=== PATIENT | male | born 1955 | race Caucasian/White ===

== ENCOUNTER 2019-09-05 06:40 | Day surgery (SDC) | payer MEDICARE, MEDICAID ==
[2019-09-05] MEDS ORDERED: Lactated Ringers 1,000 ML IV SCH (07:00)
[2019-09-05] MEDS ORDERED: Propofol 200 MG/20 ML SDV ONE (07:21)
[2019-09-05] MEDS ORDERED: fentaNYL 100 MCG/2 ML SDV ONE (07:21)
[2019-09-05] MEDS ORDERED: Midazolam 1 MG/ML 2 ML SDV ONE (07:21)
[2019-09-05 09:04] VITALS: BP 116/84; PULSE 52
--- NOTE | 2019-09-05 15:05 | OR ---
DATE OF PROCEDURE: 09/05/2019 SURGEON: Gaurav Hicks MD PREOPERATIVE DIAGNOSIS: History of colon polyps. POSTOPERATIVE DIAGNOSES: Small hepatic flexure and transverse colon polyps, history of colon polyps. PROCEDURE: Colonoscopy to the cecum with biopsy resection of 2 small colon polyps. ANESTHESIA: IV anesthesia with monitored anesthesia care. INDICATION: This is a 64-year-old white male who is referred for a colonoscopy because of a history of colon polyps. His last colonoscopic exam done 3 years ago was clear. I counseled him for the procedure including risks and alternatives and he gave his informed consent to proceed. DESCRIPTION OF PROCEDURE: The patient was placed in the left lateral decubitus position. IV anesthesia was administered by the Anesthesia Service. Time-out was held. A rectal exam was performed, which was unremarkable. The flexible video Olympus colonoscope was introduced through his anus, up his rectum, out his colon all way to the cecum. En route, at the hepatic flexure, we saw a small polyp which was removed with a couple bites of biopsy forceps. Once the cecum was reached, the scope was slowly withdrawn examining the mucosa throughout. One additional small polyp was seen in the transverse colon which was removed with the biopsy forceps. The scope was withdrawn further with no other lesions noted. The scope was retroflexed in the rectum with the distal rectum appearing unremarkable. The scope was straightened and removed. He tolerated the procedure well. Gaurav Hicks MD /[id number]
== END 2019-09-05 09:12 | disposition home or self-care (01) ==
LOC: JP.SDS 06:40
PROVIDERS: ATTEND Surgery
DX: Z12.11 Encounter for screening for malignant neoplasm of colon (principal); D12.3 Benign neoplasm of transverse colon; I10 Essential (primary) hypertension; E78.00 Pure hypercholesterolemia, unspecified; K21.9 Gastro-esophageal reflux disease without esophagitis; Z86.010 Personal history of colon polyps
CPT/HCPCS: 45380; J2250; J2704; J3010; J7120; 88305

== ENCOUNTER 2021-09-18 21:12 | Inpatient (IN) | payer MEDICARE, MEDICAID ==
--- NOTE | 2021-09-19 00:30 | EDM.PDOC ---
ED HPI GENERAL MEDICAL PROBLEM - General Chief Complaint: Respiratory Problem Stated Complaint: COVID POSITIVE, EXHAUSTION Time Seen by Provider: 09/18/21 21:19 Source of Information: Reports: Patient History Limitations: Reports: No Limitations - History of Present Illness INITIAL COMMENTS - FREE TEXT/NARRATIVE: Jameson is a 66-year-old male presenting to the ED for increasing shortness of breath, hypoxia and cough. The patient tested positive for COVID-19 7 days ago. He initially had onset of symptoms after visiting his mother in [place] a week before that. Apparently she had similar symptoms during their visit. The patient has not undergone vaccination but has no significant underlying medical conditions except for hypertension. The patient does not smoke. He has had a low-grade fever at home. This week he bought a home oximetry unit and was noting that his oximetry was below 80% at times. The patient does not normally use oxygen at home. - Related Data Allergies Allergy/AdvReac Type Severity Reaction Status Date / Time No Known Allergies Allergy Verified 09/18/21 21:39 Home Meds: Home Meds Albuterol Sulfate [Proair Hfa] 2 puff INH QID PRN 10/07/14 [History] Omeprazole Magnesium [Prilosec Otc] 20 mg PO DAILY 01/02/15 [History] Doxazosin Mesylate [Cardura] 4 mg PO BEDTIME 09/04/19 [History] Metoprolol Succinate [Toprol XL] 25 mg PO DAILY 09/04/19 [History] Past Medical History HEENT History: Reports: Impaired Vision Cardiovascular History: Reports: High Cholesterol, Hypertension Respiratory History: Reports: Asthma Gastrointestinal History: Reports: Colon Polyp, GERD, Hiatal Hernia Genitourinary History: Reports: BPH Musculoskeletal History: Reports: Back Pain, Chronic, Fracture, Osteoarthritis Neurological History: Reports: Vertigo - Infectious Disease History Infectious Disease History: Reports: Chicken Pox, Measles, Mumps, Novel Coronavirus - Past Surgical History HEENT Surgical History: Reports: None Cardiovascular Surgical History: Reports: None Respiratory Surgical History: Reports: None GI Surgical History: Reports: Colonoscopy Male Surgical History: Reports: None Neurological Surgical History: Reports: None Musculoskeletal Surgical History: Reports: None Social & Family History - Family History Family Medical History: No Pertinent Family History - Tobacco Use Tobacco Use Status *Q: Never Tobacco User - Caffeine Use Caffeine Use: Reports: Coffee - Recreational Drug Use Recreational Drug Use: No ED ROS GENERAL - Review of Systems Review Of Systems: See Below Constitutional: Reports: Malaise, Weakness, Decreased Appetite HEENT: Reports: Rhinitis Respiratory: Reports: Shortness of Breath, Cough. Denies: Sputum Cardiovascular: Reports: Chest Pain (Chest heaviness), Blood Pressure Problem (History of hypertension) Endocrine: Reports: Fatigue GI/Abdominal: Reports: Decreased Appetite, Nausea. Denies: Vomiting : Reports: No Symptoms Musculoskeletal: Reports: Back Pain (Chronic low back pain), Joint Pain, Muscle Pain (Muscle aches) Skin: Reports: No Symptoms Neurological: Reports: No Symptoms Psychiatric: Reports: Anxiety Hematologic/Lymphatic: Reports: No Symptoms Immunologic: Reports: No Symptoms ED EXAM, GENERAL - Physical Exam Exam: See Below Exam Limited By: No Limitations General Appearance: Alert, No Apparent Distress, Anxious Eye Exam: Bilateral Eye: EOMI, PERRL Nose: Nasal Swelling, Clear Rhinorrhea Throat/Mouth: Normal Inspection, Normal Oropharynx, Normal Voice, No Airway Compromise Head: Atraumatic, Normocephalic Neck: Normal Inspection, Supple, Non-Tender. No: Lymphadenopathy (R), Lymphadenopathy (L) Respiratory/Chest: No Respiratory Distress, No Accessory Muscle Use, Rhonchi (Scattered rhonchi in the bases bilaterally) Cardiovascular: Normal Peripheral Pulses, Regular Rate, Rhythm, No Murmur Peripheral Pulses: 2+: Radial (L), Radial (R) GI/Abdominal: Normal Bowel Sounds, Soft, Non-Tender Back Exam: Muscle Spasm (Low back paraspinal muscle spasm), Paraspinal Tenderness Extremities: Normal Inspection, Normal Range of Motion Neurological: Alert, Oriented, Normal Cognition, No Motor/Sensory Deficits Psychiatric: Anxious Skin Exam: Warm, Dry Course - Vital Signs Last Recorded V/S: Last Vital Signs Temp 36.6 C 09/21/21 16:00 Pulse 76 09/21/21 16:00 Resp 26 H 09/21/21 16:00 BP 137/71 09/21/21 16:00 Pulse Ox 96 09/21/21 16:00 - Orders/Labs/Meds Orders: Medication Orders Acetaminophen (Acetaminophen 325 Mg Tab) 650 mg PO Q4H PRN PRN Reason: Pain (Mild 1-3)/fever Last Admin: 09/21/21 16:00 Dose: 650 mg Documented by: MATILDE Albuterol (Albuterol 8 Gm Inhaler) 0 gm INH QID PRN PRN Reason: Shortness of Breath Ascorbic Acid (Ascorbic Acid 500 Mg Tab) 500 mg PO DAILY [facility] Last Admin: 09/21/21 12:41 Dose: 500 mg Documented by: MATILDE Baricitinib (Baricitinib 2 Mg Tab) 4 mg PO Q24H [facility] Stop: 10/02/21 16:01 Last Admin: 09/21/21 15:49 Dose: 4 mg Documented by: Admin: 09/20/21 15:38 Dose: 4 mg Documented by: Admin: 09/19/21 17:22 Dose: 4 mg Documented by: REINIER Cholecalciferol (Cholecalciferol (Vitamin D3) 25 Mcg Tab) 25 mcg PO DAILY [facility] Last Admin: 09/21/21 12:41 Dose: 25 mcg Documented by: MATILDE Dexamethasone (Dexamethasone 4 Mg/Ml Sdv) 6 mg IVPUSH Q24H [facility] Stop: 09/27/21 18:01 Last Admin: 09/21/21 17:09 Dose: 6 mg Documented by: Admin: 09/20/21 17:16 Dose: 6 mg Documented by: Admin: 09/19/21 17:23 Dose: 6 mg Documented by: REINIER Doxazosin Mesylate (Doxazosin 4 Mg Tab) 4 mg PO BEDTIME [facility] Last Admin: 09/20/21 21:00 Dose: 4 mg Documented by: Admin: 09/19/21 21:27 Dose: 4 mg Documented by: MARILYN Enoxaparin Sodium (Enoxaparin 40 Mg/0.4 Ml Syringe) 40 mg SUBCUT Q24H [facility] Last Admin: 09/21/21 15:49 Dose: 40 mg Documented by: Admin: 09/20/21 15:37 Dose: 40 mg Documented by: JESSICA Ceftriaxone Sodium 1 gm/ (Sodium Chloride) 50 mls @ 100 mls/hr IV Q24H [facility] Last Admin: 09/21/21 14:24 Dose: 100 mls/hr Documented by: Admin: 09/20/21 15:28 Dose: 100 mls/hr Documented by: Admin: 09/19/21 16:27 Dose: 100 mls/hr Documented by: REINIER Doxycycline Hyclate 100 mg/ (Sodium Chloride) 100 mls @ 100 mls/hr IV Q12H [facility] Last Admin: 09/21/21 15:48 Dose: 100 mls/hr Documented by: Admin: 09/21/21 04:26 Dose: 100 mls/hr Documented by: Admin: 09/20/21 16:36 Dose: 100 mls/hr Documented by: Admin: 09/20/21 04:11 Dose: 100 mls/hr Documented by: Admin: 09/19/21 17:25 Dose: 100 mls/hr Documented by: REINIER Remdesivir 100 mg/ Sodium (Chloride) 100 mls @ 100 mls/hr IV Q24H [facility] Stop: 09/22/21 20:59 Last Admin: 09/20/21 19:47 Dose: 100 mls/hr Documented by: Admin: 09/19/21 20:06 Dose: 100 mls/hr Documented by: JARON Metoprolol Succinate (Metoprolol Succinate 25 Mg Tab.Er) 25 mg PO DAILY [facility] Last Admin: 09/21/21 08:13 Dose: 25 mg Documented by: Admin: 09/20/21 08:50 Dose: 25 mg Documented by: JESSICA Multivitamins/Minerals (Multivitamins With Iron/Calcium/Folic Acid/Minerals Tab) 1 tab PO DAILY [facility] Last Admin: 09/21/21 12:41 Dose: 1 tab Documented by: MATILDE Ondansetron HCl (Ondansetron 4 Mg/2 Ml Sdv) 4 mg IV Q4H PRN PRN Reason: Nausea/Vomiting Pantoprazole Sodium (Pantoprazole 40 Mg Tab.Cr) 40 mg PO ACBREAKFAST [facility] Last Admin: 09/21/21 08:13 Dose: 40 mg Documented by: Admin: 09/20/21 08:55 Dose: 40 mg Documented by: JESSICA Polyethylene Glycol (Polyethylene Glycol 3350 Powder 17 Gm Packet) 17 gm PO DAILY PRN PRN Reason: Constipation Sodium Chloride (Sodium Chloride 0.9% 10 Ml Syringe) 10 ml FLUSH ASDIRECTED PRN PRN Reason: Keep Vein Open Zinc Gluconate (Zinc (Zinc Gluconate) 50 Mg Tab) 50 mg PO DAILY [facility] Last Admin: 09/21/21 12:41 Dose: 50 mg Documented by: MATILDE Labs: Laboratory Tests 09/18/21 09/18/21 09/18/21 Range/Units 21:43 21:43 21:43 WBC 5.8 (4.5-11.0) K/uL RBC 4.74 (4.30-5.90) M/uL Hgb 13.9 (12.0-15.0) g/dL Hct 39.3 L (40.0-54.0) % MCV 83 (80-98) fL MCH 29 (27-31) pg MCHC 35 (32-36) % Plt Count 193 (150-400) K/uL Neut % (Auto) 82.5 H (36-66) % Lymph % (Auto) 11.9 L (24-44) % [place] % (Auto) 5.3 (2-6) % Eos % (Auto) 0.0 L (2-4) % Baso % (Auto) 0.3 (0-1) % Add Manual Diff Neutrophils % (Manual) (36-66) % Lymphocytes % (Manual) (24-44) % Monocytes % (Manual) (2-6) % D-Dimer, Quantitative (0.0-500.0) ng/mL Puncture Site ABG pH (7.350-7.450) ABG pCO2 (35.0-42.0) mmHg ABG pO2 (75.0-100.0) mmHg ABG HCO3 (22.0-26.0) mmol/L ABG Total CO2 (23.0-27.0) mmol/L ABG O2 Saturation (95.0-98.0) % ABG O2 Content (15.0-23.0) %vol ABG Base Excess mm/L ABG Hemoglobin (13.5-18.0) g/dL ABG Oxyhemoglobin % ABG Carboxyhemoglobin (0.0-1.6) % ABG Methemoglobin % O2 Delivery Device Sodium 126 L (140-148) mmol/L Potassium 3.8 (3.6-5.2) mmol/L Chloride 91 L (100-108) mmol/L Carbon Dioxide 24 (21-32) mmol/L Anion Gap 14.8 H (5.0-14.0) mmol/L BUN 15 (7-18) mg/dL Creatinine 1.0 (0.8-1.3) mg/dL Est Cr Clr Drug Dosing 68.40 mL/min Estimated GFR (MDRD) > 60 (>60) Glucose 124 H (74-106) mg/dL Lactic Acid 1.0 (0.4-2.0) mmol/L Calcium 8.3 L (8.5-10.1) mg/dL Ferritin 2323 H (8-388) ng/ml Total Bilirubin 0.5 (0.2-1.0) mg/dL AST 57 H (15-37) U/L ALT 35 (12-78) U/L Alkaline Phosphatase 39 L (46-116) U/L Lactate Dehydrogenase 504 H (85-227) U/L C-Reactive Protein 10.94 H (0.0-0.3) mg/dL Total Protein 6.6 (6.4-8.2) g/dL Albumin 2.9 L (3.4-5.0) g/dL Globulin 3.7 H (2.3-3.5) g/dL Albumin/Globulin Ratio 0.8 L (1.2-2.2) Procalcitonin ng/mL 09/18/21 09/19/21 09/19/21 Range/Units 21:43 02:05 11:56 WBC (4.5-11.0) K/uL RBC (4.30-5.90) M/uL Hgb (12.0-15.0) g/dL Hct (40.0-54.0) % MCV (80-98) fL MCH (27-31) pg MCHC (32-36) % Plt Count (150-400) K/uL Neut % (Auto) (36-66) % Lymph % (Auto) (24-44) % [place] % (Auto) (2-6) % Eos % (Auto) (2-4) % Baso % (Auto) (0-1) % Add Manual Diff Neutrophils % (Manual) (36-66) % Lymphocytes % (Manual) (24-44) % Monocytes % (Manual) (2-6) % D-Dimer, Quantitative 1328.62 H (0.0-500.0) ng/mL Puncture Site L brachial ABG pH 7.475 H (7.350-7.450) ABG pCO2 34.5 L (35.0-42.0) mmHg ABG pO2 61.4 L (75.0-100.0) mmHg ABG HCO3 25.1 (22.0-26.0) mmol/L ABG Total CO2 21.8 L (23.0-27.0) mmol/L ABG O2 Saturation 92.1 L (95.0-98.0) % ABG O2 Content 17.7 (15.0-23.0) %vol ABG Base Excess 2.3 mm/L ABG Hemoglobin 13.9 (13.5-18.0) g/dL ABG Oxyhemoglobin 90.4 % ABG Carboxyhemoglobin 0.8 (0.0-1.6) % ABG Methemoglobin 1.0 % O2 Delivery Device Hi flow nasal cannu Sodium (140-148) mmol/L Potassium (3.6-5.2) mmol/L Chloride (100-108) mmol/L Carbon Dioxide (21-32) mmol/L Anion Gap (5.0-14.0) mmol/L BUN (7-18) mg/dL Creatinine (0.8-1.3) mg/dL Est Cr Clr Drug Dosing mL/min Estimated GFR (MDRD) (>60) Glucose (74-106) mg/dL Lactic Acid (0.4-2.0) mmol/L Calcium (8.5-10.1) mg/dL Ferritin (8-388) ng/ml Total Bilirubin (0.2-1.0) mg/dL AST (15-37) U/L ALT (12-78) U/L Alkaline Phosphatase (46-116) U/L Lactate Dehydrogenase (85-227) U/L C-Reactive Protein (0.0-0.3) mg/dL Total Protein (6.4-8.2) g/dL Albumin (3.4-5.0) g/dL Globulin (2.3-3.5) g/dL Albumin/Globulin Ratio (1.2-2.2) Procalcitonin 0.05 ng/mL 09/19/21 09/19/21 Range/Units 13:07 13:07 WBC 6.0 (4.5-11.0) K/uL RBC 4.84 (4.30-5.90) M/uL Hgb 14.2 (12.0-15.0) g/dL Hct 41.3 (40.0-54.0) % MCV 85 (80-98) fL MCH 29 (27-31) pg MCHC 34 (32-36) % Plt Count 239 (150-400) K/uL Neut % (Auto) (36-66) % Lymph % (Auto) (24-44) % [place] % (Auto) (2-6) % Eos % (Auto) (2-4) % Baso % (Auto) (0-1) % Add Manual Diff Yes Neutrophils % (Manual) 82 H (36-66) % Lymphocytes % (Manual) 11 L (24-44) % Monocytes % (Manual) 7 H (2-6) % D-Dimer, Quantitative (0.0-500.0) ng/mL Puncture Site ABG pH (7.350-7.450) ABG pCO2 (35.0-42.0) mmHg ABG pO2 (75.0-100.0) mmHg ABG HCO3 (22.0-26.0) mmol/L ABG Total CO2 (23.0-27.0) mmol/L ABG O2 Saturation (95.0-98.0) % ABG O2 Content (15.0-23.0) %vol ABG Base Excess mm/L ABG Hemoglobin (13.5-18.0) g/dL ABG Oxyhemoglobin % ABG Carboxyhemoglobin (0.0-1.6) % ABG Methemoglobin % O2 Delivery Device Sodium 134 L (140-148) mmol/L Potassium 4.2 (3.6-5.2) mmol/L Chloride 96 L (100-108) mmol/L Carbon Dioxide 28 (21-32) mmol/L Anion Gap 14.2 H (5.0-14.0) mmol/L BUN 16 (7-18) mg/dL Creatinine 1.0 (0.8-1.3) mg/dL Est Cr Clr Drug Dosing 68.40 mL/min Estimated GFR (MDRD) > 60 (>60) Glucose 167 H (74-106) mg/dL Lactic Acid (0.4-2.0) mmol/L Calcium 8.6 (8.5-10.1) mg/dL Ferritin (8-388) ng/ml Total Bilirubin 0.4 (0.2-1.0) mg/dL AST 61 H (15-37) U/L ALT 43 (12-78) U/L Alkaline Phosphatase 42 L (46-116) U/L Lactate Dehydrogenase (85-227) U/L C-Reactive Protein (0.0-0.3) mg/dL Total Protein 6.7 (6.4-8.2) g/dL Albumin 2.7 L (3.4-5.0) g/dL Globulin 4.0 H (2.3-3.5) g/dL Albumin/Globulin Ratio 0.7 L (1.2-2.2) Procalcitonin ng/mL Meds: Medications Generic Name Dose Route Start Last Admin Trade Name Freq PRN Reason Stop Dose Admin Acetaminophen 650 mg 09/19/21 14:51 09/21/21 16:00 Acetaminophen 325 Mg Tab PO 650 mg Q4H PRN Administration Pain (Mild 1-3)/fever Albuterol 0 gm 09/19/21 14:51 Albuterol 8 Gm Inhaler INH QID PRN Shortness of Breath Ascorbic Acid 500 mg 09/21/21 10:30 09/21/21 12:41 Ascorbic Acid 500 Mg Tab PO 500 mg DAILY [facility] Administration Baricitinib 4 mg 09/19/21 16:00 09/21/21 15:49 Baricitinib 2 Mg Tab PO 10/02/21 16:01 4 mg Q24H [facility] Administration Cholecalciferol 25 mcg 09/21/21 10:30 09/21/21 12:41 Cholecalciferol (Vitamin D3) 25 Mcg Tab PO 25 mcg DAILY [facility] Administration Dexamethasone 6 mg 09/19/21 18:00 09/21/21 17:09 Dexamethasone 4 Mg/Ml Sdv IVPUSH 09/27/21 18:01 6 mg Q24H [facility] Administration Doxazosin Mesylate 4 mg 09/19/21 21:00 09/20/21 21:00 Doxazosin 4 Mg Tab PO 4 mg BEDTIME [facility] Administration Enoxaparin Sodium 40 mg 09/20/21 16:00 09/21/21 15:49 Enoxaparin 40 Mg/0.4 Ml Syringe SUBCUT 40 mg Q24H [facility] Administration Ceftriaxone Sodium 1 gm/ 50 mls @ 100 mls/hr 09/19/21 15:00 09/21/21 14:24 Sodium Chloride IV 100 mls/hr Q24H [facility] Administration Doxycycline Hyclate 100 mg/ 100 mls @ 100 mls/hr 09/19/21 16:00 09/21/21 15:48 Sodium Chloride IV 100 mls/hr Q12H [facility] Administration Remdesivir 100 mg/ Sodium 100 mls @ 100 mls/hr 09/19/21 20:00 09/20/21 19:47 Chloride IV 09/22/21 20:59 100 mls/hr Q24H [facility] Administration Metoprolol Succinate 25 mg 09/20/21 09:00 09/21/21 08:13 Metoprolol Succinate 25 Mg Tab.Er PO 25 mg DAILY [facility] Administration Multivitamins/Minerals 1 tab 09/21/21 10:30 09/21/21 12:41 Multivitamins With Iron/Calcium/Folic Acid/Minerals Tab PO 1 tab DAILY [facility] Administration Ondansetron HCl 4 mg 09/19/21 14:51 Ondansetron 4 Mg/2 Ml Sdv IV Q4H PRN Nausea/Vomiting Pantoprazole Sodium 40 mg 09/20/21 08:30 09/21/21 08:13 Pantoprazole 40 Mg Tab.Cr PO 40 mg ACBREAKFAST [facility] Administration Polyethylene Glycol 17 gm 09/19/21 14:51 Polyethylene Glycol 3350 Powder 17 Gm Packet PO DAILY PRN Constipation Sodium Chloride 10 ml 09/19/21 14:51 Sodium Chloride 0.9% 10 Ml Syringe FLUSH ASDIRECTED PRN Keep Vein Open Zinc Gluconate 50 mg 09/21/21 10:30 09/21/21 12:41 Zinc (Zinc Gluconate) 50 Mg Tab PO 50 mg DAILY [facility] Administration Discontinued Medications Generic Name Dose Route Start Last Admin Trade Name Freq PRN Reason Stop Dose Admin Acetaminophen 650 mg 09/19/21 01:26 Acetaminophen 325 Mg Tab PO Q4H PRN Fever Greater Than 101 Dexamethasone 6 mg 09/19/21 01:30 09/19/21 02:25 Dexamethasone 4 Mg/Ml Sdv IVPUSH 09/27/21 09:01 6 mg DAILY [facility] Administration Dexamethasone Confirm 09/19/21 02:16 09/19/21 04:22 Dexamethasone 4 Mg/Ml Sdv Administered 09/19/21 02:17 Not Given Dose 8 mg .ROUTE .STK-MED ONE Enoxaparin Sodium 40 mg 09/19/21 15:00 09/19/21 17:22 Enoxaparin 40 Mg/0.4 Ml Syringe SUBCUT 40 mg DAILY [facility] Administration Remdesivir 200 mg/ Sodium 250 mls @ 250 mls/hr 09/19/21 01:26 09/19/21 02:24 Chloride IV 09/19/21 01:27 250 mls/hr ONETIME ONE Administration Remdesivir Confirm 09/19/21 01:46 09/19/21 04:22 Remdesivir Administered 09/19/21 01:47 Not Given Dose 200 mls @ as directed .ROUTE .STK-MED ONE Non-Formulary Medication 20 mg 09/20/21 09:00 Omeprazole Magnesium [Prilosec Otc] PO DAILY [facility] - Radiology Interpretation Free Text/Narrative:: I reviewed the patient's one-view portable chest x-ray demonstrating scattered bilateral groundglass infiltrates consistent with Covid pneumonia. There were no pleural effusions. - Re-Assessments/Exams Free Text/Narrative Re-Assessment/Exam: 09/19/21 00:27 I reviewed the patient's labs showing a CBC with a leukocyte count of 5.8, hemoglobin of 13.9, hematocrit of 39.3, and platelet count of 193,000. The patient's comprehensive metabolic panel shows a sodium of 126, the potassium of 3.8, chloride of 91, bicarbonate of 24, BUN of 15 with a creatinine 1.0 and a glucose of 124. Calcium is 8.3. AST is 57 with an ALT of 35 and alkaline phosphatase of 31. Of the Covid labs the LDH is elevated at 504, CRP is 10.94, ferritin is 2323 and lactate is 1.0. The chest x-ray showed scattered bilateral groundglass infiltrates in the lower lungs consistent with Covid pneumonia. The patient is requiring oxygen 5 L by nasal cannula to maintain oxygen saturations above 90%. 09/19/21 03:13 Jameson is started on dexamethasone 6 mg IV and remdesivir 200 mg IV to treat his symptomatic COVID-19 pneumonia with hypoxia. The patient has had symptoms for 2 weeks but despite this is continued to significantly worsen. At this point he will need hospitalization, however, there have been no beds available anywhere to accept the patient so he will board in the ED. Is currently on 10 L by high flow nasal cannula to keep his SPO2 above 90%. 09/19/21 05:22 I attempted placement of the patient at several hospitals including [facility], [facility], [facility], [facility] in [place], [facility] in [place], [facility] in [place], and [facility] in [place]. There were no beds available at either of the [place] or [place] facilities. [place] did not have an ICU bed available but may urges later today. [facility] in [place] did not have any beds available currently but recommended calling back after 10 AM as they may have discharges today. [facility] in [place] does not take admissions during the night and [facility] and per them did not even answer their phone. 09/19/21 07:00 Care of the patient is transferred from Dr. Samuels to Dr. Scott while awaiting placement for further care of his pneumonia due to C OVID-19 with hypoxia. Currently the patient is on oxygen at 10 L/min via high flow nasal cannula and receiving remdesivir and dexamethasone IV. Departure - Departure Time of Disposition: 15:26 Disposition: Admitted As Inpatient 64 Clinical Impression: Hypoxia, Pneumonia due to COVID-19 virus - Discharge Information Sepsis Event Note (ED) - Evaluation Sepsis Screening Result: No Definite Risk - Problem List & Annotations (1) HTN, Benign essential hypertension SNOMED Code(s): 1213519 Code(s): I10 - ESSENTIAL (PRIMARY) HYPERTENSION Status: Chronic Priority: Medium Current Visit: No (2) Hypoxia SNOMED Code(s): 823090542 Code(s): R09.02 - HYPOXEMIA Status: Acute Priority: High Current Visit: Yes (3) Pneumonia due to COVID-19 virus SNOMED Code(s): 342856272100524734 Code(s): U07.1 - COVID-19; J12.82 - PNEUMONIA DUE TO CORONAVIRUS DISEASE 2019 Status: Acute Priority: High Current Visit: Yes - Problem List Review Problem List Initiated/Reviewed/Updated: Yes
[2021-09-19] MEDS ORDERED: REMDESIVIR 200 MG in Sodium Chloride 0.9% 250 ML IV ONE (01:26)
[2021-09-19] MEDS ORDERED: Acetaminophen 325 MG Tab PO PRN (01:26)
[2021-09-19] MEDS ORDERED: Dexamethasone 4 MG/ML SDV IVPUSH SCH (01:30)
[2021-09-19] MEDS ORDERED: REMDESIVIR 200 MG ONE (01:46)
[2021-09-19] MEDS ORDERED: Dexamethasone 4 MG/ML SDV ONE (02:16)
[2021-09-19] MEDS ORDERED: Sodium Chloride 0.9% 10 ML Syringe FLUSH PRN (14:51)
[2021-09-19] MEDS ORDERED: Polyethylene Glycol 3350 Powder 17 GM Packet PO PRN (14:51)
[2021-09-19] MEDS ORDERED: Ondansetron 4 MG/2 ML SDV IV PRN (14:51)
[2021-09-19] MEDS ORDERED: Albuterol 8 GM Inhaler INH PRN (14:51)
--- NOTE | 2021-09-19 14:51 | PCM.HP.2 ---
H&P History of Present Illness - General Date of Service: 09/19/21 Admit Problem/Dx: Admission Diagnosis/Problem Admission Diagnosis/Problem Hypoxia Source of Information: Patient, Family, Provider, RN Notes Reviewed History Limitations: Reports: No Limitations - History of Present Illness Initial Comments - Free Text/Narative: is a 66-year-old gentleman who was admitted through the emergency department with weakness, shortness of breath, and hypoxia, secondary to COVID- 19 infection with bilateral pneumonia and developing ARDS. The patient tested positive for COVID-19 7 days ago. He initially had onset of symptoms after visiting his mother in [place] a week before that. Apparently she had similar symptoms during their visit. The patient has not undergone vaccination but has no significant underlying medical conditions except for hypertension. The patient does not smoke. He has had a low-grade fever at home. This week he bought a home oximetry unit and was noting that his oximetry was below 80% at times. The patient does not normally use oxygen at home. He was started on IV Decadron and remdesivir while in the emergency department. He was kept in the emergency department overnight as there were no beds available in this facility and no beds available for transfer. While in the emergency department he did experience progressive respiratory decline requiring higher levels of supplemental oxygen. - Related Data Allergies/Adverse Reactions: Allergies Allergy/AdvReac Type Severity Reaction Status Date / Time No Known Allergies Allergy Verified 09/18/21 21:39 Home Medications: Home Meds Albuterol Sulfate [Proair Hfa] 2 puff INH QID PRN 10/07/14 [History] Omeprazole Magnesium [Prilosec Otc] 20 mg PO DAILY 01/02/15 [History] Doxazosin Mesylate [Cardura] 4 mg PO BEDTIME 09/04/19 [History] Metoprolol Succinate [Toprol XL] 25 mg PO DAILY 09/04/19 [History] Past Medical History HEENT History: Reports: Impaired Vision Cardiovascular History: Reports: High Cholesterol, Hypertension Respiratory History: Reports: Asthma Gastrointestinal History: Reports: Colon Polyp, GERD, Hiatal Hernia Genitourinary History: Reports: BPH Musculoskeletal History: Reports: Back Pain, Chronic, Fracture, Osteoarthritis Neurological History: Reports: Vertigo - Infectious Disease History Infectious Disease History: Reports: Chicken Pox, Measles, Mumps, Novel Coronavirus - Past Surgical History HEENT Surgical History: Reports: None Cardiovascular Surgical History: Reports: None Respiratory Surgical History: Reports: None GI Surgical History: Reports: Colonoscopy Male Surgical History: Reports: None Neurological Surgical History: Reports: None Musculoskeletal Surgical History: Reports: None Social & Family History - Family History Family Medical History: No Pertinent Family History - Tobacco Use Tobacco Use Status *Q: Never Tobacco User - Caffeine Use Caffeine Use: Reports: Coffee - Recreational Drug Use Recreational Drug Use: No H&P Review of Systems - Review of Systems: Review Of Systems: See Below General: Reports: Fever, Chills, Malaise, Weakness, Fatigue, Decreased Appetite HEENT: Reports: No Symptoms Pulmonary: Reports: Shortness of Breath, Cough. Denies: Wheezing, Pleuritic Chest Pain, Sputum, Hemoptysis Cardiovascular: Reports: Dyspnea on Exertion. Denies: Chest Pain, Palpitations, Orthopnea, PND, Edema, Lightheadedness Gastrointestinal: Reports: No Symptoms Genitourinary: Reports: No Symptoms Musculoskeletal: Reports: No Symptoms Skin: Reports: No Symptoms Psychiatric: Reports: No Symptoms Neurological: Reports: No Symptoms Hematologic/Lymphatic: Reports: No Symptoms Immunologic: Reports: No Symptoms Exam - Exam Exam: See Below - Vital Signs Vital Signs: Last Vital Signs Temp 98 F 09/19/21 08:57 Pulse 66 09/19/21 14:05 Resp 17 09/19/21 08:57 BP 115/58 L 09/19/21 14:05 Pulse Ox 91 L 09/19/21 14:05 Weight: 175 lb - Exam Quality Assessment: Supplemental Oxygen, DVT Prophylaxis General: Alert, Oriented, Cooperative, Moderate Distress HEENT: Conjunctiva Clear, Hearing Intact, Mucosa Moist & Bertram, Normal Nasal Se ptum, Posterior Pharynx Clear, Pupils Equal Neck: Supple, Trachea Midline, +2 Carotid Pulse wo Bruit Lungs: Rales. No: Crackles, Rhonchi, Wheezing Cardiovascular: Regular Rate, Regular Rhythm, Normal S1, Normal S2. No: Syst olic Murmur, Diastolic Murmur GI/Abdominal Exam: Soft, Non-Tender, No Organomegaly, No Distention Back Exam: Normal Inspection, Full Range of Motion Extremities: Non-Tender, No Pedal Edema Skin: Warm, Dry, Intact Neurological: Cranial Nerves Intact, Strength Equal Bilateral, Normal Speech, Normal Tone, Sensation Intact. No: Focal Deficit Neuro Extensive - Mental Status: Alert, Oriented x3, Normal Mood/Affect, Normal Cognition, Memory Intact - Patient Data Lab Results Last 24 hrs: Laboratory Results - last 24 hr 09/18/21 09/18/21 09/18/21 Range/Units 21:43 21:43 21:43 WBC 5.8 (4.5-11.0) K/uL RBC 4.74 (4.30-5.90) M/uL Hgb 13.9 (12.0-15.0) g/dL Hct 39.3 L (40.0-54.0) % MCV 83 (80-98) fL MCH 29 (27-31) pg MCHC 35 (32-36) % Plt Count 193 (150-400) K/uL Neut % (Auto) 82.5 H (36-66) % Lymph % (Auto) 11.9 L (24-44) % [place] % (Auto) 5.3 (2-6) % Eos % (Auto) 0.0 L (2-4) % Baso % (Auto) 0.3 (0-1) % Add Manual Diff D-Dimer, Quantitative (0.0-500.0) ng/mL Puncture Site ABG pH (7.350-7.450) ABG pCO2 (35.0-42.0) mmHg ABG pO2 (75.0-100.0) mmHg ABG HCO3 (22.0-26.0) mmol/L ABG Total CO2 (23.0-27.0) mmol/L ABG O2 Saturation (95.0-98.0) % ABG O2 Content (15.0-23.0) %vol ABG Base Excess mm/L ABG Hemoglobin (13.5-18.0) g/dL ABG Oxyhemoglobin % ABG Carboxyhemoglobin (0.0-1.6) % ABG Methemoglobin % O2 Delivery Device Sodium 126 L (140-148) mmol/L Potassium 3.8 (3.6-5.2) mmol/L Chloride 91 L (100-108) mmol/L Carbon Dioxide 24 (21-32) mmol/L Anion Gap 14.8 H (5.0-14.0) mmol/L BUN 15 (7-18) mg/dL Creatinine 1.0 (0.8-1.3) mg/dL Est Cr Clr Drug Dosing 68.40 mL/min Estimated GFR (MDRD) > 60 (>60) Glucose 124 H (74-106) mg/dL Lactic Acid 1.0 (0.4-2.0) mmol/L Calcium 8.3 L (8.5-10.1) mg/dL Ferritin 2323 H (8-388) ng/ml Total Bilirubin 0.5 (0.2-1.0) mg/dL AST 57 H (15-37) U/L ALT 35 (12-78) U/L Alkaline Phosphatase 39 L (46-116) U/L Lactate Dehydrogenase 504 H (85-227) U/L C-Reactive Protein 10.94 H (0.0-0.3) mg/dL Total Protein 6.6 (6.4-8.2) g/dL Albumin 2.9 L (3.4-5.0) g/dL Globulin 3.7 H (2.3-3.5) g/dL Albumin/Globulin Ratio 0.8 L (1.2-2.2) Procalcitonin ng/mL 09/18/21 09/19/21 09/19/21 Range/Units 21:43 02:05 11:56 WBC (4.5-11.0) K/uL RBC (4.30-5.90) M/uL Hgb (12.0-15.0) g/dL Hct (40.0-54.0) % MCV (80-98) fL MCH (27-31) pg MCHC (32-36) % Plt Count (150-400) K/uL Neut % (Auto) (36-66) % Lymph % (Auto) (24-44) % [place] % (Auto) (2-6) % Eos % (Auto) (2-4) % Baso % (Auto) (0-1) % Add Manual Diff D-Dimer, Quantitative 1328.62 H (0.0-500.0) ng/mL Puncture Site L brachial ABG pH 7.475 H (7.350-7.450) ABG pCO2 34.5 L (35.0-42.0) mmHg ABG pO2 61.4 L (75.0-100.0) mmHg ABG HCO3 25.1 (22.0-26.0) mmol/L ABG Total CO2 21.8 L (23.0-27.0) mmol/L ABG O2 Saturation 92.1 L (95.0-98.0) % ABG O2 Content 17.7 (15.0-23.0) %vol ABG Base Excess 2.3 mm/L ABG Hemoglobin 13.9 (13.5-18.0) g/dL ABG Oxyhemoglobin 90.4 % ABG Carboxyhemoglobin 0.8 (0.0-1.6) % ABG Methemoglobin 1.0 % O2 Delivery Device Hi flow nasal cannu Sodium (140-148) mmol/L Potassium (3.6-5.2) mmol/L Chloride (100-108) mmol/L Carbon Dioxide (21-32) mmol/L Anion Gap (5.0-14.0) mmol/L BUN (7-18) mg/dL Creatinine (0.8-1.3) mg/dL Est Cr Clr Drug Dosing mL/min Estimated GFR (MDRD) (>60) Glucose (74-106) mg/dL Lactic Acid (0.4-2.0) mmol/L Calcium (8.5-10.1) mg/dL Ferritin (8-388) ng/ml Total Bilirubin (0.2-1.0) mg/dL AST (15-37) U/L ALT (12-78) U/L Alkaline Phosphatase (46-116) U/L Lactate Dehydrogenase (85-227) U/L C-Reactive Protein (0.0-0.3) mg/dL Total Protein (6.4-8.2) g/dL Albumin (3.4-5.0) g/dL Globulin (2.3-3.5) g/dL Albumin/Globulin Ratio (1.2-2.2) Procalcitonin 0.05 ng/mL 09/19/21 09/19/21 Range/Units 13:07 13:07 WBC 6.0 (4.5-11.0) K/uL RBC 4.84 (4.30-5.90) M/uL Hgb 14.2 (12.0-15.0) g/dL Hct 41.3 (40.0-54.0) % MCV 85 (80-98) fL MCH 29 (27-31) pg MCHC 34 (32-36) % Plt Count 239 (150-400) K/uL Neut % (Auto) (36-66) % Lymph % (Auto) (24-44) % [place] % (Auto) (2-6) % Eos % (Auto) (2-4) % Baso % (Auto) (0-1) % Add Manual Diff Yes D-Dimer, Quantitative (0.0-500.0) ng/mL Puncture Site ABG pH (7.350-7.450) ABG pCO2 (35.0-42.0) mmHg ABG pO2 (75.0-100.0) mmHg ABG HCO3 (22.0-26.0) mmol/L ABG Total CO2 (23.0-27.0) mmol/L ABG O2 Saturation (95.0-98.0) % ABG O2 Content (15.0-23.0) %vol ABG Base Excess mm/L ABG Hemoglobin (13.5-18.0) g/dL ABG Oxyhemoglobin % ABG Carboxyhemoglobin (0.0-1.6) % ABG Methemoglobin % O2 Delivery Device Sodium 134 L (140-148) mmol/L Potassium 4.2 (3.6-5.2) mmol/L Chloride 96 L (100-108) mmol/L Carbon Dioxide 28 (21-32) mmol/L Anion Gap 14.2 H (5.0-14.0) mmol/L BUN 16 (7-18) mg/dL Creatinine 1.0 (0.8-1.3) mg/dL Est Cr Clr Drug Dosing 68.40 mL/min Estimated GFR (MDRD) > 60 (>60) Glucose 167 H (74-106) mg/dL Lactic Acid (0.4-2.0) mmol/L Calcium 8.6 (8.5-10.1) mg/dL Ferritin (8-388) ng/ml Total Bilirubin 0.4 (0.2-1.0) mg/dL AST 61 H (15-37) U/L ALT 43 (12-78) U/L Alkaline Phosphatase 42 L (46-116) U/L Lactate Dehydrogenase (85-227) U/L C-Reactive Protein (0.0-0.3) mg/dL Total Protein 6.7 (6.4-8.2) g/dL Albumin 2.7 L (3.4-5.0) g/dL Globulin 4.0 H (2.3-3.5) g/dL Albumin/Globulin Ratio 0.7 L (1.2-2.2) Procalcitonin ng/mL Result Diagrams: 09/19/21 13:07 09/19/21 13:07 Sepsis Event Note - Evaluation Sepsis Screening Result: No Definite Risk - Focused Exam Vital Signs: Vital Signs Temp Pulse Resp BP Pulse Ox 09/19/21 14:05 66 115/58 L 91 L 09/19/21 11:23 60 118/72 96 09/19/21 08:57 98 F 66 17 135/91 H 94 L 09/19/21 06:18 61 18 123/71 94 L 09/19/21 05:48 74 18 129/82 91 L 09/19/21 05:18 65 18 125/72 89 L 09/19/21 04:48 64 18 126/81 90 L 09/19/21 03:48 64 18 122/71 90 L 09/19/21 03:18 69 18 121/65 89 L *Q Meaningful Use (ADM) - VTE Risk Assess *Q Each Risk Factor Represents 1 Point: Obesity ( BMI > 25 kg/m2), Serious lung disease including pneumonia Total Score 1 Point Risk Factors: 2 Each Risk Factor Represents 2 Points: Age 60 - 74 Years Total Score 2 Point Risk Factors: 2 Each Risk Factor Represents 3 Points: None Total Score 3 Point Risk Factors: 0 Each Risk Factor Represents 5 Points: None Total Score 5 Point Risk Factors: 0 Venous Thromboembolism Risk Factor Score *Q: 4 Problem List Initiated/Reviewed/Updated: Yes Orders Last 24hrs: Active Orders 24 hr Category Date Time Status Patient Status Manage Transfer [TRANSFER] Routine ADT 09/19/21 14:44 Ordered Oxygen Therapy Adult [Oxygen Therapy, ED] [RC] Care 09/19/21 09:16 Active ASDIRECTED Chest 1V Frontal [CR] Stat Exams 09/18/21 21:20 Taken CBC WITH AUTO DIFF [HEME] Stat Lab 09/19/21 13:07 Results CRP [C-REACTIVE PROTEIN] [CHEM] AM Lab 09/20/21 05:11 Ordered CULTURE BLOOD [BC] Stat Lab 09/19/21 14:29 Ordered CULTURE BLOOD [BC] Stat Lab 09/19/21 14:29 Ordered Acetaminophen [TylenoL] Med 09/19/21 01:26 Active 650 mg PO Q4H PRN Baricitinib [Olumiant] Med 09/19/21 14:30 Ordered 4 mg PO DAILY Doxycycline [Vibramycin] 100 mg Med 09/19/21 14:30 Ordered Sodium Chloride 0.9% [Normal Saline] 100 ml IV Q12HR Remdesivir 100 mg Med 09/19/21 15:00 Ordered Sodium Chloride 0.9% [Normal Saline] 100 ml IV Q24H cefTRIAXone [Rocephin] 1 gm Med 09/19/21 14:30 Ordered Sodium Chloride 0.9% [Normal Saline] 50 ml IV Q24H dexAMETHasone [Decadron] Med 09/19/21 18:00 Active 6 mg IVPUSH Q24H Blood Culture x2 Reflex Set [OM.PC] Urgent Oth 09/19/21 14:29 Ordered Isolation [COMM] Stat Oth 09/19/21 01:26 Ordered Resuscitation Status Routine Resus Stat 09/19/21 14:47 Ordered Medication Orders Acetaminophen (Acetaminophen 325 Mg Tab) 650 mg PO Q4H PRN PRN Reason: Fever Greater Than 101 Baricitinib (Baricitinib 2 Mg Tab) 4 mg PO DAILY [facility] Stop: 10/02/21 09:01 Dexamethasone (Dexamethasone 4 Mg/Ml Sdv) 6 mg IVPUSH Q24H [facility] Stop: 09/27/21 18:01 Ceftriaxone Sodium 1 gm/ (Sodium Chloride) 50 mls @ 100 mls/hr IV Q24H [facility] Doxycycline Hyclate 100 mg/ (Sodium Chloride) 100 mls @ 100 mls/hr IV Q12HR [facility] Remdesivir 100 mg/ Sodium (Chloride) 100 mls @ 100 mls/hr IV Q24H [facility] Stop: 09/22/21 15:59 Assessment/Plan Comment:: ASSESSMENT AND PLAN COVID-19 INFECTION WITH BILATERAL PNEUMONIA-symptoms started about 8 days ago and he has tested positive for Covid. Chest x-ray consistent with bilateral Covid pneumonia. Unfortunately during his time in the emergency department has developed progressive respiratory compromise, likely secondary to developing ARDS. -High flow humidified oxygen -Follow-up labs in a.m. -Limit IV fluids -Remdesivir 200 mg IV dose given last night in the emergency department, now 100 mg daily for 4 days, today is day 1 of 4 -Decadron 6 mg IV daily, today is day 2 -Baricitinib 4 mg p.o. daily, today is day 1 of 14 -Prone ventilation ACUTE HYPOXIC RESPIRATORY FAILURE-secondary to COVID-19 infection with bilateral pneumonia and probable developing ARDS -Management as above ARDS-likely complicating COVID-19 infection -Management as above MAINTENANCE ISSUES -DVT prophylaxis; Lovenox 40 mg subcu daily -GI prophylaxis; not indicated -Holt catheter; not indicated -Nutrition; regular diet -Nicotine dependence; not required CODE STATUS-FULL CODE ADMISSION STATUS-patient will be admitted to inpatient status, expect at least a 2 night hospital stay for evaluation and management of problems as outlined wes alba. At the time of this admission I do not reasonably expected evaluation and management of this problem will require more than a 96 hour hospital stay. DISPOSITION-anticipate discharge to home after the hospital stay. PRIMARY CARE PROVIDER-Dr. Holland - Mortality Measure Prognosis:: Poor (COVID-19 infection with bilateral pneumonia, developing ARDS and progressive hypoxia)
[2021-09-19] MEDS ORDERED: Enoxaparin 40 MG/0.4 ML Syringe SUBCUT SCH (15:00)
[2021-09-19] MEDS: cefTRIAXone 1 GM in Sodium Chloride 0.9% 50 ML IV SCH (16:27)
[2021-09-19] MEDS: Dexamethasone 4 MG/ML SDV IVPUSH SCH (17:23)
[2021-09-19] MEDS: Doxycycline 100 MG in Sodium Chloride 0.9% 100 ML IV SCH (17:25)
[2021-09-19] MEDS: REMDESIVIR 100 MG in Sodium Chloride 0.9% 100 ML IV SCH (20:06)
[2021-09-19] MEDS: Doxazosin 4 MG Tab PO SCH (21:27)
[2021-09-20] MEDS: Doxycycline 100 MG in Sodium Chloride 0.9% 100 ML IV SCH ×2 (04:11→16:36)
[2021-09-20] MEDS: Metoprolol Succinate 25 MG Tab.ER PO SCH (08:50)
[2021-09-20] MEDS: Pantoprazole 40 MG Tab.CR PO SCH (08:55)
[2021-09-20] MEDS ORDERED: Non-Formulary Medication 1 Each (Omeprazole Magnesium [Prilosec Otc] 20 MG Tablet.Dr) PO SCH (09:00)
--- NOTE | 2021-09-20 14:52 | PCM.PN ---
- General Info Date of Service: 09/20/21 Subjective Update: Mr. Chan has continued to require high level of supplemental oxygen to maintain borderline saturations. He is currently on high flow humidified oxygen 50 L, 95 %. He does desaturate with minimal activity and requires some time to recover. Other than marked fatigue and shortness of breath with activity he is relatively comfortable. Continues to have episodes of coughing which does result in desaturation. Functional Status: Reports: Urinating. Denies: Tolerating Diet - Review of Systems General: Reports: Weakness, Fatigue, Malaise. Denies: Fever, Chills Pulmonary: Reports: Shortness of Breath, Cough. Denies: Pleuritic Chest Pain, Sputum, Hemoptysis, Wheezing Cardiovascular: Reports: Dyspnea on Exertion. Denies: Chest Pain, Palpitations, Orthopnea, PND, Edema, Lightheadedness Gastrointestinal: Reports: No Symptoms Genitourinary: Reports: No Symptoms - Patient Data Vitals - Most Recent: Last Vital Signs Temp 97.1 F 09/20/21 12:00 Pulse 72 09/20/21 12:00 Resp 20 09/20/21 12:00 BP 127/82 09/20/21 12:00 Pulse Ox 87 L 09/20/21 12:00 Weight - Most Recent: 174 lb 9.6 oz I&O - Last 24 Hours: Intake & Output 09/19/21 09/20/21 09/20/21 22:59 06:59 14:59 Intake Total 100 160 660 Output Total 300 525 300 Balance -200 -365 360 Lab Results Last 24 Hours: Laboratory Results - last 24 hr 09/19/21 09/20/21 09/20/21 Range/Units 13:07 04:30 04:30 WBC 4.8 (4.5-11.0) K/uL RBC 4.84 (4.30-5.90) M/uL Hgb 13.8 (12.0-15.0) g/dL Hct 40.9 (40.0-54.0) % MCV 85 (80-98) fL MCH 29 (27-31) pg MCHC 34 (32-36) % Plt Count 271 (150-400) K/uL Neut % (Auto) 69.0 H (36-66) % Lymph % (Auto) 17.0 L (24-44) % [place] % (Auto) 10.0 H (2-6) % Eos % (Auto) 0.0 L (2-4) % Baso % (Auto) 0.0 (0-1) % Neutrophils % (Manual) 82 H (36-66) % Lymphocytes % (Manual) 11 L (24-44) % Monocytes % (Manual) 7 H (2-6) % D-Dimer, Quantitative (0.0-500.0) ng/mL Sodium 138 L (140-148) mmol/L Potassium 4.5 (3.6-5.2) mmol/L Chloride 100 (100-108) mmol/L Carbon Dioxide 27 (21-32) mmol/L Anion Gap 15.5 H (5.0-14.0) mmol/L BUN 19 H (7-18) mg/dL Creatinine 0.9 (0.8-1.3) mg/dL Est Cr Clr Drug Dosing 76.00 mL/min Estimated GFR (MDRD) > 60 (>60) Glucose 137 H (74-106) mg/dL Calcium 8.7 (8.5-10.1) mg/dL Total Bilirubin 0.4 (0.2-1.0) mg/dL AST 69 H (15-37) U/L ALT 60 (12-78) U/L Alkaline Phosphatase 43 L (46-116) U/L C-Reactive Protein 9.94 H (0.0-0.3) mg/dL Total Protein 6.0 L (6.4-8.2) g/dL Albumin 2.7 L (3.4-5.0) g/dL Globulin 3.3 (2.3-3.5) g/dL Albumin/Globulin Ratio 0.8 L (1.2-2.2) 09/20/21 Range/Units 04:30 WBC (4.5-11.0) K/uL RBC (4.30-5.90) M/uL Hgb (12.0-15.0) g/dL Hct (40.0-54.0) % MCV (80-98) fL MCH (27-31) pg MCHC (32-36) % Plt Count (150-400) K/uL Neut % (Auto) (36-66) % Lymph % (Auto) (24-44) % [place] % (Auto) (2-6) % Eos % (Auto) (2-4) % Baso % (Auto) (0-1) % Neutrophils % (Manual) (36-66) % Lymphocytes % (Manual) (24-44) % Monocytes % (Manual) (2-6) % D-Dimer, Quantitative 1271.70 H (0.0-500.0) ng/mL Sodium (140-148) mmol/L Potassium (3.6-5.2) mmol/L Chloride (100-108) mmol/L Carbon Dioxide (21-32) mmol/L Anion Gap (5.0-14.0) mmol/L BUN (7-18) mg/dL Creatinine (0.8-1.3) mg/dL Est Cr Clr Drug Dosing mL/min Estimated GFR (MDRD) (>60) Glucose (74-106) mg/dL Calcium (8.5-10.1) mg/dL Total Bilirubin (0.2-1.0) mg/dL AST (15-37) U/L ALT (12-78) U/L Alkaline Phosphatase (46-116) U/L C-Reactive Protein (0.0-0.3) mg/dL Total Protein (6.4-8.2) g/dL Albumin (3.4-5.0) g/dL Globulin (2.3-3.5) g/dL Albumin/Globulin Ratio (1.2-2.2) Med Orders - Current: Current Medications Acetaminophen (Acetaminophen 325 Mg Tab) 650 mg PO Q4H PRN PRN Reason: Pain (Mild 1-3)/fever Albuterol (Albuterol 8 Gm Inhaler) 0 gm INH QID PRN PRN Reason: Shortness of Breath Baricitinib (Baricitinib 2 Mg Tab) 4 mg PO Q24H [facility] Stop: 10/02/21 16:01 Last Admin: 09/19/21 17:22 Dose: 4 mg Documented by: Dexamethasone (Dexamethasone 4 Mg/Ml Sdv) 6 mg IVPUSH Q24H [facility] Stop: 09/27/21 18:01 Last Admin: 09/19/21 17:23 Dose: 6 mg Documented by: Doxazosin Mesylate (Doxazosin 4 Mg Tab) 4 mg PO BEDTIME [facility] Last Admin: 09/19/21 21:27 Dose: 4 mg Documented by: Enoxaparin Sodium (Enoxaparin 40 Mg/0.4 Ml Syringe) 40 mg SUBCUT Q24H [facility] Ceftriaxone Sodium 1 gm/ (Sodium Chloride) 50 mls @ 100 mls/hr IV Q24H [facility] Last Admin: 09/19/21 16:27 Dose: 100 mls/hr Documented by: Doxycycline Hyclate 100 mg/ (Sodium Chloride) 100 mls @ 100 mls/hr IV Q12H [facility] Last Admin: 09/20/21 04:11 Dose: 100 mls/hr Documented by: Remdesivir 100 mg/ Sodium (Chloride) 100 mls @ 100 mls/hr IV Q24H [facility] Stop: 09/22/21 20:59 Last Admin: 09/19/21 20:06 Dose: 100 mls/hr Documented by: Metoprolol Succinate (Metoprolol Succinate 25 Mg Tab.Er) 25 mg PO DAILY [facility] Last Admin: 09/20/21 08:50 Dose: 25 mg Documented by: Ondansetron HCl (Ondansetron 4 Mg/2 Ml Sdv) 4 mg IV Q4H PRN PRN Reason: Nausea/Vomiting Pantoprazole Sodium (Pantoprazole 40 Mg Tab.Cr) 40 mg PO ACBREAKFAST [facility] Last Admin: 09/20/21 08:55 Dose: 40 mg Documented by: Polyethylene Glycol (Polyethylene Glycol 3350 Powder 17 Gm Packet) 17 gm PO DAILY PRN PRN Reason: Constipation Sodium Chloride (Sodium Chloride 0.9% 10 Ml Syringe) 10 ml FLUSH ASDIRECTED PRN PRN Reason: Keep Vein Open Discontinued Medications Acetaminophen (Acetaminophen 325 Mg Tab) 650 mg PO Q4H PRN PRN Reason: Fever Greater Than 101 Dexamethasone (Dexamethasone 4 Mg/Ml Sdv) 6 mg IVPUSH DAILY [facility] Stop: 09/27/21 09:01 Last Admin: 09/19/21 02:25 Dose: 6 mg Documented by: Dexamethasone (Dexamethasone 4 Mg/Ml Sdv) Confirm Administered Dose 8 mg .ROUTE .STK-MED ONE Stop: 09/19/21 02:17 Last Admin: 09/19/21 04:22 Dose: Not Given Documented by: Enoxaparin Sodium (Enoxaparin 40 Mg/0.4 Ml Syringe) 40 mg SUBCUT DAILY [facility] Last Admin: 09/19/21 17:22 Dose: 40 mg Documented by: Remdesivir 200 mg/ Sodium (Chloride) 250 mls @ 250 mls/hr IV ONETIME ONE Stop: 09/19/21 01:27 Last Admin: 09/19/21 02:24 Dose: 250 mls/hr Documented by: Remdesivir (Remdesivir) Confirm Administered Dose 200 mls @ as directed .ROUTE .STK-MED ONE Stop: 09/19/21 01:47 Last Admin: 09/19/21 04:22 Dose: Not Given Documented by: Non-Formulary Medication (Omeprazole Magnesium [Prilosec Otc]) 20 mg PO DAILY [facility] - Exam Quality Assessment: Supplemental Oxygen, DVT Prophylaxis General: Alert, Oriented, Cooperative, Moderate Distress Lungs: Rales. No: Crackles, Rhonchi, Wheezing Cardiovascular: Regular Rate, Regular Rhythm, No Murmurs GI/Abdominal Exam: Soft, Non-Tender, No Organomegaly, No Distention Extremities: Non-Tender, No Pedal Edema - Patient Data Lab Results Last 24 hrs: Laboratory Results - last 24 hr 09/19/21 09/20/21 09/20/21 Range/Units 13:07 04:30 04:30 WBC 4.8 (4.5-11.0) K/uL RBC 4.84 (4.30-5.90) M/uL Hgb 13.8 (12.0-15.0) g/dL Hct 40.9 (40.0-54.0) % MCV 85 (80-98) fL MCH 29 (27-31) pg MCHC 34 (32-36) % Plt Count 271 (150-400) K/uL Neut % (Auto) 69.0 H (36-66) % Lymph % (Auto) 17.0 L (24-44) % [place] % (Auto) 10.0 H (2-6) % Eos % (Auto) 0.0 L (2-4) % Baso % (Auto) 0.0 (0-1) % Neutrophils % (Manual) 82 H (36-66) % Lymphocytes % (Manual) 11 L (24-44) % Monocytes % (Manual) 7 H (2-6) % D-Dimer, Quantitative (0.0-500.0) ng/mL Sodium 138 L (140-148) mmol/L Potassium 4.5 (3.6-5.2) mmol/L Chloride 100 (100-108) mmol/L Carbon Dioxide 27 (21-32) mmol/L Anion Gap 15.5 H (5.0-14.0) mmol/L BUN 19 H (7-18) mg/dL Creatinine 0.9 (0.8-1.3) mg/dL Est Cr Clr Drug Dosing 76.00 mL/min Estimated GFR (MDRD) > 60 (>60) Glucose 137 H (74-106) mg/dL Calcium 8.7 (8.5-10.1) mg/dL Total Bilirubin 0.4 (0.2-1.0) mg/dL AST 69 H (15-37) U/L ALT 60 (12-78) U/L Alkaline Phosphatase 43 L (46-116) U/L C-Reactive Protein 9.94 H (0.0-0.3) mg/dL Total Protein 6.0 L (6.4-8.2) g/dL Albumin 2.7 L (3.4-5.0) g/dL Globulin 3.3 (2.3-3.5) g/dL Albumin/Globulin Ratio 0.8 L (1.2-2.2) 09/20/21 Range/Units 04:30 WBC (4.5-11.0) K/uL RBC (4.30-5.90) M/uL Hgb (12.0-15.0) g/dL Hct (40.0-54.0) % MCV (80-98) fL MCH (27-31) pg MCHC (32-36) % Plt Count (150-400) K/uL Neut % (Auto) (36-66) % Lymph % (Auto) (24-44) % [place] % (Auto) (2-6) % Eos % (Auto) (2-4) % Baso % (Auto) (0-1) % Neutrophils % (Manual) (36-66) % Lymphocytes % (Manual) (24-44) % Monocytes % (Manual) (2-6) % D-Dimer, Quantitative 1271.70 H (0.0-500.0) ng/mL Sodium (140-148) mmol/L Potassium (3.6-5.2) mmol/L Chloride (100-108) mmol/L Carbon Dioxide (21-32) mmol/L Anion Gap (5.0-14.0) mmol/L BUN (7-18) mg/dL Creatinine (0.8-1.3) mg/dL Est Cr Clr Drug Dosing mL/min Estimated GFR (MDRD) (>60) Glucose (74-106) mg/dL Calcium (8.5-10.1) mg/dL Total Bilirubin (0.2-1.0) mg/dL AST (15-37) U/L ALT (12-78) U/L Alkaline Phosphatase (46-116) U/L C-Reactive Protein (0.0-0.3) mg/dL Total Protein (6.4-8.2) g/dL Albumin (3.4-5.0) g/dL Globulin (2.3-3.5) g/dL Albumin/Globulin Ratio (1.2-2.2) Result Diagrams: 09/20/21 04:30 09/20/21 04:30 Sepsis Event Note - Evaluation Sepsis Screening Result: Possible Sepsis Risk - Focused Exam Vital Signs: Vital Signs Temp Pulse Pulse Resp BP BP Pulse Ox 09/20/21 12:00 97.1 F 72 20 127/82 87 L 09/20/21 10:00 70 16 115/75 94 L 09/20/21 08:50 65 116/62 09/20/21 08:00 97.2 F 65 26 H 116/62 72 L 09/20/21 06:00 53 L 21 H 109/69 90 L 09/20/21 04:00 98.1 F 61 19 113/71 95 - Problem List Review Problem List Initiated/Reviewed/Updated: Yes - My Orders Last 24 Hours: My Active Orders 09/19/21 14:29 CULTURE BLOOD [BC] Stat CULTURE BLOOD [BC] Stat Blood Culture x2 Reflex Set [OM.PC] Urgent 09/19/21 14:47 Resuscitation Status Routine 09/19/21 14:51 Acetaminophen [TylenoL] 650 mg PO Q4H PRN Albuterol [Ventolin HFA] 0 gm INH QID PRN Ondansetron [Zofran] 4 mg IV Q4H PRN Sodium Chloride 0.9% [Saline Flush] 10 ml FLUSH ASDIRECTED PRN polyethylene glycoL 3350 [MiraLAX] 17 gm PO DAILY PRN 09/19/21 14:51 Height and Weight [RC] DAILY Intake and Output [RC] QSHIFT Notify Provider Vital Signs [RC] ASDIRECTED Oxygen Therapy [RC] PRN Pulse Oximetry [RC] CONTINUOUS RT Post Treatment Assessment [RC] Click to Edit Up to Chair [RC] QID VTE/DVT Education [RC] Per Unit Routine Vital Signs [RC] Q2H Saline Lock Insert [OM.PC] Routine 09/19/21 15:00 cefTRIAXone [Rocephin] 1 gm Sodium Chloride 0.9% [Normal Saline] 50 ml IV Q24H 09/19/21 16:00 Baricitinib [Olumiant] 4 mg PO Q24H Doxycycline [Vibramycin] 100 mg Sodium Chloride 0.9% [Normal Saline] 100 ml IV Q12H 09/19/21 19:34 Patient Status [ADT] Routine 09/19/21 20:00 Remdesivir 100 mg Sodium Chloride 0.9% [Normal Saline] 100 ml IV Q24H 09/19/21 21:00 Doxazosin [Cardura] 4 mg PO BEDTIME 09/20/21 08:30 Pantoprazole [ProTONIX] 40 mg PO ACBREAKFAST 09/20/21 09:00 Metoprolol Succinate [Toprol XL] 25 mg PO DAILY 09/20/21 16:00 Enoxaparin [Lovenox] 40 mg SUBCUT Q24H 09/21/21 05:00 COMPREHENSIVE METABOLIC PN,CMP [CHEM] Timed - Plan Plan:: ASSESSMENT AND PLAN COVID-19 INFECTION WITH BILATERAL PNEUMONIA-he is continued to require high flow oxygen through the night to maintain somewhat borderline saturations. He desaturates with fairly minimal activity and does take some time to recover. -High flow humidified oxygen -Limit IV fluids -Remdesivir 200 mg IV dose given last night in the emergency department, now 100 mg daily for 4 days, today is day 2 of 4 -Decadron 6 mg IV daily, today is day 3 -Baricitinib 4 mg p.o. daily, today is day 2 of 14 -IV antibiotics; ceftriaxone and doxycycline for 7 days, today is day 2 of 7 -Prone ventilation ACUTE HYPOXIC RESPIRATORY FAILURE-secondary to COVID-19 infection with bilateral pneumonia and probable developing ARDS -Management as above ARDS-likely complicating COVID-19 infection -Management as above MAINTENANCE ISSUES -DVT prophylaxis; Lovenox 40 mg subcu daily -GI prophylaxis; not indicated -Holt catheter; not indicated -Nutrition; regular diet -Nicotine dependence; not required CODE STATUS-FULL CODE ADMISSION STATUS-patient will be admitted to inpatient status, expect at least a 2 night hospital stay for evaluation and management of problems as outlined above. At the time of this admission I do not reasonably expected evaluation and management of this problem will require more than a 96 hour hospital stay. DISPOSITION-anticipate discharge to home after the hospital stay. PRIMARY CARE PROVIDER-Dr. Holland
[2021-09-20] MEDS: cefTRIAXone 1 GM in Sodium Chloride 0.9% 50 ML IV SCH (15:28)
[2021-09-20] MEDS: Enoxaparin 40 MG/0.4 ML Syringe SUBCUT SCH (15:37)
[2021-09-20] MEDS: Dexamethasone 4 MG/ML SDV IVPUSH SCH (17:16)
[2021-09-20] MEDS: REMDESIVIR 100 MG in Sodium Chloride 0.9% 100 ML IV SCH (19:47)
[2021-09-20] MEDS: Doxazosin 4 MG Tab PO SCH (21:00)
[2021-09-21] MEDS: Doxycycline 100 MG in Sodium Chloride 0.9% 100 ML IV SCH ×2 (04:26→15:48)
[2021-09-21] MEDS: Pantoprazole 40 MG Tab.CR PO SCH (08:13)
[2021-09-21] MEDS: Metoprolol Succinate 25 MG Tab.ER PO SCH (08:13)
--- NOTE | 2021-09-21 09:18 | CR ---
CHEST: Portable 09/18/2021 at 9:41 PM CLINICAL HISTORY:Dyspnea, hypoxia COMPARISON:None FINDINGS: Heart size and pulmonary vascular normal. There are atherosclerotic changes in the aorta. There is patchy infiltrate through both mid and lower lung [place]. Impression: Bilateral infiltrates suggest pneumonitis
--- NOTE | 2021-09-21 10:09 | PCM.PN ---
- General Info Date of Service: 09/21/21 Subjective Update: High flow via the heated high flow nasal cannula. He does not feel short of breath at rest but does get dyspnea with any activity. Oxygen saturations dropped into the mid 80s while he is talking. He did not have any fevers overnight. Minimal cough but he does have occasional coughing spells. He reports that he is feeling better today than yesterday. Family was updated. Functional Status: Reports: Pain Controlled - Review of Systems Pulmonary: Reports: Shortness of Breath - Patient Data Vitals - Most Recent: Last Vital Signs Temp 36.6 C 09/21/21 07:44 Pulse 75 09/21/21 10:00 Resp 15 09/21/21 10:00 BP 142/86 H 09/21/21 10:00 Pulse Ox 86 L 09/21/21 10:00 Weight - Most Recent: 79.197 kg I&O - Last 24 Hours: Intake & Output 09/20/21 09/21/21 09/21/21 22:59 06:59 14:59 Intake Total 100 900 Output Total 800 675 Balance -700 225 Lab Results Last 24 Hours: Laboratory Results - last 24 hr 09/21/21 Range/Units 05:49 Sodium 136 L (140-148) mmol/L Potassium 4.2 (3.6-5.2) mmol/L Chloride 100 (100-108) mmol/L Carbon Dioxide 25 (21-32) mmol/L Anion Gap 15.2 H (5.0-14.0) mmol/L BUN (7-18) mg/dL Creatinine 0.9 (0.8-1.3) mg/dL Est Cr Clr Drug Dosing TNP Estimated GFR (MDRD) > 60 (>60) BUN/Creatinine Ratio Not Reportable Glucose 123 H (74-106) mg/dL Calcium 8.7 (8.5-10.1) mg/dL Total Bilirubin 0.5 (0.2-1.0) mg/dL AST 52 H (15-37) U/L ALT 66 (12-78) U/L Alkaline Phosphatase 45 L (46-116) U/L Total Protein 6.0 L (6.4-8.2) g/dL Albumin 2.9 L (3.4-5.0) g/dL Globulin 3.1 (2.3-3.5) g/dL Albumin/Globulin Ratio 0.9 L (1.2-2.2) Med Orders - Current: Current Medications Acetaminophen (Acetaminophen 325 Mg Tab) 650 mg PO Q4H PRN PRN Reason: Pain (Mild 1-3)/fever Albuterol (Albuterol 8 Gm Inhaler) 0 gm INH QID PRN PRN Reason: Shortness of Breath Baricitinib (Baricitinib 2 Mg Tab) 4 mg PO Q24H [facility] Stop: 10/02/21 16:01 Last Admin: 09/20/21 15:38 Dose: 4 mg Documented by: Dexamethasone (Dexamethasone 4 Mg/Ml Sdv) 6 mg IVPUSH Q24H [facility] Stop: 09/27/21 18:01 Last Admin: 09/20/21 17:16 Dose: 6 mg Documented by: Doxazosin Mesylate (Doxazosin 4 Mg Tab) 4 mg PO BEDTIME [facility] Last Admin: 09/20/21 21:00 Dose: 4 mg Documented by: Enoxaparin Sodium (Enoxaparin 40 Mg/0.4 Ml Syringe) 40 mg SUBCUT Q24H [facility] Last Admin: 09/20/21 15:37 Dose: 40 mg Documented by: Ceftriaxone Sodium 1 gm/ (Sodium Chloride) 50 mls @ 100 mls/hr IV Q24H [facility] Last Admin: 09/20/21 15:28 Dose: 100 mls/hr Documented by: Doxycycline Hyclate 100 mg/ (Sodium Chloride) 100 mls @ 100 mls/hr IV Q12H [facility] Last Admin: 09/21/21 04:26 Dose: 100 mls/hr Documented by: Remdesivir 100 mg/ Sodium (Chloride) 100 mls @ 100 mls/hr IV Q24H [facility] Stop: 09/22/21 20:59 Last Admin: 09/20/21 19:47 Dose: 100 mls/hr Documented by: Metoprolol Succinate (Metoprolol Succinate 25 Mg Tab.Er) 25 mg PO DAILY [facility] Last Admin: 09/21/21 08:13 Dose: 25 mg Documented by: Ondansetron HCl (Ondansetron 4 Mg/2 Ml Sdv) 4 mg IV Q4H PRN PRN Reason: Nausea/Vomiting Pantoprazole Sodium (Pantoprazole 40 Mg Tab.Cr) 40 mg PO ACBREAKFAST [facility] Last Admin: 09/21/21 08:13 Dose: 40 mg Documented by: Polyethylene Glycol (Polyethylene Glycol 3350 Powder 17 Gm Packet) 17 gm PO DAILY PRN PRN Reason: Constipation Sodium Chloride (Sodium Chloride 0.9% 10 Ml Syringe) 10 ml FLUSH ASDIRECTED PRN PRN Reason: Keep Vein Open Discontinued Medications Acetaminophen (Acetaminophen 325 Mg Tab) 650 mg PO Q4H PRN PRN Reason: Fever Greater Than 101 Dexamethasone (Dexamethasone 4 Mg/Ml Sdv) 6 mg IVPUSH DAILY [facility] Stop: 09/27/21 09:01 Last Admin: 09/19/21 02:25 Dose: 6 mg Documented by: Dexamethasone (Dexamethasone 4 Mg/Ml Sdv) Confirm Administered Dose 8 mg .ROUTE .STK-MED ONE Stop: 09/19/21 02:17 Last Admin: 09/19/21 04:22 Dose: Not Given Documented by: Enoxaparin Sodium (Enoxaparin 40 Mg/0.4 Ml Syringe) 40 mg SUBCUT DAILY [facility] Last Admin: 09/19/21 17:22 Dose: 40 mg Documented by: Remdesivir 200 mg/ Sodium (Chloride) 250 mls @ 250 mls/hr IV ONETIME ONE Stop: 09/19/21 01:27 Last Admin: 09/19/21 02:24 Dose: 250 mls/hr Documented by: Remdesivir (Remdesivir) Confirm Administered Dose 200 mls @ as directed .ROUTE .STK-MED ONE Stop: 09/19/21 01:47 Last Admin: 09/19/21 04:22 Dose: Not Given Documented by: Non-Formulary Medication (Omeprazole Magnesium [Prilosec Otc]) 20 mg PO DAILY [facility] - Exam Quality Assessment: Supplemental Oxygen General: Alert, Oriented, Cooperative, No Acute Distress Lungs: Normal Respiratory Effort, Crackles (mild dry diffuse) Cardiovascular: Regular Rate, Regular Rhythm GI/Abdominal Exam: Soft, No Distention Extremities: No Pedal Edema. No: Increased Warmth Skin: Warm, Dry Psy/Mental Status: Alert, Normal Affect - Patient Data Lab Results Last 24 hrs: Laboratory Results - last 24 hr 09/21/21 Range/Units 05:49 Sodium 136 L (140-148) mmol/L Potassium 4.2 (3.6-5.2) mmol/L Chloride 100 (100-108) mmol/L Carbon Dioxide 25 (21-32) mmol/L Anion Gap 15.2 H (5.0-14.0) mmol/L BUN (7-18) mg/dL Creatinine 0.9 (0.8-1.3) mg/dL Est Cr Clr Drug Dosing TNP Estimated GFR (MDRD) > 60 (>60) BUN/Creatinine Ratio Not Reportable Glucose 123 H (74-106) mg/dL Calcium 8.7 (8.5-10.1) mg/dL Total Bilirubin 0.5 (0.2-1.0) mg/dL AST 52 H (15-37) U/L ALT 66 (12-78) U/L Alkaline Phosphatase 45 L (46-116) U/L Total Protein 6.0 L (6.4-8.2) g/dL Albumin 2.9 L (3.4-5.0) g/dL Globulin 3.1 (2.3-3.5) g/dL Albumin/Globulin Ratio 0.9 L (1.2-2.2) Result Diagrams: 09/20/21 04:30 09/21/21 05:49 Sepsis Event Note - Evaluation Sepsis Screening Result: No Definite Risk - Focused Exam Vital Signs: Vital Signs Temp Pulse Pulse Resp BP BP Pulse Ox 09/21/21 10:00 75 15 142/86 H 86 L 09/21/21 08:13 60 135/78 09/21/21 07:44 36.6 C 62 26 H 133/75 95 09/21/21 06:00 69 22 H 135/72 89 L 09/21/21 04:00 36.7 C 54 L 22 H 132/76 92 L 09/21/21 02:00 63 18 127/72 96 09/21/21 00:00 36.3 C 66 12 122/74 92 L - Problem List Review Problem List Initiated/Reviewed/Updated: Yes - My Orders Last 24 Hours: My Active Orders 09/21/21 10:05 COVID-19/FLU A+B/RSV [MOLEC] Stat 09/22/21 05:00 C-REACTIVE PROTEIN [CHEM] Timed COMPREHENSIVE METABOLIC PN,CMP [CHEM] Timed D-DIMER QUANTITATIVE [COAG] Timed - Plan Plan:: ASSESSMENT AND PLAN - COVID-19 INFECTION WITH BILATERAL PNEUMONIA-complicated by acute respiratory failure with hypoxia. Currently requiring large quantity of oxygen support via the heated/high flow nasal cannula. Symptomatically feeling better. D-dimer only mildly elevated and CRP is moderately elevated. Seems to have stabilized but is still somewhat tenuous. -High flow humidified oxygen -Remdesivir x5 days (day 4 of 5) -Decadron 6 mg IV daily (day 4) -Baricitinib 4 mg p.o. daily, today is day 3 of 14 -Continue ceftriaxone and doxycycline for 7 days, (day 3 of 7) -Prone ventilation as able -Patient and family interested in vitamin supplementation ARDS-likely complicating COVID-19 infection -Management as above MAINTENANCE ISSUES -DVT prophylaxis; Lovenox 40 mg subcu daily -GI prophylaxis; not indicated -Holt catheter; not indicated -Nutrition; regular diet DISPOSITION-anticipate discharge to home after the hospital stay. Demetris Canseco MD
[2021-09-21] MEDS: Multivitamins with Iron/Calcium/Folic Acid/Minerals Tab PO SCH (12:41)
[2021-09-21] MEDS: Zinc (Zinc Gluconate) 50 MG Tab PO SCH (12:41)
[2021-09-21] MEDS: Cholecalciferol (Vitamin D3) 25 MCG Tab PO SCH (12:41)
[2021-09-21] MEDS: Ascorbic Acid 500 MG Tab PO SCH (12:41)
[2021-09-21] MEDS: cefTRIAXone 1 GM in Sodium Chloride 0.9% 50 ML IV SCH (14:24)
[2021-09-21] MEDS: Enoxaparin 40 MG/0.4 ML Syringe SUBCUT SCH (15:49)
[2021-09-21] MEDS: Acetaminophen 325 MG Tab PO PRN (16:00)
[2021-09-21] MEDS: Dexamethasone 4 MG/ML SDV IVPUSH SCH (17:09)
[2021-09-21] MEDS: REMDESIVIR 100 MG in Sodium Chloride 0.9% 100 ML IV SCH (20:20)
[2021-09-21] MEDS: Doxazosin 4 MG Tab PO SCH (20:20)
[2021-09-22] MEDS: Doxycycline 100 MG in Sodium Chloride 0.9% 100 ML IV SCH ×2 (04:01→16:30)
[2021-09-22] MEDS: Pantoprazole 40 MG Tab.CR PO SCH (08:25)
[2021-09-22] MEDS: Cholecalciferol (Vitamin D3) 25 MCG Tab PO SCH (08:34)
[2021-09-22] MEDS: Multivitamins with Iron/Calcium/Folic Acid/Minerals Tab PO SCH (08:35)
[2021-09-22] MEDS: Zinc (Zinc Gluconate) 50 MG Tab PO SCH (08:35)
[2021-09-22] MEDS: Ascorbic Acid 500 MG Tab PO SCH (08:35)
[2021-09-22] MEDS: Metoprolol Succinate 25 MG Tab.ER PO SCH (08:36)
--- NOTE | 2021-09-22 10:03 | PCM.PN ---
- General Info Date of Service: 09/22/21 Subjective Update: No acute events overnight. Patient feels a little better today than yesterday. Still short of breath with any activity. Still not much of an appetite. Oxygenation is stable and he has not required any additional supplemental oxygen. No fevers. Functional Status: Reports: Pain Controlled, Tolerating Diet - Patient Data Vitals - Most Recent: Last Vital Signs Temp 36.8 C 09/22/21 08:00 Pulse 92 09/22/21 08:36 Resp 28 H 09/22/21 08:00 BP 134/65 09/22/21 08:36 Pulse Ox 86 L 09/22/21 08:00 Weight - Most Recent: 78.925 kg I&O - Last 24 Hours: Intake & Output 09/21/21 09/22/21 09/22/21 22:59 06:59 14:59 Intake Total 412 851 Output Total 850 750 Balance -438 101 Lab Results Last 24 Hours: Laboratory Results - last 24 hr 09/21/21 09/22/21 09/22/21 Range/Units 05:49 05:45 05:45 D-Dimer, Quantitative 1003.49 H (0.0-500.0) ng/mL Sodium 136 L (140-148) mmol/L Potassium 4.3 (3.6-5.2) mmol/L Chloride 99 L (100-108) mmol/L Carbon Dioxide 27 (21-32) mmol/L Anion Gap 14.3 H (5.0-14.0) mmol/L BUN 23 H 21 H (7-18) mg/dL Creatinine 0.9 (0.8-1.3) mg/dL Est Cr Clr Drug Dosing 76.00 mL/min Estimated GFR (MDRD) > 60 (>60) Glucose 110 H (74-106) mg/dL Calcium 8.5 (8.5-10.1) mg/dL Total Bilirubin 0.6 (0.2-1.0) mg/dL AST 55 H (15-37) U/L ALT 81 H (12-78) U/L Alkaline Phosphatase 49 (46-116) U/L C-Reactive Protein 7.70 H (0.0-0.3) mg/dL Total Protein 5.7 L (6.4-8.2) g/dL Albumin 2.7 L (3.4-5.0) g/dL Globulin 3.0 (2.3-3.5) g/dL Albumin/Globulin Ratio 0.9 L (1.2-2.2) Med Orders - Current: Current Medications Acetaminophen (Acetaminophen 325 Mg Tab) 650 mg PO Q4H PRN PRN Reason: Pain (Mild 1-3)/fever Last Admin: 09/21/21 16:00 Dose: 650 mg Documented by: Albuterol (Albuterol 8 Gm Inhaler) 0 gm INH QID PRN PRN Reason: Shortness of Breath Ascorbic Acid (Ascorbic Acid 500 Mg Tab) 500 mg PO DAILY [facility] Last Admin: 09/22/21 08:35 Dose: 500 mg Documented by: Baricitinib (Baricitinib 2 Mg Tab) 4 mg PO Q24H [facility] Stop: 10/02/21 16:01 Last Admin: 09/21/21 15:49 Dose: 4 mg Documented by: Cholecalciferol (Cholecalciferol (Vitamin D3) 25 Mcg Tab) 25 mcg PO DAILY [facility] Last Admin: 09/22/21 08:34 Dose: 25 mcg Documented by: Dexamethasone (Dexamethasone 4 Mg/Ml Sdv) 6 mg IVPUSH Q24H [facility] Stop: 09/27/21 18:01 Last Admin: 09/21/21 17:09 Dose: 6 mg Documented by: Doxazosin Mesylate (Doxazosin 4 Mg Tab) 4 mg PO BEDTIME [facility] Last Admin: 09/21/21 20:20 Dose: 4 mg Documented by: Enoxaparin Sodium (Enoxaparin 40 Mg/0.4 Ml Syringe) 40 mg SUBCUT Q24H [facility] Last Admin: 09/21/21 15:49 Dose: 40 mg Documented by: Ceftriaxone Sodium 1 gm/ (Sodium Chloride) 50 mls @ 100 mls/hr IV Q24H [facility] Last Admin: 09/21/21 14:24 Dose: 100 mls/hr Documented by: Doxycycline Hyclate 100 mg/ (Sodium Chloride) 100 mls @ 100 mls/hr IV Q12H [facility] Last Admin: 09/22/21 04:01 Dose: 100 mls/hr Documented by: Remdesivir 100 mg/ Sodium (Chloride) 100 mls @ 100 mls/hr IV Q24H [facility] Stop: 09/22/21 20:59 Last Admin: 09/21/21 20:20 Dose: 100 mls/hr Documented by: Metoprolol Succinate (Metoprolol Succinate 25 Mg Tab.Er) 25 mg PO DAILY [facility] Last Admin: 09/22/21 08:36 Dose: 25 mg Documented by: Multivitamins/Minerals (Multivitamins With Iron/Calcium/Folic Acid/Minerals Tab) 1 tab PO DAILY [facility] Last Admin: 09/22/21 08:35 Dose: 1 tab Documented by: Ondansetron HCl (Ondansetron 4 Mg/2 Ml Sdv) 4 mg IV Q4H PRN PRN Reason: Nausea/Vomiting Pantoprazole Sodium (Pantoprazole 40 Mg Tab.Cr) 40 mg PO ACBREAKFAST [facility] Last Admin: 09/22/21 08:25 Dose: 40 mg Documented by: Polyethylene Glycol (Polyethylene Glycol 3350 Powder 17 Gm Packet) 17 gm PO DAILY PRN PRN Reason: Constipation Sodium Chloride (Sodium Chloride 0.9% 10 Ml Syringe) 10 ml FLUSH ASDIRECTED PRN PRN Reason: Keep Vein Open Zinc Gluconate (Zinc (Zinc Gluconate) 50 Mg Tab) 50 mg PO DAILY [facility] Last Admin: 09/22/21 08:35 Dose: 50 mg Documented by: Discontinued Medications Acetaminophen (Acetaminophen 325 Mg Tab) 650 mg PO Q4H PRN PRN Reason: Fever Greater Than 101 Dexamethasone (Dexamethasone 4 Mg/Ml Sdv) 6 mg IVPUSH DAILY [facility] Stop: 09/27/21 09:01 Last Admin: 09/19/21 02:25 Dose: 6 mg Documented by: Dexamethasone (Dexamethasone 4 Mg/Ml Sdv) Confirm Administered Dose 8 mg .ROUTE .STK-MED ONE Stop: 09/19/21 02:17 Last Admin: 09/19/21 04:22 Dose: Not Given Documented by: Enoxaparin Sodium (Enoxaparin 40 Mg/0.4 Ml Syringe) 40 mg SUBCUT DAILY [facility] Last Admin: 09/19/21 17:22 Dose: 40 mg Documented by: Remdesivir 200 mg/ Sodium (Chloride) 250 mls @ 250 mls/hr IV ONETIME ONE Stop: 09/19/21 01:27 Last Admin: 09/19/21 02:24 Dose: 250 mls/hr Documented by: Remdesivir (Remdesivir) Confirm Administered Dose 200 mls @ as directed .ROUTE .STK-MED ONE Stop: 09/19/21 01:47 Last Admin: 09/19/21 04:22 Dose: Not Given Documented by: Non-Formulary Medication (Omeprazole Magnesium [Prilosec Otc]) 20 mg PO DAILY [facility] - Exam Quality Assessment: Supplemental Oxygen General: Alert, Oriented, Cooperative, No Acute Distress Lungs: Normal Respiratory Effort. No: Wheezing Cardiovascular: Regular Rate, Regular Rhythm GI/Abdominal Exam: Soft, No Distention Extremities: No Pedal Edema. No: Increased Warmth Skin: Warm, Dry Psy/Mental Status: Alert, Normal Affect - Patient Data Lab Results Last 24 hrs: Laboratory Results - last 24 hr 09/21/21 09/22/21 09/22/21 Range/Units 05:49 05:45 05:45 D-Dimer, Quantitative 1003.49 H (0.0-500.0) ng/mL Sodium 136 L (140-148) mmol/L Potassium 4.3 (3.6-5.2) mmol/L Chloride 99 L (100-108) mmol/L Carbon Dioxide 27 (21-32) mmol/L Anion Gap 14.3 H (5.0-14.0) mmol/L BUN 23 H 21 H (7-18) mg/dL Creatinine 0.9 (0.8-1.3) mg/dL Est Cr Clr Drug Dosing 76.00 mL/min Estimated GFR (MDRD) > 60 (>60) Glucose 110 H (74-106) mg/dL Calcium 8.5 (8.5-10.1) mg/dL Total Bilirubin 0.6 (0.2-1.0) mg/dL AST 55 H (15-37) U/L ALT 81 H (12-78) U/L Alkaline Phosphatase 49 (46-116) U/L C-Reactive Protein 7.70 H (0.0-0.3) mg/dL Total Protein 5.7 L (6.4-8.2) g/dL Albumin 2.7 L (3.4-5.0) g/dL Globulin 3.0 (2.3-3.5) g/dL Albumin/Globulin Ratio 0.9 L (1.2-2.2) Result Diagrams: 09/20/21 04:30 09/22/21 05:45 Sepsis Event Note - Evaluation Sepsis Screening Result: No Definite Risk - Focused Exam Vital Signs: Vital Signs Temp Pulse Pulse Resp BP BP Pulse Ox 09/22/21 08:36 92 134/65 09/22/21 08:00 36.8 C 82 28 H 134/65 86 L 09/22/21 06:00 65 18 125/65 97 09/22/21 04:00 36.4 C 69 19 121/62 92 L 09/22/21 02:00 61 19 116/58 L 93 L 09/22/21 00:00 65 29 H 112/57 L 91 L - Problem List Review Problem List Initiated/Reviewed/Updated: Yes - My Orders Last 24 Hours: My Active Orders 09/21/21 10:30 Ascorbic Acid [Vitamin C] 500 mg PO DAILY Cholecalciferol (Vitamin D3) [Vitamin D3] 25 mcg PO DAILY Multivitamins w-Iron/Ca/FA/Min [Thera M Plus] 1 tab PO DAILY Zinc Gluconate [Zinc] 50 mg PO DAILY - Plan Plan:: ASSESSMENT AND PLAN - COVID-19 INFECTION WITH BILATERAL PNEUMONIA-complicated by acute respiratory failure with hypoxia. Currently requiring large quantity of oxygen support via the heated/high flow nasal cannula. Symptomatically feeling better and clinically looks well. -Continue high flow humidified oxygen -Remdesivir x5 days (day 5 of 5) -Decadron 6 mg IV daily (day 5) -Baricitinib 4 mg p.o. daily, today is day 4 of 14 -Continue ceftriaxone and doxycycline for 7 days, (day 4 of 7) -Prone ventilation as able -Patient and family interested in vitamin supplementation ARDS-likely complicating COVID-19 infection -Management as above MAINTENANCE ISSUES -DVT prophylaxis; Lovenox 40 mg subcu daily -GI prophylaxis; not indicated -Holt catheter; not indicated -Nutrition; regular diet DISPOSITION-anticipate discharge to home after the hospital stay. Demetris Canseco MD
[2021-09-22] MEDS: cefTRIAXone 1 GM in Sodium Chloride 0.9% 50 ML IV SCH (15:46)
[2021-09-22] MEDS: Enoxaparin 40 MG/0.4 ML Syringe SUBCUT SCH (16:02)
[2021-09-22] MEDS: Dexamethasone 4 MG/ML SDV IVPUSH SCH (18:28)
[2021-09-22] MEDS: REMDESIVIR 100 MG in Sodium Chloride 0.9% 100 ML IV SCH (20:15)
[2021-09-22] MEDS: Doxazosin 4 MG Tab PO SCH (20:15)
[2021-09-22] MEDS: Calcium Carbonate 500 MG Tab.Chew PO PRN (21:15)
[2021-09-23] MEDS: Doxycycline 100 MG in Sodium Chloride 0.9% 100 ML IV SCH ×2 (03:17→16:52)
[2021-09-23] MEDS: Pantoprazole 40 MG Tab.CR PO SCH (07:52)
[2021-09-23] MEDS: Metoprolol Succinate 25 MG Tab.ER PO SCH (08:05)
[2021-09-23] MEDS: Multivitamins with Iron/Calcium/Folic Acid/Minerals Tab PO SCH (08:06)
[2021-09-23] MEDS: Ascorbic Acid 500 MG Tab PO SCH (08:06)
[2021-09-23] MEDS: Cholecalciferol (Vitamin D3) 25 MCG Tab PO SCH (08:06)
[2021-09-23] MEDS: Zinc (Zinc Gluconate) 50 MG Tab PO SCH (08:06)
--- NOTE | 2021-09-23 10:12 | PCM.PN ---
- General Info Date of Service: 09/23/21 Subjective Update: No acute events overnight. Respiratory status and oxygenation have been stable. Dyspnea with exertion but otherwise stable. No fevers. Tolerating medications . Appetite slowly improving but not great. Functional Status: Reports: Pain Controlled, Tolerating Diet - Review of Systems General: Reports: Weakness Pulmonary: Reports: Shortness of Breath - Patient Data Vitals - Most Recent: Last Vital Signs Temp 36.8 C 09/23/21 08:00 Pulse 79 09/23/21 08:05 Resp 16 09/23/21 08:00 BP 137/95 H 09/23/21 08:05 Pulse Ox 92 L 09/23/21 08:00 Weight - Most Recent: 78.925 kg I&O - Last 24 Hours: Intake & Output 09/22/21 09/23/21 09/23/21 22:59 06:59 14:59 Intake Total 760 975 Output Total 1350 1100 200 Balance -590 -125 -200 Med Orders - Current: Current Medications Acetaminophen (Acetaminophen 325 Mg Tab) 650 mg PO Q4H PRN PRN Reason: Pain (Mild 1-3)/fever Last Admin: 09/21/21 16:00 Dose: 650 mg Documented by: Albuterol (Albuterol 8 Gm Inhaler) 0 gm INH QID PRN PRN Reason: Shortness of Breath Ascorbic Acid (Ascorbic Acid 500 Mg Tab) 500 mg PO DAILY [facility] Last Admin: 09/23/21 08:06 Dose: 500 mg Documented by: Baricitinib (Baricitinib 2 Mg Tab) 4 mg PO Q24H [facility] Stop: 10/02/21 16:01 Last Admin: 09/22/21 16:01 Dose: 4 mg Documented by: Calcium Carbonate/Glycine (Calcium Carbonate 500 Mg Tab.Chew) 500 mg PO Q2H PRN PRN Reason: Indigestion Last Admin: 09/22/21 21:15 Dose: 500 mg Documented by: Cholecalciferol (Cholecalciferol (Vitamin D3) 25 Mcg Tab) 25 mcg PO DAILY [facility] Last Admin: 09/23/21 08:06 Dose: 25 mcg Documented by: Dexamethasone (Dexamethasone 4 Mg/Ml Sdv) 6 mg IVPUSH Q24H [facility] Stop: 09/27/21 18:01 Last Admin: 09/22/21 18:28 Dose: 6 mg Documented by: Doxazosin Mesylate (Doxazosin 4 Mg Tab) 4 mg PO BEDTIME [facility] Last Admin: 09/22/21 20:15 Dose: 4 mg Documented by: Enoxaparin Sodium (Enoxaparin 40 Mg/0.4 Ml Syringe) 40 mg SUBCUT Q24H [facility] Last Admin: 09/22/21 16:02 Dose: 40 mg Documented by: Ceftriaxone Sodium 1 gm/ (Sodium Chloride) 50 mls @ 100 mls/hr IV Q24H [facility] Last Admin: 09/22/21 15:46 Dose: 100 mls/hr Documented by: Doxycycline Hyclate 100 mg/ (Sodium Chloride) 100 mls @ 100 mls/hr IV Q12H [facility] Last Admin: 09/23/21 03:17 Dose: 100 mls/hr Documented by: Metoprolol Succinate (Metoprolol Succinate 25 Mg Tab.Er) 25 mg PO DAILY [facility] Last Admin: 09/23/21 08:05 Dose: 25 mg Documented by: Multivitamins/Minerals (Multivitamins With Iron/Calcium/Folic Acid/Minerals Tab) 1 tab PO DAILY [facility] Last Admin: 09/23/21 08:06 Dose: 1 tab Documented by: Ondansetron HCl (Ondansetron 4 Mg/2 Ml Sdv) 4 mg IV Q4H PRN PRN Reason: Nausea/Vomiting Pantoprazole Sodium (Pantoprazole 40 Mg Tab.Cr) 40 mg PO ACBREAKFAST [facility] Last Admin: 09/23/21 07:52 Dose: 40 mg Documented by: Polyethylene Glycol (Polyethylene Glycol 3350 Powder 17 Gm Packet) 17 gm PO DAILY PRN PRN Reason: Constipation Senna/Docusate Sodium (Docusate Sodium/Sennosides 50-8.6 Mg Tab) 1 tab PO Q12H PRN PRN Reason: Constipation Last Admin: 09/22/21 10:44 Dose: 1 tab Documented by: Sodium Chloride (Sodium Chloride 0.9% 10 Ml Syringe) 10 ml FLUSH ASDIRECTED PRN PRN Reason: Keep Vein Open Zinc Gluconate (Zinc (Zinc Gluconate) 50 Mg Tab) 50 mg PO DAILY [facility] Last Admin: 09/23/21 08:06 Dose: 50 mg Documented by: Discontinued Medications Acetaminophen (Acetaminophen 325 Mg Tab) 650 mg PO Q4H PRN PRN Reason: Fever Greater Than 101 Dexamethasone (Dexamethasone 4 Mg/Ml Sdv) 6 mg IVPUSH DAILY [facility] Stop: 09/27/21 09:01 Last Admin: 09/19/21 02:25 Dose: 6 mg Documented by: Dexamethasone (Dexamethasone 4 Mg/Ml Sdv) Confirm Administered Dose 8 mg .ROUTE .STK-MED ONE Stop: 09/19/21 02:17 Last Admin: 09/19/21 04:22 Dose: Not Given Documented by: Enoxaparin Sodium (Enoxaparin 40 Mg/0.4 Ml Syringe) 40 mg SUBCUT DAILY [facility] Last Admin: 09/19/21 17:22 Dose: 40 mg Documented by: Remdesivir 200 mg/ Sodium (Chloride) 250 mls @ 250 mls/hr IV ONETIME ONE Stop: 09/19/21 01:27 Last Admin: 09/19/21 02:24 Dose: 250 mls/hr Documented by: Remdesivir (Remdesivir) Confirm Administered Dose 200 mls @ as directed .ROUTE .STK-MED ONE Stop: 09/19/21 01:47 Last Admin: 09/19/21 04:22 Dose: Not Given Documented by: Remdesivir 100 mg/ Sodium (Chloride) 100 mls @ 100 mls/hr IV Q24H [facility] Stop: 09/22/21 20:59 Last Admin: 09/22/21 20:15 Dose: 100 mls/hr Documented by: Non-Formulary Medication (Omeprazole Magnesium [Prilosec Otc]) 20 mg PO DAILY [facility] - Exam Quality Assessment: Supplemental Oxygen General: Alert, Oriented, Cooperative, No Acute Distress Lungs: Normal Respiratory Effort GI/Abdominal Exam: Soft, No Distention Extremities: No Pedal Edema Psy/Mental Status: Alert, Normal Affect - Patient Data Result Diagrams: 09/20/21 04:30 09/22/21 05:45 Sepsis Event Note - Evaluation Sepsis Screening Result: No Definite Risk - Focused Exam Vital Signs: Vital Signs Temp Pulse Pulse Resp BP BP Pulse Ox 09/23/21 08:05 79 137/95 H 09/23/21 08:00 36.8 C 79 16 137/95 H 92 L 09/23/21 06:00 59 L 30 H 136/69 98 09/23/21 04:00 62 28 H 136/69 90 L 09/23/21 02:00 65 14 131/68 91 L 09/23/21 00:00 36.6 C 100 31 H 124/76 91 L - Problem List Review Problem List Initiated/Reviewed/Updated: Yes - My Orders Last 24 Hours: My Active Orders 09/22/21 10:33 Docusate Sodium/Sennosides [Senna Plus] 1 tab PO Q12H PRN 09/22/21 15:11 Pressure Reduction Mattress [OM.PC] Routine 09/22/21 21:04 Calcium Carbonate [Tums] 500 mg PO Q2H PRN 09/24/21 05:00 BASIC METABOLIC PANEL,BMP [CHEM] Timed CBC W/O DIFF,HEMOGRAM [HEME] Timed (1) CRP [C-REACTIVE PROTEIN] [CHEM] Timed D-DIMER QUANTITATIVE [COAG] Timed - Plan Plan:: ASSESSMENT AND PLAN - COVID-19 INFECTION WITH BILATERAL PNEUMONIA-complicated by acute respiratory failure with hypoxia. Currently requiring large quantity of oxygen support via the heated/high flow nasal cannula. Symptomatically feeling better and clinically looks well. -Continue high flow humidified oxygen -Remdesivir x5 days complete -Decadron 6 mg IV daily (day 6) -Baricitinib 4 mg p.o. daily (day 5 of 14) -Continue ceftriaxone and doxycycline for 7 days, (day 5 of 7) -Prone ventilation as able -Continue vitamin supplementation ARDS-likely complicating COVID-19 infection -Management as above MAINTENANCE ISSUES -DVT prophylaxis; Lovenox 40 mg subcu daily -GI prophylaxis; not indicated -Holt catheter; not indicated -Nutrition; regular diet DISPOSITION-anticipate discharge to home after the hospital stay. If he has a good night he should be safe for transfer out of the intensive care unit tomorrow. Demetris Canseco MD
[2021-09-23] MEDS ORDERED: Benzonatate 100 MG Cap PO PRN (12:49)
[2021-09-23] MEDS: cefTRIAXone 1 GM in Sodium Chloride 0.9% 50 ML IV SCH (15:24)
[2021-09-23] MEDS: Enoxaparin 40 MG/0.4 ML Syringe SUBCUT SCH (15:24)
[2021-09-23] MEDS: OMEPRAZOLE 20MG PO SCH (17:24)
[2021-09-23] MEDS: Dexamethasone 4 MG/ML SDV IVPUSH SCH (18:37)
[2021-09-23] MEDS: Calcium Carbonate 500 MG Tab.Chew PO PRN (20:01)
[2021-09-23] MEDS: Aluminum Hydroxide/Magnesium Hydroxide/Simethicone Susp 30 ML Cup PO PRN (21:23)
[2021-09-23] MEDS: Doxazosin 4 MG Tab PO SCH (21:26)
[2021-09-24] MEDS: Doxycycline 100 MG in Sodium Chloride 0.9% 100 ML IV SCH ×2 (04:27→16:46)
[2021-09-24] MEDS: OMEPRAZOLE 20MG PO SCH (06:45)
[2021-09-24] MEDS ORDERED: OMEPRAZOLE 20MG PO SCH (07:30)
[2021-09-24] MEDS: Multivitamins with Iron/Calcium/Folic Acid/Minerals Tab PO SCH (10:14)
[2021-09-24] MEDS: Metoprolol Succinate 25 MG Tab.ER PO SCH (10:14)
[2021-09-24] MEDS: Cholecalciferol (Vitamin D3) 25 MCG Tab PO SCH (10:14)
[2021-09-24] MEDS: Pantoprazole 40 MG Tab.CR PO SCH (10:15)
[2021-09-24] MEDS: Zinc (Zinc Gluconate) 50 MG Tab PO SCH (10:15)
[2021-09-24] MEDS: Ascorbic Acid 500 MG Tab PO SCH (10:15)
--- NOTE | 2021-09-24 10:27 | PCM.PN ---
- General Info Date of Service: 09/24/21 Subjective Update: No acute events overnight. No significant change in his respiratory status. Still requiring large quantities of supplemental oxygen via heated high flow nasal cannula. Patient did have some heartburn yesterday but this seems to have resolved. Comfortable at rest but does have dyspnea with exertion. Still becomes hypoxic with any activity even minimal activity in bed. No fevers. Appetite not great but stable. D-dimer and CRP have increased compared to 2 days ago. Functional Status: Reports: Pain Controlled, Tolerating Diet - Review of Systems General: Reports: Weakness Pulmonary: Reports: Shortness of Breath, Cough - Patient Data Vitals - Most Recent: Last Vital Signs Temp 36.7 C 09/24/21 04:00 Pulse 82 09/24/21 10:14 Resp 26 H 09/24/21 08:00 BP 141/80 H 09/24/21 10:14 Pulse Ox 96 09/24/21 08:00 Weight - Most Recent: 78.925 kg I&O - Last 24 Hours: Intake & Output 09/23/21 09/24/21 09/24/21 22:59 06:59 14:59 Intake Total 795 220 Output Total 425 600 Balance 370 -380 Lab Results Last 24 Hours: Laboratory Results - last 24 hr 09/24/21 09/24/21 09/24/21 Range/Units 05:35 05:35 05:35 WBC 14.6 H (4.5-11.0) K/uL RBC 4.65 (4.30-5.90) M/uL Hgb 13.3 (12.0-15.0) g/dL Hct 39.5 L (40.0-54.0) % MCV 85 (80-98) fL MCH 29 (27-31) pg MCHC 34 (32-36) % Plt Count 428 H (150-400) K/uL D-Dimer, Quantitative 3005.16 H (0.0-500.0) ng/mL Sodium 135 L (140-148) mmol/L Potassium 4.9 (3.6-5.2) mmol/L Chloride 98 L (100-108) mmol/L Carbon Dioxide 28 (21-32) mmol/L Anion Gap 13.9 (5.0-14.0) mmol/L BUN 20 H (7-18) mg/dL Creatinine 0.9 (0.8-1.3) mg/dL Est Cr Clr Drug Dosing 76.00 mL/min Estimated GFR (MDRD) > 60 (>60) Glucose 138 H (74-106) mg/dL Calcium 9.0 (8.5-10.1) mg/dL C-Reactive Protein 19.99 H (0.0-0.3) mg/dL Med Orders - Current: Current Medications Acetaminophen (Acetaminophen 325 Mg Tab) 650 mg PO Q4H PRN PRN Reason: Pain (Mild 1-3)/fever Last Admin: 09/21/21 16:00 Dose: 650 mg Documented by: Al Hydroxide/Mg Hydroxide (Aluminum Hydroxide/Magnesium Hydroxide/Simethicone Susp 30 Ml Cup) 30 ml PO Q4H PRN PRN Reason: Dyspepsia Last Admin: 09/23/21 21:23 Dose: 30 ml Documented by: Albuterol (Albuterol 8 Gm Inhaler) 0 gm INH QID PRN PRN Reason: Shortness of Breath Ascorbic Acid (Ascorbic Acid 500 Mg Tab) 500 mg PO DAILY [facility] Last Admin: 09/24/21 10:15 Dose: 500 mg Documented by: Baricitinib (Baricitinib 2 Mg Tab) 4 mg PO Q24H [facility] Stop: 10/02/21 16:01 Last Admin: 09/23/21 15:25 Dose: 4 mg Documented by: Benzonatate (Benzonatate 100 Mg Cap) 100 mg PO Q8H PRN PRN Reason: Cough Calcium Carbonate/Glycine (Calcium Carbonate 500 Mg Tab.Chew) 500 mg PO Q2H PRN PRN Reason: Indigestion Last Admin: 09/23/21 20:01 Dose: 500 mg Documented by: Cholecalciferol (Cholecalciferol (Vitamin D3) 25 Mcg Tab) 25 mcg PO DAILY [facility] Last Admin: 09/24/21 10:14 Dose: 25 mcg Documented by: Dexamethasone (Dexamethasone 4 Mg/Ml Sdv) 6 mg IVPUSH Q24H [facility] Stop: 09/27/21 18:01 Last Admin: 09/23/21 18:37 Dose: 6 mg Documented by: Doxazosin Mesylate (Doxazosin 4 Mg Tab) 4 mg PO BEDTIME [facility] Last Admin: 09/23/21 21:26 Dose: 4 mg Documented by: Enoxaparin Sodium (Enoxaparin 40 Mg/0.4 Ml Syringe) 40 mg SUBCUT Q24H [facility] Last Admin: 09/23/21 15:24 Dose: 40 mg Documented by: Guaifenesin/Dextromethorphan (Guaifenesin/Dextromethorphan 100-10 Mg/5 Ml Soln 10 Ml Cup) 10 ml PO Q4H PRN PRN Reason: Cough Ceftriaxone Sodium 1 gm/ (Sodium Chloride) 50 mls @ 100 mls/hr IV Q24H [facility] Last Admin: 09/23/21 15:24 Dose: 100 mls/hr Documented by: Doxycycline Hyclate 100 mg/ (Sodium Chloride) 100 mls @ 100 mls/hr IV Q12H [facility] Last Admin: 09/24/21 04:27 Dose: 100 mls/hr Documented by: Metoprolol Succinate (Metoprolol Succinate 25 Mg Tab.Er) 25 mg PO DAILY [facility] Last Admin: 09/24/21 10:14 Dose: 25 mg Documented by: Multivitamins/Minerals (Multivitamins With Iron/Calcium/Folic Acid/Minerals Tab) 1 tab PO DAILY [facility] Last Admin: 09/24/21 10:14 Dose: 1 tab Documented by: Ondansetron HCl (Ondansetron 4 Mg/2 Ml Sdv) 4 mg IV Q4H PRN PRN Reason: Nausea/Vomiting Omeprazole 20mg 0 each PO ACBREAKFAST [facility] Last Admin: 09/24/21 06:45 Dose: 1 each Documented by: Polyethylene Glycol (Polyethylene Glycol 3350 Powder 17 Gm Packet) 17 gm PO DAILY PRN PRN Reason: Constipation Senna/Docusate Sodium (Docusate Sodium/Sennosides 50-8.6 Mg Tab) 1 tab PO Q12H PRN PRN Reason: Constipation Last Admin: 09/22/21 10:44 Dose: 1 tab Documented by: Sodium Chloride (Sodium Chloride 0.9% 10 Ml Syringe) 10 ml FLUSH ASDIRECTED PRN PRN Reason: Keep Vein Open Zinc Gluconate (Zinc (Zinc Gluconate) 50 Mg Tab) 50 mg PO DAILY [facility] Last Admin: 09/24/21 10:15 Dose: 50 mg Documented by: Discontinued Medications Acetaminophen (Acetaminophen 325 Mg Tab) 650 mg PO Q4H PRN PRN Reason: Fever Greater Than 101 Dexamethasone (Dexamethasone 4 Mg/Ml Sdv) 6 mg IVPUSH DAILY [facility] Stop: 09/27/21 09:01 Last Admin: 09/19/21 02:25 Dose: 6 mg Documented by: Dexamethasone (Dexamethasone 4 Mg/Ml Sdv) Confirm Administered Dose 8 mg .ROUTE .STK-MED ONE Stop: 09/19/21 02:17 Last Admin: 09/19/21 04:22 Dose: Not Given Documented by: Enoxaparin Sodium (Enoxaparin 40 Mg/0.4 Ml Syringe) 40 mg SUBCUT DAILY [facility] Last Admin: 09/19/21 17:22 Dose: 40 mg Documented by: Remdesivir 200 mg/ Sodium (Chloride) 250 mls @ 250 mls/hr IV ONETIME [facility] Stop: 09/19/21 01:27 Last Admin: 09/19/21 02:24 Dose: 250 mls/hr Documented by: Remdesivir (Remdesivir) Confirm Administered Dose 200 mls @ as directed .ROUTE .STK-MED ONE Stop: 09/19/21 01:47 Last Admin: 09/19/21 04:22 Dose: Not Given Documented by: Remdesivir 100 mg/ Sodium (Chloride) 100 mls @ 100 mls/hr IV Q24H [facility] Stop: 09/22/21 20:59 Last Admin: 09/22/21 20:15 Dose: 100 mls/hr Documented by: Non-Formulary Medication (Omeprazole Magnesium [Prilosec Otc]) 20 mg PO DAILY [facility] Pantoprazole Sodium (Pantoprazole 40 Mg Tab.Cr) 40 mg PO ACBREAKFAST [facility] Last Admin: 09/23/21 07:52 Dose: 40 mg Documented by: Omeprazole 20mg 0 each PO ACBREAKFAST [facility] - Exam Quality Assessment: Supplemental Oxygen General: Alert, Oriented, Cooperative, No Acute Distress Lungs: Normal Respiratory Effort, Crackles (moderate left lower lung, mild right lower and mid and left mid and upper ) Cardiovascular: Regular Rate, Regular Rhythm GI/Abdominal Exam: Soft, No Distention Extremities: No Pedal Edema. No: Increased Warmth Skin: Warm, Dry Psy/Mental Status: Alert, Normal Affect - Patient Data Lab Results Last 24 hrs: Laboratory Results - last 24 hr 09/24/21 09/24/21 09/24/21 Range/Units 05:35 05:35 05:35 WBC 14.6 H (4.5-11.0) K/uL RBC 4.65 (4.30-5.90) M/uL Hgb 13.3 (12.0-15.0) g/dL Hct 39.5 L (40.0-54.0) % MCV 85 (80-98) fL MCH 29 (27-31) pg MCHC 34 (32-36) % Plt Count 428 H (150-400) K/uL D-Dimer, Quantitative 3005.16 H (0.0-500.0) ng/mL Sodium 135 L (140-148) mmol/L Potassium 4.9 (3.6-5.2) mmol/L Chloride 98 L (100-108) mmol/L Carbon Dioxide 28 (21-32) mmol/L Anion Gap 13.9 (5.0-14.0) mmol/L BUN 20 H (7-18) mg/dL Creatinine 0.9 (0.8-1.3) mg/dL Est Cr Clr Drug Dosing 76.00 mL/min Estimated GFR (MDRD) > 60 (>60) Glucose 138 H (74-106) mg/dL Calcium 9.0 (8.5-10.1) mg/dL C-Reactive Protein 19.99 H (0.0-0.3) mg/dL Result Diagrams: 09/24/21 05:35 09/24/21 05:35 Sepsis Event Note - Evaluation Sepsis Screening Result: No Definite Risk - Focused Exam Vital Signs: Vital Signs Temp Pulse Pulse Resp BP BP Pulse Ox 09/24/21 10:14 82 141/80 H 09/24/21 08:00 60 26 H 124/72 96 09/24/21 06:00 72 14 113/65 92 L 09/24/21 04:00 36.7 C 66 15 148/83 H 89 L 09/24/21 02:00 57 L 25 H 121/62 92 L 09/24/21 00:00 81 21 H 121/91 H 89 L - Problem List Review Problem List Initiated/Reviewed/Updated: Yes - My Orders Last 24 Hours: My Active Orders 09/23/21 12:49 Benzonatate [Tessalon Perles] 100 mg PO Q8H PRN Dextromethorphan/guaiFENesin [Robitussin DM] 10 ml PO Q4H PRN 09/23/21 17:00 Patient's Own Medication [Ptom] 0 each PO ACBREAKFAST 09/23/21 21:09 Alum Hydrox/Mag Hydrox/Simeth [Mag-Al Plus] 30 ml PO Q4H PRN 09/24/21 10:25 PROCALCITONIN [CHEM] Routine 09/25/21 05:00 BASIC METABOLIC PANEL,BMP [CHEM] Timed CBC W/O DIFF,HEMOGRAM [HEME] Timed (1) - Plan Plan:: ASSESSMENT AND PLAN - COVID-19 INFECTION WITH BILATERAL PNEUMONIA-complicated by acute respiratory failure with hypoxia. Currently requiring large quantity of oxygen support via the heated/high flow nasal cannula. Clinically stable but CRP and D-dimer have increased compared to 2 days ago. -Continue high flow humidified oxygen -Remdesivir x5 days complete -Decadron 6 mg IV daily (day 7) -Baricitinib 4 mg p.o. daily (day 6 of 14) -Continue ceftriaxone and doxycycline for 7 days, (day 6 of 7) -Repeat labs every 2 days -Prone ventilation as able -Continue vitamin supplementation ARDS-likely complicating COVID-19 infection -Management as above MAINTENANCE ISSUES -DVT prophylaxis; Lovenox 40 mg subcu daily -GI prophylaxis; not indicated -Holt catheter; not indicated -Nutrition; regular diet DISPOSITION-anticipate discharge to home after the hospital stay. Demetris Canseco MD
[2021-09-24] MEDS: Aluminum Hydroxide/Magnesium Hydroxide/Simethicone Susp 30 ML Cup PO PRN ×2 (14:10→18:40)
[2021-09-24] MEDS: cefTRIAXone 1 GM in Sodium Chloride 0.9% 50 ML IV SCH (16:04)
[2021-09-24] MEDS: Enoxaparin 40 MG/0.4 ML Syringe SUBCUT SCH (16:05)
[2021-09-24] MEDS: Calcium Carbonate 500 MG Tab.Chew PO PRN (17:38)
[2021-09-24] MEDS: Dexamethasone 4 MG/ML SDV IVPUSH SCH (17:42)
[2021-09-24] MEDS ORDERED: Melatonin 3 MG Tab PO PRN (18:46)
[2021-09-24] MEDS: Doxazosin 4 MG Tab PO SCH (21:20)
[2021-09-25] MEDS: Doxycycline 100 MG in Sodium Chloride 0.9% 100 ML IV SCH ×2 (04:15→15:54)
[2021-09-25] MEDS: OMEPRAZOLE 20MG **PTOM PO SCH ×2 (08:23→15:59)
[2021-09-25] MEDS ORDERED: Furosemide 20 MG/2 ML VIAL IVPUSH ONE (09:00)
[2021-09-25] MEDS: Metoprolol Succinate 25 MG Tab.ER PO SCH (09:03)
[2021-09-25] MEDS: Cholecalciferol (Vitamin D3) 25 MCG Tab PO SCH (09:03)
[2021-09-25] MEDS: Multivitamins with Iron/Calcium/Folic Acid/Minerals Tab PO SCH (09:03)
[2021-09-25] MEDS: Zinc (Zinc Gluconate) 50 MG Tab PO SCH (09:03)
[2021-09-25] MEDS: Ascorbic Acid 500 MG Tab PO SCH (09:04)
--- NOTE | 2021-09-25 10:03 | PCM.PN ---
- General Info Date of Service: 09/25/21 Subjective Update: No acute events overnight. Oxygenation is stable but he continues to require high level support with his heated/high flow nasal cannula. No fevers. Heartburn has resolved. Appetite is a little better today. Patient reports that he feels well and is interested in trying to increase his activity. He did have an episode this morning where his oxygen dropped down into the low 80s and took a long time to get back close to 90. Cough seems better today. Functional Status: Reports: Pain Controlled, Tolerating Diet - Review of Systems Pulmonary: Reports: Shortness of Breath - Patient Data Vitals - Most Recent: Last Vital Signs Temp 36.2 C 09/25/21 08:00 Pulse 74 09/25/21 09:03 Resp 19 09/25/21 08:00 BP 109/56 L 09/25/21 09:03 Pulse Ox 87 L 09/25/21 08:00 Weight - Most Recent: 78.925 kg I&O - Last 24 Hours: Intake & Output 09/24/21 09/25/21 09/25/21 22:59 06:59 14:59 Intake Total 150 Balance 150 Lab Results Last 24 Hours: Laboratory Results - last 24 hr 09/24/21 09/25/21 09/25/21 Range/Units 05:30 05:00 05:25 WBC 13.7 H (4.5-11.0) K/uL RBC 4.59 (4.30-5.90) M/uL Hgb 12.9 (12.0-15.0) g/dL Hct 39.0 L (40.0-54.0) % MCV 85 (80-98) fL MCH 28 (27-31) pg MCHC 33 (32-36) % Plt Count 435 H (150-400) K/uL Sodium (140-148) mmol/L Potassium (3.6-5.2) mmol/L Chloride (100-108) mmol/L Carbon Dioxide (21-32) mmol/L Anion Gap (5.0-14.0) mmol/L BUN (7-18) mg/dL Creatinine (0.8-1.3) mg/dL Est Cr Clr Drug Dosing mL/min Estimated GFR (MDRD) (>60) Glucose (74-106) mg/dL Calcium (8.5-10.1) mg/dL Troponin I < 0.017 (0.000-0.056) ng/mL Procalcitonin 0.30 ng/mL 09/25/21 Range/Units 05:25 WBC (4.5-11.0) K/uL RBC (4.30-5.90) M/uL Hgb (12.0-15.0) g/dL Hct (40.0-54.0) % MCV (80-98) fL MCH (27-31) pg MCHC (32-36) % Plt Count (150-400) K/uL Sodium 134 L (140-148) mmol/L Potassium 4.6 (3.6-5.2) mmol/L Chloride 98 L (100-108) mmol/L Carbon Dioxide 25 (21-32) mmol/L Anion Gap 15.6 H (5.0-14.0) mmol/L BUN 21 H (7-18) mg/dL Creatinine 0.9 (0.8-1.3) mg/dL Est Cr Clr Drug Dosing 76.00 mL/min Estimated GFR (MDRD) > 60 (>60) Glucose 129 H (74-106) mg/dL Calcium 8.6 (8.5-10.1) mg/dL Troponin I (0.000-0.056) ng/mL Procalcitonin ng/mL [facility] Results Last 24 Hours: Microbiology 09/19/21 14:55 Aerobic Blood Culture - Final Blood - Venous - Lab Draw NO GROWTH AFTER 5 DAYS Anaerobic Blood Culture - Final NO GROWTH AFTER 5 DAYS 09/19/21 14:45 Aerobic Blood Culture - Final Blood - Venous NO GROWTH AFTER 5 DAYS Anaerobic Blood Culture - Final NO GROWTH AFTER 5 DAYS Med Orders - Current: Current Medications Acetaminophen (Acetaminophen 325 Mg Tab) 650 mg PO Q4H PRN PRN Reason: Pain (Mild 1-3)/fever Last Admin: 09/21/21 16:00 Dose: 650 mg Documented by: Al Hydroxide/Mg Hydroxide (Aluminum Hydroxide/Magnesium Hydroxide/Simethicone Susp 30 Ml Cup) 30 ml PO Q4H PRN PRN Reason: Dyspepsia Last Admin: 09/24/21 18:40 Dose: 30 ml Documented by: Albuterol (Albuterol 8 Gm Inhaler) 0 gm INH QID PRN PRN Reason: Shortness of Breath Ascorbic Acid (Ascorbic Acid 500 Mg Tab) 500 mg PO DAILY REPLACED BY [facility] Last Admin: 09/25/21 09:04 Dose: 500 mg Documented by: Baricitinib (Baricitinib 2 Mg Tab) 4 mg PO Q24H REPLACED BY [facility] Stop: 10/02/21 16:01 Last Admin: 09/24/21 16:05 Dose: 4 mg Documented by: Benzonatate (Benzonatate 100 Mg Cap) 100 mg PO Q8H PRN PRN Reason: Cough Calcium Carbonate/Glycine (Calcium Carbonate 500 Mg Tab.Chew) 500 mg PO Q2H PRN PRN Reason: Indigestion Last Admin: 09/24/21 17:38 Dose: 500 mg Documented by: Cholecalciferol (Cholecalciferol (Vitamin D3) 25 Mcg Tab) 25 mcg PO DAILY REPLACED BY [facility] Last Admin: 09/25/21 09:03 Dose: 25 mcg Documented by: Dexamethasone (Dexamethasone 4 Mg/Ml Sdv) 6 mg IVPUSH Q24H REPLACED BY [facility] Stop: 09/27/21 18:01 Last Admin: 09/24/21 17:42 Dose: 6 mg Documented by: Doxazosin Mesylate (Doxazosin 4 Mg Tab) 4 mg PO BEDTIME REPLACED BY [facility] Last Admin: 09/24/21 21:20 Dose: 4 mg Documented by: Enoxaparin Sodium (Enoxaparin 40 Mg/0.4 Ml Syringe) 40 mg SUBCUT Q24H REPLACED BY [facility] Last Admin: 09/24/21 16:05 Dose: 40 mg Documented by: Guaifenesin/Dextromethorphan (Guaifenesin/Dextromethorphan 100-10 Mg/5 Ml Soln 10 Ml Cup) 10 ml PO Q4H PRN PRN Reason: Cough Ceftriaxone Sodium 1 gm/ (Sodium Chloride) 50 mls @ 100 mls/hr IV Q24H REPLACED BY [facility] Last Admin: 09/24/21 16:04 Dose: 100 mls/hr Documented by: Doxycycline Hyclate 100 mg/ (Sodium Chloride) 100 mls @ 100 mls/hr IV Q12H REPLACED BY [facility] Last Admin: 09/25/21 04:15 Dose: 100 mls/hr Documented by: Melatonin (Melatonin 3 Mg Tab) 9 mg PO BEDTIME PRN PRN Reason: Sleep Metoprolol Succinate (Metoprolol Succinate 25 Mg Tab.Er) 25 mg PO DAILY REPLACED BY [facility] Last Admin: 09/25/21 09:03 Dose: 25 mg Documented by: Multivitamins/Minerals (Multivitamins With Iron/Calcium/Folic Acid/Minerals Tab) 1 tab PO DAILY REPLACED BY [facility] Last Admin: 09/25/21 09:03 Dose: 1 tab Documented by: Ondansetron HCl (Ondansetron 4 Mg/2 Ml Sdv) 4 mg IV Q4H PRN PRN Reason: Nausea/Vomiting Omeprazole 20mg (Ptom) 0 each PO BIDAC REPLACED BY [facility] Last Admin: 09/25/21 08:23 Dose: 1 each Documented by: Polyethylene Glycol (Polyethylene Glycol 3350 Powder 17 Gm Packet) 17 gm PO DAILY PRN PRN Reason: Constipation Senna/Docusate Sodium (Docusate Sodium/Sennosides 50-8.6 Mg Tab) 1 tab PO Q12H PRN PRN Reason: Constipation Last Admin: 09/22/21 10:44 Dose: 1 tab Documented by: Sodium Chloride (Sodium Chloride 0.9% 10 Ml Syringe) 10 ml FLUSH ASDIRECTED PRN PRN Reason: Keep Vein Open Zinc Gluconate (Zinc (Zinc Gluconate) 50 Mg Tab) 50 mg PO DAILY REPLACED BY [facility] Last Admin: 09/25/21 09:03 Dose: 50 mg Documented by: Discontinued Medications Acetaminophen (Acetaminophen 325 Mg Tab) 650 mg PO Q4H PRN PRN Reason: Fever Greater Than 101 Dexamethasone (Dexamethasone 4 Mg/Ml Sdv) 6 mg IVPUSH DAILY REPLACED BY [facility] Stop: 09/27/21 09:01 Last Admin: 09/19/21 02:25 Dose: 6 mg Documented by: Dexamethasone (Dexamethasone 4 Mg/Ml Sdv) Confirm Administered Dose 8 mg .ROUTE .STK-MED ONE Stop: 09/19/21 02:17 Last Admin: 09/19/21 04:22 Dose: Not Given Documented by: Enoxaparin Sodium (Enoxaparin 40 Mg/0.4 Ml Syringe) 40 mg SUBCUT DAILY REPLACED BY [facility] Last Admin: 09/19/21 17:22 Dose: 40 mg Documented by: Furosemide (Furosemide 20 Mg/2 Ml Vial) 20 mg IVPUSH ONETIME ONE Stop: 09/25/21 09:01 Remdesivir 200 mg/ Sodium (Chloride) 250 mls @ 250 mls/hr IV ONETIME ONE Stop: 09/19/21 01:27 Last Admin: 09/19/21 02:24 Dose: 250 mls/hr Documented by: Remdesivir (Remdesivir) Confirm Administered Dose 200 mls @ as directed .ROUTE .STK-MED ONE Stop: 09/19/21 01:47 Last Admin: 09/19/21 04:22 Dose: Not Given Documented by: Remdesivir 100 mg/ Sodium (Chloride) 100 mls @ 100 mls/hr IV Q24H [facility] Stop: 09/22/21 20:59 Last Admin: 09/22/21 20:15 Dose: 100 mls/hr Documented by: Non-Formulary Medication (Omeprazole Magnesium [Prilosec Otc]) 20 mg PO DAILY [facility] Pantoprazole Sodium (Pantoprazole 40 Mg Tab.Cr) 40 mg PO ACBREAKFAST [facility] Last Admin: 09/23/21 07:52 Dose: 40 mg Documented by: Omeprazole 20mg 0 each PO ACBREAKFAST [facility] Omeprazole 20mg 0 each PO ACBREAKFAST [facility] Last Admin: 09/24/21 06:45 Dose: 1 each Documented by: - Exam Quality Assessment: Supplemental Oxygen General: Alert, Oriented, Cooperative, No Acute Distress Lungs: Normal Respiratory Effort. No: Wheezing GI/Abdominal Exam: Soft, No Distention Extremities: No Pedal Edema Skin: Warm, Dry Psy/Mental Status: Alert, Normal Affect - Patient Data Lab Results Last 24 hrs: Laboratory Results - last 24 hr 09/24/21 09/25/21 09/25/21 Range/Units 05:30 05:00 05:25 WBC 13.7 H (4.5-11.0) K/uL RBC 4.59 (4.30-5.90) M/uL Hgb 12.9 (12.0-15.0) g/dL Hct 39.0 L (40.0-54.0) % MCV 85 (80-98) fL MCH 28 (27-31) pg MCHC 33 (32-36) % Plt Count 435 H (150-400) K/uL Sodium (140-148) mmol/L Potassium (3.6-5.2) mmol/L Chloride (100-108) mmol/L Carbon Dioxide (21-32) mmol/L Anion Gap (5.0-14.0) mmol/L BUN (7-18) mg/dL Creatinine (0.8-1.3) mg/dL Est Cr Clr Drug Dosing mL/min Estimated GFR (MDRD) (>60) Glucose (74-106) mg/dL Calcium (8.5-10.1) mg/dL Troponin I < 0.017 (0.000-0.056) ng/mL Procalcitonin 0.30 ng/mL 09/25/21 Range/Units 05:25 WBC (4.5-11.0) K/uL RBC (4.30-5.90) M/uL Hgb (12.0-15.0) g/dL Hct (40.0-54.0) % MCV (80-98) fL MCH (27-31) pg MCHC (32-36) % Plt Count (150-400) K/uL Sodium 134 L (140-148) mmol/L Potassium 4.6 (3.6-5.2) mmol/L Chloride 98 L (100-108) mmol/L Carbon Dioxide 25 (21-32) mmol/L Anion Gap 15.6 H (5.0-14.0) mmol/L BUN 21 H (7-18) mg/dL Creatinine 0.9 (0.8-1.3) mg/dL Est Cr Clr Drug Dosing 76.00 mL/min Estimated GFR (MDRD) > 60 (>60) Glucose 129 H (74-106) mg/dL Calcium 8.6 (8.5-10.1) mg/dL Troponin I (0.000-0.056) ng/mL Procalcitonin ng/mL Result Diagrams: 09/25/21 05:25 09/25/21 05:25 [facility] Results Last 24 hrs: Microbiology 09/19/21 14:55 Aerobic Blood Culture - Final Blood - Venous - Lab Draw NO GROWTH AFTER 5 DAYS Anaerobic Blood Culture - Final NO GROWTH AFTER 5 DAYS 09/19/21 14:45 Aerobic Blood Culture - Final Blood - Venous NO GROWTH AFTER 5 DAYS Anaerobic Blood Culture - Final NO GROWTH AFTER 5 DAYS Sepsis Event Note - Evaluation Sepsis Screening Result: Severe Sepsis Risk - Focused Exam Vital Signs: Vital Signs Temp Pulse Pulse Resp BP BP Pulse Ox 09/25/21 09:03 74 109/56 L 09/25/21 08:00 36.2 C 90 19 109/56 L 87 L 09/25/21 06:00 65 19 114/64 90 L 09/25/21 04:00 36.0 C L 65 20 98/48 L 93 L 09/25/21 02:00 55 L 25 H 110/56 L 98 09/25/21 00:00 64 26 H 115/64 93 L - Problem List Review Problem List Initiated/Reviewed/Updated: Yes - My Orders Last 24 Hours: My Active Orders 09/24/21 18:46 Melatonin 9 mg PO BEDTIME PRN 09/25/21 07:30 Patient's Own Medication [Ptom] 0 each PO BIDAC 09/26/21 05:00 CBC W/O DIFF,HEMOGRAM [HEME] Timed (1) COMPREHENSIVE METABOLIC PN,CMP [CHEM] Timed CRP [C-REACTIVE PROTEIN] [CHEM] Timed D-DIMER QUANTITATIVE [COAG] Timed LACTATE DEHYDROGENASE,LDH [CHEM] Timed PROCALCITONIN [CHEM] Routine TROPONIN I [CHEM] Timed - Plan Plan:: ASSESSMENT AND PLAN - COVID-19 INFECTION WITH BILATERAL PNEUMONIA-complicated by acute respiratory failure with hypoxia. Currently requiring large quantity of oxygen support via the heated/high flow nasal cannula. Clinically stable but quite compromised. -Continue high flow humidified oxygen -Dose of furosemide today -Remdesivir x5 days complete -Decadron 6 mg IV daily (day 8) -Baricitinib 4 mg p.o. daily (day 7 of 14) -Continue ceftriaxone and doxycycline for 7 days, (day 7 of 7) -Repeat labs every 2 days -Prone ventilation as able -Continue vitamin supplementation ARDS-likely complicating COVID-19 infection -Management as above MAINTENANCE ISSUES -DVT prophylaxis; Lovenox 40 mg subcu daily -GI prophylaxis; not indicated -Holt catheter; not indicated -Nutrition; regular diet DISPOSITION-anticipate discharge to home after the hospital stay. Demetris Canseco MD
[2021-09-25] MEDS: cefTRIAXone 1 GM in Sodium Chloride 0.9% 50 ML IV SCH (15:06)
[2021-09-25] MEDS: Enoxaparin 40 MG/0.4 ML Syringe SUBCUT SCH (15:58)
[2021-09-25] MEDS: Dexamethasone 4 MG/ML SDV IVPUSH SCH (17:07)
[2021-09-25] MEDS: Doxazosin 4 MG Tab PO SCH (21:09)
[2021-09-26] MEDS: OMEPRAZOLE 20MG **PTOM PO SCH ×2 (07:50→16:02)
[2021-09-26] MEDS: Enoxaparin 80 MG/0.8 ML Syringe SUBCUT SCH ×2 (09:22→20:31)
[2021-09-26] MEDS: Ascorbic Acid 500 MG Tab PO SCH (09:23)
[2021-09-26] MEDS: Zinc (Zinc Gluconate) 50 MG Tab PO SCH (09:23)
[2021-09-26] MEDS: Multivitamins with Iron/Calcium/Folic Acid/Minerals Tab PO SCH (09:23)
[2021-09-26] MEDS: Cholecalciferol (Vitamin D3) 25 MCG Tab PO SCH (09:23)
[2021-09-26] MEDS: Metoprolol Succinate 25 MG Tab.ER PO SCH (09:23)
--- NOTE | 2021-09-26 10:01 | PCM.PN ---
- General Info Date of Service: 09/26/21 Subjective Update: No acute events overnight. Patient had a fairly good night. He was able to prone for several hours overnight. Appetite is improving. He reports his shortness of breath is better. No muscle aches. Respiratory status seems to be slowly improving with less desaturations. D-dimer has jumped from 2 days ago but CRP is improving. Functional Status: Reports: Pain Controlled, Tolerating Diet - Review of Systems General: Denies: Fever - Patient Data Vitals - Most Recent: Last Vital Signs Temp 36.8 C 09/26/21 08:00 Pulse 91 09/26/21 09:23 Resp 16 09/26/21 08:00 BP 110/75 09/26/21 09:23 Pulse Ox 95 09/26/21 08:00 Weight - Most Recent: 78.925 kg I&O - Last 24 Hours: Intake & Output 09/25/21 09/26/21 09/26/21 22:59 06:59 14:59 Intake Total 410 Output Total 775 700 Balance -365 -700 Lab Results Last 24 Hours: Laboratory Results - last 24 hr 09/26/21 09/26/21 09/26/21 Range/Units 05:00 05:00 05:00 WBC 14.2 H (4.5-11.0) K/uL RBC 4.69 (4.30-5.90) M/uL Hgb 13.2 (12.0-15.0) g/dL Hct 40.1 (40.0-54.0) % MCV 86 (80-98) fL MCH 28 (27-31) pg MCHC 33 (32-36) % Plt Count 413 H (150-400) K/uL D-Dimer, Quantitative > 04220.00 H (0.0-500.0) ng/mL Sodium 133 L (140-148) mmol/L Potassium 4.8 (3.6-5.2) mmol/L Chloride 97 L (100-108) mmol/L Carbon Dioxide 27 (21-32) mmol/L Anion Gap 13.8 (5.0-14.0) mmol/L BUN 23 H (7-18) mg/dL Creatinine 0.9 (0.8-1.3) mg/dL Est Cr Clr Drug Dosing 76.00 mL/min Estimated GFR (MDRD) > 60 (>60) Glucose 120 H (74-106) mg/dL Calcium 8.7 (8.5-10.1) mg/dL Total Bilirubin 0.5 (0.2-1.0) mg/dL AST 23 (15-37) U/L ALT 42 (12-78) U/L Alkaline Phosphatase 66 (46-116) U/L Lactate Dehydrogenase 396 H (85-227) U/L Troponin I < 0.017 (0.000-0.056) ng/mL C-Reactive Protein 15.29 H (0.0-0.3) mg/dL Total Protein 6.4 (6.4-8.2) g/dL Albumin 2.2 L (3.4-5.0) g/dL Globulin 4.2 H (2.3-3.5) g/dL Albumin/Globulin Ratio 0.5 L (1.2-2.2) Procalcitonin ng/mL 09/26/21 Range/Units 05:00 WBC (4.5-11.0) K/uL RBC (4.30-5.90) M/uL Hgb (12.0-15.0) g/dL Hct (40.0-54.0) % MCV (80-98) fL MCH (27-31) pg MCHC (32-36) % Plt Count (150-400) K/uL D-Dimer, Quantitative (0.0-500.0) ng/mL Sodium (140-148) mmol/L Potassium (3.6-5.2) mmol/L Chloride (100-108) mmol/L Carbon Dioxide (21-32) mmol/L Anion Gap (5.0-14.0) mmol/L BUN (7-18) mg/dL Creatinine (0.8-1.3) mg/dL Est Cr Clr Drug Dosing mL/min Estimated GFR (MDRD) (>60) Glucose (74-106) mg/dL Calcium (8.5-10.1) mg/dL Total Bilirubin (0.2-1.0) mg/dL AST (15-37) U/L ALT (12-78) U/L Alkaline Phosphatase (46-116) U/L Lactate Dehydrogenase (85-227) U/L Troponin I (0.000-0.056) ng/mL C-Reactive Protein (0.0-0.3) mg/dL Total Protein (6.4-8.2) g/dL Albumin (3.4-5.0) g/dL Globulin (2.3-3.5) g/dL Albumin/Globulin Ratio (1.2-2.2) Procalcitonin 0.14 ng/mL [facility] Results Last 24 Hours: Microbiology 09/19/21 14:55 Aerobic Blood Culture - Final Blood - Venous - Lab Draw NO GROWTH AFTER 5 DAYS Anaerobic Blood Culture - Final NO GROWTH AFTER 5 DAYS 09/19/21 14:45 Aerobic Blood Culture - Final Blood - Venous NO GROWTH AFTER 5 DAYS Anaerobic Blood Culture - Final NO GROWTH AFTER 5 DAYS Med Orders - Current: Current Medications Acetaminophen (Acetaminophen 325 Mg Tab) 650 mg PO Q4H PRN PRN Reason: Pain (Mild 1-3)/fever Last Admin: 09/21/21 16:00 Dose: 650 mg Documented by: Al Hydroxide/Mg Hydroxide (Aluminum Hydroxide/Magnesium Hydroxide/Simethicone Susp 30 Ml Cup) 30 ml PO Q4H PRN PRN Reason: Dyspepsia Last Admin: 09/24/21 18:40 Dose: 30 ml Documented by: Albuterol (Albuterol 8 Gm Inhaler) 0 gm INH QID PRN PRN Reason: Shortness of Breath Ascorbic Acid (Ascorbic Acid 500 Mg Tab) 500 mg PO DAILY [facility] Last Admin: 09/26/21 09:23 Dose: 500 mg Documented by: Baricitinib (Baricitinib 2 Mg Tab) 4 mg PO Q24H [facility] Stop: 10/02/21 16:01 Last Admin: 09/25/21 15:56 Dose: 4 mg Documented by: Benzonatate (Benzonatate 100 Mg Cap) 100 mg PO Q8H PRN PRN Reason: Cough Calcium Carbonate/Glycine (Calcium Carbonate 500 Mg Tab.Chew) 500 mg PO Q2H PRN PRN Reason: Indigestion Last Admin: 09/24/21 17:38 Dose: 500 mg Documented by: Cholecalciferol (Cholecalciferol (Vitamin D3) 25 Mcg Tab) 25 mcg PO DAILY [facility] Last Admin: 09/26/21 09:23 Dose: 25 mcg Documented by: Dexamethasone (Dexamethasone 4 Mg/Ml Sdv) 6 mg IVPUSH Q24H [facility] Stop: 09/27/21 18:01 Last Admin: 09/25/21 17:07 Dose: 6 mg Documented by: Doxazosin Mesylate (Doxazosin 4 Mg Tab) 4 mg PO BEDTIME [facility] Last Admin: 09/25/21 21:09 Dose: 4 mg Documented by: Enoxaparin Sodium (Enoxaparin 80 Mg/0.8 Ml Syringe) 80 mg SUBCUT Q12H [facility] Last Admin: 09/26/21 09:22 Dose: 80 mg Documented by: Guaifenesin/Dextromethorphan (Guaifenesin/Dextromethorphan 100-10 Mg/5 Ml Soln 10 Ml Cup) 10 ml PO Q4H PRN PRN Reason: Cough Melatonin (Melatonin 3 Mg Tab) 9 mg PO BEDTIME PRN PRN Reason: Sleep Metoprolol Succinate (Metoprolol Succinate 25 Mg Tab.Er) 25 mg PO DAILY [facility] Last Admin: 09/26/21 09:23 Dose: 25 mg Documented by: Multivitamins/Minerals (Multivitamins With Iron/Calcium/Folic Acid/Minerals Tab) 1 tab PO DAILY [facility] Last Admin: 09/26/21 09:23 Dose: 1 tab Documented by: Ondansetron HCl (Ondansetron 4 Mg/2 Ml Sdv) 4 mg IV Q4H PRN PRN Reason: Nausea/Vomiting Omeprazole 20mg (Ptom) 0 each PO BIDAC [facility] Last Admin: 09/26/21 07:50 Dose: 1 each Documented by: Polyethylene Glycol (Polyethylene Glycol 3350 Powder 17 Gm Packet) 17 gm PO DAILY PRN PRN Reason: Constipation Senna/Docusate Sodium (Docusate Sodium/Sennosides 50-8.6 Mg Tab) 1 tab PO Q12H PRN PRN Reason: Constipation Last Admin: 09/26/21 08:48 Dose: 1 tab Documented by: Sodium Chloride (Sodium Chloride 0.9% 10 Ml Syringe) 10 ml FLUSH ASDIRECTED PRN PRN Reason: Keep Vein Open Zinc Gluconate (Zinc (Zinc Gluconate) 50 Mg Tab) 50 mg PO DAILY [facility] Last Admin: 09/26/21 09:23 Dose: 50 mg Documented by: Discontinued Medications Acetaminophen (Acetaminophen 325 Mg Tab) 650 mg PO Q4H PRN PRN Reason: Fever Greater Than 101 Dexamethasone (Dexamethasone 4 Mg/Ml Sdv) 6 mg IVPUSH DAILY [facility] Stop: 09/27/21 09:01 Last Admin: 09/19/21 02:25 Dose: 6 mg Documented by: Dexamethasone (Dexamethasone 4 Mg/Ml Sdv) Confirm Administered Dose 8 mg .ROUTE .STK-MED ONE Stop: 09/19/21 02:17 Last Admin: 09/19/21 04:22 Dose: Not Given Documented by: Enoxaparin Sodium (Enoxaparin 40 Mg/0.4 Ml Syringe) 40 mg SUBCUT DAILY [facility] Last Admin: 09/19/21 17:22 Dose: 40 mg Documented by: Enoxaparin Sodium (Enoxaparin 40 Mg/0.4 Ml Syringe) 40 mg SUBCUT Q24H [facility] Last Admin: 09/25/21 15:58 Dose: 40 mg Documented by: Furosemide (Furosemide 20 Mg/2 Ml Vial) 20 mg IVPUSH ONETIME ONE Stop: 09/25/21 09:01 Last Admin: 09/25/21 10:17 Dose: 20 mg Documented by: Remdesivir 200 mg/ Sodium (Chloride) 250 mls @ 250 mls/hr IV ONETIME ONE Stop: 09/19/21 01:27 Last Admin: 09/19/21 02:24 Dose: 250 mls/hr Documented by: Remdesivir (Remdesivir) Confirm Administered Dose 200 mls @ as directed .ROUTE .STK-MED ONE Stop: 09/19/21 01:47 Last Admin: 09/19/21 04:22 Dose: Not Given Documented by: Ceftriaxone Sodium 1 gm/ (Sodium Chloride) 50 mls @ 100 mls/hr IV Q24H [facility] Stop: 09/25/21 20:00 Last Admin: 09/25/21 15:06 Dose: 100 mls/hr Documented by: Doxycycline Hyclate 100 mg/ (Sodium Chloride) 100 mls @ 100 mls/hr IV Q12H [facility] Stop: 09/25/21 20:00 Last Admin: 09/25/21 15:54 Dose: 100 mls/hr Documented by: Remdesivir 100 mg/ Sodium (Chloride) 100 mls @ 100 mls/hr IV Q24H [facility] Stop: 09/22/21 20:59 Last Admin: 09/22/21 20:15 Dose: 100 mls/hr Documented by: Non-Formulary Medication (Omeprazole Magnesium [Prilosec Otc]) 20 mg PO DAILY [facility] Pantoprazole Sodium (Pantoprazole 40 Mg Tab.Cr) 40 mg PO ACBREAKFAST [facility] Last Admin: 09/23/21 07:52 Dose: 40 mg Documented by: Omeprazole 20mg 0 each PO ACBREAKFAST [facility] Omeprazole 20mg 0 each PO ACBREAKFAST [facility] Last Admin: 09/24/21 06:45 Dose: 1 each Documented by: - Exam Quality Assessment: Supplemental Oxygen General: Alert, Oriented, Cooperative, No Acute Distress Lungs: Normal Respiratory Effort. No: Wheezing GI/Abdominal Exam: No Distention Extremities: No Pedal Edema Skin: Warm, Dry Psy/Mental Status: Alert, Normal Affect - Patient Data Lab Results Last 24 hrs: Laboratory Results - last 24 hr 09/26/21 09/26/21 09/26/21 Range/Units 05:00 05:00 05:00 WBC 14.2 H (4.5-11.0) K/uL RBC 4.69 (4.30-5.90) M/uL Hgb 13.2 (12.0-15.0) g/dL Hct 40.1 (40.0-54.0) % MCV 86 (80-98) fL MCH 28 (27-31) pg MCHC 33 (32-36) % Plt Count 413 H (150-400) K/uL D-Dimer, Quantitative > 68404.00 H (0.0-500.0) ng/mL Sodium 133 L (140-148) mmol/L Potassium 4.8 (3.6-5.2) mmol/L Chloride 97 L (100-108) mmol/L Carbon Dioxide 27 (21-32) mmol/L Anion Gap 13.8 (5.0-14.0) mmol/L BUN 23 H (7-18) mg/dL Creatinine 0.9 (0.8-1.3) mg/dL Est Cr Clr Drug Dosing 76.00 mL/min Estimated GFR (MDRD) > 60 (>60) Glucose 120 H (74-106) mg/dL Calcium 8.7 (8.5-10.1) mg/dL Total Bilirubin 0.5 (0.2-1.0) mg/dL AST 23 (15-37) U/L ALT 42 (12-78) U/L Alkaline Phosphatase 66 (46-116) U/L Lactate Dehydrogenase 396 H (85-227) U/L Troponin I < 0.017 (0.000-0.056) ng/mL C-Reactive Protein 15.29 H (0.0-0.3) mg/dL Total Protein 6.4 (6.4-8.2) g/dL Albumin 2.2 L (3.4-5.0) g/dL Globulin 4.2 H (2.3-3.5) g/dL Albumin/Globulin Ratio 0.5 L (1.2-2.2) Procalcitonin ng/mL 09/26/21 Range/Units 05:00 WBC (4.5-11.0) K/uL RBC (4.30-5.90) M/uL Hgb (12.0-15.0) g/dL Hct (40.0-54.0) % MCV (80-98) fL MCH (27-31) pg MCHC (32-36) % Plt Count (150-400) K/uL D-Dimer, Quantitative (0.0-500.0) ng/mL Sodium (140-148) mmol/L Potassium (3.6-5.2) mmol/L Chloride (100-108) mmol/L Carbon Dioxide (21-32) mmol/L Anion Gap (5.0-14.0) mmol/L BUN (7-18) mg/dL Creatinine (0.8-1.3) mg/dL Est Cr Clr Drug Dosing mL/min Estimated GFR (MDRD) (>60) Glucose (74-106) mg/dL Calcium (8.5-10.1) mg/dL Total Bilirubin (0.2-1.0) mg/dL AST (15-37) U/L ALT (12-78) U/L Alkaline Phosphatase (46-116) U/L Lactate Dehydrogenase (85-227) U/L Troponin I (0.000-0.056) ng/mL C-Reactive Protein (0.0-0.3) mg/dL Total Protein (6.4-8.2) g/dL Albumin (3.4-5.0) g/dL Globulin (2.3-3.5) g/dL Albumin/Globulin Ratio (1.2-2.2) Procalcitonin 0.14 ng/mL Result Diagrams: 09/26/21 05:00 09/26/21 05:00 [facility] Results Last 24 hrs: Microbiology 09/19/21 14:55 Aerobic Blood Culture - Final Blood - Venous - Lab Draw NO GROWTH AFTER 5 DAYS Anaerobic Blood Culture - Final NO GROWTH AFTER 5 DAYS 09/19/21 14:45 Aerobic Blood Culture - Final Blood - Venous NO GROWTH AFTER 5 DAYS Anaerobic Blood Culture - Final NO GROWTH AFTER 5 DAYS Sepsis Event Note - Evaluation Sepsis Screening Result: No Definite Risk - Focused Exam Vital Signs: Vital Signs Temp Pulse Pulse Resp BP BP Pulse Ox 09/26/21 09:23 91 110/75 09/26/21 08:00 36.8 C 62 16 110/75 95 09/26/21 06:00 58 L 21 H 114/69 98 09/26/21 04:00 36.4 C 57 L 28 H 93/61 95 09/26/21 02:00 56 L 27 H 105/63 96 09/26/21 00:00 36.8 C 55 L 25 H 96/51 L 90 L - Problem List Review Problem List Initiated/Reviewed/Updated: Yes - My Orders Last 24 Hours: My Active Orders 09/26/21 09:00 Enoxaparin [Lovenox] 80 mg SUBCUT Q12H 09/26/21 10:00 Transfer Patient (Change bed) [ADT] Routine 09/27/21 05:00 BASIC METABOLIC PANEL,BMP [CHEM] Timed CBC W/O DIFF,HEMOGRAM [HEME] Timed (1) DD [D-DIMER QUANTITATIVE] [COAG] Timed - Plan Plan:: ASSESSMENT AND PLAN - COVID-19 INFECTION WITH BILATERAL PNEUMONIA-complicated by acute respiratory failure with hypoxia. Currently requiring large quantity of oxygen support via the heated/high flow nasal cannula but has been stable for several days. D- dimer higher today but CRP is decreasing. -Continue high flow humidified oxygen -No diuresis today -Remdesivir x5 days complete -Decadron 6 mg IV daily (day 9) -Baricitinib 4 mg p.o. daily (day 8 of 14) -Empiric antibiotics are complete -Repeat labs every 2 days -Prone ventilation as able -Continue vitamin supplementation -Increase enoxaparin to therapeutic dosing at 1 mg/kg every 12 hours -Recheck D-dimer tomorrow ARDS-likely complicating COVID-19 infection -Management as above MAINTENANCE ISSUES -DVT prophylaxis; therapeutic enoxaparin dosing -GI prophylaxis; not indicated -Holt catheter; not indicated -Nutrition; regular diet DISPOSITION-anticipate discharge to home after the hospital stay. Patient has been stable for the last several days and is safe for transfer out of the intensive care unit today. Demetris Canseco MD
[2021-09-26] MEDS: Dexamethasone 4 MG/ML SDV IVPUSH SCH (17:20)
[2021-09-26] MEDS: Doxazosin 4 MG Tab PO SCH (20:32)
[2021-09-27] MEDS: OMEPRAZOLE 20MG **PTOM PO SCH ×2 (07:35→17:21)
[2021-09-27] MEDS: Zinc (Zinc Gluconate) 50 MG Tab PO SCH (08:35)
[2021-09-27] MEDS: Enoxaparin 80 MG/0.8 ML Syringe SUBCUT SCH ×2 (08:35→20:25)
[2021-09-27] MEDS: Cholecalciferol (Vitamin D3) 25 MCG Tab PO SCH (08:35)
[2021-09-27] MEDS: Multivitamins with Iron/Calcium/Folic Acid/Minerals Tab PO SCH (08:35)
[2021-09-27] MEDS: Ascorbic Acid 500 MG Tab PO SCH (08:35)
[2021-09-27] MEDS: Acetaminophen 325 MG Tab PO PRN ×3 (08:36→21:43)
--- NOTE | 2021-09-27 09:28 | PCM.PN ---
- General Info Date of Service: 09/27/21 Subjective Update: No acute events overnight. Patient was able to tolerate prone positioning for much of the night and had excellent oxygen saturations. He continues to report that he feels good. He does have an occasional cough. He did have some mild back pain from the proning. No nausea. Appetite improving. D-dimer has improved compared to yesterday. No bleeding issues with the increased dose of enoxaparin. Functional Status: Reports: Pain Controlled, Tolerating Diet - Review of Systems General: Denies: Fever - Patient Data Vitals - Most Recent: Last Vital Signs Temp 36.6 C 09/27/21 07:00 Pulse 67 09/27/21 07:00 Resp 18 09/27/21 07:00 BP 105/66 09/27/21 07:00 Pulse Ox 94 L 09/27/21 07:00 Weight - Most Recent: 78.925 kg I&O - Last 24 Hours: Intake & Output 09/26/21 09/27/21 09/27/21 23:59 06:59 14:59 Intake Total Output Total 250 Balance -250 Lab Results Last 24 Hours: Laboratory Results - last 24 hr 09/27/21 09/27/21 09/27/21 Range/Units 05:10 05:10 05:15 WBC 10.9 (4.5-11.0) K/uL RBC 4.66 (4.30-5.90) M/uL Hgb 13.5 (12.0-15.0) g/dL Hct 40.5 (40.0-54.0) % MCV 87 (80-98) fL MCH 29 (27-31) pg MCHC 33 (32-36) % Plt Count 352 (150-400) K/uL D-Dimer, Quantitative 6313.92 H (0.0-500.0) ng/mL Sodium 132 L (140-148) mmol/L Potassium 5.2 (3.6-5.2) mmol/L Chloride 97 L (100-108) mmol/L Carbon Dioxide 29 (21-32) mmol/L Anion Gap 11.2 (5.0-14.0) mmol/L BUN 25 H (7-18) mg/dL Creatinine 0.9 (0.8-1.3) mg/dL Est Cr Clr Drug Dosing 76.00 mL/min Estimated GFR (MDRD) > 60 (>60) Glucose 111 H (74-106) mg/dL Calcium 9.0 (8.5-10.1) mg/dL Med Orders - Current: Current Medications Acetaminophen (Acetaminophen 325 Mg Tab) 650 mg PO Q4H PRN PRN Reason: Pain (Mild 1-3)/fever Last Admin: 09/27/21 08:36 Dose: 650 mg Documented by: Al Hydroxide/Mg Hydroxide (Aluminum Hydroxide/Magnesium Hydroxide/Simethicone Susp 30 Ml Cup) 30 ml PO Q4H PRN PRN Reason: Dyspepsia Last Admin: 09/24/21 18:40 Dose: 30 ml Documented by: Albuterol (Albuterol 8 Gm Inhaler) 0 gm INH QID PRN PRN Reason: Shortness of Breath Ascorbic Acid (Ascorbic Acid 500 Mg Tab) 500 mg PO DAILY [facility] Last Admin: 09/27/21 08:35 Dose: 500 mg Documented by: Baricitinib (Baricitinib 2 Mg Tab) 4 mg PO Q24H [facility] Stop: 10/02/21 16:01 Last Admin: 09/26/21 16:02 Dose: 4 mg Documented by: Benzonatate (Benzonatate 100 Mg Cap) 100 mg PO Q8H PRN PRN Reason: Cough Calcium Carbonate/Glycine (Calcium Carbonate 500 Mg Tab.Chew) 500 mg PO Q2H PRN PRN Reason: Indigestion Last Admin: 09/24/21 17:38 Dose: 500 mg Documented by: Cholecalciferol (Cholecalciferol (Vitamin D3) 25 Mcg Tab) 25 mcg PO DAILY [facility] Last Admin: 09/27/21 08:35 Dose: 25 mcg Documented by: Dexamethasone (Dexamethasone 4 Mg/Ml Sdv) 6 mg IVPUSH Q24H [facility] Stop: 09/27/21 18:01 Last Admin: 09/26/21 17:20 Dose: 6 mg Documented by: Doxazosin Mesylate (Doxazosin 4 Mg Tab) 4 mg PO BEDTIME [facility] Last Admin: 09/26/21 20:32 Dose: 4 mg Documented by: Enoxaparin Sodium (Enoxaparin 80 Mg/0.8 Ml Syringe) 80 mg SUBCUT Q12H [facility] Last Admin: 09/27/21 08:35 Dose: 80 mg Documented by: Guaifenesin/Dextromethorphan (Guaifenesin/Dextromethorphan 100-10 Mg/5 Ml Soln 10 Ml Cup) 10 ml PO Q4H PRN PRN Reason: Cough Melatonin (Melatonin 3 Mg Tab) 9 mg PO BEDTIME PRN PRN Reason: Sleep Metoprolol Succinate (Metoprolol Succinate 25 Mg Tab.Er) 25 mg PO DAILY [facility] Last Admin: 09/26/21 09:23 Dose: 25 mg Documented by: Multivitamins/Minerals (Multivitamins With Iron/Calcium/Folic Acid/Minerals Tab) 1 tab PO DAILY [facility] Last Admin: 09/27/21 08:35 Dose: 1 tab Documented by: Ondansetron HCl (Ondansetron 4 Mg/2 Ml Sdv) 4 mg IV Q4H PRN PRN Reason: Nausea/Vomiting Omeprazole 20mg (Ptom) 0 each PO BIDAC [facility] Last Admin: 09/27/21 07:35 Dose: 1 each Documented by: Polyethylene Glycol (Polyethylene Glycol 3350 Powder 17 Gm Packet) 17 gm PO DAILY PRN PRN Reason: Constipation Senna/Docusate Sodium (Docusate Sodium/Sennosides 50-8.6 Mg Tab) 1 tab PO Q12H PRN PRN Reason: Constipation Last Admin: 09/26/21 08:48 Dose: 1 tab Documented by: Sodium Chloride (Sodium Chloride 0.9% 10 Ml Syringe) 10 ml FLUSH ASDIRECTED PRN PRN Reason: Keep Vein Open Zinc Gluconate (Zinc (Zinc Gluconate) 50 Mg Tab) 50 mg PO DAILY [facility] Last Admin: 09/27/21 08:35 Dose: 50 mg Documented by: Discontinued Medications Acetaminophen (Acetaminophen 325 Mg Tab) 650 mg PO Q4H PRN PRN Reason: Fever Greater Than 101 Dexamethasone (Dexamethasone 4 Mg/Ml Sdv) 6 mg IVPUSH DAILY [facility] Stop: 09/27/21 09:01 Last Admin: 09/19/21 02:25 Dose: 6 mg Documented by: Dexamethasone (Dexamethasone 4 Mg/Ml Sdv) Confirm Administered Dose 8 mg .ROUTE .STK-MED ONE Stop: 09/19/21 02:17 Last Admin: 09/19/21 04:22 Dose: Not Given Documented by: Enoxaparin Sodium (Enoxaparin 40 Mg/0.4 Ml Syringe) 40 mg SUBCUT DAILY [facility] Last Admin: 09/19/21 17:22 Dose: 40 mg Documented by: Enoxaparin Sodium (Enoxaparin 40 Mg/0.4 Ml Syringe) 40 mg SUBCUT Q24H [facility] Last Admin: 09/25/21 15:58 Dose: 40 mg Documented by: Furosemide (Furosemide 20 Mg/2 Ml Vial) 20 mg IVPUSH ONETIME [facility] Stop: 09/25/21 09:01 Last Admin: 09/25/21 10:17 Dose: 20 mg Documented by: Remdesivir 200 mg/ Sodium (Chloride) 250 mls @ 250 mls/hr IV ONETIME ONE Stop: 09/19/21 01:27 Last Admin: 09/19/21 02:24 Dose: 250 mls/hr Documented by: Remdesivir (Remdesivir) Confirm Administered Dose 200 mls @ as directed .ROUTE .STK-MED ONE Stop: 09/19/21 01:47 Last Admin: 09/19/21 04:22 Dose: Not Given Documented by: Ceftriaxone Sodium 1 gm/ (Sodium Chloride) 50 mls @ 100 mls/hr IV Q24H [facility] Stop: 09/25/21 20:00 Last Admin: 09/25/21 15:06 Dose: 100 mls/hr Documented by: Doxycycline Hyclate 100 mg/ (Sodium Chloride) 100 mls @ 100 mls/hr IV Q12H [facility] Stop: 09/25/21 20:00 Last Admin: 09/25/21 15:54 Dose: 100 mls/hr Documented by: Remdesivir 100 mg/ Sodium (Chloride) 100 mls @ 100 mls/hr IV Q24H [facility] Stop: 09/22/21 20:59 Last Admin: 09/22/21 20:15 Dose: 100 mls/hr Documented by: Non-Formulary Medication (Omeprazole Magnesium [Prilosec Otc]) 20 mg PO DAILY [facility] Pantoprazole Sodium (Pantoprazole 40 Mg Tab.Cr) 40 mg PO ACBREAKFAST [facility] Last Admin: 09/23/21 07:52 Dose: 40 mg Documented by: Omeprazole 20mg 0 each PO [facility]BREAKFAST [facility] Omeprazole 20mg 0 each PO ACBREAKFAST [facility] Last Admin: 09/24/21 06:45 Dose: 1 each Documented by: - Exam Quality Assessment: Supplemental Oxygen General: Alert, Oriented, Cooperative, No Acute Distress Lungs: Normal Respiratory Effort, Crackles (few right lung base ) Cardiovascular: Regular Rate, Regular Rhythm GI/Abdominal Exam: Soft, No Distention Extremities: No Pedal Edema. No: Increased Warmth Skin: Warm, Dry Psy/Mental Status: Alert, Normal Affect - Patient Data Lab Results Last 24 hrs: Laboratory Results - last 24 hr 09/27/21 09/27/21 09/27/21 Range/Units 05:10 05:10 05:15 WBC 10.9 (4.5-11.0) K/uL RBC 4.66 (4.30-5.90) M/uL Hgb 13.5 (12.0-15.0) g/dL Hct 40.5 (40.0-54.0) % MCV 87 (80-98) fL MCH 29 (27-31) pg MCHC 33 (32-36) % Plt Count 352 (150-400) K/uL D-Dimer, Quantitative 6313.92 H (0.0-500.0) ng/mL Sodium 132 L (140-148) mmol/L Potassium 5.2 (3.6-5.2) mmol/L Chloride 97 L (100-108) mmol/L Carbon Dioxide 29 (21-32) mmol/L Anion Gap 11.2 (5.0-14.0) mmol/L BUN 25 H (7-18) mg/dL Creatinine 0.9 (0.8-1.3) mg/dL Est Cr Clr Drug Dosing 76.00 mL/min Estimated GFR (MDRD) > 60 (>60) Glucose 111 H (74-106) mg/dL Calcium 9.0 (8.5-10.1) mg/dL Result Diagrams: 09/27/21 05:10 09/27/21 05:10 Sepsis Event Note - Evaluation Sepsis Screening Result: No Definite Risk - Focused Exam Vital Signs: Vital Signs Temp Pulse Resp BP Pulse Ox 09/27/21 07:00 36.6 C 67 18 105/66 94 L 09/27/21 03:00 36.4 C 61 18 117/69 98 09/27/21 01:17 CDT 98 09/27/21 01:10 CDT 98 09/26/21 23:51 36.5 C 55 L 20 103/51 L 98 - Problem List Review Problem List Initiated/Reviewed/Updated: Yes - My Orders Last 24 Hours: My Active Orders 09/26/21 10:00 Transfer Patient (Change bed) [ADT] Routine 09/28/21 05:00 BASIC METABOLIC PANEL,BMP [CHEM] Timed CRP [C-REACTIVE PROTEIN] [CHEM] Timed D-DIMER QUANTITATIVE [COAG] Timed 09/28/21 18:00 dexAMETHasone 4 mg PO Q24H 10/02/21 18:00 dexAMETHasone 2 mg PO Q24H - Plan Plan:: ASSESSMENT AND PLAN - COVID-19 INFECTION WITH BILATERAL PNEUMONIA-complicated by acute respiratory failure with hypoxia. Currently requiring large quantity of oxygen support via the heated/high flow nasal cannula but has been stable to slightly improved for several days. D-dimer improved compared to yesterday. -Continue high flow humidified oxygen -No diuresis today -Remdesivir x5 days complete -Decadron 6 mg IV daily (day 10), starting oral taper tomorrow -Baricitinib 4 mg p.o. daily (day 9 of 14) -Empiric antibiotics are complete -Repeat labs every 2 days -Prone ventilation as able -Continue vitamin supplementation -Continue enoxaparin with therapeutic dosing at 1 mg/kg every 12 hours ARDS-likely complicating COVID-19 infection -Management as above MAINTENANCE ISSUES -DVT prophylaxis; therapeutic enoxaparin dosing -GI prophylaxis; not indicated -Holt catheter; not indicated -Nutrition; regular diet DISPOSITION-anticipate discharge to home after the hospital stay. Demetris Canseco MD
[2021-09-27] MEDS: Metoprolol Succinate 25 MG Tab.ER PO SCH (10:04)
[2021-09-27] MEDS: traMADol 50 MG Tab PO PRN ×2 (13:18→21:40)
[2021-09-27] MEDS: Dexamethasone 4 MG/ML SDV IVPUSH SCH (17:22)
[2021-09-27] MEDS: Doxazosin 4 MG Tab PO SCH (20:25)
[2021-09-28] MEDS: Acetaminophen 325 MG Tab PO PRN ×3 (04:07→17:17)
[2021-09-28] MEDS: traMADol 50 MG Tab PO PRN ×2 (04:08→09:40)
[2021-09-28] MEDS: OMEPRAZOLE 20MG **PTOM PO SCH ×2 (08:53→17:16)
[2021-09-28] MEDS: Multivitamins with Iron/Calcium/Folic Acid/Minerals Tab PO SCH (08:54)
[2021-09-28] MEDS: Metoprolol Succinate 25 MG Tab.ER PO SCH (08:54)
[2021-09-28] MEDS: Enoxaparin 80 MG/0.8 ML Syringe SUBCUT SCH ×2 (08:54→21:02)
[2021-09-28] MEDS: Cholecalciferol (Vitamin D3) 25 MCG Tab PO SCH (08:54)
[2021-09-28] MEDS: Zinc (Zinc Gluconate) 50 MG Tab PO SCH (08:55)
[2021-09-28] MEDS: Ascorbic Acid 500 MG Tab PO SCH (08:55)
--- NOTE | 2021-09-28 13:45 | PCM.PN ---
- General Info Date of Service: 09/28/21 Subjective Update: Mr. Chan has been stable since yesterday and shown further improvement in respiratory status. He does not desaturate as much with activity and his oxygen requirements are down mildly. He otherwise feels well and has a fairly good appetite. Functional Status: Reports: Tolerating Diet, Urinating - Review of Systems General: Reports: Weakness, Fatigue. Denies: Fever, Chills Pulmonary: Reports: Shortness of Breath. Denies: Pleuritic Chest Pain, Cough, Sputum, Hemoptysis, Wheezing Cardiovascular: Reports: Dyspnea on Exertion. Denies: Chest Pain, Palpitations, Orthopnea, PND, Edema, Lightheadedness Gastrointestinal: Reports: No Symptoms Genitourinary: Reports: No Symptoms - Patient Data Vitals - Most Recent: Last Vital Signs Temp 97.6 F 09/28/21 08:51 Pulse 60 09/28/21 08:54 Resp 18 09/28/21 08:51 BP 110/73 09/28/21 08:54 Pulse Ox 89 L 09/28/21 09:07 Weight - Most Recent: 174 lb I&O - Last 24 Hours: Intake & Output 09/27/21 09/28/21 09/28/21 22:59 06:59 14:59 Intake Total 600 300 480 Output Total 500 375 400 Balance 100 -75 80 Lab Results Last 24 Hours: Laboratory Results - last 24 hr 09/28/21 09/28/21 Range/Units 04:25 04:25 D-Dimer, Quantitative 5107.96 H (0.0-500.0) ng/mL Sodium 132 L (140-148) mmol/L Potassium 5.0 (3.6-5.2) mmol/L Chloride 96 L (100-108) mmol/L Carbon Dioxide 29 (21-32) mmol/L Anion Gap 12.0 (5.0-14.0) mmol/L BUN 24 H (7-18) mg/dL Creatinine 0.9 (0.8-1.3) mg/dL Est Cr Clr Drug Dosing 76.00 mL/min Estimated GFR (MDRD) > 60 (>60) Glucose 117 H (74-106) mg/dL Calcium 8.6 (8.5-10.1) mg/dL C-Reactive Protein 13.50 H (0.0-0.3) mg/dL Med Orders - Current: Current Medications Acetaminophen (Acetaminophen 325 Mg Tab) 650 mg PO Q4H PRN PRN Reason: Pain (Mild 1-3)/fever Last Admin: 09/28/21 09:40 Dose: 650 mg Documented by: Al Hydroxide/Mg Hydroxide (Aluminum Hydroxide/Magnesium Hydroxide/Simethicone Susp 30 Ml Cup) 30 ml PO Q4H PRN PRN Reason: Dyspepsia Last Admin: 09/24/21 18:40 Dose: 30 ml Documented by: Albuterol (Albuterol 8 Gm Inhaler) 0 gm INH QID PRN PRN Reason: Shortness of Breath Ascorbic Acid (Ascorbic Acid 500 Mg Tab) 500 mg PO DAILY [facility] Last Admin: 09/28/21 08:55 Dose: 500 mg Documented by: Baricitinib (Baricitinib 2 Mg Tab) 4 mg PO Q24H [facility] Stop: 10/02/21 16:01 Last Admin: 09/27/21 15:02 Dose: 4 mg Documented by: Benzonatate (Benzonatate 100 Mg Cap) 100 mg PO Q8H PRN PRN Reason: Cough Calcium Carbonate/Glycine (Calcium Carbonate 500 Mg Tab.Chew) 500 mg PO Q2H PRN PRN Reason: Indigestion Last Admin: 09/24/21 17:38 Dose: 500 mg Documented by: Cholecalciferol (Cholecalciferol (Vitamin D3) 25 Mcg Tab) 25 mcg PO DAILY [facility] Last Admin: 09/28/21 08:54 Dose: 25 mcg Documented by: Dexamethasone (Dexamethasone 2 Mg Tab) 4 mg PO Q24H [facility] Stop: 10/01/21 18:01 Dexamethasone (Dexamethasone 2 Mg Tab) 2 mg PO Q24H [facility] Stop: 10/05/21 18:01 Doxazosin Mesylate (Doxazosin 4 Mg Tab) 4 mg PO BEDTIME [facility] Last Admin: 09/27/21 20:25 Dose: 4 mg Documented by: Enoxaparin Sodium (Enoxaparin 80 Mg/0.8 Ml Syringe) 80 mg SUBCUT Q12H [facility] Last Admin: 09/28/21 08:54 Dose: 80 mg Documented by: Guaifenesin/Dextromethorphan (Guaifenesin/Dextromethorphan 100-10 Mg/5 Ml Soln 10 Ml Cup) 10 ml PO Q4H PRN PRN Reason: Cough Melatonin (Melatonin 3 Mg Tab) 9 mg PO BEDTIME PRN PRN Reason: Sleep Metoprolol Succinate (Metoprolol Succinate 25 Mg Tab.Er) 25 mg PO DAILY [facility] Last Admin: 09/28/21 08:54 Dose: 25 mg Documented by: Multivitamins/Minerals (Multivitamins With Iron/Calcium/Folic Acid/Minerals Tab) 1 tab PO DAILY [facility] Last Admin: 09/28/21 08:54 Dose: 1 tab Documented by: Ondansetron HCl (Ondansetron 4 Mg/2 Ml Sdv) 4 mg IV Q4H PRN PRN Reason: Nausea/Vomiting Omeprazole 20mg (Ptom) 0 each PO BIDAC [facility] Last Admin: 09/28/21 08:53 Dose: 1 each Documented by: Polyethylene Glycol (Polyethylene Glycol 3350 Powder 17 Gm Packet) 17 gm PO DAILY PRN PRN Reason: Constipation Senna/Docusate Sodium (Docusate Sodium/Sennosides 50-8.6 Mg Tab) 1 tab PO Q12H PRN PRN Reason: Constipation Last Admin: 09/26/21 08:48 Dose: 1 tab Documented by: Sodium Chloride (Sodium Chloride 0.9% 10 Ml Syringe) 10 ml FLUSH ASDIRECTED PRN PRN Reason: Keep Vein Open Tramadol HCl (Tramadol 50 Mg Tab) 50 mg PO Q6H PRN PRN Reason: back pain Last Admin: 09/28/21 09:40 Dose: 50 mg Documented by: Zinc Gluconate (Zinc (Zinc Gluconate) 50 Mg Tab) 50 mg PO DAILY [facility] Last Admin: 09/28/21 08:55 Dose: 50 mg Documented by: Discontinued Medications Acetaminophen (Acetaminophen 325 Mg Tab) 650 mg PO Q4H PRN PRN Reason: Fever Greater Than 101 Dexamethasone (Dexamethasone 4 Mg/Ml Sdv) 6 mg IVPUSH DAILY [facility] Stop: 09/27/21 09:01 Last Admin: 09/19/21 02:25 Dose: 6 mg Documented by: Dexamethasone (Dexamethasone 4 Mg/Ml Sdv) Confirm Administered Dose 8 mg .ROUTE .STK-MED ONE Stop: 09/19/21 02:17 Last Admin: 09/19/21 04:22 Dose: Not Given Documented by: Dexamethasone (Dexamethasone 4 Mg/Ml Sdv) 6 mg IVPUSH Q24H [facility] Stop: 09/27/21 18:01 Last Admin: 09/27/21 17:22 Dose: 6 mg Documented by: Enoxaparin Sodium (Enoxaparin 40 Mg/0.4 Ml Syringe) 40 mg SUBCUT DAILY [facility] Last Admin: 09/19/21 17:22 Dose: 40 mg Documented by: Enoxaparin Sodium (Enoxaparin 40 Mg/0.4 Ml Syringe) 40 mg SUBCUT Q24H [facility] Last Admin: 09/25/21 15:58 Dose: 40 mg Documented by: Furosemide (Furosemide 20 Mg/2 Ml Vial) 20 mg IVPUSH ONETIME [facility] Stop: 09/25/21 09:01 Last Admin: 09/25/21 10:17 Dose: 20 mg Documented by: Remdesivir 200 mg/ Sodium (Chloride) 250 mls @ 250 mls/hr IV ONETIME [facility] Stop: 09/19/21 01:27 Last Admin: 09/19/21 02:24 Dose: 250 mls/hr Documented by: Remdesivir (Remdesivir) Confirm Administered Dose 200 mls @ as directed .ROUTE .STK-MED ONE Stop: 09/19/21 01:47 Last Admin: 09/19/21 04:22 Dose: Not Given Documented by: Ceftriaxone Sodium 1 gm/ (Sodium Chloride) 50 mls @ 100 mls/hr IV Q24H [facility] Stop: 09/25/21 20:00 Last Admin: 09/25/21 15:06 Dose: 100 mls/hr Documented by: Doxycycline Hyclate 100 mg/ (Sodium Chloride) 100 mls @ 100 mls/hr IV Q12H [facility] Stop: 09/25/21 20:00 Last Admin: 09/25/21 15:54 Dose: 100 mls/hr Documented by: Remdesivir 100 mg/ Sodium (Chloride) 100 mls @ 100 mls/hr IV Q24H [facility] Stop: 09/22/21 20:59 Last Admin: 09/22/21 20:15 Dose: 100 mls/hr Documented by: Non-Formulary Medication (Omeprazole Magnesium [Prilosec Otc]) 20 mg PO DAILY [facility] Pantoprazole Sodium (Pantoprazole 40 Mg Tab.Cr) 40 mg PO ACBREAKFAST [facility] Last Admin: 09/23/21 07:52 Dose: 40 mg Documented by: Omeprazole 20mg 0 each PO [facility]AK[facility] Omeprazole 20mg 0 each PO [facility]AK[facility] Last Admin: 09/24/21 06:45 Dose: 1 each Documented by: - Exam Quality Assessment: Supplemental Oxygen, DVT Prophylaxis General: Alert, Oriented, Cooperative, Mild Distress Lungs: Normal Respiratory Effort, Rales. No: Crackles, Rhonchi, Wheezing Cardiovascular: Regular Rate, Regular Rhythm, No Murmurs GI/Abdominal Exam: Soft, Non-Tender, No Organomegaly, No Distention Extremities: Non-Tender, No Pedal Edema - Patient Data Lab Results Last 24 hrs: Laboratory Results - last 24 hr 09/28/21 09/28/21 Range/Units 04:25 04:25 D-Dimer, Quantitative 5107.96 H (0.0-500.0) ng/mL Sodium 132 L (140-148) mmol/L Potassium 5.0 (3.6-5.2) mmol/L Chloride 96 L (100-108) mmol/L Carbon Dioxide 29 (21-32) mmol/L Anion Gap 12.0 (5.0-14.0) mmol/L BUN 24 H (7-18) mg/dL Creatinine 0.9 (0.8-1.3) mg/dL Est Cr Clr Drug Dosing 76.00 mL/min Estimated GFR (MDRD) > 60 (>60) Glucose 117 H (74-106) mg/dL Calcium 8.6 (8.5-10.1) mg/dL C-Reactive Protein 13.50 H (0.0-0.3) mg/dL Result Diagrams: 09/27/21 05:10 09/28/21 04:25 Sepsis Event Note - Evaluation Sepsis Screening Result: No Definite Risk - Focused Exam Vital Signs: Vital Signs Temp Pulse Pulse Resp BP BP Pulse Ox 09/28/21 09:07 09/28/21 08:54 60 110/73 09/28/21 08:51 97.6 F 58 L 18 110/73 89 L 09/28/21 07:29 96 09/28/21 05:25 99 09/28/21 04:00 98.0 F 59 L 20 113/65 94 L 09/28/21 02:04 97 Pulse Ox 09/28/21 09:07 89 L 09/28/21 08:54 09/28/21 08:51 09/28/21 07:29 09/28/21 05:25 09/28/21 04:00 09/28/21 02:04 - Problem List Review Problem List Initiated/Reviewed/Updated: Yes - Plan Plan:: ASSESSMENT AND PLAN - COVID-19 INFECTION WITH BILATERAL PNEUMONIA-complicated by acute respiratory failure with hypoxia. Currently requiring large quantity of oxygen support via the heated/high flow nasal cannula but has been stable to slightly improved for several days. D-dimer and CRP improved over the past few days. -Continue high flow humidified oxygen -No diuresis today -Remdesivir x5 days complete -Decadron 6 mg IV daily (day 11), starting oral taper today -Baricitinib 4 mg p.o. daily (day 10 of 14) -Empiric antibiotics are complete -Repeat labs every 2 days -Prone ventilation as able -Continue vitamin supplementation -Continue enoxaparin with therapeutic dosing at 1 mg/kg every 12 hours ARDS-likely complicating COVID-19 infection -Management as above MAINTENANCE ISSUES -DVT prophylaxis; therapeutic enoxaparin dosing -GI prophylaxis; not indicated -Holt catheter; not indicated -Nutrition; regular diet DISPOSITION-anticipate discharge to home after the hospital stay.
[2021-09-28] MEDS: Dexamethasone 2 MG Tab PO SCH (17:16)
[2021-09-28] MEDS: Doxazosin 4 MG Tab PO SCH (20:58)
[2021-09-29] MEDS: Acetaminophen 325 MG Tab PO PRN ×3 (05:51→17:12)
[2021-09-29] MEDS: OMEPRAZOLE 20MG **PTOM PO SCH ×3 (07:35→15:50)
[2021-09-29] MEDS: Enoxaparin 80 MG/0.8 ML Syringe SUBCUT SCH ×2 (08:18→20:51)
[2021-09-29] MEDS: Zinc (Zinc Gluconate) 50 MG Tab PO SCH (08:19)
[2021-09-29] MEDS: Cholecalciferol (Vitamin D3) 25 MCG Tab PO SCH (08:19)
[2021-09-29] MEDS: Ascorbic Acid 500 MG Tab PO SCH (08:19)
[2021-09-29] MEDS: Multivitamins with Iron/Calcium/Folic Acid/Minerals Tab PO SCH (08:19)
[2021-09-29] MEDS: Metoprolol Succinate 25 MG Tab.ER PO SCH (08:19)
--- NOTE | 2021-09-29 14:21 | PCM.PN ---
- General Info Date of Service: 09/29/21 Subjective Update: Mr. Chan does not feel as well today as he had yesterday. More fatigued, but denies increase in shortness of breath. Appetite remains somewhat poor and energy level not as good as it had been yesterday. Need for supplemental oxygen has remained stable over the past 24 hours. Functional Status: Reports: Urinating - Review of Systems General: Reports: Weakness, Fatigue. Denies: Fever, Chills Pulmonary: Reports: Shortness of Breath, Cough. Denies: Pleuritic Chest Pain, Sputum, Hemoptysis, Wheezing Cardiovascular: Reports: Dyspnea on Exertion. Denies: Chest Pain, Palpitations, Orthopnea, PND, Edema, Lightheadedness Gastrointestinal: Reports: No Symptoms Genitourinary: Reports: No Symptoms - Patient Data Vitals - Most Recent: Last Vital Signs Temp 95.9 F L 09/29/21 11:12 Pulse 69 09/29/21 11:12 Resp 24 H 09/29/21 11:12 BP 135/65 09/29/21 11:12 Pulse Ox 92 L 09/29/21 13:07 Weight - Most Recent: 174 lb I&O - Last 24 Hours: Intake & Output 09/28/21 09/29/21 09/29/21 22:59 06:59 14:59 Intake Total 150 700 Output Total 150 800 400 Balance 0 -800 300 Med Orders - Current: Current Medications Acetaminophen (Acetaminophen 325 Mg Tab) 650 mg PO Q4H PRN PRN Reason: Pain (Mild 1-3)/fever Last Admin: 09/29/21 12:47 Dose: 650 mg Documented by: Al Hydroxide/Mg Hydroxide (Aluminum Hydroxide/Magnesium Hydroxide/Simethicone Susp 30 Ml Cup) 30 ml PO Q4H PRN PRN Reason: Dyspepsia Last Admin: 09/24/21 18:40 Dose: 30 ml Documented by: Albuterol (Albuterol 8 Gm Inhaler) 0 gm INH QID PRN PRN Reason: Shortness of Breath Ascorbic Acid (Ascorbic Acid 500 Mg Tab) 500 mg PO DAILY [facility] Last Admin: 09/29/21 08:19 Dose: 500 mg Documented by: Baricitinib (Baricitinib 2 Mg Tab) 4 mg PO Q24H [facility] Stop: 10/02/21 16:01 Last Admin: 09/28/21 17:16 Dose: 4 mg Documented by: Benzonatate (Benzonatate 100 Mg Cap) 100 mg PO Q8H PRN PRN Reason: Cough Calcium Carbonate/Glycine (Calcium Carbonate 500 Mg Tab.Chew) 500 mg PO Q2H PRN PRN Reason: Indigestion Last Admin: 09/24/21 17:38 Dose: 500 mg Documented by: Cholecalciferol (Cholecalciferol (Vitamin D3) 25 Mcg Tab) 25 mcg PO DAILY [facility] Last Admin: 09/29/21 08:19 Dose: 25 mcg Documented by: Dexamethasone (Dexamethasone 2 Mg Tab) 4 mg PO Q24H [facility] Stop: 10/01/21 18:01 Last Admin: 09/28/21 17:16 Dose: 4 mg Documented by: Dexamethasone (Dexamethasone 2 Mg Tab) 2 mg PO Q24H [facility] Stop: 10/05/21 18:01 Doxazosin Mesylate (Doxazosin 4 Mg Tab) 4 mg PO BEDTIME [facility] Last Admin: 09/28/21 20:58 Dose: Not Given Documented by: Enoxaparin Sodium (Enoxaparin 80 Mg/0.8 Ml Syringe) 80 mg SUBCUT Q12H [facility] Last Admin: 09/29/21 08:18 Dose: 80 mg Documented by: Guaifenesin/Dextromethorphan (Guaifenesin/Dextromethorphan 100-10 Mg/5 Ml Soln 10 Ml Cup) 10 ml PO Q4H PRN PRN Reason: Cough Melatonin (Melatonin 3 Mg Tab) 9 mg PO BEDTIME PRN PRN Reason: Sleep Metoprolol Succinate (Metoprolol Succinate 25 Mg Tab.Er) 25 mg PO DAILY [facility] Last Admin: 09/29/21 08:19 Dose: 25 mg Documented by: Multivitamins/Minerals (Multivitamins With Iron/Calcium/Folic Acid/Minerals Tab) 1 tab PO DAILY [facility] Last Admin: 09/29/21 08:19 Dose: 1 tab Documented by: Ondansetron HCl (Ondansetron 4 Mg/2 Ml Sdv) 4 mg IV Q4H PRN PRN Reason: Nausea/Vomiting Omeprazole 20mg (Ptom) 0 each PO BIDAC [facility] Last Admin: 09/29/21 07:35 Dose: 1 each Documented by: Polyethylene Glycol (Polyethylene Glycol 3350 Powder 17 Gm Packet) 17 gm PO DAILY PRN PRN Reason: Constipation Senna/Docusate Sodium (Docusate Sodium/Sennosides 50-8.6 Mg Tab) 1 tab PO Q12H PRN PRN Reason: Constipation Last Admin: 09/26/21 08:48 Dose: 1 tab Documented by: Sodium Chloride (Sodium Chloride 0.9% 10 Ml Syringe) 10 ml FLUSH ASDIRECTED PRN PRN Reason: Keep Vein Open Tramadol HCl (Tramadol 50 Mg Tab) 50 mg PO Q6H PRN PRN Reason: back pain Last Admin: 09/28/21 09:40 Dose: 50 mg Documented by: Zinc Gluconate (Zinc (Zinc Gluconate) 50 Mg Tab) 50 mg PO DAILY [facility] Last Admin: 09/29/21 08:19 Dose: 50 mg Documented by: Discontinued Medications Acetaminophen (Acetaminophen 325 Mg Tab) 650 mg PO Q4H PRN PRN Reason: Fever Greater Than 101 Dexamethasone (Dexamethasone 4 Mg/Ml Sdv) 6 mg IVPUSH DAILY [facility] Stop: 09/27/21 09:01 Last Admin: 09/19/21 02:25 Dose: 6 mg Documented by: Dexamethasone (Dexamethasone 4 Mg/Ml Sdv) Confirm Administered Dose 8 mg .ROUTE .STK-MED ONE Stop: 09/19/21 02:17 Last Admin: 09/19/21 04:22 Dose: Not Given Documented by: Dexamethasone (Dexamethasone 4 Mg/Ml Sdv) 6 mg IVPUSH Q24H [facility] Stop: 09/27/21 18:01 Last Admin: 09/27/21 17:22 Dose: 6 mg Documented by: Enoxaparin Sodium (Enoxaparin 40 Mg/0.4 Ml Syringe) 40 mg SUBCUT DAILY [facility] Last Admin: 09/19/21 17:22 Dose: 40 mg Documented by: Enoxaparin Sodium (Enoxaparin 40 Mg/0.4 Ml Syringe) 40 mg SUBCUT Q24H [facility] Last Admin: 09/25/21 15:58 Dose: 40 mg Documented by: Furosemide (Furosemide 20 Mg/2 Ml Vial) 20 mg IVPUSH ONETIME ONE Stop: 09/25/21 09:01 Last Admin: 09/25/21 10:17 Dose: 20 mg Documented by: Remdesivir 200 mg/ Sodium (Chloride) 250 mls @ 250 mls/hr IV ONETIME ONE Stop: 09/19/21 01:27 Last Admin: 09/19/21 02:24 Dose: 250 mls/hr Documented by: Remdesivir (Remdesivir) Confirm Administered Dose 200 mls @ as directed .ROUTE .STK-MED ONE Stop: 09/19/21 01:47 Last Admin: 09/19/21 04:22 Dose: Not Given Documented by: Ceftriaxone Sodium 1 gm/ (Sodium Chloride) 50 mls @ 100 mls/hr IV Q24H [facility] Stop: 09/25/21 20:00 Last Admin: 09/25/21 15:06 Dose: 100 mls/hr Documented by: Doxycycline Hyclate 100 mg/ (Sodium Chloride) 100 mls @ 100 mls/hr IV Q12H [facility] Stop: 09/25/21 20:00 Last Admin: 09/25/21 15:54 Dose: 100 mls/hr Documented by: Remdesivir 100 mg/ Sodium (Chloride) 100 mls @ 100 mls/hr IV Q24H [facility] Stop: 09/22/21 20:59 Last Admin: 09/22/21 20:15 Dose: 100 mls/hr Documented by: Non-Formulary Medication (Omeprazole Magnesium [Prilosec Otc]) 20 mg PO DAILY [facility] Pantoprazole Sodium (Pantoprazole 40 Mg Tab.Cr) 40 mg PO ACBREAKFAST [facility] Last Admin: 09/23/21 07:52 Dose: 40 mg Documented by: Omeprazole 20mg 0 each PO ACBREAKFAST [facility] Omeprazole 20mg 0 each PO ACBREAKFAST [facility] Last Admin: 09/24/21 06:45 Dose: 1 each Documented by: - Exam Quality Assessment: Supplemental Oxygen, DVT Prophylaxis General: Alert, Oriented, Cooperative, Moderate Distress Lungs: Normal Respiratory Effort, Crackles. No: Rales, Rhonchi, Wheezing Cardiovascular: Regular Rate, Regular Rhythm, No Murmurs GI/Abdominal Exam: Soft, Non-Tender, No Organomegaly, No Distention Extremities: Non-Tender, No Pedal Edema - Patient Data Result Diagrams: 09/27/21 05:10 09/28/21 04:25 Sepsis Event Note - Evaluation Sepsis Screening Result: No Definite Risk - Focused Exam Vital Signs: Vital Signs Temp Temp Pulse Pulse Resp BP BP 09/29/21 13:07 09/29/21 11:12 95.9 F L 69 24 H 135/65 09/29/21 08:19 68 114/68 09/29/21 07:38 97.9 F 68 22 H 09/29/21 07:23 09/29/21 03:00 97 F 63 16 BP Pulse Ox 09/29/21 13:07 92 L 09/29/21 11:12 95 09/29/21 08:19 09/29/21 07:38 114/68 93 L 09/29/21 07:23 96 09/29/21 03:00 112/65 93 L - Problem List Review Problem List Initiated/Reviewed/Updated: Yes - My Orders Last 24 Hours: My Active Orders 09/30/21 05:00 CBC WITH AUTO DIFF [HEME] Timed COMPREHENSIVE METABOLIC PN,CMP [CHEM] Timed 09/30/21 05:11 CRP [C-REACTIVE PROTEIN] [CHEM] AM D Dimer [D-DIMER QUANTITATIVE] [COAG] AM - Plan Plan:: ASSESSMENT AND PLAN - COVID-19 INFECTION WITH BILATERAL PNEUMONIA-complicated by acute respiratory failure with hypoxia. Currently requiring large quantity of oxygen support via the heated/high flow nasal cannula but has been stable to slightly improved for several days. D-dimer and CRP improved over the past few days. -Continue high flow humidified oxygen -No diuresis today -Remdesivir x5 days complete -Decadron taper, 4 mg p.o. daily, today is day 2 of 4 -Baricitinib 4 mg p.o. daily (day 11 of 14) -Empiric antibiotics are complete -Repeat labs every 2 days -Prone ventilation as able -Continue vitamin supplementation -Continue enoxaparin with therapeutic dosing at 1 mg/kg every 12 hours ARDS-likely complicating COVID-19 infection -Management as above MAINTENANCE ISSUES -DVT prophylaxis; therapeutic enoxaparin dosing -GI prophylaxis; not indicated -Holt catheter; not indicated -Nutrition; regular diet DISPOSITION-anticipate discharge to home after the hospital stay.
[2021-09-29] MEDS: Dexamethasone 2 MG Tab PO SCH (17:10)
[2021-09-29] MEDS: Doxazosin 4 MG Tab PO SCH (20:51)
[2021-09-30] MEDS: OMEPRAZOLE 20MG **PTOM PO SCH ×2 (07:42→16:53)
[2021-09-30] MEDS: Metoprolol Succinate 25 MG Tab.ER PO SCH (08:57)
[2021-09-30] MEDS: Multivitamins with Iron/Calcium/Folic Acid/Minerals Tab PO SCH (08:57)
[2021-09-30] MEDS: Ascorbic Acid 500 MG Tab PO SCH (08:57)
[2021-09-30] MEDS: Zinc (Zinc Gluconate) 50 MG Tab PO SCH (08:57)
[2021-09-30] MEDS: Acetaminophen 325 MG Tab PO PRN ×3 (08:57→18:05)
[2021-09-30] MEDS: Cholecalciferol (Vitamin D3) 25 MCG Tab PO SCH (08:58)
[2021-09-30] MEDS: Enoxaparin 80 MG/0.8 ML Syringe SUBCUT SCH ×2 (08:58→20:59)
--- NOTE | 2021-09-30 13:08 | PCM.PN ---
- General Info Date of Service: 09/30/21 Subjective Update: Mr. Chan has felt modestly improved over the past 24 hours. Level of supplemental oxygen use has remained stable. He is experiencing increased difficulty with urination and does have known BPH. He has been treated with doxazosin for some time and that has been continued during his hospitalization. - Review of Systems General: Reports: Weakness, Fatigue. Denies: Fever, Chills Pulmonary: Reports: Shortness of Breath. Denies: Pleuritic Chest Pain, Cough, Sputum, Hemoptysis, Wheezing Cardiovascular: Reports: Dyspnea on Exertion. Denies: Chest Pain, Palpitations, Orthopnea, PND, Edema, Lightheadedness Gastrointestinal: Reports: No Symptoms Genitourinary: Reports: Frequency, Urgency, Retention - Patient Data Vitals - Most Recent: Last Vital Signs Temp 97.2 F 09/30/21 12:00 Pulse 86 09/30/21 12:00 Resp 28 H 09/30/21 12:00 BP 116/65 09/30/21 12:00 Pulse Ox 95 09/30/21 12:00 Weight - Most Recent: 174 lb I&O - Last 24 Hours: Intake & Output 09/29/21 09/30/21 09/30/21 22:59 06:59 14:59 Output Total 300 300 400 Balance -300 -300 -400 Lab Results Last 24 Hours: Laboratory Results - last 24 hr 09/30/21 09/30/21 09/30/21 Range/Units 05:40 05:55 05:55 WBC 13.6 H (4.5-11.0) K/uL RBC 5.00 (4.30-5.90) M/uL Hgb 14.4 (12.0-15.0) g/dL Hct 42.8 (40.0-54.0) % MCV 86 (80-98) fL MCH 29 (27-31) pg MCHC 34 (32-36) % Plt Count 445 H (150-400) K/uL Neut % (Auto) 88.8 H (36-66) % Lymph % (Auto) 6.7 L (24-44) % Treasure % (Auto) 4.2 (2-6) % Eos % (Auto) 0.1 L (2-4) % Baso % (Auto) 0.2 (0-1) % D-Dimer, Quantitative 4615.59 H (0.0-500.0) ng/mL Sodium 137 L (140-148) mmol/L Potassium 5.1 (3.6-5.2) mmol/L Chloride 97 L (100-108) mmol/L Carbon Dioxide 29 (21-32) mmol/L Anion Gap 16.1 H (5.0-14.0) mmol/L BUN 21 H (7-18) mg/dL Creatinine 0.8 (0.8-1.3) mg/dL Est Cr Clr Drug Dosing 85.50 mL/min Estimated GFR (MDRD) > 60 (>60) Glucose 86 (74-106) mg/dL Calcium 8.9 (8.5-10.1) mg/dL Total Bilirubin 0.6 (0.2-1.0) mg/dL AST 63 H D (15-37) U/L ALT 96 H (12-78) U/L Alkaline Phosphatase 211 H D (46-116) U/L C-Reactive Protein (0.0-0.3) mg/dL Total Protein 6.4 (6.4-8.2) g/dL Albumin 2.5 L (3.4-5.0) g/dL Globulin 3.9 H (2.3-3.5) g/dL Albumin/Globulin Ratio 0.6 L (1.2-2.2) 09/30/21 Range/Units 05:55 WBC (4.5-11.0) K/uL RBC (4.30-5.90) M/uL Hgb (12.0-15.0) g/dL Hct (40.0-54.0) % MCV (80-98) fL MCH (27-31) pg MCHC (32-36) % Plt Count (150-400) K/uL Neut % (Auto) (36-66) % Lymph % (Auto) (24-44) % Treasure % (Auto) (2-6) % Eos % (Auto) (2-4) % Baso % (Auto) (0-1) % D-Dimer, Quantitative (0.0-500.0) ng/mL Sodium (140-148) mmol/L Potassium (3.6-5.2) mmol/L Chloride (100-108) mmol/L Carbon Dioxide (21-32) mmol/L Anion Gap (5.0-14.0) mmol/L BUN (7-18) mg/dL Creatinine (0.8-1.3) mg/dL Est Cr Clr Drug Dosing mL/min Estimated GFR (MDRD) (>60) Glucose (74-106) mg/dL Calcium (8.5-10.1) mg/dL Total Bilirubin (0.2-1.0) mg/dL AST (15-37) U/L ALT (12-78) U/L Alkaline Phosphatase (46-116) U/L C-Reactive Protein 17.96 H (0.0-0.3) mg/dL Total Protein (6.4-8.2) g/dL Albumin (3.4-5.0) g/dL Globulin (2.3-3.5) g/dL Albumin/Globulin Ratio (1.2-2.2) Med Orders - Current: Current Medications Acetaminophen (Acetaminophen 325 Mg Tab) 650 mg PO Q4H PRN PRN Reason: Pain (Mild 1-3)/fever Last Admin: 09/30/21 08:57 Dose: 650 mg Documented by: Al Hydroxide/Mg Hydroxide (Aluminum Hydroxide/Magnesium Hydroxide/Simethicone Hung sp 30 Ml Cup) 30 ml PO Q4H PRN PRN Reason: Dyspepsia Last Admin: 09/24/21 18:40 Dose: 30 ml Documented by: Albuterol (Albuterol 8 Gm Inhaler) 0 gm INH QID PRN PRN Reason: Shortness of Breath Ascorbic Acid (Ascorbic Acid 500 Mg Tab) 500 mg PO DAILY [facility] Last Admin: 09/30/21 08:57 Dose: 500 mg Documented by: Baricitinib (Baricitinib 2 Mg Tab) 4 mg PO Q24H [facility] Stop: 10/02/21 16:01 Last Admin: 09/29/21 15:17 Dose: 4 mg Documented by: Benzonatate (Benzonatate 100 Mg Cap) 100 mg PO Q8H PRN PRN Reason: Cough Calcium Carbonate/Glycine (Calcium Carbonate 500 Mg Tab.Chew) 500 mg PO Q2H PRN PRN Reason: Indigestion Last Admin: 09/24/21 17:38 Dose: 500 mg Documented by: Cholecalciferol (Cholecalciferol (Vitamin D3) 25 Mcg Tab) 25 mcg PO DAILY [facility] Last Admin: 09/30/21 08:58 Dose: 25 mcg Documented by: Dexamethasone (Dexamethasone 2 Mg Tab) 4 mg PO Q24H [facility] Stop: 10/01/21 18:01 Last Admin: 09/29/21 17:10 Dose: 4 mg Documented by: Dexamethasone (Dexamethasone 2 Mg Tab) 2 mg PO Q24H [facility] Stop: 10/05/21 18:01 Doxazosin Mesylate (Doxazosin 4 Mg Tab) 8 mg PO BEDTIME [facility] Enoxaparin Sodium (Enoxaparin 80 Mg/0.8 Ml Syringe) 80 mg SUBCUT Q12H [facility] Last Admin: 09/30/21 08:58 Dose: 80 mg Documented by: Finasteride (Finasteride 5 Mg Tab) 5 mg PO BEDTIME [facility] Guaifenesin/Dextromethorphan (Guaifenesin/Dextromethorphan 100-10 Mg/5 Ml Soln 10 Ml Cup) 10 ml PO Q4H PRN PRN Reason: Cough Melatonin (Melatonin 3 Mg Tab) 9 mg PO BEDTIME PRN PRN Reason: Sleep Metoprolol Succinate (Metoprolol Succinate 25 Mg Tab.Er) 25 mg PO DAILY [facility] Last Admin: 09/30/21 08:57 Dose: 25 mg Documented by: Multivitamins/Minerals (Multivitamins With Iron/Calcium/Folic Acid/Minerals Tab) 1 tab PO DAILY [facility] Last Admin: 09/30/21 08:57 Dose: 1 tab Documented by: Ondansetron HCl (Ondansetron 4 Mg/2 Ml Sdv) 4 mg IV Q4H PRN PRN Reason: Nausea/Vomiting Omeprazole 20mg (Ptom) 0 each PO BIDAC [facility] Last Admin: 09/30/21 07:42 Dose: 1 each Documented by: Polyethylene Glycol (Polyethylene Glycol 3350 Powder 17 Gm Packet) 17 gm PO DAILY PRN PRN Reason: Constipation Senna/Docusate Sodium (Docusate Sodium/Sennosides 50-8.6 Mg Tab) 1 tab PO Q12H PRN PRN Reason: Constipation Last Admin: 09/26/21 08:48 Dose: 1 tab Documented by: Sodium Chloride (Sodium Chloride 0.9% 10 Ml Syringe) 10 ml FLUSH ASDIRECTED PRN PRN Reason: Keep Vein Open Tramadol HCl (Tramadol 50 Mg Tab) 50 mg PO Q6H PRN PRN Reason: back pain Last Admin: 09/28/21 09:40 Dose: 50 mg Documented by: Zinc Gluconate (Zinc (Zinc Gluconate) 50 Mg Tab) 50 mg PO DAILY [facility] Last Admin: 09/30/21 08:57 Dose: 50 mg Documented by: Discontinued Medications Acetaminophen (Acetaminophen 325 Mg Tab) 650 mg PO Q4H PRN PRN Reason: Fever Greater Than 101 Dexamethasone (Dexamethasone 4 Mg/Ml Sdv) 6 mg IVPUSH DAILY [facility] Stop: 09/27/21 09:01 Last Admin: 09/19/21 02:25 Dose: 6 mg Documented by: Dexamethasone (Dexamethasone 4 Mg/Ml Sdv) Confirm Administered Dose 8 mg .ROUTE .STK-MED ONE Stop: 09/19/21 02:17 Last Admin: 09/19/21 04:22 Dose: Not Given Documented by: Dexamethasone (Dexamethasone 4 Mg/Ml Sdv) 6 mg IVPUSH Q24H [facility] Stop: 09/27/21 18:01 Last Admin: 09/27/21 17:22 Dose: 6 mg Documented by: Doxazosin Mesylate (Doxazosin 4 Mg Tab) 4 mg PO BEDTIME [facility] Last Admin: 09/29/21 20:51 Dose: 4 mg Documented by: Enoxaparin Sodium (Enoxaparin 40 Mg/0.4 Ml Syringe) 40 mg SUBCUT DAILY [facility] Last Admin: 09/19/21 17:22 Dose: 40 mg Documented by: Enoxaparin Sodium (Enoxaparin 40 Mg/0.4 Ml Syringe) 40 mg SUBCUT Q24H [facility] Last Admin: 09/25/21 15:58 Dose: 40 mg Documented by: Furosemide (Furosemide 20 Mg/2 Ml Vial) 20 mg IVPUSH ONETIME [facility] Stop: 09/25/21 09:01 Last Admin: 09/25/21 10:17 Dose: 20 mg Documented by: Remdesivir 200 mg/ Sodium (Chloride) 250 mls @ 250 mls/hr IV ONETIME [facility] Stop: 09/19/21 01:27 Last Admin: 09/19/21 02:24 Dose: 250 mls/hr Documented by: Remdesivir (Remdesivir) Confirm Administered Dose 200 mls @ as directed .ROUTE .STK-MED ONE Stop: 09/19/21 01:47 Last Admin: 09/19/21 04:22 Dose: Not Given Documented by: Ceftriaxone Sodium 1 gm/ (Sodium Chloride) 50 mls @ 100 mls/hr IV Q24H [facility] Stop: 09/25/21 20:00 Last Admin: 09/25/21 15:06 Dose: 100 mls/hr Documented by: Doxycycline Hyclate 100 mg/ (Sodium Chloride) 100 mls @ 100 mls/hr IV Q12H [facility] Stop: 09/25/21 20:00 Last Admin: 09/25/21 15:54 Dose: 100 mls/hr Documented by: Remdesivir 100 mg/ Sodium (Chloride) 100 mls @ 100 mls/hr IV Q24H [facility] Stop: 09/22/21 20:59 Last Admin: 09/22/21 20:15 Dose: 100 mls/hr Documented by: Non-Formulary Medication (Omeprazole Magnesium [Prilosec Otc]) 20 mg PO DAILY [facility] Pantoprazole Sodium (Pantoprazole 40 Mg Tab.Cr) 40 mg PO ACBREAKFAST [facility] Last Admin: 09/23/21 07:52 Dose: 40 mg Documented by: Omeprazole 20mg 0 each PO ACBREAKFAST [facility] Omeprazole 20mg 0 each PO ACBREAKFAST [facility] Last Admin: 09/24/21 06:45 Dose: 1 each Documented by: - Exam Quality Assessment: Supplemental Oxygen, DVT Prophylaxis General: Alert, Oriented, Cooperative, Moderate Distress Lungs: Crackles. No: Rales, Rhonchi, Wheezing Cardiovascular: Regular Rate, Regular Rhythm, No Murmurs GI/Abdominal Exam: Soft, Non-Tender, No Organomegaly, No Distention Extremities: Non-Tender, No Pedal Edema - Patient Data Lab Results Last 24 hrs: Laboratory Results - last 24 hr 09/30/21 09/30/21 09/30/21 Range/Units 05:40 05:55 05:55 WBC 13.6 H (4.5-11.0) K/uL RBC 5.00 (4.30-5.90) M/uL Hgb 14.4 (12.0-15.0) g/dL Hct 42.8 (40.0-54.0) % MCV 86 (80-98) fL MCH 29 (27-31) pg MCHC 34 (32-36) % Plt Count 445 H (150-400) K/uL Neut % (Auto) 88.8 H (36-66) % Lymph % (Auto) 6.7 L (24-44) % Treasure % (Auto) 4.2 (2-6) % Eos % (Auto) 0.1 L (2-4) % Baso % (Auto) 0.2 (0-1) % D-Dimer, Quantitative 4615.59 H (0.0-500.0) ng/mL Sodium 137 L (140-148) mmol/L Potassium 5.1 (3.6-5.2) mmol/L Chloride 97 L (100-108) mmol/L Carbon Dioxide 29 (21-32) mmol/L Anion Gap 16.1 H (5.0-14.0) mmol/L BUN 21 H (7-18) mg/dL Creatinine 0.8 (0.8-1.3) mg/dL Est Cr Clr Drug Dosing 85.50 mL/min Estimated GFR (MDRD) > 60 (>60) Glucose 86 (74-106) mg/dL Calcium 8.9 (8.5-10.1) mg/dL Total Bilirubin 0.6 (0.2-1.0) mg/dL AST 63 H D (15-37) U/L ALT 96 H (12-78) U/L Alkaline Phosphatase 211 H D (46-116) U/L C-Reactive Protein (0.0-0.3) mg/dL Total Protein 6.4 (6.4-8.2) g/dL Albumin 2.5 L (3.4-5.0) g/dL Globulin 3.9 H (2.3-3.5) g/dL Albumin/Globulin Ratio 0.6 L (1.2-2.2) 09/30/21 Range/Units 05:55 WBC (4.5-11.0) K/uL RBC (4.30-5.90) M/uL Hgb (12.0-15.0) g/dL Hct (40.0-54.0) % MCV (80-98) fL MCH (27-31) pg MCHC (32-36) % Plt Count (150-400) K/uL Neut % (Auto) (36-66) % Lymph % (Auto) (24-44) % Treasure % (Auto) (2-6) % Eos % (Auto) (2-4) % Baso % (Auto) (0-1) % D-Dimer, Quantitative (0.0-500.0) ng/mL Sodium (140-148) mmol/L Potassium (3.6-5.2) mmol/L Chloride (100-108) mmol/L Carbon Dioxide (21-32) mmol/L Anion Gap (5.0-14.0) mmol/L BUN (7-18) mg/dL Creatinine (0.8-1.3) mg/dL Est Cr Clr Drug Dosing mL/min Estimated GFR (MDRD) (>60) Glucose (74-106) mg/dL Calcium (8.5-10.1) mg/dL Total Bilirubin (0.2-1.0) mg/dL AST (15-37) U/L ALT (12-78) U/L Alkaline Phosphatase (46-116) U/L C-Reactive Protein 17.96 H (0.0-0.3) mg/dL Total Protein (6.4-8.2) g/dL Albumin (3.4-5.0) g/dL Globulin (2.3-3.5) g/dL Albumin/Globulin Ratio (1.2-2.2) Result Diagrams: 09/30/21 05:55 09/30/21 05:55 Sepsis Event Note - Evaluation Sepsis Screening Result: Sepsis Risk - Focused Exam Vital Signs: Vital Signs Temp Pulse Pulse Resp BP BP BP 09/30/21 12:00 97.2 F 86 28 H 116/65 09/30/21 08:57 88 143/56 H 09/30/21 08:00 95.0 F L 75 22 H 143/56 H 09/30/21 07:12 09/30/21 02:35 95 F L 69 28 H 112/70 09/30/21 01:28 Pulse Ox 09/30/21 12:00 95 09/30/21 08:57 09/30/21 08:00 91 L 09/30/21 07:12 93 L 09/30/21 02:35 90 L 09/30/21 01:28 93 L - Problem List Review Problem List Initiated/Reviewed/Updated: Yes - My Orders Last 24 Hours: My Active Orders 09/30/21 21:00 Doxazosin [Cardura] 8 mg PO BEDTIME Finasteride [Proscar] 5 mg PO BEDTIME - Plan Plan:: ASSESSMENT AND PLAN - COVID-19 INFECTION WITH BILATERAL PNEUMONIA-complicated by acute respiratory failure with hypoxia. Currently requiring large quantity of oxygen support via the heated/high flow nasal cannula but has been stable to slightly improved for several days. Modest improvement in D-dimer, CRP is increased over the past 2 days. -Continue high flow humidified oxygen -No diuresis today -Remdesivir x5 days complete -Decadron taper, 4 mg p.o. daily, today is day 3 of 4 -Baricitinib 4 mg p.o. daily (day 12 of 14) -Empiric antibiotics are complete -Repeat labs every 2 days -Prone ventilation as able -Continue vitamin supplementation -Continue enoxaparin with therapeutic dosing at 1 mg/kg every 12 hours ARDS-likely complicating COVID-19 infection -Management as above BPH WITH BLADDER OUTLET OBSTRUCTION-worse over the past few days, having significant difficulty passing urine. -Increase doxazosin to 8 mg p.o. nightly -Start Proscar 4 mg p.o. daily -Urinalysis MAINTENANCE ISSUES -DVT prophylaxis; therapeutic enoxaparin dosing -GI prophylaxis; not indicated -Holt catheter; not indicated -Nutrition; regular diet DISPOSITION-anticipate discharge to home after the hospital stay.
[2021-09-30] MEDS: Dexamethasone 2 MG Tab PO SCH (17:19)
[2021-09-30] MEDS: Finasteride 5 MG Tab PO SCH (20:59)
[2021-09-30] MEDS: Doxazosin 4 MG Tab PO SCH (20:59)
[2021-10-01] MEDS: Acetaminophen 325 MG Tab PO PRN ×3 (05:48→23:02)
[2021-10-01] MEDS: OMEPRAZOLE 20MG **PTOM PO SCH ×2 (07:21→15:37)
[2021-10-01] MEDS: Enoxaparin 80 MG/0.8 ML Syringe SUBCUT SCH ×2 (09:39→21:27)
[2021-10-01] MEDS: Cholecalciferol (Vitamin D3) 25 MCG Tab PO SCH (09:39)
[2021-10-01] MEDS: Multivitamins with Iron/Calcium/Folic Acid/Minerals Tab PO SCH (09:39)
[2021-10-01] MEDS: Metoprolol Succinate 25 MG Tab.ER PO SCH (09:39)
[2021-10-01] MEDS: Zinc (Zinc Gluconate) 50 MG Tab PO SCH (09:39)
[2021-10-01] MEDS: Ascorbic Acid 500 MG Tab PO SCH (09:39)
--- NOTE | 2021-10-01 11:27 | CRLCR ---
For Patients: As a result of the Century Cures Act, medical imaging exams and procedure reports are released immediately into your electronic medical record. You may view this report before your referring provider. If you have questions, please contact your health care provider. Indication: COVID-19 positive with persistent hypoxia. Technique: Chest 2 views. Comparison: 09/18/2021. Findings/Impression: Cardiovascular and mediastinum: Heart size is normal. Mediastinum is within normal limits. Lungs and pleural spaces: Diffuse bilateral pulmonary infiltrates consistent with relatively severe COVID pneumonitis. This has definitely worsened since the prior exam. Bones and soft tissues: No significant findings. Dictated by Shiv Rodriguez MD @ 10/01/2021 11:26:16 AM (Electronically Signed)
--- NOTE | 2021-10-01 15:15 | PCM.PN ---
- General Info Date of Service: 10/01/21 Subjective Update: Mr. Chan is to require very high level of supplemental oxygen. He does desaturate with minimal activity and requires quite a bit of time to recover. CRP is further elevated today, modest improvement in D-dimer level. At rest he is comfortable but develops significant shortness of breath with activity. Urination has improved and he is more comfortable. Functional Status: Reports: Urinating - Review of Systems General: Reports: Weakness, Fatigue, Malaise. Denies: Fever, Chills Pulmonary: Reports: Shortness of Breath, Cough. Denies: Pleuritic Chest Pain, Sputum, Hemoptysis, Wheezing Cardiovascular: Reports: Dyspnea on Exertion. Denies: Chest Pain, Palpitations, Orthopnea, PND, Edema, Lightheadedness Gastrointestinal: Reports: No Symptoms Genitourinary: Reports: No Symptoms - Patient Data Vitals - Most Recent: Last Vital Signs Temp 96.4 F L 10/01/21 11:00 Pulse 75 10/01/21 11:00 Resp 20 10/01/21 11:00 BP 104/58 L 10/01/21 09:39 Pulse Ox 92 L 10/01/21 13:18 Weight - Most Recent: 174 lb I&O - Last 24 Hours: Intake & Output 10/01/21 10/01/21 10/01/21 06:59 14:59 22:59 Intake Total 500 Output Total 925 600 Balance -925 -100 Lab Results Last 24 Hours: Laboratory Results - last 24 hr 09/30/21 10/01/21 10/01/21 Range/Units 13:40 05:50 05:50 WBC 11.8 H (4.5-11.0) K/uL RBC 4.90 (4.30-5.90) M/uL Hgb 14.2 (12.0-15.0) g/dL Hct 41.6 (40.0-54.0) % MCV 85 (80-98) fL MCH 29 (27-31) pg MCHC 34 (32-36) % Plt Count 433 H (150-400) K/uL Neut % (Auto) 90.1 H (36-66) % Lymph % (Auto) 5.0 L (24-44) % [place] % (Auto) 4.7 (2-6) % Eos % (Auto) 0.0 L (2-4) % Baso % (Auto) 0.2 (0-1) % D-Dimer, Quantitative (0.0-500.0) ng/mL Sodium 134 L (140-148) mmol/L Potassium 4.4 (3.6-5.2) mmol/L Chloride 96 L (100-108) mmol/L Carbon Dioxide 27 (21-32) mmol/L Anion Gap 15.4 H (5.0-14.0) mmol/L BUN 19 H (7-18) mg/dL Creatinine 0.9 (0.8-1.3) mg/dL Est Cr Clr Drug Dosing 76.00 mL/min Estimated GFR (MDRD) > 60 (>60) Glucose 102 (74-106) mg/dL Calcium 9.0 (8.5-10.1) mg/dL Total Bilirubin 0.5 (0.2-1.0) mg/dL AST 80 H (15-37) U/L ALT 165 H (12-78) U/L Alkaline Phosphatase 259 H (46-116) U/L C-Reactive Protein (0.0-0.3) mg/dL Total Protein 7.1 (6.4-8.2) g/dL Albumin 2.4 L (3.4-5.0) g/dL Globulin 4.7 H (2.3-3.5) g/dL Albumin/Globulin Ratio 0.5 L (1.2-2.2) Urine Color Yellow (YELLOW) Urine Appearance Clear (CLEAR) Urine pH 6.0 (5.0-8.0) Ur Specific [place] 1.020 (1.008-1.030) Urine Protein 30 H (NEGATIVE) mg/dL Urine Glucose (UA) Negative (NEGATIVE) mg/dL Urine Ketones Negative (NEGATIVE) mg/dL Urine Occult Blood Negative (NEGATIVE) Urine Nitrite Negative (NEGATIVE) Urine Bilirubin Negative (NEGATIVE) Urine Urobilinogen 1.0 (0.2-1.0) EU/dL Ur Leukocyte Esterase Negative (NEGATIVE) Urine RBC 0-5 (0-5) Urine WBC Not seen (0-5) Ur Epithelial Cells Not seen Amorphous Sediment Few Urine Bacteria Not seen Urine Mucus Not seen 10/01/21 10/01/21 Range/Units 05:50 05:50 WBC (4.5-11.0) K/uL RBC (4.30-5.90) M/uL Hgb (12.0-15.0) g/dL Hct (40.0-54.0) % MCV (80-98) fL MCH (27-31) pg MCHC (32-36) % Plt Count (150-400) K/uL Neut % (Auto) (36-66) % Lymph % (Auto) (24-44) % [place] % (Auto) (2-6) % Eos % (Auto) (2-4) % Baso % (Auto) (0-1) % D-Dimer, Quantitative 5375.18 H (0.0-500.0) ng/mL Sodium (140-148) mmol/L Potassium (3.6-5.2) mmol/L Chloride (100-108) mmol/L Carbon Dioxide (21-32) mmol/L Anion Gap (5.0-14.0) mmol/L BUN (7-18) mg/dL Creatinine (0.8-1.3) mg/dL Est Cr Clr Drug Dosing mL/min Estimated GFR (MDRD) (>60) Glucose (74-106) mg/dL Calcium (8.5-10.1) mg/dL Total Bilirubin (0.2-1.0) mg/dL AST (15-37) U/L ALT (12-78) U/L Alkaline Phosphatase (46-116) U/L C-Reactive Protein 20.12 H (0.0-0.3) mg/dL Total Protein (6.4-8.2) g/dL Albumin (3.4-5.0) g/dL Globulin (2.3-3.5) g/dL Albumin/Globulin Ratio (1.2-2.2) Urine Color (YELLOW) Urine Appearance (CLEAR) Urine pH (5.0-8.0) Ur Specific [place] (1.008-1.030) Urine Protein (NEGATIVE) mg/dL Urine Glucose (UA) (NEGATIVE) mg/dL Urine Ketones (NEGATIVE) mg/dL Urine Occult Blood (NEGATIVE) Urine Nitrite (NEGATIVE) Urine Bilirubin (NEGATIVE) Urine Urobilinogen (0.2-1.0) EU/dL Ur Leukocyte Esterase (NEGATIVE) Urine RBC (0-5) Urine WBC (0-5) Ur Epithelial Cells Amorphous Sediment Urine Bacteria Urine Mucus Med Orders - Current: Current Medications Acetaminophen (Acetaminophen 325 Mg Tab) 650 mg PO Q4H PRN PRN Reason: Pain (Mild 1-3)/fever Last Admin: 10/01/21 09:38 Dose: 650 mg Documented by: Al Hydroxide/Mg Hydroxide (Aluminum Hydroxide/Magnesium Hydroxide/Simethicone Susp 30 Ml Cup) 30 ml PO Q4H PRN PRN Reason: Dyspepsia Last Admin: 09/24/21 18:40 Dose: 30 ml Documented by: Albuterol (Albuterol 8 Gm Inhaler) 0 gm INH QID PRN PRN Reason: Shortness of Breath Ascorbic Acid (Ascorbic Acid 500 Mg Tab) 500 mg PO DAILY [facility] Last Admin: 10/01/21 09:39 Dose: 500 mg Documented by: Baricitinib (Baricitinib 2 Mg Tab) 4 mg PO Q24H [facility] Stop: 10/02/21 16:01 Last Admin: 09/30/21 16:55 Dose: 4 mg Documented by: Benzonatate (Benzonatate 100 Mg Cap) 100 mg PO Q8H PRN PRN Reason: Cough Calcium Carbonate/Glycine (Calcium Carbonate 500 Mg Tab.Chew) 500 mg PO Q2H PRN PRN Reason: Indigestion Last Admin: 09/24/21 17:38 Dose: 500 mg Documented by: Cholecalciferol (Cholecalciferol (Vitamin D3) 25 Mcg Tab) 25 mcg PO DAILY [facility] Last Admin: 10/01/21 09:39 Dose: 25 mcg Documented by: Dexamethasone (Dexamethasone 4 Mg/Ml Sdv) 6 mg IVPUSH Q24H [facility] Doxazosin Mesylate (Doxazosin 4 Mg Tab) 8 mg PO BEDTIME [facility] Last Admin: 09/30/21 20:59 Dose: 8 mg Documented by: Enoxaparin Sodium (Enoxaparin 80 Mg/0.8 Ml Syringe) 80 mg SUBCUT Q12H [facility] Last Admin: 10/01/21 09:39 Dose: 80 mg Documented by: Finasteride (Finasteride 5 Mg Tab) 5 mg PO BEDTIME [facility] Last Admin: 09/30/21 20:59 Dose: 5 mg Documented by: Guaifenesin/Dextromethorphan (Guaifenesin/Dextromethorphan 100-10 Mg/5 Ml Soln 10 Ml Cup) 10 ml PO Q4H PRN PRN Reason: Cough Melatonin (Melatonin 3 Mg Tab) 9 mg PO BEDTIME PRN PRN Reason: Sleep Metoprolol Succinate (Metoprolol Succinate 25 Mg Tab.Er) 25 mg PO DAILY [facility] Last Admin: 10/01/21 09:39 Dose: 25 mg Documented by: Multivitamins/Minerals (Multivitamins With Iron/Calcium/Folic Acid/Minerals Tab) 1 tab PO DAILY [facility] Last Admin: 10/01/21 09:39 Dose: 1 tab Documented by: Ondansetron HCl (Ondansetron 4 Mg/2 Ml Sdv) 4 mg IV Q4H PRN PRN Reason: Nausea/Vomiting Omeprazole 20mg (Ptom) 0 each PO BIDAC [facility] Last Admin: 10/01/21 07:21 Dose: 1 each Documented by: Polyethylene Glycol (Polyethylene Glycol 3350 Powder 17 Gm Packet) 17 gm PO DAILY PRN PRN Reason: Constipation Senna/Docusate Sodium (Docusate Sodium/Sennosides 50-8.6 Mg Tab) 1 tab PO Q12H PRN PRN Reason: Constipation Last Admin: 09/26/21 08:48 Dose: 1 tab Documented by: Sodium Chloride (Sodium Chloride 0.9% 10 Ml Syringe) 10 ml FLUSH ASDIRECTED PRN PRN Reason: Keep Vein Open Tramadol HCl (Tramadol 50 Mg Tab) 50 mg PO Q6H PRN PRN Reason: back pain Last Admin: 09/28/21 09:40 Dose: 50 mg Documented by: Zinc Gluconate (Zinc (Zinc Gluconate) 50 Mg Tab) 50 mg PO DAILY [facility] Last Admin: 10/01/21 09:39 Dose: 50 mg Documented by: Discontinued Medications Acetaminophen (Acetaminophen 325 Mg Tab) 650 mg PO Q4H PRN PRN Reason: Fever Greater Than 101 Dexamethasone (Dexamethasone 4 Mg/Ml Sdv) 6 mg IVPUSH DAILY [facility] Stop: 09/27/21 09:01 Last Admin: 09/19/21 02:25 Dose: 6 mg Documented by: Dexamethasone (Dexamethasone 4 Mg/Ml Sdv) Confirm Administered Dose 8 mg .ROUTE .STK-MED ONE Stop: 09/19/21 02:17 Last Admin: 09/19/21 04:22 Dose: Not Given Documented by: Dexamethasone (Dexamethasone 4 Mg/Ml Sdv) 6 mg IVPUSH Q24H [facility] Stop: 09/27/21 18:01 Last Admin: 09/27/21 17:22 Dose: 6 mg Documented by: Dexamethasone (Dexamethasone 2 Mg Tab) 4 mg PO Q24H [facility] Stop: 10/01/21 18:01 Last Admin: 09/30/21 17:19 Dose: 4 mg Documented by: Doxazosin Mesylate (Doxazosin 4 Mg Tab) 4 mg PO BEDTIME [facility] Last Admin: 09/29/21 20:51 Dose: 4 mg Documented by: Enoxaparin Sodium (Enoxaparin 40 Mg/0.4 Ml Syringe) 40 mg SUBCUT DAILY [facility] Last Admin: 09/19/21 17:22 Dose: 40 mg Documented by: Enoxaparin Sodium (Enoxaparin 40 Mg/0.4 Ml Syringe) 40 mg SUBCUT Q24H [facility] Last Admin: 09/25/21 15:58 Dose: 40 mg Documented by: Furosemide (Furosemide 20 Mg/2 Ml Vial) 20 mg IVPUSH ONETIME ONE Stop: 09/25/21 09:01 Last Admin: 09/25/21 10:17 Dose: 20 mg Documented by: Remdesivir 200 mg/ Sodium (Chloride) 250 mls @ 250 mls/hr IV ONETIME ONE Stop: 09/19/21 01:27 Last Admin: 09/19/21 02:24 Dose: 250 mls/hr Documented by: Remdesivir (Remdesivir) Confirm Administered Dose 200 mls @ as directed .ROUTE .STK-MED ONE Stop: 09/19/21 01:47 Last Admin: 09/19/21 04:22 Dose: Not Given Documented by: Ceftriaxone Sodium 1 gm/ (Sodium Chloride) 50 mls @ 100 mls/hr IV Q24H [facility] Stop: 09/25/21 20:00 Last Admin: 09/25/21 15:06 Dose: 100 mls/hr Documented by: Doxycycline Hyclate 100 mg/ (Sodium Chloride) 100 mls @ 100 mls/hr IV Q12H [facility] Stop: 09/25/21 20:00 Last Admin: 09/25/21 15:54 Dose: 100 mls/hr Documented by: Remdesivir 100 mg/ Sodium (Chloride) 100 mls @ 100 mls/hr IV Q24H [facility] Stop: 09/22/21 20:59 Last Admin: 09/22/21 20:15 Dose: 100 mls/hr Documented by: Non-Formulary Medication (Omeprazole Magnesium [Prilosec Otc]) 20 mg PO DAILY [facility] Pantoprazole Sodium (Pantoprazole 40 Mg Tab.Cr) 40 mg PO ACBREAKFAST [facility] Last Admin: 09/23/21 07:52 Dose: 40 mg Documented by: Omeprazole 20mg 0 each PO [facility]BREAKFAST [facility] Omeprazole 20mg 0 each PO [facility]AK[facility]ST [facility] Last Admin: 09/24/21 06:45 Dose: 1 each Documented by: - Exam Quality Assessment: Supplemental Oxygen, DVT Prophylaxis General: Alert, Oriented, Cooperative, Moderate Distress Lungs: Decreased Breath Sounds, Crackles. No: Rales, Rhonchi, Wheezing Cardiovascular: Regular Rate, Regular Rhythm, No Murmurs GI/Abdominal Exam: Soft, Non-Tender, No Organomegaly, No Distention Extremities: Non-Tender, No Pedal Edema - Patient Data Lab Results Last 24 hrs: Laboratory Results - last 24 hr 09/30/21 10/01/21 10/01/21 Range/Units 13:40 05:50 05:50 WBC 11.8 H (4.5-11.0) K/uL RBC 4.90 (4.30-5.90) M/uL Hgb 14.2 (12.0-15.0) g/dL Hct 41.6 (40.0-54.0) % MCV 85 (80-98) fL MCH 29 (27-31) pg MCHC 34 (32-36) % Plt Count 433 H (150-400) K/uL Neut % (Auto) 90.1 H (36-66) % Lymph % (Auto) 5.0 L (24-44) % [place] % (Auto) 4.7 (2-6) % Eos % (Auto) 0.0 L (2-4) % Baso % (Auto) 0.2 (0-1) % D-Dimer, Quantitative (0.0-500.0) ng/mL Sodium 134 L (140-148) mmol/L Potassium 4.4 (3.6-5.2) mmol/L Chloride 96 L (100-108) mmol/L Carbon Dioxide 27 (21-32) mmol/L Anion Gap 15.4 H (5.0-14.0) mmol/L BUN 19 H (7-18) mg/dL Creatinine 0.9 (0.8-1.3) mg/dL Est Cr Clr Drug Dosing 76.00 mL/min Estimated GFR (MDRD) > 60 (>60) Glucose 102 (74-106) mg/dL Calcium 9.0 (8.5-10.1) mg/dL Total Bilirubin 0.5 (0.2-1.0) mg/dL AST 80 H (15-37) U/L ALT 165 H (12-78) U/L Alkaline Phosphatase 259 H (46-116) U/L C-Reactive Protein (0.0-0.3) mg/dL Total Protein 7.1 (6.4-8.2) g/dL Albumin 2.4 L (3.4-5.0) g/dL Globulin 4.7 H (2.3-3.5) g/dL Albumin/Globulin Ratio 0.5 L (1.2-2.2) Urine Color Yellow (YELLOW) Urine Appearance Clear (CLEAR) Urine pH 6.0 (5.0-8.0) Ur Specific [place] 1.020 (1.008-1.030) Urine Protein 30 H (NEGATIVE) mg/dL Urine Glucose (UA) Negative (NEGATIVE) mg/dL Urine Ketones Negative (NEGATIVE) mg/dL Urine Occult Blood Negative (NEGATIVE) Urine Nitrite Negative (NEGATIVE) Urine Bilirubin Negative (NEGATIVE) Urine Urobilinogen 1.0 (0.2-1.0) EU/dL Ur Leukocyte Esterase Negative (NEGATIVE) Urine RBC 0-5 (0-5) Urine WBC Not seen (0-5) Ur Epithelial Cells Not seen Amorphous Sediment Few Urine Bacteria Not seen Urine Mucus Not seen 10/01/21 10/01/21 Range/Units 05:50 05:50 WBC (4.5-11.0) K/uL RBC (4.30-5.90) M/uL Hgb (12.0-15.0) g/dL Hct (40.0-54.0) % MCV (80-98) fL MCH (27-31) pg MCHC (32-36) % Plt Count (150-400) K/uL Neut % (Auto) (36-66) % Lymph % (Auto) (24-44) % [place] % (Auto) (2-6) % Eos % (Auto) (2-4) % Baso % (Auto) (0-1) % D-Dimer, Quantitative 5375.18 H (0.0-500.0) ng/mL Sodium (140-148) mmol/L Potassium (3.6-5.2) mmol/L Chloride (100-108) mmol/L Carbon Dioxide (21-32) mmol/L Anion Gap (5.0-14.0) mmol/L BUN (7-18) mg/dL Creatinine (0.8-1.3) mg/dL Est Cr Clr Drug Dosing mL/min Estimated GFR (MDRD) (>60) Glucose (74-106) mg/dL Calcium (8.5-10.1) mg/dL Total Bilirubin (0.2-1.0) mg/dL AST (15-37) U/L ALT (12-78) U/L Alkaline Phosphatase (46-116) U/L C-Reactive Protein 20.12 H (0.0-0.3) mg/dL Total Protein (6.4-8.2) g/dL Albumin (3.4-5.0) g/dL Globulin (2.3-3.5) g/dL Albumin/Globulin Ratio (1.2-2.2) Urine Color (YELLOW) Urine Appearance (CLEAR) Urine pH (5.0-8.0) Ur Specific [place] (1.008-1.030) Urine Protein (NEGATIVE) mg/dL Urine Glucose (UA) (NEGATIVE) mg/dL Urine Ketones (NEGATIVE) mg/dL Urine Occult Blood (NEGATIVE) Urine Nitrite (NEGATIVE) Urine Bilirubin (NEGATIVE) Urine Urobilinogen (0.2-1.0) EU/dL Ur Leukocyte Esterase (NEGATIVE) Urine RBC (0-5) Urine WBC (0-5) Ur Epithelial Cells Amorphous Sediment Urine Bacteria Urine Mucus Result Diagrams: 10/01/21 05:50 10/01/21 05:50 Sepsis Event Note - Evaluation Sepsis Screening Result: No Definite Risk - Focused Exam Vital Signs: Vital Signs Temp Pulse Pulse Resp BP BP Pulse Ox 10/01/21 13:18 92 L 10/01/21 11:00 96.4 F L 75 20 95 10/01/21 09:39 88 104/58 L 10/01/21 07:44 97.0 F 77 18 104/58 L 90 L 10/01/21 07:30 91 L - Problem List Review Problem List Initiated/Reviewed/Updated: Yes - My Orders Last 24 Hours: My Active Orders 09/30/21 21:00 Doxazosin [Cardura] 8 mg PO BEDTIME Finasteride [Proscar] 5 mg PO BEDTIME 10/01/21 14:00 dexAMETHasone [Decadron] 6 mg IVPUSH Q24H 10/02/21 05:00 CBC WITH AUTO DIFF [HEME] Timed COMPREHENSIVE METABOLIC PN,CMP [CHEM] Timed 10/02/21 05:11 CRP [C-REACTIVE PROTEIN] [CHEM] AM D Dimer [D-DIMER QUANTITATIVE] [COAG] AM - Plan Plan:: ASSESSMENT AND PLAN - COVID-19 INFECTION WITH BILATERAL PNEUMONIA-complicated by acute respiratory failure with hypoxia. Currently requiring large quantity of oxygen support via the heated/high flow nasal cannula but has been stable for several days. Modest improvement in D-dimer, CRP is increased over the past 3 days. Chest x-ray obtained today shows increased infiltrates from initial presentation, no unexpected findings. -Continue high flow humidified oxygen -No diuresis today -Remdesivir x5 days complete -Decadron 6 mg IV daily until he shows evidence of definite improvement -Baricitinib 4 mg p.o. daily (day 13 of 14) -Empiric antibiotics are complete -Repeat labs every 2 days -Prone ventilation as able -Continue vitamin supplementation -Continue enoxaparin with therapeutic dosing at 1 mg/kg every 12 hours ARDS-likely complicating COVID-19 infection -Management as above BPH WITH BLADDER OUTLET OBSTRUCTION-worse over the past few days, having significant difficulty passing urine. Symptoms improved since yesterday, urinalysis clear showing no evidence of obvious infection. -Doxazosin 8 mg p.o. nightly -Proscar 4 mg p.o. daily -Urinalysis MAINTENANCE ISSUES -DVT prophylaxis; therapeutic enoxaparin dosing -GI prophylaxis; not indicated -Holt catheter; not indicated -Nutrition; regular diet DISPOSITION-anticipate discharge to home after the hospital stay.
[2021-10-01] MEDS: Dexamethasone 4 MG/ML SDV IVPUSH SCH (15:36)
[2021-10-01] MEDS: Doxazosin 4 MG Tab PO SCH (21:27)
[2021-10-01] MEDS: Finasteride 5 MG Tab PO SCH (21:27)
[2021-10-02] MEDS: OMEPRAZOLE 20MG **PTOM PO SCH ×2 (08:39→15:30)
[2021-10-02] MEDS: Enoxaparin 80 MG/0.8 ML Syringe SUBCUT SCH ×2 (08:39→20:42)
[2021-10-02] MEDS: Cholecalciferol (Vitamin D3) 25 MCG Tab PO SCH (08:40)
[2021-10-02] MEDS: Metoprolol Succinate 25 MG Tab.ER PO SCH (08:40)
--- NOTE | 2021-10-02 12:18 | PCM.PN ---
- General Info Date of Service: 10/02/21 Subjective Update: Mr. Chan had a somewhat difficult night with dysfunction of his high flow humidified oxygen. That has now been corrected and he feels significantly improved. He feels as though he is recovering quicker with talking and minimal activity. Appetite also seems to be improved today. Functional Status: Reports: Urinating - Review of Systems General: Reports: Weakness, Fatigue, Malaise. Denies: Fever, Chills Pulmonary: Reports: Shortness of Breath, Cough. Denies: Pleuritic Chest Pain, Sputum, Hemoptysis, Wheezing Cardiovascular: Reports: Dyspnea on Exertion. Denies: Chest Pain, Palpitations, Orthopnea, PND, Edema, Lightheadedness Gastrointestinal: Reports: No Symptoms Genitourinary: Reports: No Symptoms - Patient Data Vitals - Most Recent: Last Vital Signs Temp 95.8 F L 10/02/21 08:00 Pulse 81 10/02/21 08:40 Resp 18 10/02/21 08:00 BP 130/67 10/02/21 08:40 Pulse Ox 91 L 10/02/21 11:59 Weight - Most Recent: 174 lb I&O - Last 24 Hours: Intake & Output 10/01/21 10/02/21 10/02/21 22:59 06:59 14:59 Intake Total 400 Output Total 450 1300 Balance -450 -900 Lab Results Last 24 Hours: Laboratory Results - last 24 hr 10/02/21 10/02/21 10/02/21 Range/Units 05:30 05:30 05:30 WBC 11.4 H (4.5-11.0) K/uL RBC 4.69 (4.30-5.90) M/uL Hgb 13.5 (12.0-15.0) g/dL Hct 40.1 (40.0-54.0) % MCV 86 (80-98) fL MCH 29 (27-31) pg MCHC 34 (32-36) % Plt Count 416 H (150-400) K/uL Neut % (Auto) 85.7 H (36-66) % Lymph % (Auto) 6.7 L (24-44) % [place] % (Auto) 6.8 H (2-6) % Eos % (Auto) 0.6 L (2-4) % Baso % (Auto) 0.2 (0-1) % D-Dimer, Quantitative 6265.96 H (0.0-500.0) ng/mL Sodium 135 L (140-148) mmol/L Potassium 4.3 (3.6-5.2) mmol/L Chloride 98 L (100-108) mmol/L Carbon Dioxide 29 (21-32) mmol/L Anion Gap 12.3 (5.0-14.0) mmol/L BUN 16 (7-18) mg/dL Creatinine 0.8 (0.8-1.3) mg/dL Est Cr Clr Drug Dosing 85.50 mL/min Estimated GFR (MDRD) > 60 (>60) Glucose 86 (74-106) mg/dL Calcium 8.5 (8.5-10.1) mg/dL Total Bilirubin 0.5 (0.2-1.0) mg/dL AST 41 H (15-37) U/L ALT 118 H (12-78) U/L Alkaline Phosphatase 257 H (46-116) U/L C-Reactive Protein (0.0-0.3) mg/dL Total Protein 6.1 L (6.4-8.2) g/dL Albumin 2.2 L (3.4-5.0) g/dL Globulin 3.9 H (2.3-3.5) g/dL Albumin/Globulin Ratio 0.6 L (1.2-2.2) 10/02/21 Range/Units 05:30 WBC (4.5-11.0) K/uL RBC (4.30-5.90) M/uL Hgb (12.0-15.0) g/dL Hct (40.0-54.0) % MCV (80-98) fL MCH (27-31) pg MCHC (32-36) % Plt Count (150-400) K/uL Neut % (Auto) (36-66) % Lymph % (Auto) (24-44) % [place] % (Auto) (2-6) % Eos % (Auto) (2-4) % Baso % (Auto) (0-1) % D-Dimer, Quantitative (0.0-500.0) ng/mL Sodium (140-148) mmol/L Potassium (3.6-5.2) mmol/L Chloride (100-108) mmol/L Carbon Dioxide (21-32) mmol/L Anion Gap (5.0-14.0) mmol/L BUN (7-18) mg/dL Creatinine (0.8-1.3) mg/dL Est Cr Clr Drug Dosing mL/min Estimated GFR (MDRD) (>60) Glucose (74-106) mg/dL Calcium (8.5-10.1) mg/dL Total Bilirubin (0.2-1.0) mg/dL AST (15-37) U/L ALT (12-78) U/L Alkaline Phosphatase (46-116) U/L C-Reactive Protein 20.30 H (0.0-0.3) mg/dL Total Protein (6.4-8.2) g/dL Albumin (3.4-5.0) g/dL Globulin (2.3-3.5) g/dL Albumin/Globulin Ratio (1.2-2.2) Med Orders - Current: Current Medications Acetaminophen (Acetaminophen 325 Mg Tab) 650 mg PO Q4H PRN PRN Reason: Pain (Mild 1-3)/fever Last Admin: 10/01/21 23:02 Dose: 650 mg Documented by: Al Hydroxide/Mg Hydroxide (Aluminum Hydroxide/Magnesium Hydroxide/Simethicone Susp 30 Ml Cup) 30 ml PO Q4H PRN PRN Reason: Dyspepsia Last Admin: 09/24/21 18:40 Dose: 30 ml Documented by: Albuterol (Albuterol 8 Gm Inhaler) 0 gm INH QID PRN PRN Reason: Shortness of Breath Ascorbic Acid (Ascorbic Acid 500 Mg Tab) 500 mg PO DAILY [facility] Last Admin: 10/01/21 09:39 Dose: 500 mg Documented by: Baricitinib (Baricitinib 2 Mg Tab) 4 mg PO Q24H [facility] Stop: 10/02/21 16:01 Last Admin: 10/01/21 15:37 Dose: 4 mg Documented by: Benzonatate (Benzonatate 100 Mg Cap) 100 mg PO Q8H PRN PRN Reason: Cough Calcium Carbonate/Glycine (Calcium Carbonate 500 Mg Tab.Chew) 500 mg PO Q2H PRN PRN Reason: Indigestion Last Admin: 09/24/21 17:38 Dose: 500 mg Documented by: Cholecalciferol (Cholecalciferol (Vitamin D3) 25 Mcg Tab) 25 mcg PO DAILY [facility] Last Admin: 10/02/21 08:40 Dose: 25 mcg Documented by: Dexamethasone (Dexamethasone 4 Mg/Ml Sdv) 6 mg IVPUSH Q24H [facility] Last Admin: 10/01/21 15:36 Dose: 6 mg Documented by: Doxazosin Mesylate (Doxazosin 4 Mg Tab) 8 mg PO BEDTIME [facility] Last Admin: 10/01/21 21:27 Dose: 8 mg Documented by: Enoxaparin Sodium (Enoxaparin 80 Mg/0.8 Ml Syringe) 80 mg SUBCUT Q12H [facility] Last Admin: 10/02/21 08:39 Dose: 80 mg Documented by: Finasteride (Finasteride 5 Mg Tab) 5 mg PO BEDTIME [facility] Last Admin: 10/01/21 21:27 Dose: 5 mg Documented by: Guaifenesin/Dextromethorphan (Guaifenesin/Dextromethorphan 100-10 Mg/5 Ml Soln 10 Ml Cup) 10 ml PO Q4H PRN PRN Reason: Cough Melatonin (Melatonin 3 Mg Tab) 9 mg PO BEDTIME PRN PRN Reason: Sleep Metoprolol Succinate (Metoprolol Succinate 25 Mg Tab.Er) 25 mg PO DAILY [facility] Last Admin: 10/02/21 08:40 Dose: 25 mg Documented by: Multivitamins/Minerals (Multivitamins With Iron/Calcium/Folic Acid/Minerals Tab) 1 tab PO DAILY [facility] Last Admin: 10/01/21 09:39 Dose: 1 tab Documented by: Ondansetron HCl (Ondansetron 4 Mg/2 Ml Sdv) 4 mg IV Q4H PRN PRN Reason: Nausea/Vomiting Omeprazole 20mg (Ptom) 0 each PO BIDAC [facility] Last Admin: 10/02/21 08:39 Dose: 1 each Documented by: Polyethylene Glycol (Polyethylene Glycol 3350 Powder 17 Gm Packet) 17 gm PO DAILY PRN PRN Reason: Constipation Senna/Docusate Sodium (Docusate Sodium/Sennosides 50-8.6 Mg Tab) 1 tab PO Q12H PRN PRN Reason: Constipation Last Admin: 09/26/21 08:48 Dose: 1 tab Documented by: Sodium Chloride (Sodium Chloride 0.9% 10 Ml Syringe) 10 ml FLUSH ASDIRECTED PRN PRN Reason: Keep Vein Open Tramadol HCl (Tramadol 50 Mg Tab) 50 mg PO Q6H PRN PRN Reason: back pain Last Admin: 09/28/21 09:40 Dose: 50 mg Documented by: Zinc Gluconate (Zinc (Zinc Gluconate) 50 Mg Tab) 50 mg PO DAILY [facility] Last Admin: 10/01/21 09:39 Dose: 50 mg Documented by: Discontinued Medications Acetaminophen (Acetaminophen 325 Mg Tab) 650 mg PO Q4H PRN PRN Reason: Fever Greater Than 101 Dexamethasone (Dexamethasone 4 Mg/Ml Sdv) 6 mg IVPUSH DAILY [facility] Stop: 09/27/21 09:01 Last Admin: 09/19/21 02:25 Dose: 6 mg Documented by: Dexamethasone (Dexamethasone 4 Mg/Ml Sdv) Confirm Administered Dose 8 mg .ROUTE .ST[facility]-MED ONE Stop: 09/19/21 02:17 Last Admin: 09/19/21 04:22 Dose: Not Given Documented by: Dexamethasone (Dexamethasone 4 Mg/Ml Sdv) 6 mg IVPUSH Q24H [facility] Stop: 09/27/21 18:01 Last Admin: 09/27/21 17:22 Dose: 6 mg Documented by: Dexamethasone (Dexamethasone 2 Mg Tab) 4 mg PO Q24H [facility] Stop: 10/01/21 18:01 Last Admin: 09/30/21 17:19 Dose: 4 mg Documented by: Doxazosin Mesylate (Doxazosin 4 Mg Tab) 4 mg PO BEDTIME [facility] Last Admin: 09/29/21 20:51 Dose: 4 mg Documented by: Enoxaparin Sodium (Enoxaparin 40 Mg/0.4 Ml Syringe) 40 mg SUBCUT DAILY [facility] Last Admin: 09/19/21 17:22 Dose: 40 mg Documented by: Enoxaparin Sodium (Enoxaparin 40 Mg/0.4 Ml Syringe) 40 mg SUBCUT Q24H [facility] Last Admin: 09/25/21 15:58 Dose: 40 mg Documented by: Furosemide (Furosemide 20 Mg/2 Ml Vial) 20 mg IVPUSH ONETIME ONE Stop: 09/25/21 09:01 Last Admin: 09/25/21 10:17 Dose: 20 mg Documented by: Remdesivir 200 mg/ Sodium (Chloride) 250 mls @ 250 mls/hr IV ONETIME ONE Stop: 09/19/21 01:27 Last Admin: 09/19/21 02:24 Dose: 250 mls/hr Documented by: Remdesivir (Remdesivir) Confirm Administered Dose 200 mls @ as directed .ROUTE .STK-MED ONE Stop: 09/19/21 01:47 Last Admin: 09/19/21 04:22 Dose: Not Given Documented by: Ceftriaxone Sodium 1 gm/ (Sodium Chloride) 50 mls @ 100 mls/hr IV Q24H [facility] Stop: 09/25/21 20:00 Last Admin: 09/25/21 15:06 Dose: 100 mls/hr Documented by: Doxycycline Hyclate 100 mg/ (Sodium Chloride) 100 mls @ 100 mls/hr IV Q12H [facility] Stop: 09/25/21 20:00 Last Admin: 09/25/21 15:54 Dose: 100 mls/hr Documented by: Remdesivir 100 mg/ Sodium (Chloride) 100 mls @ 100 mls/hr IV Q24H [facility] Stop: 09/22/21 20:59 Last Admin: 09/22/21 20:15 Dose: 100 mls/hr Documented by: Non-Formulary Medication (Omeprazole Magnesium [Prilosec Otc]) 20 mg PO DAILY [facility] Pantoprazole Sodium (Pantoprazole 40 Mg Tab.Cr) 40 mg PO ACBREAKFAST [facility] Last Admin: 09/23/21 07:52 Dose: 40 mg Documented by: Omeprazole 20mg 0 each PO ACBREAKFAST [facility] Omeprazole 20mg 0 each PO ACBREAKFAST [facility] Last Admin: 09/24/21 06:45 Dose: 1 each Documented by: - Exam Quality Assessment: Supplemental Oxygen, DVT Prophylaxis General: Alert, Oriented, Cooperative, Moderate Distress Lungs: Normal Respiratory Effort, Crackles. No: Rales, Rhonchi, Wheezing Cardiovascular: Regular Rate, Regular Rhythm, No Murmurs GI/Abdominal Exam: Soft, Non-Tender, No Organomegaly, No Distention Extremities: Non-Tender, No Pedal Edema - Patient Data Lab Results Last 24 hrs: Laboratory Results - last 24 hr 10/02/21 10/02/21 10/02/21 Range/Units 05:30 05:30 05:30 WBC 11.4 H (4.5-11.0) K/uL RBC 4.69 (4.30-5.90) M/uL Hgb 13.5 (12.0-15.0) g/dL Hct 40.1 (40.0-54.0) % MCV 86 (80-98) fL MCH 29 (27-31) pg MCHC 34 (32-36) % Plt Count 416 H (150-400) K/uL Neut % (Auto) 85.7 H (36-66) % Lymph % (Auto) 6.7 L (24-44) % [place] % (Auto) 6.8 H (2-6) % Eos % (Auto) 0.6 L (2-4) % Baso % (Auto) 0.2 (0-1) % D-Dimer, Quantitative 6265.96 H (0.0-500.0) ng/mL Sodium 135 L (140-148) mmol/L Potassium 4.3 (3.6-5.2) mmol/L Chloride 98 L (100-108) mmol/L Carbon Dioxide 29 (21-32) mmol/L Anion Gap 12.3 (5.0-14.0) mmol/L BUN 16 (7-18) mg/dL Creatinine 0.8 (0.8-1.3) mg/dL Est Cr Clr Drug Dosing 85.50 mL/min Estimated GFR (MDRD) > 60 (>60) Glucose 86 (74-106) mg/dL Calcium 8.5 (8.5-10.1) mg/dL Total Bilirubin 0.5 (0.2-1.0) mg/dL AST 41 H (15-37) U/L ALT 118 H (12-78) U/L Alkaline Phosphatase 257 H (46-116) U/L C-Reactive Protein (0.0-0.3) mg/dL Total Protein 6.1 L (6.4-8.2) g/dL Albumin 2.2 L (3.4-5.0) g/dL Globulin 3.9 H (2.3-3.5) g/dL Albumin/Globulin Ratio 0.6 L (1.2-2.2) 10/02/21 Range/Units 05:30 WBC (4.5-11.0) K/uL RBC (4.30-5.90) M/uL Hgb (12.0-15.0) g/dL Hct (40.0-54.0) % MCV (80-98) fL MCH (27-31) pg MCHC (32-36) % Plt Count (150-400) K/uL Neut % (Auto) (36-66) % Lymph % (Auto) (24-44) % [place] % (Auto) (2-6) % Eos % (Auto) (2-4) % Baso % (Auto) (0-1) % D-Dimer, Quantitative (0.0-500.0) ng/mL Sodium (140-148) mmol/L Potassium (3.6-5.2) mmol/L Chloride (100-108) mmol/L Carbon Dioxide (21-32) mmol/L Anion Gap (5.0-14.0) mmol/L BUN (7-18) mg/dL Creatinine (0.8-1.3) mg/dL Est Cr Clr Drug Dosing mL/min Estimated GFR (MDRD) (>60) Glucose (74-106) mg/dL Calcium (8.5-10.1) mg/dL Total Bilirubin (0.2-1.0) mg/dL AST (15-37) U/L ALT (12-78) U/L Alkaline Phosphatase (46-116) U/L C-Reactive Protein 20.30 H (0.0-0.3) mg/dL Total Protein (6.4-8.2) g/dL Albumin (3.4-5.0) g/dL Globulin (2.3-3.5) g/dL Albumin/Globulin Ratio (1.2-2.2) Result Diagrams: 10/02/21 05:30 10/02/21 05:30 Sepsis Event Note - Evaluation Sepsis Screening Result: No Definite Risk - Focused Exam Vital Signs: Vital Signs Temp Pulse Pulse Resp BP BP BP 10/02/21 11:59 10/02/21 08:40 81 130/67 10/02/21 08:00 95.8 F L 93 18 130/67 10/02/21 07:19 10/02/21 03:26 94.4 F L 94 22 H 131/84 10/02/21 01:08 Pulse Ox Pulse Ox 10/02/21 11:59 91 L 10/02/21 08:40 10/02/21 08:00 91 L 93 L 10/02/21 07:19 91 L 10/02/21 03:26 80 L 11/12/21 01:08 95 - Problem List Review Problem List Initiated/Reviewed/Updated: Yes - My Orders Last 24 Hours: My Active Orders 10/01/21 14:00 dexAMETHasone [Decadron] 6 mg IVPUSH Q24H 10/02/21 07:00 Dietary Supplements [RC] TIDMEALS - Plan Plan:: ASSESSMENT AND PLAN - COVID-19 INFECTION WITH BILATERAL PNEUMONIA-complicated by acute respiratory failure with hypoxia. Currently requiring large quantity of oxygen support via the heated/high flow nasal cannula but has been stable for several days. Modest improvement in D-dimer, CRP is stable since yesterday. Difficult night, more short of breath, likely secondary to dysfunction of the high flow humidified oxygen. That appears to have been corrected and he is more comfortable today. -Continue high flow humidified oxygen -No diuresis today -Remdesivir x5 days complete -Decadron 6 mg IV daily until he shows evidence of definite improvement -Baricitinib 4 mg p.o. daily (day 14 ) -Empiric antibiotics are complete -Repeat labs every 2 days -Prone ventilation as able -Continue vitamin supplementation -Continue enoxaparin with therapeutic dosing at 1 mg/kg every 12 hours ARDS-likely complicating COVID-19 infection -Management as above BPH WITH BLADDER OUTLET OBSTRUCTION-worse over the past few days, having significant difficulty passing urine. Symptoms improved since yesterday, urinalysis clear showing no evidence of obvious infection. -Doxazosin 8 mg p.o. nightly -Proscar 4 mg p.o. daily MAINTENANCE ISSUES -DVT prophylaxis; therapeutic enoxaparin dosing -GI prophylaxis; not indicated -Holt catheter; not indicated -Nutrition; regular diet DISPOSITION-anticipate discharge to home after the hospital stay.
[2021-10-02] MEDS: Zinc (Zinc Gluconate) 50 MG Tab PO SCH (13:23)
[2021-10-02] MEDS: Multivitamins with Iron/Calcium/Folic Acid/Minerals Tab PO SCH (13:23)
[2021-10-02] MEDS: Ascorbic Acid 500 MG Tab PO SCH (13:23)
[2021-10-02] MEDS: guaiFENesin/Dextromethorphan 100-10 MG/5 ML Soln 10 ML Cup PO PRN (14:06)
[2021-10-02] MEDS: Dexamethasone 4 MG/ML SDV IVPUSH SCH (14:06)
[2021-10-02] MEDS: Acetaminophen 325 MG Tab PO PRN ×2 (15:29→22:45)
[2021-10-02] MEDS ORDERED: Dexamethasone 2 MG Tab PO SCH (18:00)
[2021-10-02] MEDS: Doxazosin 4 MG Tab PO SCH (20:41)
[2021-10-02] MEDS: Finasteride 5 MG Tab PO SCH (20:42)
[2021-10-03] MEDS: Acetaminophen 325 MG Tab PO PRN ×3 (03:14→19:15)
[2021-10-03] MEDS: OMEPRAZOLE 20MG **PTOM PO SCH ×2 (07:42→16:56)
[2021-10-03] MEDS: Ascorbic Acid 500 MG Tab PO SCH (08:42)
[2021-10-03] MEDS: Zinc (Zinc Gluconate) 50 MG Tab PO SCH (08:42)
[2021-10-03] MEDS: Cholecalciferol (Vitamin D3) 25 MCG Tab PO SCH (08:42)
[2021-10-03] MEDS: Multivitamins with Iron/Calcium/Folic Acid/Minerals Tab PO SCH (08:42)
[2021-10-03] MEDS: Metoprolol Succinate 25 MG Tab.ER PO SCH (08:42)
[2021-10-03] MEDS: Enoxaparin 80 MG/0.8 ML Syringe SUBCUT SCH ×2 (08:43→20:57)
--- NOTE | 2021-10-03 13:41 | PCM.PN ---
- General Info Date of Service: 10/03/21 Subjective Update: Mr. Chan has remained fairly stable since yesterday, continues to require very high level of supplemental oxygen. Appetite has improved significantly and he reports feeling more comfortable with less shortness of breath. Functional Status: Reports: Tolerating Diet, Urinating - Review of Systems General: Reports: Weakness, Fatigue. Denies: Fever, Chills Pulmonary: Reports: Shortness of Breath, Cough. Denies: Pleuritic Chest Pain, Sputum, Hemoptysis, Wheezing Cardiovascular: Reports: Dyspnea on Exertion. Denies: Chest Pain, Palpitations, Orthopnea, PND, Edema, Lightheadedness Gastrointestinal: Reports: No Symptoms Genitourinary: Reports: No Symptoms - Patient Data Vitals - Most Recent: Last Vital Signs Temp 97.6 F 10/03/21 11:37 Pulse 85 10/03/21 11:37 Resp 26 H 10/03/21 11:37 BP 111/73 10/03/21 11:37 Pulse Ox 94 L 10/03/21 12:23 Weight - Most Recent: 174 lb I&O - Last 24 Hours: Intake & Output 10/02/21 10/03/21 10/03/21 22:59 06:59 14:59 Intake Total 1300 650 Output Total 200 500 500 Balance 1100 -500 150 Med Orders - Current: Current Medications Acetaminophen (Acetaminophen 325 Mg Tab) 650 mg PO Q4H PRN PRN Reason: Pain (Mild 1-3)/fever Last Admin: 10/03/21 10:51 Dose: 650 mg Documented by: Al Hydroxide/Mg Hydroxide (Aluminum Hydroxide/Magnesium Hydroxide/Simethicone Susp 30 Ml Cup) 30 ml PO Q4H PRN PRN Reason: Dyspepsia Last Admin: 09/24/21 18:40 Dose: 30 ml Documented by: Albuterol (Albuterol 8 Gm Inhaler) 0 gm INH QID PRN PRN Reason: Shortness of Breath Ascorbic Acid (Ascorbic Acid 500 Mg Tab) 500 mg PO DAILY [facility] Last Admin: 10/03/21 08:42 Dose: 500 mg Documented by: Benzonatate (Benzonatate 100 Mg Cap) 100 mg PO Q8H PRN PRN Reason: Cough Last Admin: 10/02/21 14:06 Dose: 100 mg Documented by: Calcium Carbonate/Glycine (Calcium Carbonate 500 Mg Tab.Chew) 500 mg PO Q2H PRN PRN Reason: Indigestion Last Admin: 09/24/21 17:38 Dose: 500 mg Documented by: Cholecalciferol (Cholecalciferol (Vitamin D3) 25 Mcg Tab) 25 mcg PO DAILY [facility] Last Admin: 10/03/21 08:42 Dose: 25 mcg Documented by: Dexamethasone (Dexamethasone 4 Mg/Ml Sdv) 6 mg IVPUSH Q24H [facility] Last Admin: 10/02/21 14:06 Dose: 6 mg Documented by: Doxazosin Mesylate (Doxazosin 4 Mg Tab) 8 mg PO BEDTIME [facility] Last Admin: 10/02/21 20:41 Dose: 8 mg Documented by: Enoxaparin Sodium (Enoxaparin 80 Mg/0.8 Ml Syringe) 80 mg SUBCUT Q12H [facility] Last Admin: 10/03/21 08:43 Dose: 80 mg Documented by: Finasteride (Finasteride 5 Mg Tab) 5 mg PO BEDTIME [facility] Last Admin: 10/02/21 20:42 Dose: 5 mg Documented by: Guaifenesin/Dextromethorphan (Guaifenesin/Dextromethorphan 100-10 Mg/5 Ml Soln 10 Ml Cup) 10 ml PO Q4H PRN PRN Reason: Cough Last Admin: 10/02/21 14:06 Dose: 10 ml Documented by: Melatonin (Melatonin 3 Mg Tab) 9 mg PO BEDTIME PRN PRN Reason: Sleep Metoprolol Succinate (Metoprolol Succinate 25 Mg Tab.Er) 25 mg PO DAILY [facility] Last Admin: 10/03/21 08:42 Dose: 25 mg Documented by: Multivitamins/Minerals (Multivitamins With Iron/Calcium/Folic Acid/Minerals Tab) 1 tab PO DAILY [facility] Last Admin: 10/03/21 08:42 Dose: 1 tab Documented by: Ondansetron HCl (Ondansetron 4 Mg/2 Ml Sdv) 4 mg IV Q4H PRN PRN Reason: Nausea/Vomiting Omeprazole 20mg (Ptom) 0 each PO BIDAC [facility] Last Admin: 10/03/21 07:42 Dose: 1 each Documented by: Polyethylene Glycol (Polyethylene Glycol 3350 Powder 17 Gm Packet) 17 gm PO DAILY PRN PRN Reason: Constipation Senna/Docusate Sodium (Docusate Sodium/Sennosides 50-8.6 Mg Tab) 1 tab PO Q12H PRN PRN Reason: Constipation Last Admin: 10/02/21 14:06 Dose: 1 tab Documented by: Sodium Chloride (Sodium Chloride 0.9% 10 Ml Syringe) 10 ml FLUSH ASDIRECTED PRN PRN Reason: Keep Vein Open Tramadol HCl (Tramadol 50 Mg Tab) 50 mg PO Q6H PRN PRN Reason: back pain Last Admin: 09/28/21 09:40 Dose: 50 mg Documented by: Zinc Gluconate (Zinc (Zinc Gluconate) 50 Mg Tab) 50 mg PO DAILY [facility] Last Admin: 10/03/21 08:42 Dose: 50 mg Documented by: Discontinued Medications Acetaminophen (Acetaminophen 325 Mg Tab) 650 mg PO Q4H PRN PRN Reason: Fever Greater Than 101 Baricitinib (Baricitinib 2 Mg Tab) 4 mg PO Q24H [facility] Stop: 10/02/21 16:01 Last Admin: 10/02/21 15:29 Dose: 4 mg Documented by: Dexamethasone (Dexamethasone 4 Mg/Ml Sdv) 6 mg IVPUSH DAILY [facility] Stop: 09/27/21 09:01 Last Admin: 09/19/21 02:25 Dose: 6 mg Documented by: Dexamethasone (Dexamethasone 4 Mg/Ml Sdv) Confirm Administered Dose 8 mg .ROUTE .[facility] Stop: 09/19/21 02:17 Last Admin: 09/19/21 04:22 Dose: Not Given Documented by: Dexamethasone (Dexamethasone 4 Mg/Ml Sdv) 6 mg IVPUSH Q24H [facility] Stop: 09/27/21 18:01 Last Admin: 09/27/21 17:22 Dose: 6 mg Documented by: Dexamethasone (Dexamethasone 2 Mg Tab) 4 mg PO Q24H [facility] Stop: 10/01/21 18:01 Last Admin: 09/30/21 17:19 Dose: 4 mg Documented by: Doxazosin Mesylate (Doxazosin 4 Mg Tab) 4 mg PO BEDTIME [facility] Last Admin: 09/29/21 20:51 Dose: 4 mg Documented by: Enoxaparin Sodium (Enoxaparin 40 Mg/0.4 Ml Syringe) 40 mg SUBCUT DAILY [facility] Last Admin: 09/19/21 17:22 Dose: 40 mg Documented by: Enoxaparin Sodium (Enoxaparin 40 Mg/0.4 Ml Syringe) 40 mg SUBCUT Q24H [facility] Last Admin: 09/25/21 15:58 Dose: 40 mg Documented by: Furosemide (Furosemide 20 Mg/2 Ml Vial) 20 mg IVPUSH ONETIME ONE Stop: 09/25/21 09:01 Last Admin: 09/25/21 10:17 Dose: 20 mg Documented by: Remdesivir 200 mg/ Sodium (Chloride) 250 mls @ 250 mls/hr IV ONETIME ONE Stop: 09/19/21 01:27 Last Admin: 09/19/21 02:24 Dose: 250 mls/hr Documented by: Remdesivir (Remdesivir) Confirm Administered Dose 200 mls @ as directed .ROUTE .STK-MED ONE Stop: 09/19/21 01:47 Last Admin: 09/19/21 04:22 Dose: Not Given Documented by: Ceftriaxone Sodium 1 gm/ (Sodium Chloride) 50 mls @ 100 mls/hr IV Q24H [facility] Stop: 09/25/21 20:00 Last Admin: 09/25/21 15:06 Dose: 100 mls/hr Documented by: Doxycycline Hyclate 100 mg/ (Sodium Chloride) 100 mls @ 100 mls/hr IV Q12H [facility] Stop: 09/25/21 20:00 Last Admin: 09/25/21 15:54 Dose: 100 mls/hr Documented by: Remdesivir 100 mg/ Sodium (Chloride) 100 mls @ 100 mls/hr IV Q24H [facility] Stop: 09/22/21 20:59 Last Admin: 09/22/21 20:15 Dose: 100 mls/hr Documented by: Non-Formulary Medication (Omeprazole Magnesium [Prilosec Otc]) 20 mg PO DAILY [facility] Pantoprazole Sodium (Pantoprazole 40 Mg Tab.Cr) 40 mg PO ACBREAKFAST [facility] Last Admin: 09/23/21 07:52 Dose: 40 mg Documented by: Omeprazole 20mg 0 each PO ACBREAKFAST [facility] Omeprazole 20mg 0 each PO ACBREAKFAST [facility] Last Admin: 09/24/21 06:45 Dose: 1 each Documented by: - Exam Quality Assessment: Supplemental Oxygen, DVT Prophylaxis General: Alert, Oriented, Cooperative, Moderate Distress Lungs: Crackles. No: Rales, Rhonchi, Wheezing Cardiovascular: Regular Rate, Regular Rhythm, No Murmurs GI/Abdominal Exam: Soft, Non-Tender, No Organomegaly, No Distention Extremities: Non-Tender, No Pedal Edema - Patient Data Result Diagrams: 10/02/21 05:30 10/02/21 05:30 Sepsis Event Note - Evaluation Sepsis Screening Result: Sepsis Risk - Focused Exam Vital Signs: Vital Signs Temp Pulse Pulse Resp BP BP BP 10/03/21 12:23 10/03/21 11:37 97.6 F 85 26 H 111/73 10/03/21 08:42 77 120/57 L 10/03/21 07:38 95.9 F L 77 24 H 120/57 L 10/03/21 03:01 96.8 F L 77 36 H 104/64 10/03/21 02:21 Pulse Ox 10/03/21 12:23 94 L 10/03/21 11:37 93 L 10/03/21 08:42 10/03/21 07:38 89 L 10/03/21 03:01 90 L 10/03/21 02:21 93 L - Problem List Review Problem List Initiated/Reviewed/Updated: Yes - My Orders Last 24 Hours: My Active Orders 10/04/21 05:00 CBC WITH AUTO DIFF [HEME] Timed COMPREHENSIVE METABOLIC PN,CMP [CHEM] Timed 10/04/21 05:11 CRP [C-REACTIVE PROTEIN] [CHEM] AM D Dimer [D-DIMER QUANTITATIVE] [COAG] AM - Plan Plan:: ASSESSMENT AND PLAN - COVID-19 INFECTION WITH BILATERAL PNEUMONIA-complicated by acute respiratory failure with hypoxia. Currently requiring large quantity of oxygen support via the heated/high flow nasal cannula but has been stable for several days. -Continue high flow humidified oxygen -No diuresis today -Remdesivir x5 days complete -Decadron 6 mg IV daily until he shows evidence of definite improvement -Baricitinib 4 mg p.o. daily, completed -Empiric antibiotics are complete -Repeat labs every 2 days -Prone ventilation as able -Continue vitamin supplementation -Continue enoxaparin with therapeutic dosing at 1 mg/kg every 12 hours ARDS-likely complicating COVID-19 infection -Management as above BPH WITH BLADDER OUTLET OBSTRUCTION-worse over the past few days, having significant difficulty passing urine. Symptoms improved since yesterday, urinalysis clear showing no evidence of obvious infection. -Doxazosin 8 mg p.o. nightly -Proscar 4 mg p.o. daily MAINTENANCE ISSUES -DVT prophylaxis; therapeutic enoxaparin dosing -GI prophylaxis; not indicated -Holt catheter; not indicated -Nutrition; regular diet DISPOSITION-anticipate discharge to home after the hospital stay.
[2021-10-03] MEDS: Dexamethasone 4 MG/ML SDV IVPUSH SCH (14:15)
[2021-10-03] MEDS: Finasteride 5 MG Tab PO SCH (20:58)
[2021-10-03] MEDS: Doxazosin 4 MG Tab PO SCH (20:58)
[2021-10-04] MEDS: Multivitamins with Iron/Calcium/Folic Acid/Minerals Tab PO SCH (08:13)
[2021-10-04] MEDS: Metoprolol Succinate 25 MG Tab.ER PO SCH (08:13)
[2021-10-04] MEDS: Ascorbic Acid 500 MG Tab PO SCH (08:13)
[2021-10-04] MEDS: Cholecalciferol (Vitamin D3) 25 MCG Tab PO SCH (08:13)
[2021-10-04] MEDS: Zinc (Zinc Gluconate) 50 MG Tab PO SCH (08:13)
[2021-10-04] MEDS: OMEPRAZOLE 20MG **PTOM PO SCH ×2 (08:13→15:36)
[2021-10-04] MEDS: Enoxaparin 80 MG/0.8 ML Syringe SUBCUT SCH ×2 (08:14→20:47)
[2021-10-04] MEDS: Acetaminophen 325 MG Tab PO PRN (10:59)
--- NOTE | 2021-10-04 13:42 | PCM.PN ---
- General Info Date of Service: 10/04/21 Subjective Update: Mr. Chan has been stable since yesterday except for an episode of decreased oxygenation during the night. During the day yesterday his oxygen flow had been decreased to 45 L. When he experienced difficulty at night it was increased back to 55 L and he has been stable since then. Functional Status: Reports: Tolerating Diet, Urinating - Review of Systems General: Reports: Weakness, Fatigue. Denies: Fever, Chills Pulmonary: Reports: Shortness of Breath, Cough. Denies: Pleuritic Chest Pain, Sputum, Hemoptysis, Wheezing Cardiovascular: Reports: Dyspnea on Exertion. Denies: Chest Pain, Palpitations, Orthopnea, PND, Edema, Lightheadedness Gastrointestinal: Reports: No Symptoms Genitourinary: Reports: No Symptoms - Patient Data Vitals - Most Recent: Last Vital Signs Temp 98.3 F 10/04/21 10:33 Pulse 97 10/04/21 10:33 Resp 18 10/04/21 10:33 BP 116/68 10/04/21 10:33 Pulse Ox 89 L 10/04/21 13:00 Weight - Most Recent: 174 lb I&O - Last 24 Hours: Intake & Output 10/03/21 10/04/21 10/04/21 22:59 06:59 14:59 Intake Total 800 400 500 Output Total 775 600 200 Balance 25 -200 300 Lab Results Last 24 Hours: Laboratory Results - last 24 hr 10/04/21 10/04/21 10/04/21 Range/Units 05:40 05:40 05:40 WBC 12.5 H (4.5-11.0) K/uL RBC 4.93 (4.30-5.90) M/uL Hgb 14.0 (12.0-15.0) g/dL Hct 42.0 (40.0-54.0) % MCV 85 (80-98) fL MCH 28 (27-31) pg MCHC 33 (32-36) % Plt Count 519 H (150-400) K/uL Neut % (Auto) 86.1 H (36-66) % Lymph % (Auto) 6.5 L (24-44) % Colbert % (Auto) 6.9 H (2-6) % Eos % (Auto) 0.3 L (2-4) % Baso % (Auto) 0.2 (0-1) % D-Dimer, Quantitative 3428.77 H (0.0-500.0) ng/mL Sodium 136 L (140-148) mmol/L Potassium 4.5 (3.6-5.2) mmol/L Chloride 98 L (100-108) mmol/L Carbon Dioxide 27 (21-32) mmol/L Anion Gap 15.5 H (5.0-14.0) mmol/L BUN 16 (7-18) mg/dL Creatinine 0.8 (0.8-1.3) mg/dL Est Cr Clr Drug Dosing 85.50 mL/min Estimated GFR (MDRD) > 60 (>60) Glucose 102 (74-106) mg/dL Calcium 8.9 (8.5-10.1) mg/dL Total Bilirubin 0.4 (0.2-1.0) mg/dL AST 26 (15-37) U/L ALT 68 (12-78) U/L Alkaline Phosphatase 211 H (46-116) U/L C-Reactive Protein (0.0-0.3) mg/dL Total Protein 7.1 (6.4-8.2) g/dL Albumin 2.3 L (3.4-5.0) g/dL Globulin 4.8 H (2.3-3.5) g/dL Albumin/Globulin Ratio 0.5 L (1.2-2.2) 10/04/21 Range/Units 05:40 WBC (4.5-11.0) K/uL RBC (4.30-5.90) M/uL Hgb (12.0-15.0) g/dL Hct (40.0-54.0) % MCV (80-98) fL MCH (27-31) pg MCHC (32-36) % Plt Count (150-400) K/uL Neut % (Auto) (36-66) % Lymph % (Auto) (24-44) % Colbert % (Auto) (2-6) % Eos % (Auto) (2-4) % Baso % (Auto) (0-1) % D-Dimer, Quantitative (0.0-500.0) ng/mL Sodium (140-148) mmol/L Potassium (3.6-5.2) mmol/L Chloride (100-108) mmol/L Carbon Dioxide (21-32) mmol/L Anion Gap (5.0-14.0) mmol/L BUN (7-18) mg/dL Creatinine (0.8-1.3) mg/dL Est Cr Clr Drug Dosing mL/min Estimated GFR (MDRD) (>60) Glucose (74-106) mg/dL Calcium (8.5-10.1) mg/dL Total Bilirubin (0.2-1.0) mg/dL AST (15-37) U/L ALT (12-78) U/L Alkaline Phosphatase (46-116) U/L C-Reactive Protein 15.92 H (0.0-0.3) mg/dL Total Protein (6.4-8.2) g/dL Albumin (3.4-5.0) g/dL Globulin (2.3-3.5) g/dL Albumin/Globulin Ratio (1.2-2.2) Med Orders - Current: Current Medications Acetaminophen (Acetaminophen 325 Mg Tab) 650 mg PO Q4H PRN PRN Reason: Pain (Mild 1-3)/fever Last Admin: 10/04/21 10:59 Dose: 650 mg Documented by: Al Hydroxide/Mg Hydroxide (Aluminum Hydroxide/Magnesium Hydroxide/Simethicone Susp 30 Ml Cup) 30 ml PO Q4H PRN PRN Reason: Dyspepsia Last Admin: 09/24/21 18:40 Dose: 30 ml Documented by: Albuterol (Albuterol 8 Gm Inhaler) 0 gm INH QID PRN PRN Reason: Shortness of Breath Ascorbic Acid (Ascorbic Acid 500 Mg Tab) 500 mg PO DAILY [facility] Last Admin: 10/04/21 08:13 Dose: 500 mg Documented by: Benzonatate (Benzonatate 100 Mg Cap) 100 mg PO Q8H PRN PRN Reason: Cough Last Admin: 10/02/21 14:06 Dose: 100 mg Documented by: Calcium Carbonate/Glycine (Calcium Carbonate 500 Mg Tab.Chew) 500 mg PO Q2H PRN PRN Reason: Indigestion Last Admin: 09/24/21 17:38 Dose: 500 mg Documented by: Cholecalciferol (Cholecalciferol (Vitamin D3) 25 Mcg Tab) 25 mcg PO DAILY [facility] Last Admin: 10/04/21 08:13 Dose: 25 mcg Documented by: Dexamethasone (Dexamethasone 4 Mg/Ml Sdv) 6 mg IVPUSH Q24H [facility] Last Admin: 10/03/21 14:15 Dose: 6 mg Documented by: Doxazosin Mesylate (Doxazosin 4 Mg Tab) 8 mg PO BEDTIME [facility] Last Admin: 10/03/21 20:58 Dose: 8 mg Documented by: Enoxaparin Sodium (Enoxaparin 80 Mg/0.8 Ml Syringe) 80 mg SUBCUT Q12H [facility] Last Admin: 10/04/21 08:14 Dose: 80 mg Documented by: Finasteride (Finasteride 5 Mg Tab) 5 mg PO BEDTIME [facility] Last Admin: 10/03/21 20:58 Dose: 5 mg Documented by: Guaifenesin/Dextromethorphan (Guaifenesin/Dextromethorphan 100-10 Mg/5 Ml Soln 10 Ml Cup) 10 ml PO Q4H PRN PRN Reason: Cough Last Admin: 10/02/21 14:06 Dose: 10 ml Documented by: Melatonin (Melatonin 3 Mg Tab) 9 mg PO BEDTIME PRN PRN Reason: Sleep Metoprolol Succinate (Metoprolol Succinate 25 Mg Tab.Er) 25 mg PO DAILY [facility] Last Admin: 10/04/21 08:13 Dose: 25 mg Documented by: Mometasone Furoate (Mometasone Furoate Nasal [place] 17 Gm Canister) 0 gm PANFILO BID [facility] Multivitamins/Minerals (Multivitamins With Iron/Calcium/Folic Acid/Minerals Tab) 1 tab PO DAILY [facility] Last Admin: 10/04/21 08:13 Dose: 1 tab Documented by: Ondansetron HCl (Ondansetron 4 Mg/2 Ml Sdv) 4 mg IV Q4H PRN PRN Reason: Nausea/Vomiting Omeprazole 20mg (Ptom) 0 each PO BIDAC [facility] Last Admin: 10/04/21 08:13 Dose: 1 each Documented by: Polyethylene Glycol (Polyethylene Glycol 3350 Powder 17 Gm Packet) 17 gm PO DAILY PRN PRN Reason: Constipation Senna/Docusate Sodium (Docusate Sodium/Sennosides 50-8.6 Mg Tab) 1 tab PO Q12H PRN PRN Reason: Constipation Last Admin: 10/02/21 14:06 Dose: 1 tab Documented by: Sodium Chloride (Sodium Chloride 0.9% 10 Ml Syringe) 10 ml FLUSH ASDIRECTED PRN PRN Reason: Keep Vein Open Tramadol HCl (Tramadol 50 Mg Tab) 50 mg PO Q6H PRN PRN Reason: back pain Last Admin: 09/28/21 09:40 Dose: 50 mg Documented by: Zinc Gluconate (Zinc (Zinc Gluconate) 50 Mg Tab) 50 mg PO DAILY [facility] Last Admin: 10/04/21 08:13 Dose: 50 mg Documented by: Discontinued Medications Acetaminophen (Acetaminophen 325 Mg Tab) 650 mg PO Q4H PRN PRN Reason: Fever Greater Than 101 Baricitinib (Baricitinib 2 Mg Tab) 4 mg PO Q24H [facility] Stop: 10/02/21 16:01 Last Admin: 10/02/21 15:29 Dose: 4 mg Documented by: Dexamethasone (Dexamethasone 4 Mg/Ml Sdv) 6 mg IVPUSH DAILY [facility] Stop: 09/27/21 09:01 Last Admin: 09/19/21 02:25 Dose: 6 mg Documented by: Dexamethasone (Dexamethasone 4 Mg/Ml Sdv) Confirm Administered Dose 8 mg .ROUTE .STK-MED ONE Stop: 09/19/21 02:17 Last Admin: 09/19/21 04:22 Dose: Not Given Documented by: Dexamethasone (Dexamethasone 4 Mg/Ml Sdv) 6 mg IVPUSH Q24H [facility] Stop: 09/27/21 18:01 Last Admin: 09/27/21 17:22 Dose: 6 mg Documented by: Dexamethasone (Dexamethasone 2 Mg Tab) 4 mg PO Q24H [facility] Stop: 10/01/21 18:01 Last Admin: 09/30/21 17:19 Dose: 4 mg Documented by: Doxazosin Mesylate (Doxazosin 4 Mg Tab) 4 mg PO BEDTIME [facility] Last Admin: 09/29/21 20:51 Dose: 4 mg Documented by: Enoxaparin Sodium (Enoxaparin 40 Mg/0.4 Ml Syringe) 40 mg SUBCUT DAILY [facility] Last Admin: 09/19/21 17:22 Dose: 40 mg Documented by: Enoxaparin Sodium (Enoxaparin 40 Mg/0.4 Ml Syringe) 40 mg SUBCUT Q24H [facility] Last Admin: 09/25/21 15:58 Dose: 40 mg Documented by: Furosemide (Furosemide 20 Mg/2 Ml Vial) 20 mg IVPUSH ONETIME ONE Stop: 09/25/21 09:01 Last Admin: 09/25/21 10:17 Dose: 20 mg Documented by: Remdesivir 200 mg/ Sodium (Chloride) 250 mls @ 250 mls/hr IV ONETIME ONE Stop: 09/19/21 01:27 Last Admin: 09/19/21 02:24 Dose: 250 mls/hr Documented by: Remdesivir (Remdesivir) Confirm Administered Dose 200 mls @ as directed .ROUTE .STK-MED ONE Stop: 09/19/21 01:47 Last Admin: 09/19/21 04:22 Dose: Not Given Documented by: Ceftriaxone Sodium 1 gm/ (Sodium Chloride) 50 mls @ 100 mls/hr IV Q24H [facility] Stop: 09/25/21 20:00 Last Admin: 09/25/21 15:06 Dose: 100 mls/hr Documented by: Doxycycline Hyclate 100 mg/ (Sodium Chloride) 100 mls @ 100 mls/hr IV Q12H [facility] Stop: 09/25/21 20:00 Last Admin: 09/25/21 15:54 Dose: 100 mls/hr Documented by: Remdesivir 100 mg/ Sodium (Chloride) 100 mls @ 100 mls/hr IV Q24H [facility] Stop: 09/22/21 20:59 Last Admin: 09/22/21 20:15 Dose: 100 mls/hr Documented by: Non-Formulary Medication (Omeprazole Magnesium [Prilosec Otc]) 20 mg PO DAILY [facility] Pantoprazole Sodium (Pantoprazole 40 Mg Tab.Cr) 40 mg PO ACBREAKFAST [facility] Last Admin: 09/23/21 07:52 Dose: 40 mg Documented by: Omeprazole 20mg 0 each PO ACBREAKFAST [facility] Omeprazole 20mg 0 each PO ACBREAKFAST [facility] Last Admin: 09/24/21 06:45 Dose: 1 each Documented by: - Exam Quality Assessment: Supplemental Oxygen, DVT Prophylaxis General: Alert, Oriented, Cooperative, Moderate Distress Lungs: Decreased Breath Sounds, Crackles. No: Rales, Rhonchi, Wheezing Cardiovascular: Regular Rate, Regular Rhythm, No Murmurs GI/Abdominal Exam: Soft, Non-Tender, No Organomegaly, No Distention Extremities: Non-Tender, No Pedal Edema - Patient Data Lab Results Last 24 hrs: Laboratory Results - last 24 hr 10/04/21 10/04/21 10/04/21 Range/Units 05:40 05:40 05:40 WBC 12.5 H (4.5-11.0) K/uL RBC 4.93 (4.30-5.90) M/uL Hgb 14.0 (12.0-15.0) g/dL Hct 42.0 (40.0-54.0) % MCV 85 (80-98) fL MCH 28 (27-31) pg MCHC 33 (32-36) % Plt Count 519 H (150-400) K/uL Neut % (Auto) 86.1 H (36-66) % Lymph % (Auto) 6.5 L (24-44) % Colbert % (Auto) 6.9 H (2-6) % Eos % (Auto) 0.3 L (2-4) % Baso % (Auto) 0.2 (0-1) % D-Dimer, Quantitative 3428.77 H (0.0-500.0) ng/mL Sodium 136 L (140-148) mmol/L Potassium 4.5 (3.6-5.2) mmol/L Chloride 98 L (100-108) mmol/L Carbon Dioxide 27 (21-32) mmol/L Anion Gap 15.5 H (5.0-14.0) mmol/L BUN 16 (7-18) mg/dL Creatinine 0.8 (0.8-1.3) mg/dL Est Cr Clr Drug Dosing 85.50 mL/min Estimated GFR (MDRD) > 60 (>60) Glucose 102 (74-106) mg/dL Calcium 8.9 (8.5-10.1) mg/dL Total Bilirubin 0.4 (0.2-1.0) mg/dL AST 26 (15-37) U/L ALT 68 (12-78) U/L Alkaline Phosphatase 211 H (46-116) U/L C-Reactive Protein (0.0-0.3) mg/dL Total Protein 7.1 (6.4-8.2) g/dL Albumin 2.3 L (3.4-5.0) g/dL Globulin 4.8 H (2.3-3.5) g/dL Albumin/Globulin Ratio 0.5 L (1.2-2.2) 10/04/21 Range/Units 05:40 WBC (4.5-11.0) K/uL RBC (4.30-5.90) M/uL Hgb (12.0-15.0) g/dL Hct (40.0-54.0) % MCV (80-98) fL MCH (27-31) pg MCHC (32-36) % Plt Count (150-400) K/uL Neut % (Auto) (36-66) % Lymph % (Auto) (24-44) % Colbert % (Auto) (2-6) % Eos % (Auto) (2-4) % Baso % (Auto) (0-1) % D-Dimer, Quantitative (0.0-500.0) ng/mL Sodium (140-148) mmol/L Potassium (3.6-5.2) mmol/L Chloride (100-108) mmol/L Carbon Dioxide (21-32) mmol/L Anion Gap (5.0-14.0) mmol/L BUN (7-18) mg/dL Creatinine (0.8-1.3) mg/dL Est Cr Clr Drug Dosing mL/min Estimated GFR (MDRD) (>60) Glucose (74-106) mg/dL Calcium (8.5-10.1) mg/dL Total Bilirubin (0.2-1.0) mg/dL AST (15-37) U/L ALT (12-78) U/L Alkaline Phosphatase (46-116) U/L C-Reactive Protein 15.92 H (0.0-0.3) mg/dL Total Protein (6.4-8.2) g/dL Albumin (3.4-5.0) g/dL Globulin (2.3-3.5) g/dL Albumin/Globulin Ratio (1.2-2.2) Result Diagrams: 10/04/21 05:40 10/04/21 05:40 Sepsis Event Note - Evaluation Sepsis Screening Result: Sepsis Risk - Focused Exam Vital Signs: Vital Signs Temp Pulse Pulse Resp BP BP Pulse Ox 10/04/21 13:00 89 L 10/04/21 10:33 98.3 F 97 18 116/68 96 10/04/21 08:13 95 122/75 10/04/21 07:29 93 L 10/04/21 07:15 30 H 94 L 11/14/21 07:05 96.7 F L 95 20 122/75 10/04/21 02:23 96.7 F L 86 18 133/75 92 L - Problem List Review Problem List Initiated/Reviewed/Updated: Yes - My Orders Last 24 Hours: My Active Orders 10/04/21 13:45 Mometasone Furoate [Nasonex [place]] See Dose Instructions PANFILO BID - Plan Plan:: ASSESSMENT AND PLAN - COVID-19 INFECTION WITH BILATERAL PNEUMONIA-complicated by acute respiratory failure with hypoxia. Currently requiring large quantity of oxygen support via the heated/high flow nasal cannula but has been stable for several days. Episode of increased shortness of breath during the night that responded to an increase in oxygen flow back to previous level -Continue high flow humidified oxygen -Remdesivir x5 days complete -Decadron 6 mg IV daily until he shows evidence of definite improvement -Baricitinib 4 mg p.o. daily, completed -Empiric antibiotics are complete -Repeat labs every 2 days -Prone ventilation as able -Continue vitamin supplementation -Continue enoxaparin with therapeutic dosing at 1 mg/kg every 12 hours ARDS-likely complicating COVID-19 infection -Management as above BPH WITH BLADDER OUTLET OBSTRUCTION-worse over the past few days, having s ignificant difficulty passing urine. Symptoms improved since yesterday, urinalysis clear showing no evidence of obvious infection. -Doxazosin 8 mg p.o. nightly -Proscar 4 mg p.o. daily MAINTENANCE ISSUES -DVT prophylaxis; therapeutic enoxaparin dosing -GI prophylaxis; not indicated -Holt catheter; not indicated -Nutrition; regular diet DISPOSITION-anticipate discharge to home after the hospital stay.
[2021-10-04] MEDS: Dexamethasone 4 MG/ML SDV IVPUSH SCH (15:34)
[2021-10-04] MEDS: Mometasone Furoate Nasal Spray 17 GM Canister NAS SCH ×2 (15:34→20:47)
[2021-10-04] MEDS: Doxazosin 4 MG Tab PO SCH (20:45)
[2021-10-04] MEDS: Finasteride 5 MG Tab PO SCH (20:47)
[2021-10-05] MEDS: OMEPRAZOLE 20MG **PTOM PO SCH ×2 (07:56→16:50)
[2021-10-05] MEDS: Cholecalciferol (Vitamin D3) 25 MCG Tab PO SCH (08:40)
[2021-10-05] MEDS: Metoprolol Succinate 25 MG Tab.ER PO SCH (08:40)
[2021-10-05] MEDS: Zinc (Zinc Gluconate) 50 MG Tab PO SCH (08:40)
[2021-10-05] MEDS: Enoxaparin 80 MG/0.8 ML Syringe SUBCUT SCH ×2 (08:40→21:51)
[2021-10-05] MEDS: Multivitamins with Iron/Calcium/Folic Acid/Minerals Tab PO SCH (08:40)
[2021-10-05] MEDS: Mometasone Furoate Nasal Spray 17 GM Canister NAS SCH ×2 (08:40→21:51)
[2021-10-05] MEDS: Ascorbic Acid 500 MG Tab PO SCH (08:40)
[2021-10-05] MEDS: Dexamethasone 4 MG/ML SDV IVPUSH SCH (13:25)
--- NOTE | 2021-10-05 13:58 | PCM.PN ---
- General Info Date of Service: 10/05/21 Subjective Update: No acute events overnight. Respiratory status stable but still compromised. Inks he feels a little less short of breath today. Slept well overnight. Appetite is better. No heartburn. No fevers. Functional Status: Reports: Pain Controlled, Tolerating Diet - Review of Systems General: Reports: Weakness Pulmonary: Reports: Shortness of Breath - Patient Data Vitals - Most Recent: Last Vital Signs Temp 37.0 C 10/05/21 10:56 Pulse 100 10/05/21 10:56 Resp 18 10/05/21 10:56 BP 117/61 10/05/21 10:56 Pulse Ox 95 10/05/21 12:45 Weight - Most Recent: 78.925 kg I&O - Last 24 Hours: Intake & Output 10/04/21 10/05/21 10/05/21 22:59 06:59 14:59 Intake Total 400 200 950 Output Total 300 1050 100 Balance 100 -850 850 Med Orders - Current: Current Medications Acetaminophen (Acetaminophen 325 Mg Tab) 650 mg PO Q4H PRN PRN Reason: Pain (Mild 1-3)/fever Last Admin: 10/04/21 10:59 Dose: 650 mg Documented by: Al Hydroxide/Mg Hydroxide (Aluminum Hydroxide/Magnesium Hydroxide/Simethicone Susp 30 Ml Cup) 30 ml PO Q4H PRN PRN Reason: Dyspepsia Last Admin: 09/24/21 18:40 Dose: 30 ml Documented by: Albuterol (Albuterol 8 Gm Inhaler) 0 gm INH QID PRN PRN Reason: Shortness of Breath Ascorbic Acid (Ascorbic Acid 500 Mg Tab) 500 mg PO DAILY [facility] Last Admin: 10/05/21 08:40 Dose: 500 mg Documented by: Benzonatate (Benzonatate 100 Mg Cap) 100 mg PO Q8H PRN PRN Reason: Cough Last Admin: 10/02/21 14:06 Dose: 100 mg Documented by: Calcium Carbonate/Glycine (Calcium Carbonate 500 Mg Tab.Chew) 500 mg PO Q2H PRN PRN Reason: Indigestion Last Admin: 09/24/21 17:38 Dose: 500 mg Documented by: Cholecalciferol (Cholecalciferol (Vitamin D3) 25 Mcg Tab) 25 mcg PO DAILY [facility] Last Admin: 10/05/21 08:40 Dose: 25 mcg Documented by: Dexamethasone (Dexamethasone 4 Mg/Ml Sdv) 6 mg IVPUSH Q24H [facility] Last Admin: 10/05/21 13:25 Dose: 6 mg Documented by: Doxazosin Mesylate (Doxazosin 4 Mg Tab) 8 mg PO BEDTIME [facility] Last Admin: 10/04/21 20:45 Dose: 8 mg Documented by: Enoxaparin Sodium (Enoxaparin 80 Mg/0.8 Ml Syringe) 80 mg SUBCUT Q12H [facility] Last Admin: 10/05/21 08:40 Dose: 80 mg Documented by: Finasteride (Finasteride 5 Mg Tab) 5 mg PO BEDTIME [facility] Last Admin: 10/04/21 20:47 Dose: 5 mg Documented by: Guaifenesin/Dextromethorphan (Guaifenesin/Dextromethorphan 100-10 Mg/5 Ml Soln 10 Ml Cup) 10 ml PO Q4H PRN PRN Reason: Cough Last Admin: 10/02/21 14:06 Dose: 10 ml Documented by: Melatonin (Melatonin 3 Mg Tab) 9 mg PO BEDTIME PRN PRN Reason: Sleep Metoprolol Succinate (Metoprolol Succinate 25 Mg Tab.Er) 25 mg PO DAILY [facility] Last Admin: 10/05/21 08:40 Dose: 25 mg Documented by: Mometasone Furoate (Mometasone Furoate Nasal [place] 17 Gm Canister) 0 gm PANFILO BID [facility] Last Admin: 10/05/21 08:40 Dose: 2 spray Documented by: Multivitamins/Minerals (Multivitamins With Iron/Calcium/Folic Acid/Minerals Tab) 1 tab PO DAILY [facility] Last Admin: 10/05/21 08:40 Dose: 1 tab Documented by: Ondansetron HCl (Ondansetron 4 Mg/2 Ml Sdv) 4 mg IV Q4H PRN PRN Reason: Nausea/Vomiting Omeprazole 20mg (Ptom) 0 each PO BIDAC [facility] Last Admin: 10/05/21 07:56 Dose: 1 each Documented by: Polyethylene Glycol (Polyethylene Glycol 3350 Powder 17 Gm Packet) 17 gm PO DAILY PRN PRN Reason: Constipation Senna/Docusate Sodium (Docusate Sodium/Sennosides 50-8.6 Mg Tab) 1 tab PO Q12H PRN PRN Reason: Constipation Last Admin: 10/02/21 14:06 Dose: 1 tab Documented by: Sodium Chloride (Sodium Chloride 0.9% 10 Ml Syringe) 10 ml FLUSH ASDIRECTED PRN PRN Reason: Keep Vein Open Tramadol HCl (Tramadol 50 Mg Tab) 50 mg PO Q6H PRN PRN Reason: back pain Last Admin: 09/28/21 09:40 Dose: 50 mg Documented by: Zinc Gluconate (Zinc (Zinc Gluconate) 50 Mg Tab) 50 mg PO DAILY [facility] Last Admin: 10/05/21 08:40 Dose: 50 mg Documented by: Discontinued Medications Acetaminophen (Acetaminophen 325 Mg Tab) 650 mg PO Q4H PRN PRN Reason: Fever Greater Than 101 Baricitinib (Baricitinib 2 Mg Tab) 4 mg PO Q24H [facility] Stop: 10/02/21 16:01 Last Admin: 10/02/21 15:29 Dose: 4 mg Documented by: Dexamethasone (Dexamethasone 4 Mg/Ml Sdv) 6 mg IVPUSH DAILY [facility] Stop: 09/27/21 09:01 Last Admin: 09/19/21 02:25 Dose: 6 mg Documented by: Dexamethasone (Dexamethasone 4 Mg/Ml Sdv) Confirm Administered Dose 8 mg .ROUTE .[facility] Stop: 09/19/21 02:17 Last Admin: 09/19/21 04:22 Dose: Not Given Documented by: Dexamethasone (Dexamethasone 4 Mg/Ml Sdv) 6 mg IVPUSH Q24H [facility] Stop: 09/27/21 18:01 Last Admin: 09/27/21 17:22 Dose: 6 mg Documented by: Dexamethasone (Dexamethasone 2 Mg Tab) 4 mg PO Q24H [facility] Stop: 10/01/21 18:01 Last Admin: 09/30/21 17:19 Dose: 4 mg Documented by: Doxazosin Mesylate (Doxazosin 4 Mg Tab) 4 mg PO BEDTIME [facility] Last Admin: 09/29/21 20:51 Dose: 4 mg Documented by: Enoxaparin Sodium (Enoxaparin 40 Mg/0.4 Ml Syringe) 40 mg SUBCUT DAILY [facility] Last Admin: 09/19/21 17:22 Dose: 40 mg Documented by: Enoxaparin Sodium (Enoxaparin 40 Mg/0.4 Ml Syringe) 40 mg SUBCUT Q24H [facility] Last Admin: 09/25/21 15:58 Dose: 40 mg Documented by: Furosemide (Furosemide 20 Mg/2 Ml Vial) 20 mg IVPUSH ONETIME ONE Stop: 09/25/21 09:01 Last Admin: 09/25/21 10:17 Dose: 20 mg Documented by: Remdesivir 200 mg/ Sodium (Chloride) 250 mls @ 250 mls/hr IV ONETIME [facility] Stop: 09/19/21 01:27 Last Admin: 09/19/21 02:24 Dose: 250 mls/hr Documented by: Remdesivir (Remdesivir) Confirm Administered Dose 200 mls @ as directed .ROUTE .STK-MED ONE Stop: 09/19/21 01:47 Last Admin: 09/19/21 04:22 Dose: Not Given Documented by: Ceftriaxone Sodium 1 gm/ (Sodium Chloride) 50 mls @ 100 mls/hr IV Q24H [facility] Stop: 09/25/21 20:00 Last Admin: 09/25/21 15:06 Dose: 100 mls/hr Documented by: Doxycycline Hyclate 100 mg/ (Sodium Chloride) 100 mls @ 100 mls/hr IV Q12H [facility] Stop: 09/25/21 20:00 Last Admin: 09/25/21 15:54 Dose: 100 mls/hr Documented by: Remdesivir 100 mg/ Sodium (Chloride) 100 mls @ 100 mls/hr IV Q24H [facility] Stop: 09/22/21 20:59 Last Admin: 09/22/21 20:15 Dose: 100 mls/hr Documented by: Non-Formulary Medication (Omeprazole Magnesium [Prilosec Otc]) 20 mg PO DAILY [facility] Pantoprazole Sodium (Pantoprazole 40 Mg Tab.Cr) 40 mg PO ACBREAKFAST [facility] Last Admin: 09/23/21 07:52 Dose: 40 mg Documented by: Omeprazole 20mg 0 each PO ACBREAKFAST [facility] Omeprazole 20mg 0 each PO ACBREAKFAST [facility] Last Admin: 09/24/21 06:45 Dose: 1 each Documented by: - Exam Quality Assessment: Supplemental Oxygen General: Alert, Oriented, Cooperative, No Acute Distress Lungs: Normal Respiratory Effort, Crackles (few both bases ) Cardiovascular: Regular Rate, Regular Rhythm GI/Abdominal Exam: Soft, No Distention Extremities: No Pedal Edema. No: Increased Warmth Skin: Warm, Dry Psy/Mental Status: Alert, Normal Affect - Patient Data Result Diagrams: 10/04/21 05:40 10/04/21 05:40 Sepsis Event Note - Evaluation Sepsis Screening Result: Sepsis Risk - Focused Exam Vital Signs: Vital Signs Temp Pulse Pulse Resp BP BP BP 10/05/21 12:45 10/05/21 10:56 37.0 C 100 18 117/61 10/05/21 08:40 84 117/68 10/05/21 08:00 10/05/21 07:11 10/05/21 06:08 36.3 C 83 26 H 117/68 Pulse Ox Pulse Ox 10/05/21 12:45 95 10/05/21 10:56 90 L 10/05/21 08:40 10/05/21 08:00 90 L 10/05/21 07:11 95 10/05/21 06:08 94 L - Problem List Review Problem List Initiated/Reviewed/Updated: Yes - My Orders Last 24 Hours: My Active Orders 10/05/21 13:57 Communication Order [RC] DAILY 10/06/21 05:00 CBC W/O DIFF,HEMOGRAM [HEME] Timed (1) CRP [C-REACTIVE PROTEIN] [CHEM] Timed D-DIMER QUANTITATIVE [COAG] Timed - Plan Plan:: ASSESSMENT AND PLAN - COVID-19 INFECTION WITH BILATERAL PNEUMONIA-complicated by acute respiratory failure with hypoxia. Stable but not dramatically improved. Still requiring high levels of support. -Consider CT scanning when he thinks he is up for the trip to radiology -Continue high flow humidified oxygen -Decadron 6 mg IV daily until he shows evidence of definite improvement -Repeat labs every 2 days -Prone ventilation as able -Continue vitamin supplementation -Continue enoxaparin with therapeutic dosing at 1 mg/kg every 12 hours -Remdesivir x5 days complete -Baricitinib 4 mg p.o. daily, completed ARDS-2/2 COVID-19 infection. -Management as above BPH WITH BLADDER OUTLET OBSTRUCTION-better with meds as listed below. -Doxazosin 8 mg p.o. nightly -Proscar 4 mg p.o. daily MAINTENANCE ISSUES -DVT prophylaxis; therapeutic enoxaparin dosing -GI prophylaxis; not indicated -Holt catheter; not indicated -Nutrition; regular diet DISPOSITION-anticipate discharge to home after the hospital stay. Demetris Canseco MD
[2021-10-05] MEDS: Doxazosin 4 MG Tab PO SCH (21:53)
[2021-10-05] MEDS: Finasteride 5 MG Tab PO SCH (21:53)
[2021-10-06] MEDS: Multivitamins with Iron/Calcium/Folic Acid/Minerals Tab PO SCH (08:11)
[2021-10-06] MEDS: Metoprolol Succinate 25 MG Tab.ER PO SCH (08:11)
[2021-10-06] MEDS: Mometasone Furoate Nasal Spray 17 GM Canister NAS SCH ×2 (08:14→21:17)
[2021-10-06] MEDS: Enoxaparin 80 MG/0.8 ML Syringe SUBCUT SCH ×2 (08:14→21:17)
[2021-10-06] MEDS: OMEPRAZOLE 20MG **PTOM PO SCH ×2 (08:15→16:20)
[2021-10-06] MEDS: diphenhydrAMINE 25 MG Cap PO PRN (10:41)
[2021-10-06] MEDS ORDERED: Cholecalciferol (Vitamin D3) 25 MCG Tab PO SCH (12:00)
[2021-10-06] MEDS ORDERED: Ascorbic Acid 500 MG Tab PO SCH (12:00)
--- NOTE | 2021-10-06 13:07 | PCM.PN ---
- General Info Date of Service: 10/06/21 Subjective Update: There were no acute events overnight. Patient feels less short of breath today. He feels a little more energetic but still feels weak and tired compared to a week ago. Not much in the way of a cough. He does report an itchy skin rash in both antecubital fossa areas as well as both lower lateral abdomen areas into his left groin. This has come on over the last 24 hours. Benadryl did help with the itching. CRP and D-dimer have improved. Functional Status: Reports: Pain Controlled, Tolerating Diet - Review of Systems General: Reports: Weakness Pulmonary: Reports: Shortness of Breath - Patient Data Vitals - Most Recent: Last Vital Signs Temp 35.5 C L 10/06/21 12:00 Pulse 81 10/06/21 12:00 Resp 18 10/06/21 12:00 BP 112/64 10/06/21 12:00 Pulse Ox 94 L 10/06/21 12:00 Weight - Most Recent: 78.925 kg I&O - Last 24 Hours: Intake & Output 10/05/21 10/06/21 10/06/21 22:59 06:59 14:59 Output Total 625 800 Balance -625 -800 Lab Results Last 24 Hours: Laboratory Results - last 24 hr 10/06/21 10/06/21 10/06/21 Range/Units 04:25 04:25 04:25 WBC 10.7 (4.5-11.0) K/uL RBC 4.76 (4.30-5.90) M/uL Hgb 13.7 (12.0-15.0) g/dL Hct 41.0 (40.0-54.0) % MCV 86 (80-98) fL MCH 29 (27-31) pg MCHC 33 (32-36) % Plt Count 553 H (150-400) K/uL D-Dimer, Quantitative 2285.83 H (0.0-500.0) ng/mL C-Reactive Protein 12.13 H (0.0-0.3) mg/dL Med Orders - Current: Current Medications Acetaminophen (Acetaminophen 325 Mg Tab) 650 mg PO Q4H PRN PRN Reason: Pain (Mild 1-3)/fever Last Admin: 10/04/21 10:59 Dose: 650 mg Documented by: Al Hydroxide/Mg Hydroxide (Aluminum Hydroxide/Magnesium Hydroxide/Simethicone Susp 30 Ml Cup) 30 ml PO Q4H PRN PRN Reason: Dyspepsia Last Admin: 09/24/21 18:40 Dose: 30 ml Documented by: Albuterol (Albuterol 8 Gm Inhaler) 0 gm INH QID PRN PRN Reason: Shortness of Breath Ascorbic Acid (Ascorbic Acid 500 Mg Tab) 1,000 mg PO DAILY [facility] Benzonatate (Benzonatate 100 Mg Cap) 100 mg PO Q8H PRN PRN Reason: Cough Last Admin: 10/02/21 14:06 Dose: 100 mg Documented by: Calcium Carbonate/Glycine (Calcium Carbonate 500 Mg Tab.Chew) 500 mg PO Q2H PRN PRN Reason: Indigestion Last Admin: 09/24/21 17:38 Dose: 500 mg Documented by: Cholecalciferol (Cholecalciferol (Vitamin D3) 25 Mcg Tab) 125 mcg PO DAILY [facility] Dexamethasone (Dexamethasone 4 Mg/Ml Sdv) 6 mg IVPUSH Q24H [facility] Last Admin: 10/05/21 13:25 Dose: 6 mg Documented by: Diphenhydramine HCl (Diphenhydramine 25 Mg Cap) 25 mg PO Q4H PRN PRN Reason: Itching Last Admin: 10/06/21 10:41 Dose: 25 mg Documented by: Doxazosin Mesylate (Doxazosin 4 Mg Tab) 8 mg PO BEDTIME [facility] Last Admin: 10/05/21 21:53 Dose: 8 mg Documented by: Enoxaparin Sodium (Enoxaparin 80 Mg/0.8 Ml Syringe) 80 mg SUBCUT Q12H [facility] Last Admin: 10/06/21 08:14 Dose: 80 mg Documented by: Finasteride (Finasteride 5 Mg Tab) 5 mg PO BEDTIME [facility] Last Admin: 10/05/21 21:53 Dose: 5 mg Documented by: Guaifenesin/Dextromethorphan (Guaifenesin/Dextromethorphan 100-10 Mg/5 Ml Soln 10 Ml Cup) 10 ml PO Q4H PRN PRN Reason: Cough Last Admin: 10/02/21 14:06 Dose: 10 ml Documented by: Melatonin (Melatonin 3 Mg Tab) 9 mg PO BEDTIME PRN PRN Reason: Sleep Metoprolol Succinate (Metoprolol Succinate 25 Mg Tab.Er) 25 mg PO DAILY [facility] Last Admin: 10/06/21 08:11 Dose: 25 mg Documented by: Mometasone Furoate (Mometasone Furoate Nasal [place] 17 Gm Canister) 0 gm PANFILO BID [facility] Last Admin: 10/06/21 08:14 Dose: 2 spray Documented by: Multivitamins/Minerals (Multivitamins With Iron/Calcium/Folic Acid/Minerals Tab) 1 tab PO DAILY [facility] Last Admin: 10/06/21 08:11 Dose: 1 tab Documented by: Ondansetron HCl (Ondansetron 4 Mg/2 Ml Sdv) 4 mg IV Q4H PRN PRN Reason: Nausea/Vomiting Omeprazole 20mg (Ptom) 0 each PO BIDAC [facility] Last Admin: 10/06/21 08:15 Dose: 1 each Documented by: Polyethylene Glycol (Polyethylene Glycol 3350 Powder 17 Gm Packet) 17 gm PO DAILY PRN PRN Reason: Constipation Senna/Docusate Sodium (Docusate Sodium/Sennosides 50-8.6 Mg Tab) 1 tab PO Q12H PRN PRN Reason: Constipation Last Admin: 10/02/21 14:06 Dose: 1 tab Documented by: Sodium Chloride (Sodium Chloride 0.9% 10 Ml Syringe) 10 ml FLUSH ASDIRECTED PRN PRN Reason: Keep Vein Open Tramadol HCl (Tramadol 50 Mg Tab) 50 mg PO Q6H PRN PRN Reason: back pain Last Admin: 09/28/21 09:40 Dose: 50 mg Documented by: Zinc Gluconate (Zinc (Zinc Gluconate) 50 Mg Cap (Ptom)) 50 mg PO DAILY [facility] Discontinued Medications Acetaminophen (Acetaminophen 325 Mg Tab) 650 mg PO Q4H PRN PRN Reason: Fever Greater Than 101 Ascorbic Acid (Ascorbic Acid 500 Mg Tab) 500 mg PO DAILY [facility] Last Admin: 10/05/21 08:40 Dose: 500 mg Documented by: Baricitinib (Baricitinib 2 Mg Tab) 4 mg PO Q24H [facility] Stop: 10/02/21 16:01 Last Admin: 10/02/21 15:29 Dose: 4 mg Documented by: Cholecalciferol (Cholecalciferol (Vitamin D3) 25 Mcg Tab) 25 mcg PO DAILY [facility] Last Admin: 10/05/21 08:40 Dose: 25 mcg Documented by: Dexamethasone (Dexamethasone 4 Mg/Ml Sdv) 6 mg IVPUSH DAILY [facility] Stop: 09/27/21 09:01 Last Admin: 09/19/21 02:25 Dose: 6 mg Documented by: Dexamethasone (Dexamethasone 4 Mg/Ml Sdv) Confirm Administered Dose 8 mg .ROUTE .STK-MED ONE Stop: 09/19/21 02:17 Last Admin: 09/19/21 04:22 Dose: Not Given Documented by: Dexamethasone (Dexamethasone 4 Mg/Ml Sdv) 6 mg IVPUSH Q24H [facility] Stop: 09/27/21 18:01 Last Admin: 09/27/21 17:22 Dose: 6 mg Documented by: Dexamethasone (Dexamethasone 2 Mg Tab) 4 mg PO Q24H [facility] Stop: 10/01/21 18:01 Last Admin: 09/30/21 17:19 Dose: 4 mg Documented by: Doxazosin Mesylate (Doxazosin 4 Mg Tab) 4 mg PO BEDTIME [facility] Last Admin: 09/29/21 20:51 Dose: 4 mg Documented by: Enoxaparin Sodium (Enoxaparin 40 Mg/0.4 Ml Syringe) 40 mg SUBCUT DAILY [facility] Last Admin: 09/19/21 17:22 Dose: 40 mg Documented by: Enoxaparin Sodium (Enoxaparin 40 Mg/0.4 Ml Syringe) 40 mg SUBCUT Q24H [facility] Last Admin: 09/25/21 15:58 Dose: 40 mg Documented by: Furosemide (Furosemide 20 Mg/2 Ml Vial) 20 mg IVPUSH ONETIME ONE Stop: 09/25/21 09:01 Last Admin: 09/25/21 10:17 Dose: 20 mg Documented by: Remdesivir 200 mg/ Sodium (Chloride) 250 mls @ 250 mls/hr IV ONETIME ONE Stop: 09/19/21 01:27 Last Admin: 09/19/21 02:24 Dose: 250 mls/hr Documented by: Remdesivir (Remdesivir) Confirm Administered Dose 200 mls @ as directed .ROUTE .STK-MED ONE Stop: 09/19/21 01:47 Last Admin: 09/19/21 04:22 Dose: Not Given Documented by: Ceftriaxone Sodium 1 gm/ (Sodium Chloride) 50 mls @ 100 mls/hr IV Q24H [facility] Stop: 09/25/21 20:00 Last Admin: 09/25/21 15:06 Dose: 100 mls/hr Documented by: Doxycycline Hyclate 100 mg/ (Sodium Chloride) 100 mls @ 100 mls/hr IV Q12H [facility] Stop: 09/25/21 20:00 Last Admin: 09/25/21 15:54 Dose: 100 mls/hr Documented by: Remdesivir 100 mg/ Sodium (Chloride) 100 mls @ 100 mls/hr IV Q24H [facility] Stop: 09/22/21 20:59 Last Admin: 09/22/21 20:15 Dose: 100 mls/hr Documented by: Non-Formulary Medication (Omeprazole Magnesium [Prilosec Otc]) 20 mg PO DAILY S Pantoprazole Sodium (Pantoprazole 40 Mg Tab.Cr) 40 mg PO ACBREAKFAST [facility] Last Admin: 09/23/21 07:52 Dose: 40 mg Documented by: Omeprazole 20mg 0 each PO ACBREAKFAST [facility] Omeprazole 20mg 0 each PO ACBREAKFAST [facility] Last Admin: 09/24/21 06:45 Dose: 1 each Documented by: Zinc Gluconate (Zinc (Zinc Gluconate) 50 Mg Tab) 50 mg PO DAILY [facility] Last Admin: 10/05/21 08:40 Dose: 50 mg Documented by: - Exam Quality Assessment: Supplemental Oxygen General: Alert, Oriented, Cooperative, No Acute Distress Lungs: Normal Respiratory Effort GI/Abdominal Exam: Soft, No Distention Extremities: No Pedal Edema Skin: Warm, Dry, Other (Mild scattered erythematous patches both left and right lateral abdomen. Some urticarial type lesions in the antecubital fossa areas as well as the popliteal fossa. Also a few in the left groin area.) Psy/Mental Status: Alert, Normal Affect - Patient Data Lab Results Last 24 hrs: Laboratory Results - last 24 hr 10/06/21 10/06/21 10/06/21 Range/Units 04:25 04:25 04:25 WBC 10.7 (4.5-11.0) K/uL RBC 4.76 (4.30-5.90) M/uL Hgb 13.7 (12.0-15.0) g/dL Hct 41.0 (40.0-54.0) % MCV 86 (80-98) fL MCH 29 (27-31) pg MCHC 33 (32-36) % Plt Count 553 H (150-400) K/uL D-Dimer, Quantitative 2285.83 H (0.0-500.0) ng/mL C-Reactive Protein 12.13 H (0.0-0.3) mg/dL Result Diagrams: 10/06/21 04:25 10/04/21 05:40 Sepsis Event Note - Evaluation Sepsis Screening Result: No Definite Risk - Focused Exam Vital Signs: Vital Signs Temp Pulse Pulse Resp BP BP Pulse Ox 10/06/21 12:00 35.5 C L 81 18 112/64 94 L 10/06/21 08:30 36.4 C 90 18 124/71 94 L 10/06/21 08:11 90 123/61 10/06/21 08:00 10/06/21 03:10 35.5 C L 77 18 119/76 94 L 10/06/21 01:41 89 L Pulse Ox 10/06/21 12:00 10/06/21 08:30 10/06/21 08:11 10/06/21 08:00 90 L 10/06/21 03:10 10/06/21 01:41 - Problem List Review Problem List Initiated/Reviewed/Updated: Yes - My Orders Last 24 Hours: My Active Orders 10/05/21 13:57 Communication Order [RC] DAILY 10/06/21 09:00 Zinc Gluconate [Zinc] 50 mg PO DAILY 10/06/21 10:21 diphenhydrAMINE [Benadryl] 25 mg PO Q4H PRN 10/06/21 12:00 Ascorbic Acid [Vitamin C] 1,000 mg PO DAILY Cholecalciferol (Vitamin D3) [Vitamin D3] 125 mcg PO DAILY 10/06/21 13:15 Hydrocortisone [Hydrocortisone 1% Crm] 1 gm TOP BID - Plan Plan:: ASSESSMENT AND PLAN - COVID-19 INFECTION WITH BILATERAL PNEUMONIA-complicated by acute respiratory failure with hypoxia. Stable but not dramatically improved. Still requiring high levels of support. Inflammatory markers are improving. -Consider CT scanning when he thinks he is up for the trip to radiology -Continue high flow humidified oxygen -Decadron 6 mg IV daily until he shows evidence of improvement then taper -Repeat labs every 2 days -Prone ventilation as able -Continue vitamin supplementation -Continue enoxaparin with therapeutic dosing at 1 mg/kg every 12 hours -Remdesivir x5 days complete -Baricitinib 4 mg p.o. daily, 14 days completed ARDS-2/2 COVID-19 infection. -Management as above BPH WITH BLADDER OUTLET OBSTRUCTION-better with meds as listed below. -Doxazosin 8 mg p.o. nightly -Proscar 4 mg p.o. daily Pruritic rash-seems to be occurring in areas with potential warmth and moisture such as antecubital and popliteal fossa as well as the groin. Seems to be mostly consistent with an inflammatory dermatitis. Drug rash could be considered though much less likely. He has been on steroids and a fungal rash could be considered. -Hydrocortisone -Consider antifungal if not improving in 24 hours MAINTENANCE ISSUES -DVT prophylaxis; therapeutic enoxaparin dosing -GI prophylaxis; not indicated -Holt catheter; not indicated -Nutrition; regular diet DISPOSITION-anticipate discharge to home after the hospital stay. Demetris Canseco MD
[2021-10-06] MEDS: Hydrocortisone 1% Crm 30 GM Tube TOP SCH ×2 (13:51→21:14)
[2021-10-06] MEDS: ZINC 50 MG PO SCH (13:51)
[2021-10-06] MEDS: Dexamethasone 4 MG/ML SDV IVPUSH SCH (13:52)
[2021-10-06] MEDS: Acetaminophen 325 MG Tab PO PRN (16:19)
[2021-10-06] MEDS: VIT D3 5000 UNIT PO SCH (16:21)
[2021-10-06] MEDS: Ascorbic Acid 500 MG Tab PO SCH (17:04)
[2021-10-06] MEDS: Cholecalciferol (Vitamin D3) 25 MCG Tab PO SCH (17:05)
[2021-10-06] MEDS: Doxazosin 4 MG Tab PO SCH (21:15)
[2021-10-06] MEDS: Finasteride 5 MG Tab PO SCH (21:18)
[2021-10-07] MEDS: diphenhydrAMINE 25 MG Cap PO PRN ×3 (01:27→21:55)
[2021-10-07] MEDS: OMEPRAZOLE 20MG **PTOM PO SCH ×2 (08:12→18:10)
[2021-10-07] MEDS: ESTER C 1000 MG PO SCH (08:13)
[2021-10-07] MEDS: Enoxaparin 80 MG/0.8 ML Syringe SUBCUT SCH ×2 (08:14→21:50)
[2021-10-07] MEDS: Mometasone Furoate Nasal Spray 17 GM Canister NAS SCH ×2 (08:14→21:48)
[2021-10-07] MEDS: VIT D3 5000 UNIT PO SCH (08:14)
[2021-10-07] MEDS: Multivitamins with Iron/Calcium/Folic Acid/Minerals Tab PO SCH (08:15)
[2021-10-07] MEDS: ZINC 50 MG PO SCH (08:16)
[2021-10-07] MEDS: Metoprolol Succinate 25 MG Tab.ER PO SCH (08:16)
[2021-10-07] MEDS: Hydrocortisone 1% Crm 30 GM Tube TOP SCH (10:52)
--- NOTE | 2021-10-07 10:55 | PCM.PN ---
- General Info Date of Service: 10/07/21 Subjective Update: There were no acute events overnight. Patient reports less shortness of breath and improved energy today. Still has an occasional cough. He does still get winded with activity but thinks this is a little better. Appetite has been good. Sleeping well. Hoping to increase his activity some again today. Feeling optimistic that he is turning the corner. We were able to turn down his heated/high flow to 83%. Functional Status: Reports: Pain Controlled, Tolerating Diet - Review of Systems Skin: Reports: Rash - Patient Data Vitals - Most Recent: Last Vital Signs Temp 36.2 C 10/07/21 08:06 Pulse 85 10/07/21 08:16 Resp 22 H 10/07/21 08:06 BP 132/71 10/07/21 08:16 Pulse Ox 92 L 10/07/21 08:06 Weight - Most Recent: 78.925 kg I&O - Last 24 Hours: Intake & Output 10/06/21 10/07/21 10/07/21 22:59 06:59 14:59 Output Total 450 525 150 Balance -450 -525 -150 Med Orders - Current: Current Medications Acetaminophen (Acetaminophen 325 Mg Tab) 650 mg PO Q4H PRN PRN Reason: Pain (Mild 1-3)/fever Last Admin: 10/06/21 16:19 Dose: 650 mg Documented by: Al Hydroxide/Mg Hydroxide (Aluminum Hydroxide/Magnesium Hydroxide/Simethicone S chcf 30 Ml Cup) 30 ml PO Q4H PRN PRN Reason: Dyspepsia Last Admin: 09/24/21 18:40 Dose: 30 ml Documented by: Albuterol (Albuterol 8 Gm Inhaler) 0 gm INH QID PRN PRN Reason: Shortness of Breath Benzonatate (Benzonatate 100 Mg Cap) 100 mg PO Q8H PRN PRN Reason: Cough Last Admin: 10/02/21 14:06 Dose: 100 mg Documented by: Calcium Carbonate/Glycine (Calcium Carbonate 500 Mg Tab.Chew) 500 mg PO Q2H PRN PRN Reason: Indigestion Last Admin: 09/24/21 17:38 Dose: 500 mg Documented by: Dexamethasone (Dexamethasone 4 Mg/Ml Sdv) 6 mg IVPUSH Q24H [facility] Last Admin: 10/06/21 13:52 Dose: 6 mg Documented by: Diphenhydramine HCl (Diphenhydramine 25 Mg Cap) 25 mg PO Q4H PRN PRN Reason: Itching Last Admin: 10/07/21 10:51 Dose: 25 mg Documented by: Doxazosin Mesylate (Doxazosin 4 Mg Tab) 8 mg PO BEDTIME [facility] Last Admin: 10/06/21 21:15 Dose: 8 mg Documented by: Enoxaparin Sodium (Enoxaparin 80 Mg/0.8 Ml Syringe) 80 mg SUBCUT Q12H [facility] Last Admin: 10/07/21 08:14 Dose: 80 mg Documented by: Guaifenesin/Dextromethorphan (Guaifenesin/Dextromethorphan 100-10 Mg/5 Ml Soln 10 Ml Cup) 10 ml PO Q4H PRN PRN Reason: Cough Last Admin: 10/02/21 14:06 Dose: 10 ml Documented by: Hydrocortisone (Hydrocortisone 1% Crm 30 Gm Tube) 0 gm TOP BID [facility] Last Admin: 10/07/21 10:52 Dose: 1 applic Documented by: Melatonin (Melatonin 3 Mg Tab) 9 mg PO BEDTIME PRN PRN Reason: Sleep Metoprolol Succinate (Metoprolol Succinate 25 Mg Tab.Er) 25 mg PO DAILY [facility] Last Admin: 10/07/21 08:16 Dose: 25 mg Documented by: Mometasone Furoate (Mometasone Furoate Nasal [place] 17 Gm Canister) 0 gm PANFILO BID [facility] Last Admin: 10/07/21 08:14 Dose: Not Given Documented by: Multivitamins/Minerals (Multivitamins With Iron/Calcium/Folic Acid/Minerals Tab) 1 tab PO DAILY [facility] Last Admin: 10/07/21 08:15 Dose: 1 tab Documented by: Ondansetron HCl (Ondansetron 4 Mg/2 Ml Sdv) 4 mg IV Q4H PRN PRN Reason: Nausea/Vomiting Omeprazole 20mg (Ptom) 0 each PO BIDAC [facility] Last Admin: 10/07/21 08:12 Dose: 1 each Documented by: Vivi C 1,000mg Cap ((Ptom)) 1 each PO DAILY [facility] Last Admin: 10/07/21 08:13 Dose: 1 each Documented by: Vit D-3 5,000 Unit (Cap (Ptom)) 1 each PO DAILY [facility] Last Admin: 10/07/21 08:14 Dose: 1 each Documented by: Polyethylene Glycol (Polyethylene Glycol 3350 Powder 17 Gm Packet) 17 gm PO DAILY PRN PRN Reason: Constipation Senna/Docusate Sodium (Docusate Sodium/Sennosides 50-8.6 Mg Tab) 1 tab PO Q12H PRN PRN Reason: Constipation Last Admin: 10/02/21 14:06 Dose: 1 tab Documented by: Sodium Chloride (Sodium Chloride 0.9% 10 Ml Syringe) 10 ml FLUSH ASDIRECTED PRN PRN Reason: Keep Vein Open Tramadol HCl (Tramadol 50 Mg Tab) 50 mg PO Q6H PRN PRN Reason: back pain Last Admin: 09/28/21 09:40 Dose: 50 mg Documented by: Zinc Gluconate (Zinc (Zinc Gluconate) 50 Mg Cap (Ptom)) 50 mg PO DAILY [facility] Last Admin: 10/07/21 08:16 Dose: 50 mg Documented by: Discontinued Medications Acetaminophen (Acetaminophen 325 Mg Tab) 650 mg PO Q4H PRN PRN Reason: Fever Greater Than 101 Ascorbic Acid (Ascorbic Acid 500 Mg Tab) 500 mg PO DAILY [facility] Last Admin: 10/06/21 17:04 Dose: Not Given Documented by: Ascorbic Acid (Ascorbic Acid 500 Mg Tab) 1,000 mg PO DAILY [facility] Last Admin: 10/06/21 13:51 Dose: 1,000 mg Documented by: Baricitinib (Baricitinib 2 Mg Tab) 4 mg PO Q24H [facility] Stop: 10/02/21 16:01 Last Admin: 10/02/21 15:29 Dose: 4 mg Documented by: Cholecalciferol (Cholecalciferol (Vitamin D3) 25 Mcg Tab) 25 mcg PO DAILY [facility] Last Admin: 10/06/21 17:05 Dose: Not Given Documented by: Cholecalciferol (Cholecalciferol (Vitamin D3) 25 Mcg Tab) 125 mcg PO DAILY [facility] Last Admin: 10/06/21 13:51 Dose: 125 mcg Documented by: Dexamethasone (Dexamethasone 4 Mg/Ml Sdv) 6 mg IVPUSH DAILY [facility] Stop: 09/27/21 09:01 Last Admin: 09/19/21 02:25 Dose: 6 mg Documented by: Dexamethasone (Dexamethasone 4 Mg/Ml Sdv) Confirm Administered Dose 8 mg .ROUTE .ST-MED ONE Stop: 09/19/21 02:17 Last Admin: 09/19/21 04:22 Dose: Not Given Documented by: Dexamethasone (Dexamethasone 4 Mg/Ml Sdv) 6 mg IVPUSH Q24H [facility] Stop: 09/27/21 18:01 Last Admin: 09/27/21 17:22 Dose: 6 mg Documented by: Dexamethasone (Dexamethasone 2 Mg Tab) 4 mg PO Q24H [facility] Stop: 10/01/21 18:01 Last Admin: 09/30/21 17:19 Dose: 4 mg Documented by: Doxazosin Mesylate (Doxazosin 4 Mg Tab) 4 mg PO BEDTIME [facility] Last Admin: 09/29/21 20:51 Dose: 4 mg Documented by: Enoxaparin Sodium (Enoxaparin 40 Mg/0.4 Ml Syringe) 40 mg SUBCUT DAILY [facility] Last Admin: 09/19/21 17:22 Dose: 40 mg Documented by: Enoxaparin Sodium (Enoxaparin 40 Mg/0.4 Ml Syringe) 40 mg SUBCUT Q24H [facility] Last Admin: 09/25/21 15:58 Dose: 40 mg Documented by: Finasteride (Finasteride 5 Mg Tab) 5 mg PO BEDTIME [facility] Last Admin: 10/06/21 21:18 Dose: 5 mg Documented by: Furosemide (Furosemide 20 Mg/2 Ml Vial) 20 mg IVPUSH ONETIME ONE Stop: 09/25/21 09:01 Last Admin: 09/25/21 10:17 Dose: 20 mg Documented by: Remdesivir 200 mg/ Sodium (Chloride) 250 mls @ 250 mls/hr IV ONETIME ONE Stop: 09/19/21 01:27 Last Admin: 09/19/21 02:24 Dose: 250 mls/hr Documented by: Remdesivir (Remdesivir) Confirm Administered Dose 200 mls @ as directed .ROUTE .STK-MED ONE Stop: 09/19/21 01:47 Last Admin: 09/19/21 04:22 Dose: Not Given Documented by: Ceftriaxone Sodium 1 gm/ (Sodium Chloride) 50 mls @ 100 mls/hr IV Q24H [facility] Stop: 09/25/21 20:00 Last Admin: 09/25/21 15:06 Dose: 100 mls/hr Documented by: Doxycycline Hyclate 100 mg/ (Sodium Chloride) 100 mls @ 100 mls/hr IV Q12H [facility] Stop: 09/25/21 20:00 Last Admin: 09/25/21 15:54 Dose: 100 mls/hr Documented by: Remdesivir 100 mg/ Sodium (Chloride) 100 mls @ 100 mls/hr IV Q24H [facility] Stop: 09/22/21 20:59 Last Admin: 09/22/21 20:15 Dose: 100 mls/hr Documented by: Non-Formulary Medication (Omeprazole Magnesium [Prilosec Otc]) 20 mg PO DAILY [facility] Pantoprazole Sodium (Pantoprazole 40 Mg Tab.Cr) 40 mg PO ACBREAKFAST [facility] Last Admin: 09/23/21 07:52 Dose: 40 mg Documented by: Omeprazole 20mg 0 each PO ACBREAKFAST [facility] Omeprazole 20mg 0 each PO ACBREAKFAST [facility] Last Admin: 09/24/21 06:45 Dose: 1 each Documented by: Zinc Gluconate (Zinc (Zinc Gluconate) 50 Mg Tab) 50 mg PO DAILY [facility] Last Admin: 10/05/21 08:40 Dose: 50 mg Documented by: - Exam Quality Assessment: Supplemental Oxygen General: Alert, Oriented, Cooperative, No Acute Distress Lungs: Normal Respiratory Effort GI/Abdominal Exam: Soft, No Distention Extremities: No Pedal Edema Skin: Warm, Dry, Rash (erythematous rings with central clearing in both AC fo ssas, both popliteal fossas and both groin areas) Psy/Mental Status: Alert, Normal Affect - Patient Data Result Diagrams: 10/06/21 04:25 10/04/21 05:40 Sepsis Event Note - Evaluation Sepsis Screening Result: No Definite Risk - Focused Exam Vital Signs: Vital Signs Temp Pulse Pulse Resp BP BP BP 10/07/21 08:16 85 132/71 10/07/21 08:06 36.2 C 85 22 H 132/71 10/07/21 07:27 10/07/21 04:00 35.4 C L 74 18 114/73 10/07/21 02:00 10/06/21 23:00 36.6 C 70 18 Pulse Ox 10/07/21 08:16 10/07/21 08:06 92 L 10/07/21 07:27 95 10/07/21 04:00 96 10/07/21 02:00 97 10/06/21 23:00 97 - Problem List Review Problem List Initiated/Reviewed/Updated: Yes - My Orders Last 24 Hours: My Active Orders 10/06/21 10:21 diphenhydrAMINE [Benadryl] 25 mg PO Q4H PRN 10/06/21 13:15 Hydrocortisone [Hydrocortisone 1% Crm] 0 gm TOP BID 10/06/21 15:00 Patient's Own Medication [Ptom] 1 each PO DAILY 10/07/21 09:00 Patient's Own Medication [Ptom] 1 each PO DAILY 10/07/21 11:00 Nystatin [Nystatin Crm] 1 gm TOP TID 10/08/21 05:00 BASIC METABOLIC PANEL,BMP [CHEM] Timed CBC W/O DIFF,HEMOGRAM [HEME] Timed (1) CRP [C-REACTIVE PROTEIN] [CHEM] Timed D-DIMER QUANTITATIVE [COAG] Timed - Plan Plan:: ASSESSMENT AND PLAN - COVID-19 INFECTION WITH BILATERAL PNEUMONIA-complicated by acute respiratory failure with hypoxia. Stable and does seem to be slowly improving. Supplemental oxygen requirements are slightly better. -Consider CT scanning when he thinks he is up for the trip to radiology -Continue high flow humidified oxygen -Decadron 6 mg IV daily until he shows evidence of improvement then taper -Repeat labs every 2 days -Prone ventilation as able -Continue vitamin supplementation -Continue enoxaparin with therapeutic dosing at 1 mg/kg every 12 hours -Remdesivir x5 days complete -Baricitinib 4 mg p.o. daily, 14 days completed ARDS-2/2 COVID-19 infection. -Management as above BPH WITH BLADDER OUTLET OBSTRUCTION-better with meds as listed below. -Doxazosin 8 mg p.o. nightly -Discontinue finasteride Pruritic rash-seems to be occurring in areas with potential warmth and moisture such as antecubital and popliteal fossa as well as the groin. Seems to be mostly consistent with a yeast dermatitis. Drug rash could be considered though much less likely. He has been on steroids and a fungal rash could be considered. -Nystatin cream -Discontinue finasteride -Diphenhydramine as needed for itching MAINTENANCE ISSUES -DVT prophylaxis; therapeutic enoxaparin dosing -GI prophylaxis; not indicated -Holt catheter; not indicated -Nutrition; regular diet DISPOSITION-anticipate discharge to home after the hospital stay. Demetris Canseco MD
[2021-10-07] MEDS ORDERED: Nystatin Crm 15 GM Tube TOP SCH (11:00)
[2021-10-07] MEDS: Lactobacillus Rhamnosus GG (Probiotic) Cap PO SCH ×2 (12:35→21:50)
[2021-10-07] MEDS: Nystatin Crm 30 GM Tube TOP SCH ×3 (12:35→21:49)
[2021-10-07] MEDS: Acetaminophen 325 MG Tab PO PRN (13:54)
[2021-10-07] MEDS: Dexamethasone 4 MG/ML SDV IVPUSH SCH (13:55)
[2021-10-07] MEDS: Doxazosin 4 MG Tab PO SCH (21:50)
[2021-10-08] MEDS: OMEPRAZOLE 20MG **PTOM PO SCH ×2 (09:31→15:43)
[2021-10-08] MEDS: Lactobacillus Rhamnosus GG (Probiotic) Cap PO SCH ×2 (09:34→20:40)
[2021-10-08] MEDS: Enoxaparin 40 MG/0.4 ML Syringe SUBCUT SCH ×2 (09:35→20:40)
[2021-10-08] MEDS: Nystatin Crm 30 GM Tube TOP SCH ×3 (09:35→20:41)
[2021-10-08] MEDS: Mometasone Furoate Nasal Spray 17 GM Canister NAS SCH ×2 (09:35→20:41)
[2021-10-08] MEDS: ESTER C 1000 MG PO SCH (09:37)
[2021-10-08] MEDS: ZINC 50 MG PO SCH (09:38)
[2021-10-08] MEDS: VIT D3 5000 UNIT PO SCH (09:38)
[2021-10-08] MEDS: Multivitamins with Iron/Calcium/Folic Acid/Minerals Tab PO SCH (09:39)
[2021-10-08] MEDS: Metoprolol Succinate 25 MG Tab.ER PO SCH (09:39)
--- NOTE | 2021-10-08 10:54 | PCM.PN ---
- General Info Date of Service: 10/08/21 Subjective Update: No acute events overnight. Patient reports less shortness of breath today. Still has an occasional cough especially when he is trying to talk. Rash on the arms, groin and back of his knees has improved since yesterday. He has not had any fevers. Respiratory status stable since yesterday and we were not able to wean his supplemental oxygen any. D-dimer has improved further and CRP has improved significantly since the last check. Patient is in good spirits and has good family support. Functional Status: Reports: Pain Controlled - Review of Systems General: Reports: Weakness Pulmonary: Reports: Shortness of Breath - Patient Data Vitals - Most Recent: Last Vital Signs Temp 36 C L 10/08/21 06:36 Pulse 87 10/08/21 09:39 Resp 18 10/08/21 06:36 BP 124/75 10/08/21 09:39 Pulse Ox 97 10/08/21 07:45 Weight - Most Recent: 78.925 kg I&O - Last 24 Hours: Intake & Output 10/07/21 10/08/21 10/08/21 22:59 06:59 14:59 Intake Total 700 Output Total 100 800 Balance 600 -800 Lab Results Last 24 Hours: Laboratory Results - last 24 hr 10/08/21 10/08/21 10/08/21 Range/Units 05:35 05:35 05:35 WBC 10.0 (4.5-11.0) K/uL RBC 4.87 (4.30-5.90) M/uL Hgb 13.8 (12.0-15.0) g/dL Hct 42.3 (40.0-54.0) % MCV 87 (80-98) fL MCH 28 (27-31) pg MCHC 33 (32-36) % Plt Count 555 H (150-400) K/uL D-Dimer, Quantitative 1422.15 H (0.0-500.0) ng/mL Sodium 138 L (140-148) mmol/L Potassium 4.4 (3.6-5.2) mmol/L Chloride 97 L (100-108) mmol/L Carbon Dioxide 32 (21-32) mmol/L Anion Gap 13.4 (5.0-14.0) mmol/L BUN 19 H (7-18) mg/dL Creatinine 0.9 (0.8-1.3) mg/dL Est Cr Clr Drug Dosing 76.00 mL/min Estimated GFR (MDRD) > 60 (>60) Glucose 91 (74-106) mg/dL Calcium 8.7 (8.5-10.1) mg/dL C-Reactive Protein 5.51 H (0.0-0.3) mg/dL Med Orders - Current: Current Medications Acetaminophen (Acetaminophen 325 Mg Tab) 650 mg PO Q4H PRN PRN Reason: Pain (Mild 1-3)/fever Last Admin: 10/07/21 13:54 Dose: 650 mg Documented by: Al Hydroxide/Mg Hydroxide (Aluminum Hydroxide/Magnesium Hydroxide/Simethicone Susp 30 Ml Cup) 30 ml PO Q4H PRN PRN Reason: Dyspepsia Last Admin: 09/24/21 18:40 Dose: 30 ml Documented by: Albuterol (Albuterol 8 Gm Inhaler) 0 gm INH QID PRN PRN Reason: Shortness of Breath Benzonatate (Benzonatate 100 Mg Cap) 100 mg PO Q8H PRN PRN Reason: Cough Last Admin: 10/02/21 14:06 Dose: 100 mg Documented by: Calcium Carbonate/Glycine (Calcium Carbonate 500 Mg Tab.Chew) 500 mg PO Q2H PRN PRN Reason: Indigestion Last Admin: 09/24/21 17:38 Dose: 500 mg Documented by: Dexamethasone (Dexamethasone 4 Mg/Ml Sdv) 6 mg IVPUSH Q24H [facility] Last Admin: 10/07/21 13:55 Dose: 6 mg Documented by: Diphenhydramine HCl (Diphenhydramine 25 Mg Cap) 25 mg PO Q4H PRN PRN Reason: Itching Last Admin: 10/07/21 21:55 Dose: 25 mg Documented by: Doxazosin Mesylate (Doxazosin 4 Mg Tab) 8 mg PO BEDTIME [facility] Last Admin: 10/07/21 21:50 Dose: 8 mg Documented by: Enoxaparin Sodium (Enoxaparin 40 Mg/0.4 Ml Syringe) 40 mg SUBCUT Q12H [facility] Last Admin: 10/08/21 09:35 Dose: 40 mg Documented by: Guaifenesin/Dextromethorphan (Guaifenesin/Dextromethorphan 100-10 Mg/5 Ml Soln 10 Ml Cup) 10 ml PO Q4H PRN PRN Reason: Cough Last Admin: 10/02/21 14:06 Dose: 10 ml Documented by: Lactobacillus Rhamnosus (Lactobacillus Rhamnosus Gg (Probiotic) Cap) 1 cap PO BID [facility] Last Admin: 10/08/21 09:34 Dose: 1 cap Documented by: Melatonin (Melatonin 3 Mg Tab) 9 mg PO BEDTIME PRN PRN Reason: Sleep Metoprolol Succinate (Metoprolol Succinate 25 Mg Tab.Er) 25 mg PO DAILY [facility] Last Admin: 10/08/21 09:39 Dose: 25 mg Documented by: Mometasone Furoate (Mometasone Furoate Nasal [place] 17 Gm Canister) 0 gm PANFILO BID [facility] Last Admin: 10/08/21 09:35 Dose: 2 spray Documented by: Multivitamins/Minerals (Multivitamins With Iron/Calcium/Folic Acid/Minerals Tab) 1 tab PO DAILY [facility] Last Admin: 10/08/21 09:39 Dose: 1 tab Documented by: Nystatin (Nystatin Crm 30 Gm Tube) 0 gm TOP TID [facility] Last Admin: 10/08/21 09:35 Dose: 1 applicful Documented by: Ondansetron HCl (Ondansetron 4 Mg/2 Ml Sdv) 4 mg IV Q4H PRN PRN Reason: Nausea/Vomiting Omeprazole 20mg (Ptom) 0 each PO BIDAC [facility] Last Admin: 10/08/21 09:31 Dose: 1 each Documented by: Vivi C 1,000mg Cap ((Ptom)) 1 each PO DAILY [facility] Last Admin: 10/08/21 09:37 Dose: 1 each Documented by: Vit D-3 5,000 Unit (Cap (Ptom)) 1 each PO DAILY [facility] Last Admin: 10/08/21 09:38 Dose: 1 each Documented by: Polyethylene Glycol (Polyethylene Glycol 3350 Powder 17 Gm Packet) 17 gm PO DAILY PRN PRN Reason: Constipation Senna/Docusate Sodium (Docusate Sodium/Sennosides 50-8.6 Mg Tab) 1 tab PO Q12H PRN PRN Reason: Constipation Last Admin: 10/02/21 14:06 Dose: 1 tab Documented by: Sodium Chloride (Sodium Chloride 0.9% 10 Ml Syringe) 10 ml FLUSH ASDIRECTED PRN PRN Reason: Keep Vein Open Tramadol HCl (Tramadol 50 Mg Tab) 50 mg PO Q6H PRN PRN Reason: back pain Last Admin: 09/28/21 09:40 Dose: 50 mg Documented by: Zinc Gluconate (Zinc (Zinc Gluconate) 50 Mg Cap (Ptom)) 50 mg PO DAILY [facility] Last Admin: 10/08/21 09:38 Dose: 50 mg Documented by: Discontinued Medications Acetaminophen (Acetaminophen 325 Mg Tab) 650 mg PO Q4H PRN PRN Reason: Fever Greater Than 101 Ascorbic Acid (Ascorbic Acid 500 Mg Tab) 500 mg PO DAILY [facility] Last Admin: 10/06/21 17:04 Dose: Not Given Documented by: Ascorbic Acid (Ascorbic Acid 500 Mg Tab) 1,000 mg PO DAILY [facility] Last Admin: 10/06/21 13:51 Dose: 1,000 mg Documented by: Baricitinib (Baricitinib 2 Mg Tab) 4 mg PO Q24H [facility] Stop: 10/02/21 16:01 Last Admin: 10/02/21 15:29 Dose: 4 mg Documented by: Cholecalciferol (Cholecalciferol (Vitamin D3) 25 Mcg Tab) 25 mcg PO DAILY [facility] Last Admin: 10/06/21 17:05 Dose: Not Given Documented by: Cholecalciferol (Cholecalciferol (Vitamin D3) 25 Mcg Tab) 125 mcg PO DAILY [facility] Last Admin: 10/06/21 13:51 Dose: 125 mcg Documented by: Dexamethasone (Dexamethasone 4 Mg/Ml Sdv) 6 mg IVPUSH DAILY [facility] Stop: 09/27/21 09:01 Last Admin: 09/19/21 02:25 Dose: 6 mg Documented by: Dexamethasone (Dexamethasone 4 Mg/Ml Sdv) Confirm Administered Dose 8 mg .ROUTE .ST-MED [facility] Stop: 09/19/21 02:17 Last Admin: 09/19/21 04:22 Dose: Not Given Documented by: Dexamethasone (Dexamethasone 4 Mg/Ml Sdv) 6 mg IVPUSH Q24H [facility] Stop: 09/27/21 18:01 Last Admin: 09/27/21 17:22 Dose: 6 mg Documented by: Dexamethasone (Dexamethasone 2 Mg Tab) 4 mg PO Q24H [facility] Stop: 10/01/21 18:01 Last Admin: 09/30/21 17:19 Dose: 4 mg Documented by: Doxazosin Mesylate (Doxazosin 4 Mg Tab) 4 mg PO BEDTIME [facility] Last Admin: 09/29/21 20:51 Dose: 4 mg Documented by: Enoxaparin Sodium (Enoxaparin 40 Mg/0.4 Ml Syringe) 40 mg SUBCUT DAILY [facility] Last Admin: 09/19/21 17:22 Dose: 40 mg Documented by: Enoxaparin Sodium (Enoxaparin 40 Mg/0.4 Ml Syringe) 40 mg SUBCUT Q24H [facility] Last Admin: 09/25/21 15:58 Dose: 40 mg Documented by: Enoxaparin Sodium (Enoxaparin 80 Mg/0.8 Ml Syringe) 80 mg SUBCUT Q12H [facility] Last Admin: 10/07/21 21:50 Dose: 80 mg Documented by: Finasteride (Finasteride 5 Mg Tab) 5 mg PO BEDTIME [facility] Last Admin: 10/06/21 21:18 Dose: 5 mg Documented by: Furosemide (Furosemide 20 Mg/2 Ml Vial) 20 mg IVPUSH ONETIME ONE Stop: 09/25/21 09:01 Last Admin: 09/25/21 10:17 Dose: 20 mg Documented by: Hydrocortisone (Hydrocortisone 1% Crm 30 Gm Tube) 0 gm TOP BID [facility] Last Admin: 10/07/21 10:52 Dose: 1 applic Documented by: Remdesivir 200 mg/ Sodium (Chloride) 250 mls @ 250 mls/hr IV ONETIME ONE Stop: 09/19/21 01:27 Last Admin: 09/19/21 02:24 Dose: 250 mls/hr Documented by: Remdesivir (Remdesivir) Confirm Administered Dose 200 mls @ as directed .ROUTE .STK-MED ONE Stop: 09/19/21 01:47 Last Admin: 09/19/21 04:22 Dose: Not Given Documented by: Ceftriaxone Sodium 1 gm/ (Sodium Chloride) 50 mls @ 100 mls/hr IV Q24H [facility] Stop: 09/25/21 20:00 Last Admin: 09/25/21 15:06 Dose: 100 mls/hr Documented by: Doxycycline Hyclate 100 mg/ (Sodium Chloride) 100 mls @ 100 mls/hr IV Q12H [facility] Stop: 09/25/21 20:00 Last Admin: 09/25/21 15:54 Dose: 100 mls/hr Documented by: Remdesivir 100 mg/ Sodium (Chloride) 100 mls @ 100 mls/hr IV Q24H [facility] Stop: 09/22/21 20:59 Last Admin: 09/22/21 20:15 Dose: 100 mls/hr Documented by: Non-Formulary Medication (Omeprazole Magnesium [Prilosec Otc]) 20 mg PO DAILY [facility] Pantoprazole Sodium (Pantoprazole 40 Mg Tab.Cr) 40 mg PO ACBREAKFAST [facility] Last Admin: 09/23/21 07:52 Dose: 40 mg Documented by: Omeprazole 20mg 0 each PO ACBREAKFAST [facility] Omeprazole 20mg 0 each PO ACBREAKFAST [facility] Last Admin: 09/24/21 06:45 Dose: 1 each Documented by: Zinc Gluconate (Zinc (Zinc Gluconate) 50 Mg Tab) 50 mg PO DAILY [facility] Last Admin: 10/05/21 08:40 Dose: 50 mg Documented by: - Exam Quality Assessment: Supplemental Oxygen General: Alert, Oriented, Cooperative, No Acute Distress Lungs: Normal Respiratory Effort. No: Wheezing GI/Abdominal Exam: Soft, No Distention Extremities: No Pedal Edema. No: Increased Warmth Psy/Mental Status: Alert, Normal Affect - Patient Data Lab Results Last 24 hrs: Laboratory Results - last 24 hr 10/08/21 10/08/21 10/08/21 Range/Units 05:35 05:35 05:35 WBC 10.0 (4.5-11.0) K/uL RBC 4.87 (4.30-5.90) M/uL Hgb 13.8 (12.0-15.0) g/dL Hct 42.3 (40.0-54.0) % MCV 87 (80-98) fL MCH 28 (27-31) pg MCHC 33 (32-36) % Plt Count 555 H (150-400) K/uL D-Dimer, Quantitative 1422.15 H (0.0-500.0) ng/mL Sodium 138 L (140-148) mmol/L Potassium 4.4 (3.6-5.2) mmol/L Chloride 97 L (100-108) mmol/L Carbon Dioxide 32 (21-32) mmol/L Anion Gap 13.4 (5.0-14.0) mmol/L BUN 19 H (7-18) mg/dL Creatinine 0.9 (0.8-1.3) mg/dL Est Cr Clr Drug Dosing 76.00 mL/min Estimated GFR (MDRD) > 60 (>60) Glucose 91 (74-106) mg/dL Calcium 8.7 (8.5-10.1) mg/dL C-Reactive Protein 5.51 H (0.0-0.3) mg/dL Result Diagrams: 10/08/21 05:35 10/08/21 05:35 Sepsis Event Note - Evaluation Sepsis Screening Result: No Definite Risk - Focused Exam Vital Signs: Vital Signs Temp Pulse Pulse Resp BP BP Pulse Ox 10/08/21 09:39 87 124/75 10/08/21 07:45 97 10/08/21 06:36 36 C L 82 18 124/75 93 L 10/08/21 03:00 36.2 C 82 18 127/72 90 L 10/08/21 01:00 96 - Problem List Review Problem List Initiated/Reviewed/Updated: Yes - My Orders Last 24 Hours: My Active Orders 10/07/21 11:00 Lactobacillus Rhamnosus GG [Culturelle] 1 cap PO BID 10/07/21 12:00 Nystatin [Nystatin Crm] 0 gm TOP TID 10/08/21 09:00 Enoxaparin [Lovenox] 40 mg SUBCUT Q12H - Plan Plan:: ASSESSMENT AND PLAN - COVID-19 INFECTION WITH BILATERAL PNEUMONIA-complicated by acute respiratory failure with hypoxia. Stable and slowly improving. Supplemental oxygen requirements are slightly better. D-dimer and CRP have improved over the last 48 hours. -Continue high flow humidified oxygen -Decadron 6 mg IV daily until he shows evidence of improvement then taper, reassess 10/10 -Repeat labs every 2 days -Prone ventilation as able -Continue vitamin supplementation -Decrease enoxaparin to 40 mg twice daily -Remdesivir x5 days complete -Baricitinib 4 mg p.o. daily, 14 days completed ARDS-2/2 COVID-19 infection. -Management as above BPH WITH BLADDER OUTLET OBSTRUCTION-slowly better but not resolved. -Doxazosin 8 mg p.o. nightly Pruritic rash-better since the nystatin cream was started yesterday. -Nystatin cream -Diphenhydramine as needed for itching MAINTENANCE ISSUES -DVT prophylaxis; therapeutic enoxaparin dosing -GI prophylaxis; not indicated -Holt catheter; not indicated -Nutrition; regular diet DISPOSITION-anticipate discharge to home after the hospital stay. Demetris Canseco MD
[2021-10-08] MEDS: Dexamethasone 4 MG/ML SDV IVPUSH SCH ×2 (14:12→14:27)
[2021-10-08] MEDS: Dexamethasone 2 MG Tab PO SCH (15:42)
[2021-10-08] MEDS: Doxazosin 4 MG Tab PO SCH (20:40)
[2021-10-09] MEDS: Lactobacillus Rhamnosus GG (Probiotic) Cap PO SCH ×2 (08:52→21:45)
[2021-10-09] MEDS: Enoxaparin 40 MG/0.4 ML Syringe SUBCUT SCH ×2 (08:52→21:46)
[2021-10-09] MEDS: OMEPRAZOLE 20MG **PTOM PO SCH ×2 (08:52→17:49)
[2021-10-09] MEDS: Mometasone Furoate Nasal Spray 17 GM Canister NAS SCH ×2 (08:53→21:47)
[2021-10-09] MEDS: ESTER C 1000 MG PO SCH (08:54)
[2021-10-09] MEDS: Nystatin Crm 30 GM Tube TOP SCH ×3 (08:54→21:48)
[2021-10-09] MEDS: VIT D3 5000 UNIT PO SCH (08:55)
[2021-10-09] MEDS: ZINC 50 MG PO SCH (08:56)
[2021-10-09] MEDS: Metoprolol Succinate 25 MG Tab.ER PO SCH (08:57)
[2021-10-09] MEDS: Multivitamins with Iron/Calcium/Folic Acid/Minerals Tab PO SCH (09:05)
--- NOTE | 2021-10-09 11:31 | PCM.PN ---
- General Info Date of Service: 10/09/21 Subjective Update: No acute events overnight. Shortness of breath is a little better. Cough has been productive with a fair amount of sputum. Still desaturates with activity but less so. Rash on the arms and back of his leg seems to have resolved. Appetite good. Sleeping well at night. We were able to turn down his oxygen requirement some today. Functional Status: Reports: Pain Controlled, Tolerating Diet - Review of Systems General: Reports: Weakness Pulmonary: Reports: Shortness of Breath - Patient Data Vitals - Most Recent: Last Vital Signs Temp 35.9 C L 10/09/21 06:53 Pulse 80 10/09/21 08:57 Resp 18 10/09/21 06:53 BP 119/74 10/09/21 08:57 Pulse Ox 98 10/09/21 07:32 Weight - Most Recent: 78.925 kg I&O - Last 24 Hours: Intake & Output 10/08/21 10/09/21 10/09/21 22:59 06:59 14:59 Intake Total 500 Output Total 1025 675 50 Balance -1025 -175 -50 Med Orders - Current: Current Medications Acetaminophen (Acetaminophen 325 Mg Tab) 650 mg PO Q4H PRN PRN Reason: Pain (Mild 1-3)/fever Last Admin: 10/07/21 13:54 Dose: 650 mg Documented by: Al Hydroxide/Mg Hydroxide (Aluminum Hydroxide/Magnesium Hydroxide/Simethicone Susp 30 Ml Cup) 30 ml PO Q4H PRN PRN Reason: Dyspepsia Last Admin: 09/24/21 18:40 Dose: 30 ml Documented by: Albuterol (Albuterol 8 Gm Inhaler) 0 gm INH QID PRN PRN Reason: Shortness of Breath Benzonatate (Benzonatate 100 Mg Cap) 100 mg PO Q8H PRN PRN Reason: Cough Last Admin: 10/02/21 14:06 Dose: 100 mg Documented by: Calcium Carbonate/Glycine (Calcium Carbonate 500 Mg Tab.Chew) 500 mg PO Q2H PRN PRN Reason: Indigestion Last Admin: 09/24/21 17:38 Dose: 500 mg Documented by: Dexamethasone (Dexamethasone 2 Mg Tab) 6 mg PO Q24H [facility] Last Admin: 10/08/21 15:42 Dose: 6 mg Documented by: Diphenhydramine HCl (Diphenhydramine 25 Mg Cap) 25 mg PO Q4H PRN PRN Reason: Itching Last Admin: 10/07/21 21:55 Dose: 25 mg Documented by: Doxazosin Mesylate (Doxazosin 4 Mg Tab) 8 mg PO BEDTIME [facility] Last Admin: 10/08/21 20:40 Dose: 8 mg Documented by: Enoxaparin Sodium (Enoxaparin 40 Mg/0.4 Ml Syringe) 40 mg SUBCUT Q12H [facility] Last Admin: 10/09/21 08:52 Dose: 40 mg Documented by: Guaifenesin/Dextromethorphan (Guaifenesin/Dextromethorphan 100-10 Mg/5 Ml Soln 10 Ml Cup) 10 ml PO Q4H PRN PRN Reason: Cough Last Admin: 10/02/21 14:06 Dose: 10 ml Documented by: Lactobacillus Rhamnosus (Lactobacillus Rhamnosus Gg (Probiotic) Cap) 1 cap PO BID [facility] Last Admin: 10/09/21 08:52 Dose: 1 cap Documented by: Melatonin (Melatonin 3 Mg Tab) 9 mg PO BEDTIME PRN PRN Reason: Sleep Metoprolol Succinate (Metoprolol Succinate 25 Mg Tab.Er) 25 mg PO DAILY [facility] Last Admin: 10/09/21 08:57 Dose: 25 mg Documented by: Mometasone Furoate (Mometasone Furoate Nasal [place] 17 Gm Canister) 0 gm PANFILO BID [facility] Last Admin: 10/09/21 08:53 Dose: Not Given Documented by: Multivitamins/Minerals (Multivitamins With Iron/Calcium/Folic Acid/Minerals Tab) 1 tab PO DAILY [facility] Last Admin: 10/09/21 09:05 Dose: 1 tab Documented by: Nystatin (Nystatin Crm 30 Gm Tube) 0 gm TOP TID [facility] Last Admin: 10/09/21 08:54 Dose: Not Given Documented by: Ondansetron HCl (Ondansetron 4 Mg/2 Ml Sdv) 4 mg IV Q4H PRN PRN Reason: Nausea/Vomiting Omeprazole 20mg (Ptom) 0 each PO BIDAC [facility] Last Admin: 10/09/21 08:52 Dose: 1 each Documented by: Vivi C 1,000mg Cap ((Ptom)) 1 each PO DAILY [facility] Last Admin: 10/09/21 08:54 Dose: 1 each Documented by: Vit D-3 5,000 Unit (Cap (Ptom)) 1 each PO DAILY [facility] Last Admin: 10/09/21 08:55 Dose: 1 each Documented by: Polyethylene Glycol (Polyethylene Glycol 3350 Powder 17 Gm Packet) 17 gm PO DAILY PRN PRN Reason: Constipation Senna/Docusate Sodium (Docusate Sodium/Sennosides 50-8.6 Mg Tab) 1 tab PO Q12H PRN PRN Reason: Constipation Last Admin: 10/02/21 14:06 Dose: 1 tab Documented by: Sodium Chloride (Sodium Chloride 0.9% 10 Ml Syringe) 10 ml FLUSH ASDIRECTED PRN PRN Reason: Keep Vein Open Tramadol HCl (Tramadol 50 Mg Tab) 50 mg PO Q6H PRN PRN Reason: back pain Last Admin: 09/28/21 09:40 Dose: 50 mg Documented by: Zinc Gluconate (Zinc (Zinc Gluconate) 50 Mg Cap (Ptom)) 50 mg PO DAILY [facility] Last Admin: 10/09/21 08:56 Dose: 50 mg Documented by: Discontinued Medications Acetaminophen (Acetaminophen 325 Mg Tab) 650 mg PO Q4H PRN PRN Reason: Fever Greater Than 101 Ascorbic Acid (Ascorbic Acid 500 Mg Tab) 500 mg PO DAILY [facility] Last Admin: 10/06/21 17:04 Dose: Not Given Documented by: Ascorbic Acid (Ascorbic Acid 500 Mg Tab) 1,000 mg PO DAILY [facility] Last Admin: 10/06/21 13:51 Dose: 1,000 mg Documented by: Baricitinib (Baricitinib 2 Mg Tab) 4 mg PO Q24H [facility] Stop: 10/02/21 16:01 Last Admin: 10/02/21 15:29 Dose: 4 mg Documented by: Cholecalciferol (Cholecalciferol (Vitamin D3) 25 Mcg Tab) 25 mcg PO DAILY [facility] Last Admin: 10/06/21 17:05 Dose: Not Given Documented by: Cholecalciferol (Cholecalciferol (Vitamin D3) 25 Mcg Tab) 125 mcg PO DAILY [facility] Last Admin: 10/06/21 13:51 Dose: 125 mcg Documented by: Dexamethasone (Dexamethasone 4 Mg/Ml Sdv) 6 mg IVPUSH DAILY [facility] Stop: 09/27/21 09:01 Last Admin: 09/19/21 02:25 Dose: 6 mg Documented by: Dexamethasone (Dexamethasone 4 Mg/Ml Sdv) Confirm Administered Dose 8 mg .ROUTE .STK-MED [facility] Stop: 09/19/21 02:17 Last Admin: 09/19/21 04:22 Dose: Not Given Documented by: Dexamethasone (Dexamethasone 4 Mg/Ml Sdv) 6 mg IVPUSH Q24H [facility] Stop: 09/27/21 18:01 Last Admin: 09/27/21 17:22 Dose: 6 mg Documented by: Dexamethasone (Dexamethasone 2 Mg Tab) 4 mg PO Q24H [facility] Stop: 10/01/21 18:01 Last Admin: 09/30/21 17:19 Dose: 4 mg Documented by: Dexamethasone (Dexamethasone 4 Mg/Ml Sdv) 6 mg IVPUSH Q24H [facility] Last Admin: 10/08/21 14:27 Dose: Not Given Documented by: Doxazosin Mesylate (Doxazosin 4 Mg Tab) 4 mg PO BEDTIME [facility] Last Admin: 09/29/21 20:51 Dose: 4 mg Documented by: Enoxaparin Sodium (Enoxaparin 40 Mg/0.4 Ml Syringe) 40 mg SUBCUT DAILY [facility] Last Admin: 09/19/21 17:22 Dose: 40 mg Documented by: Enoxaparin Sodium (Enoxaparin 40 Mg/0.4 Ml Syringe) 40 mg SUBCUT Q24H [facility] Last Admin: 09/25/21 15:58 Dose: 40 mg Documented by: Enoxaparin Sodium (Enoxaparin 80 Mg/0.8 Ml Syringe) 80 mg SUBCUT Q12H [facility] Last Admin: 10/07/21 21:50 Dose: 80 mg Documented by: Finasteride (Finasteride 5 Mg Tab) 5 mg PO BEDTIME [facility] Last Admin: 10/06/21 21:18 Dose: 5 mg Documented by: Furosemide (Furosemide 20 Mg/2 Ml Vial) 20 mg IVPUSH ONETIME ONE Stop: 09/25/21 09:01 Last Admin: 09/25/21 10:17 Dose: 20 mg Documented by: Hydrocortisone (Hydrocortisone 1% Crm 30 Gm Tube) 0 gm TOP BID [facility] Last Admin: 10/07/21 10:52 Dose: 1 applic Documented by: Remdesivir 200 mg/ Sodium (Chloride) 250 mls @ 250 mls/hr IV ONETIME ONE Stop: 09/19/21 01:27 Last Admin: 09/19/21 02:24 Dose: 250 mls/hr Documented by: Remdesivir (Remdesivir) Confirm Administered Dose 200 mls @ as directed .ROUTE .STK-MED [facility] Stop: 09/19/21 01:47 Last Admin: 09/19/21 04:22 Dose: Not Given Documented by: Ceftriaxone Sodium 1 gm/ (Sodium Chloride) 50 mls @ 100 mls/hr IV Q24H [facility] Stop: 09/25/21 20:00 Last Admin: 09/25/21 15:06 Dose: 100 mls/hr Documented by: Doxycycline Hyclate 100 mg/ (Sodium Chloride) 100 mls @ 100 mls/hr IV Q12H [facility] Stop: 09/25/21 20:00 Last Admin: 09/25/21 15:54 Dose: 100 mls/hr Documented by: Remdesivir 100 mg/ Sodium (Chloride) 100 mls @ 100 mls/hr IV Q24H [facility] Stop: 09/22/21 20:59 Last Admin: 09/22/21 20:15 Dose: 100 mls/hr Documented by: Non-Formulary Medication (Omeprazole Magnesium [Prilosec Otc]) 20 mg PO DAILY [facility] Pantoprazole Sodium (Pantoprazole 40 Mg Tab.Cr) 40 mg PO ACBREAKFAST [facility] Last Admin: 09/23/21 07:52 Dose: 40 mg Documented by: Omeprazole 20mg 0 each PO ACBREAKFAST [facility] Omeprazole 20mg 0 each PO ACBREAKFAST [facility] Last Admin: 09/24/21 06:45 Dose: 1 each Documented by: Zinc Gluconate (Zinc (Zinc Gluconate) 50 Mg Tab) 50 mg PO DAILY [facility] Last Admin: 10/05/21 08:40 Dose: 50 mg Documented by: - Exam Quality Assessment: Supplemental Oxygen General: Alert, Oriented, Cooperative, No Acute Distress Lungs: Normal Respiratory Effort, Crackles (few both lower lungs L>R) Cardiovascular: Regular Rate, Regular Rhythm Extremities: No Pedal Edema. No: Increased Warmth Skin: Warm, Dry Psy/Mental Status: Alert, Normal Affect - Patient Data Result Diagrams: 10/08/21 05:35 10/08/21 05:35 Sepsis Event Note - Evaluation Sepsis Screening Result: No Definite Risk - Focused Exam Vital Signs: Vital Signs Temp Pulse Pulse Resp BP BP BP 10/09/21 08:57 80 119/74 10/09/21 07:32 10/09/21 06:53 35.9 C L 80 18 119/74 10/09/21 02:07 36.1 C 73 28 H 116/74 10/09/21 01:00 Pulse Ox 10/09/21 08:57 10/09/21 07:32 98 10/09/21 06:53 93 L 10/09/21 02:07 95 10/09/21 01:00 98 - Problem List Review Problem List Initiated/Reviewed/Updated: Yes - My Orders Last 24 Hours: My Active Orders 10/08/21 14:30 dexAMETHasone 6 mg PO Q24H 10/10/21 05:00 CBC W/O DIFF,HEMOGRAM [HEME] Timed (1) CRP [C-REACTIVE PROTEIN] [CHEM] Timed D-DIMER QUANTITATIVE [COAG] Timed - Plan Plan:: ASSESSMENT AND PLAN - COVID-19 INFECTION WITH BILATERAL PNEUMONIA-complicated by acute respiratory failure with hypoxia. Stable and slowly improving. Supplemental oxygen requirements are slightly better. -Continue high flow humidified oxygen -Decadron 6 mg by mouth daily, consider taper starting tomorrow -Repeat labs every 2 days -Prone ventilation as able -Continue vitamin supplementation -Decrease enoxaparin to 40 mg twice daily -Remdesivir x5 days complete -Baricitinib 4 mg p.o. daily, 14 days completed ARDS-2/2 COVID-19 infection. -Management as above BPH WITH BLADDER OUTLET OBSTRUCTION-slowly better but not resolved. -Doxazosin 8 mg p.o. nightly Pruritic rash-better since the nystatin cream was started. -Nystatin cream -Diphenhydramine as needed for itching MAINTENANCE ISSUES -DVT prophylaxis; therapeutic enoxaparin dosing -GI prophylaxis; not indicated -Holt catheter; not indicated -Nutrition; regular diet DISPOSITION-anticipate discharge to home after the hospital stay. Demetris Canseco MD
[2021-10-09] MEDS: Dexamethasone 2 MG Tab PO SCH (14:37)
[2021-10-09] MEDS: Doxazosin 4 MG Tab PO SCH (21:44)
[2021-10-10] MEDS: Lactobacillus Rhamnosus GG (Probiotic) Cap PO SCH (08:16)
[2021-10-10] MEDS: OMEPRAZOLE 20MG **PTOM PO SCH ×2 (08:16→18:17)
[2021-10-10] MEDS: VIT D3 5000 UNIT PO SCH (08:17)
[2021-10-10] MEDS: Nystatin Crm 30 GM Tube TOP SCH ×3 (08:17→21:36)
[2021-10-10] MEDS: Mometasone Furoate Nasal Spray 17 GM Canister NAS SCH ×2 (08:17→23:36)
[2021-10-10] MEDS: Enoxaparin 40 MG/0.4 ML Syringe SUBCUT SCH (08:17)
[2021-10-10] MEDS: ESTER C 1000 MG PO SCH (08:18)
[2021-10-10] MEDS: Multivitamins with Iron/Calcium/Folic Acid/Minerals Tab PO SCH (08:18)
[2021-10-10] MEDS: ZINC 50 MG PO SCH (08:18)
[2021-10-10] MEDS: Metoprolol Succinate 25 MG Tab.ER PO SCH (08:19)
--- NOTE | 2021-10-10 14:21 | PCM.PN ---
- General Info Date of Service: 10/10/21 Subjective Update: No acute events overnight. Patient reports improvements in his shortness of breath. No chest pain. No change in urinary symptoms. We have been able to further wean down his FiO2 but he does continue to require heated/high flow nasal cannula. D-dimer and CRP have improved further. - Patient Data Vitals - Most Recent: Last Vital Signs Temp 36.7 C 10/10/21 11:00 Pulse 72 10/10/21 11:00 Resp 18 10/10/21 11:00 BP 122/70 10/10/21 11:00 Pulse Ox 92 L 10/10/21 13:03 Weight - Most Recent: 78.925 kg I&O - Last 24 Hours: Intake & Output 10/09/21 10/10/21 10/10/21 22:59 06:59 14:59 Intake Total 1120 Output Total 550 1100 Balance -550 -1100 1120 Lab Results Last 24 Hours: Laboratory Results - last 24 hr 10/10/21 10/10/21 10/10/21 Range/Units 05:35 05:35 05:35 WBC 10.7 (4.5-11.0) K/uL RBC 4.89 (4.30-5.90) M/uL Hgb 13.9 (12.0-15.0) g/dL Hct 42.1 (40.0-54.0) % MCV 86 (80-98) fL MCH 28 (27-31) pg MCHC 33 (32-36) % Plt Count 565 H (150-400) K/uL D-Dimer, Quantitative 789.35 H (0.0-500.0) ng/mL C-Reactive Protein 3.40 H (0.0-0.3) mg/dL Med Orders - Current: Current Medications Acetaminophen (Acetaminophen 325 Mg Tab) 650 mg PO Q4H PRN PRN Reason: Pain (Mild 1-3)/fever Last Admin: 10/07/21 13:54 Dose: 650 mg Documented by: Al Hydroxide/Mg Hydroxide (Aluminum Hydroxide/Magnesium Hydroxide/Simethicone Susp 30 Ml Cup) 30 ml PO Q4H PRN PRN Reason: Dyspepsia Last Admin: 09/24/21 18:40 Dose: 30 ml Documented by: Albuterol (Albuterol 8 Gm Inhaler) 0 gm INH QID PRN PRN Reason: Shortness of Breath Benzonatate (Benzonatate 100 Mg Cap) 100 mg PO Q8H PRN PRN Reason: Cough Last Admin: 10/02/21 14:06 Dose: 100 mg Documented by: Calcium Carbonate/Glycine (Calcium Carbonate 500 Mg Tab.Chew) 500 mg PO Q2H PRN PRN Reason: Indigestion Last Admin: 09/24/21 17:38 Dose: 500 mg Documented by: Dexamethasone (Dexamethasone 2 Mg Tab) 6 mg PO Q24H [facility] Last Admin: 10/09/21 14:37 Dose: 6 mg Documented by: Diphenhydramine HCl (Diphenhydramine 25 Mg Cap) 25 mg PO Q4H PRN PRN Reason: Itching Last Admin: 10/07/21 21:55 Dose: 25 mg Documented by: Doxazosin Mesylate (Doxazosin 4 Mg Tab) 8 mg PO BEDTIME [facility] Last Admin: 10/09/21 21:44 Dose: 8 mg Documented by: Enoxaparin Sodium (Enoxaparin 40 Mg/0.4 Ml Syringe) 40 mg SUBCUT DAILY [facility] Guaifenesin/Dextromethorphan (Guaifenesin/Dextromethorphan 100-10 Mg/5 Ml Soln 10 Ml Cup) 10 ml PO Q4H PRN PRN Reason: Cough Last Admin: 10/02/21 14:06 Dose: 10 ml Documented by: Lactobacillus Rhamnosus (Lactobacillus Rhamnosus Gg (Probiotic) Cap) 1 cap PO BID [facility] Last Admin: 10/10/21 08:16 Dose: 1 cap Documented by: Melatonin (Melatonin 3 Mg Tab) 9 mg PO BEDTIME PRN PRN Reason: Sleep Metoprolol Succinate (Metoprolol Succinate 25 Mg Tab.Er) 25 mg PO DAILY [facility] Last Admin: 10/10/21 08:19 Dose: 25 mg Documented by: Mometasone Furoate (Mometasone Furoate Nasal [place] 17 Gm Canister) 0 gm PANFILO BID [facility] Last Admin: 10/10/21 08:17 Dose: Not Given Documented by: Multivitamins/Minerals (Multivitamins With Iron/Calcium/Folic Acid/Minerals Tab) 1 tab PO DAILY [facility] Last Admin: 10/10/21 08:18 Dose: 1 tab Documented by: Nystatin (Nystatin Crm 30 Gm Tube) 0 gm TOP TID [facility] Last Admin: 10/10/21 08:17 Dose: Not Given Documented by: Ondansetron HCl (Ondansetron 4 Mg/2 Ml Sdv) 4 mg IV Q4H PRN PRN Reason: Nausea/Vomiting Omeprazole 20mg (Ptom) 0 each PO BIDAC [facility] Last Admin: 10/10/21 08:16 Dose: 1 each Documented by: Vivi C 1,000mg Cap ((Ptom)) 1 each PO DAILY [facility] Last Admin: 10/10/21 08:18 Dose: 1 each Documented by: Vit D-3 5,000 Unit (Cap (Ptom)) 1 each PO DAILY [facility] Last Admin: 10/10/21 08:17 Dose: 1 each Documented by: Polyethylene Glycol (Polyethylene Glycol 3350 Powder 17 Gm Packet) 17 gm PO DAILY PRN PRN Reason: Constipation Senna/Docusate Sodium (Docusate Sodium/Sennosides 50-8.6 Mg Tab) 1 tab PO Q12H PRN PRN Reason: Constipation Last Admin: 10/02/21 14:06 Dose: 1 tab Documented by: Sodium Chloride (Sodium Chloride 0.9% 10 Ml Syringe) 10 ml FLUSH ASDIRECTED PRN PRN Reason: Keep Vein Open Tramadol HCl (Tramadol 50 Mg Tab) 50 mg PO Q6H PRN PRN Reason: back pain Last Admin: 09/28/21 09:40 Dose: 50 mg Documented by: Zinc Gluconate (Zinc (Zinc Gluconate) 50 Mg Cap (Ptom)) 50 mg PO DAILY [facility] Last Admin: 10/10/21 08:18 Dose: 50 mg Documented by: Discontinued Medications Acetaminophen (Acetaminophen 325 Mg Tab) 650 mg PO Q4H PRN PRN Reason: Fever Greater Than 101 Ascorbic Acid (Ascorbic Acid 500 Mg Tab) 500 mg PO DAILY [facility] Last Admin: 10/06/21 17:04 Dose: Not Given Documented by: Ascorbic Acid (Ascorbic Acid 500 Mg Tab) 1,000 mg PO DAILY [facility] Last Admin: 10/06/21 13:51 Dose: 1,000 mg Documented by: Baricitinib (Baricitinib 2 Mg Tab) 4 mg PO Q24H [facility] Stop: 10/02/21 16:01 Last Admin: 10/02/21 15:29 Dose: 4 mg Documented by: Cholecalciferol (Cholecalciferol (Vitamin D3) 25 Mcg Tab) 25 mcg PO DAILY [facility] Last Admin: 10/06/21 17:05 Dose: Not Given Documented by: Cholecalciferol (Cholecalciferol (Vitamin D3) 25 Mcg Tab) 125 mcg PO DAILY [facility] Last Admin: 10/06/21 13:51 Dose: 125 mcg Documented by: Dexamethasone (Dexamethasone 4 Mg/Ml Sdv) 6 mg IVPUSH DAILY [facility] Stop: 09/27/21 09:01 Last Admin: 09/19/21 02:25 Dose: 6 mg Documented by: Dexamethasone (Dexamethasone 4 Mg/Ml Sdv) Confirm Administered Dose 8 mg .ROUTE .STK-MED ONE Stop: 09/19/21 02:17 Last Admin: 09/19/21 04:22 Dose: Not Given Documented by: Dexamethasone (Dexamethasone 4 Mg/Ml Sdv) 6 mg IVPUSH Q24H [facility] Stop: 09/27/21 18:01 Last Admin: 09/27/21 17:22 Dose: 6 mg Documented by: Dexamethasone (Dexamethasone 2 Mg Tab) 4 mg PO Q24H [facility] Stop: 10/01/21 18:01 Last Admin: 09/30/21 17:19 Dose: 4 mg Documented by: Dexamethasone (Dexamethasone 4 Mg/Ml Sdv) 6 mg IVPUSH Q24H [facility] Last Admin: 10/08/21 14:27 Dose: Not Given Documented by: Doxazosin Mesylate (Doxazosin 4 Mg Tab) 4 mg PO BEDTIME [facility] Last Admin: 09/29/21 20:51 Dose: 4 mg Documented by: Enoxaparin Sodium (Enoxaparin 40 Mg/0.4 Ml Syringe) 40 mg SUBCUT DAILY [facility] Last Admin: 09/19/21 17:22 Dose: 40 mg Documented by: Enoxaparin Sodium (Enoxaparin 40 Mg/0.4 Ml Syringe) 40 mg SUBCUT Q24H [facility] Last Admin: 09/25/21 15:58 Dose: 40 mg Documented by: Enoxaparin Sodium (Enoxaparin 80 Mg/0.8 Ml Syringe) 80 mg SUBCUT Q12H [facility] Last Admin: 10/07/21 21:50 Dose: 80 mg Documented by: Enoxaparin Sodium (Enoxaparin 40 Mg/0.4 Ml Syringe) 40 mg SUBCUT Q12H [facility] Last Admin: 10/10/21 08:17 Dose: 40 mg Documented by: Finasteride (Finasteride 5 Mg Tab) 5 mg PO BEDTIME [facility] Last Admin: 10/06/21 21:18 Dose: 5 mg Documented by: Furosemide (Furosemide 20 Mg/2 Ml Vial) 20 mg IVPUSH ONETIME ONE Stop: 09/25/21 09:01 Last Admin: 09/25/21 10:17 Dose: 20 mg Documented by: Hydrocortisone (Hydrocortisone 1% Crm 30 Gm Tube) 0 gm TOP BID [facility] Last Admin: 10/07/21 10:52 Dose: 1 applic Documented by: Remdesivir 200 mg/ Sodium (Chloride) 250 mls @ 250 mls/hr IV ONETIME ONE Stop: 09/19/21 01:27 Last Admin: 09/19/21 02:24 Dose: 250 mls/hr Documented by: Remdesivir (Remdesivir) Confirm Administered Dose 200 mls @ as directed .ROUTE .STK-MED ONE Stop: 09/19/21 01:47 Last Admin: 09/19/21 04:22 Dose: Not Given Documented by: Ceftriaxone Sodium 1 gm/ (Sodium Chloride) 50 mls @ 100 mls/hr IV Q24H [facility] Stop: 09/25/21 20:00 Last Admin: 09/25/21 15:06 Dose: 100 mls/hr Documented by: Doxycycline Hyclate 100 mg/ (Sodium Chloride) 100 mls @ 100 mls/hr IV Q12H [facility] Stop: 09/25/21 20:00 Last Admin: 09/25/21 15:54 Dose: 100 mls/hr Documented by: Remdesivir 100 mg/ Sodium (Chloride) 100 mls @ 100 mls/hr IV Q24H [facility] Stop: 09/22/21 20:59 Last Admin: 09/22/21 20:15 Dose: 100 mls/hr Documented by: Non-Formulary Medication (Omeprazole Magnesium [Prilosec Otc]) 20 mg PO DAILY [facility] Pantoprazole Sodium (Pantoprazole 40 Mg Tab.Cr) 40 mg PO ACBREAKFAST [facility] Last Admin: 09/23/21 07:52 Dose: 40 mg Documented by: Omeprazole 20mg 0 each PO ACBREAKFAST [facility] Omeprazole 20mg 0 each PO ACBREAKFAST [facility] Last Admin: 09/24/21 06:45 Dose: 1 each Documented by: Zinc Gluconate (Zinc (Zinc Gluconate) 50 Mg Tab) 50 mg PO DAILY [facility] Last Admin: 10/05/21 08:40 Dose: 50 mg Documented by: - Exam Quality Assessment: Supplemental Oxygen General: Alert, Oriented, Cooperative, No Acute Distress Lungs: Normal Respiratory Effort. No: Wheezing GI/Abdominal Exam: Soft, No Distention Extremities: No Pedal Edema. No: Increased Warmth Psy/Mental Status: Alert, Normal Affect - Patient Data Lab Results Last 24 hrs: Laboratory Results - last 24 hr 10/10/21 10/10/21 10/10/21 Range/Units 05:35 05:35 05:35 WBC 10.7 (4.5-11.0) K/uL RBC 4.89 (4.30-5.90) M/uL Hgb 13.9 (12.0-15.0) g/dL Hct 42.1 (40.0-54.0) % MCV 86 (80-98) fL MCH 28 (27-31) pg MCHC 33 (32-36) % Plt Count 565 H (150-400) K/uL D-Dimer, Quantitative 789.35 H (0.0-500.0) ng/mL C-Reactive Protein 3.40 H (0.0-0.3) mg/dL Result Diagrams: 10/10/21 05:35 10/08/21 05:35 Sepsis Event Note - Evaluation Sepsis Screening Result: No Definite Risk - Focused Exam Vital Signs: Vital Signs Temp Pulse Pulse Resp BP BP Pulse Ox 10/10/21 13:03 92 L 10/10/21 13:02 10/10/21 11:00 36.7 C 72 18 122/70 92 L 10/10/21 08:19 78 125/73 10/10/21 07:27 10/10/21 07:15 96 10/10/21 06:38 36.3 C 78 18 125/73 92 L Pulse Ox 10/10/21 13:03 10/10/21 13:02 95 10/10/21 11:00 10/10/21 08:19 10/10/21 07:27 98 10/10/21 07:15 10/10/21 06:38 - Problem List Review Problem List Initiated/Reviewed/Updated: Yes - My Orders Last 24 Hours: My Active Orders 10/11/21 09:00 Enoxaparin [Lovenox] 40 mg SUBCUT DAILY - Plan Plan:: ASSESSMENT AND PLAN - COVID-19 INFECTION WITH BILATERAL PNEUMONIA-complicated by acute respiratory failure with hypoxia. Slowly improving with decreasing supplemental oxygen requirements. CRP and D-dimer have improved further. -Continue high flow humidified oxygen -Decadron 6 mg by mouth daily, consider taper starting Tuesday -Repeat labs every 2 days -Prone ventilation as able -Continue vitamin supplementation -Decrease enoxaparin to 40 mg daily -Remdesivir x5 days complete -Baricitinib x14 days complete ARDS-2/2 COVID-19 infection. -Management as above BPH WITH BLADDER OUTLET OBSTRUCTION-slowly better but not resolved. -Doxazosin 8 mg p.o. nightly Pruritic rash-essentially resolved at this point. -Nystatin cream -Diphenhydramine as needed for itching MAINTENANCE ISSUES -DVT prophylaxis; therapeutic enoxaparin dosing -GI prophylaxis; not indicated -Holt catheter; not indicated -Nutrition; regular diet DISPOSITION-anticipate discharge to home after the hospital stay. Hopefully we can wean his supplemental oxygen over the next few days and have him ready for d ischarge home. I would anticipate he will need home oxygen. Demetris Canseco MD
[2021-10-10] MEDS: Calcium Carbonate 500 MG Tab.Chew PO PRN (15:07)
[2021-10-10] MEDS: Dexamethasone 2 MG Tab PO SCH (15:08)
[2021-10-10] MEDS: Doxazosin 4 MG Tab PO SCH (21:32)
[2021-10-11] MEDS: Lactobacillus Rhamnosus GG (Probiotic) Cap PO SCH ×3 (01:58→21:14)
[2021-10-11] MEDS: OMEPRAZOLE 20MG **PTOM PO SCH ×2 (09:00→17:48)
[2021-10-11] MEDS: ESTER C 1000 MG PO SCH (09:01)
[2021-10-11] MEDS: VIT D3 5000 UNIT PO SCH (09:01)
[2021-10-11] MEDS: ZINC 50 MG PO SCH (09:01)
[2021-10-11] MEDS: Mometasone Furoate Nasal Spray 17 GM Canister NAS SCH ×2 (09:02→21:10)
[2021-10-11] MEDS: Nystatin Crm 30 GM Tube TOP SCH ×3 (09:02→21:11)
[2021-10-11] MEDS: Enoxaparin 40 MG/0.4 ML Syringe SUBCUT SCH (09:02)
[2021-10-11] MEDS: Multivitamins with Iron/Calcium/Folic Acid/Minerals Tab PO SCH (09:03)
[2021-10-11] MEDS: Metoprolol Succinate 25 MG Tab.ER PO SCH (09:03)
--- NOTE | 2021-10-11 11:24 | PCM.PN ---
- General Info Date of Service: 10/11/21 Subjective Update: No acute events overnight. Shortness of breath is a little better again today. We have been able to wean down his supplemental oxygen requirement slightly but he does remain on the heated/high flow oxygen. Still having some urinary frequency but this has been stable. Appetite has been good. He does still get winded with activity. Functional Status: Reports: Pain Controlled, Tolerating Diet - Review of Systems Pulmonary: Reports: Shortness of Breath - Patient Data Vitals - Most Recent: Last Vital Signs Temp 36.1 C 10/11/21 06:34 Pulse 82 10/11/21 09:03 Resp 18 10/11/21 06:34 BP 117/65 10/11/21 09:03 Pulse Ox 93 L 10/11/21 10:57 Weight - Most Recent: 78.925 kg I&O - Last 24 Hours: Intake & Output 10/10/21 10/11/21 10/11/21 22:59 06:59 14:59 Output Total 500 800 Balance -500 -800 Med Orders - Current: Current Medications Acetaminophen (Acetaminophen 325 Mg Tab) 650 mg PO Q4H PRN PRN Reason: Pain (Mild 1-3)/fever Last Admin: 10/07/21 13:54 Dose: 650 mg Documented by: Al Hydroxide/Mg Hydroxide (Aluminum Hydroxide/Magnesium Hydroxide/Simethicone Susp 30 Ml Cup) 30 ml PO Q4H PRN PRN Reason: Dyspepsia Last Admin: 09/24/21 18:40 Dose: 30 ml Documented by: Albuterol (Albuterol 8 Gm Inhaler) 0 gm INH QID PRN PRN Reason: Shortness of Breath Benzonatate (Benzonatate 100 Mg Cap) 100 mg PO Q8H PRN PRN Reason: Cough Last Admin: 10/02/21 14:06 Dose: 100 mg Documented by: Calcium Carbonate/Glycine (Calcium Carbonate 500 Mg Tab.Chew) 500 mg PO Q2H PRN PRN Reason: Indigestion Last Admin: 10/10/21 15:07 Dose: 500 mg Documented by: Dexamethasone (Dexamethasone 2 Mg Tab) 6 mg PO Q24H [facility] Last Admin: 10/10/21 15:08 Dose: 6 mg Documented by: Diphenhydramine HCl (Diphenhydramine 25 Mg Cap) 25 mg PO Q4H PRN PRN Reason: Itching Last Admin: 10/07/21 21:55 Dose: 25 mg Documented by: Doxazosin Mesylate (Doxazosin 4 Mg Tab) 8 mg PO BEDTIME [facility] Last Admin: 10/10/21 21:32 Dose: 8 mg Documented by: Enoxaparin Sodium (Enoxaparin 40 Mg/0.4 Ml Syringe) 40 mg SUBCUT DAILY [facility] Last Admin: 10/11/21 09:02 Dose: 40 mg Documented by: Guaifenesin/Dextromethorphan (Guaifenesin/Dextromethorphan 100-10 Mg/5 Ml Soln 10 Ml Cup) 10 ml PO Q4H PRN PRN Reason: Cough Last Admin: 10/02/21 14:06 Dose: 10 ml Documented by: Lactobacillus Rhamnosus (Lactobacillus Rhamnosus Gg (Probiotic) Cap) 1 cap PO BID [facility] Last Admin: 10/11/21 09:01 Dose: 1 cap Documented by: Melatonin (Melatonin 3 Mg Tab) 9 mg PO BEDTIME PRN PRN Reason: Sleep Metoprolol Succinate (Metoprolol Succinate 25 Mg Tab.Er) 25 mg PO DAILY [facility] Last Admin: 10/11/21 09:03 Dose: 25 mg Documented by: Mometasone Furoate (Mometasone Furoate Nasal [place] 17 Gm Canister) 0 gm PANFILO BID [facility] Last Admin: 10/11/21 09:02 Dose: Not Given Documented by: Multivitamins/Minerals (Multivitamins With Iron/Calcium/Folic Acid/Minerals Tab) 1 tab PO DAILY [facility] Last Admin: 10/11/21 09:03 Dose: 1 tab Documented by: Nystatin (Nystatin Crm 30 Gm Tube) 0 gm TOP TID [facility] Last Admin: 10/11/21 09:02 Dose: Not Given Documented by: Ondansetron HCl (Ondansetron 4 Mg/2 Ml Sdv) 4 mg IV Q4H PRN PRN Reason: Nausea/Vomiting Omeprazole 20mg (Ptom) 0 each PO BIDAC [facility] Last Admin: 10/11/21 09:00 Dose: 1 each Documented by: Vivi C 1,000mg Cap ((Ptom)) 1 each PO DAILY [facility] Last Admin: 10/11/21 09:01 Dose: 1 each Documented by: Vit D-3 5,000 Unit (Cap (Ptom)) 1 each PO DAILY [facility] Last Admin: 10/11/21 09:01 Dose: 1 each Documented by: Polyethylene Glycol (Polyethylene Glycol 3350 Powder 17 Gm Packet) 17 gm PO DAILY PRN PRN Reason: Constipation Senna/Docusate Sodium (Docusate Sodium/Sennosides 50-8.6 Mg Tab) 1 tab PO Q12H PRN PRN Reason: Constipation Last Admin: 10/02/21 14:06 Dose: 1 tab Documented by: Sodium Chloride (Sodium Chloride 0.9% 10 Ml Syringe) 10 ml FLUSH ASDIRECTED PRN PRN Reason: Keep Vein Open Tramadol HCl (Tramadol 50 Mg Tab) 50 mg PO Q6H PRN PRN Reason: back pain Last Admin: 09/28/21 09:40 Dose: 50 mg Documented by: Zinc Gluconate (Zinc (Zinc Gluconate) 50 Mg Cap (Ptom)) 50 mg PO DAILY [facility] Last Admin: 10/11/21 09:01 Dose: 50 mg Documented by: Discontinued Medications Acetaminophen (Acetaminophen 325 Mg Tab) 650 mg PO Q4H PRN PRN Reason: Fever Greater Than 101 Ascorbic Acid (Ascorbic Acid 500 Mg Tab) 500 mg PO DAILY [facility] Last Admin: 10/06/21 17:04 Dose: Not Given Documented by: Ascorbic Acid (Ascorbic Acid 500 Mg Tab) 1,000 mg PO DAILY [facility] Last Admin: 10/06/21 13:51 Dose: 1,000 mg Documented by: Baricitinib (Baricitinib 2 Mg Tab) 4 mg PO Q24H [facility] Stop: 10/02/21 16:01 Last Admin: 10/02/21 15:29 Dose: 4 mg Documented by: Cholecalciferol (Cholecalciferol (Vitamin D3) 25 Mcg Tab) 25 mcg PO DAILY [facility] Last Admin: 10/06/21 17:05 Dose: Not Given Documented by: Cholecalciferol (Cholecalciferol (Vitamin D3) 25 Mcg Tab) 125 mcg PO DAILY [facility] Last Admin: 10/06/21 13:51 Dose: 125 mcg Documented by: Dexamethasone (Dexamethasone 4 Mg/Ml Sdv) 6 mg IVPUSH DAILY [facility] Stop: 09/27/21 09:01 Last Admin: 09/19/21 02:25 Dose: 6 mg Documented by: Dexamethasone (Dexamethasone 4 Mg/Ml Sdv) Confirm Administered Dose 8 mg .ROUTE .STK-MED ONE Stop: 10/30/21 02:17 Last Admin: 09/19/21 04:22 Dose: Not Given Documented by: Dexamethasone (Dexamethasone 4 Mg/Ml Sdv) 6 mg IVPUSH Q24H [facility] Stop: 09/27/21 18:01 Last Admin: 09/27/21 17:22 Dose: 6 mg Documented by: Dexamethasone (Dexamethasone 2 Mg Tab) 4 mg PO Q24H [facility] Stop: 10/01/21 18:01 Last Admin: 09/30/21 17:19 Dose: 4 mg Documented by: Dexamethasone (Dexamethasone 4 Mg/Ml Sdv) 6 mg IVPUSH Q24H [facility] Last Admin: 10/08/21 14:27 Dose: Not Given Documented by: Doxazosin Mesylate (Doxazosin 4 Mg Tab) 4 mg PO BEDTIME [facility] Last Admin: 09/29/21 20:51 Dose: 4 mg Documented by: Enoxaparin Sodium (Enoxaparin 40 Mg/0.4 Ml Syringe) 40 mg SUBCUT DAILY [facility] Last Admin: 09/19/21 17:22 Dose: 40 mg Documented by: Enoxaparin Sodium (Enoxaparin 40 Mg/0.4 Ml Syringe) 40 mg SUBCUT Q24H [facility] Last Admin: 09/25/21 15:58 Dose: 40 mg Documented by: Enoxaparin Sodium (Enoxaparin 80 Mg/0.8 Ml Syringe) 80 mg SUBCUT Q12H [facility] Last Admin: 10/07/21 21:50 Dose: 80 mg Documented by: Enoxaparin Sodium (Enoxaparin 40 Mg/0.4 Ml Syringe) 40 mg SUBCUT Q12H [facility] Last Admin: 10/10/21 08:17 Dose: 40 mg Documented by: Finasteride (Finasteride 5 Mg Tab) 5 mg PO BEDTIME [facility] Last Admin: 10/06/21 21:18 Dose: 5 mg Documented by: Furosemide (Furosemide 20 Mg/2 Ml Vial) 20 mg IVPUSH ONETIME [facility] Stop: 09/25/21 09:01 Last Admin: 09/25/21 10:17 Dose: 20 mg Documented by: Hydrocortisone (Hydrocortisone 1% Crm 30 Gm Tube) 0 gm TOP BID [facility] Last Admin: 10/07/21 10:52 Dose: 1 applic Documented by: Remdesivir 200 mg/ Sodium (Chloride) 250 mls @ 250 mls/hr IV ONETIME [facility] Stop: 09/19/21 01:27 Last Admin: 09/19/21 02:24 Dose: 250 mls/hr Documented by: Remdesivir (Remdesivir) Confirm Administered Dose 200 mls @ as directed .ROUTE .STK-MED ONE Stop: 09/19/21 01:47 Last Admin: 09/19/21 04:22 Dose: Not Given Documented by: Ceftriaxone Sodium 1 gm/ (Sodium Chloride) 50 mls @ 100 mls/hr IV Q24H [facility] Stop: 09/25/21 20:00 Last Admin: 09/25/21 15:06 Dose: 100 mls/hr Documented by: Doxycycline Hyclate 100 mg/ (Sodium Chloride) 100 mls @ 100 mls/hr IV Q12H [facility] Stop: 09/25/21 20:00 Last Admin: 09/25/21 15:54 Dose: 100 mls/hr Documented by: Remdesivir 100 mg/ Sodium (Chloride) 100 mls @ 100 mls/hr IV Q24H [facility] Stop: 09/22/21 20:59 Last Admin: 09/22/21 20:15 Dose: 100 mls/hr Documented by: Non-Formulary Medication (Omeprazole Magnesium [Prilosec Otc]) 20 mg PO DAILY [facility] Pantoprazole Sodium (Pantoprazole 40 Mg Tab.Cr) 40 mg PO ACBREAKFAST [facility] Last Admin: 09/23/21 07:52 Dose: 40 mg Documented by: Omeprazole 20mg 0 each PO ACBREAKFAST [facility] Omeprazole 20mg 0 each PO ACBREAKFAST [facility] Last Admin: 09/24/21 06:45 Dose: 1 each Documented by: Zinc Gluconate (Zinc (Zinc Gluconate) 50 Mg Tab) 50 mg PO DAILY [facility] Last Admin: 10/05/21 08:40 Dose: 50 mg Documented by: - Exam Quality Assessment: Supplemental Oxygen General: Alert, Oriented, Cooperative, No Acute Distress Lungs: Normal Respiratory Effort GI/Abdominal Exam: Soft, No Distention Extremities: No Pedal Edema Psy/Mental Status: Alert, Normal Affect - Patient Data Result Diagrams: 10/10/21 05:35 10/08/21 05:35 Sepsis Event Note - Evaluation Sepsis Screening Result: No Definite Risk - Focused Exam Vital Signs: Vital Signs Temp Pulse Pulse Resp BP BP Pulse Ox 10/11/21 10:57 11/21/21 09:03 82 117/65 10/11/21 06:34 36.1 C 82 18 117/65 92 L 10/11/21 02:40 35.6 C L 74 16 116/69 97 10/11/21 01:22 98 Pulse Ox 10/11/21 10:57 93 L 10/11/21 09:03 10/11/21 06:34 10/11/21 02:40 10/11/21 01:22 - Problem List Review Problem List Initiated/Reviewed/Updated: Yes - My Orders Last 24 Hours: My Active Orders 10/11/21 09:00 Enoxaparin [Lovenox] 40 mg SUBCUT DAILY 10/12/21 05:00 COMPREHENSIVE METABOLIC PN,CMP [CHEM] Timed CRP [C-REACTIVE PROTEIN] [CHEM] Timed D-DIMER QUANTITATIVE [COAG] Timed - Plan Plan:: ASSESSMENT AND PLAN - COVID-19 INFECTION WITH BILATERAL PNEUMONIA-complicated by acute respiratory failure with hypoxia. Slowly improving with decreasing supplemental oxygen requirements. -Continue high flow humidified oxygen, transition to high flow when able -Decadron 6 mg by mouth daily, consider taper starting Tuesday if inflammatory markers decrease further -Repeat labs every 2 days -Prone ventilation as able -Continue vitamin supplementation -Continue enoxaparin 40 mg daily -Remdesivir x5 days complete -Baricitinib x14 days complete ARDS-2/2 COVID-19 infection. -Management as above BPH WITH BLADDER OUTLET OBSTRUCTION-slowly better but not resolved. -Doxazosin 8 mg p.o. nightly Pruritic rash-essentially resolved at this point. -Nystatin cream -Diphenhydramine as needed for itching MAINTENANCE ISSUES -DVT prophylaxis; therapeutic enoxaparin dosing -GI prophylaxis; not indicated -Holt catheter; not indicated -Nutrition; regular diet DISPOSITION-anticipate discharge to home after the hospital stay. Hopefully we can wean his supplemental oxygen over the next few days and have him ready for discharge home. I would anticipate he will need home oxygen. Demetris Canseco MD
[2021-10-11] MEDS: Dexamethasone 2 MG Tab PO SCH (15:43)
[2021-10-11] MEDS: Doxazosin 4 MG Tab PO SCH (21:11)
[2021-10-12] MEDS: OMEPRAZOLE 20MG **PTOM PO SCH ×2 (08:20→17:21)
[2021-10-12] MEDS: Lactobacillus Rhamnosus GG (Probiotic) Cap PO SCH ×2 (09:14→22:30)
[2021-10-12] MEDS: Enoxaparin 40 MG/0.4 ML Syringe SUBCUT SCH (09:16)
[2021-10-12] MEDS: VIT D3 5000 UNIT PO SCH (09:18)
[2021-10-12] MEDS: ESTER C 1000 MG PO SCH (09:18)
[2021-10-12] MEDS: Metoprolol Succinate 25 MG Tab.ER PO SCH (09:20)
[2021-10-12] MEDS: Multivitamins with Iron/Calcium/Folic Acid/Minerals Tab PO SCH (09:20)
[2021-10-12] MEDS: ZINC 50 MG PO SCH (09:21)
[2021-10-12] MEDS: Mometasone Furoate Nasal Spray 17 GM Canister NAS SCH ×2 (09:22→21:39)
[2021-10-12] MEDS: Nystatin Crm 30 GM Tube TOP SCH ×3 (09:23→22:08)
[2021-10-12] MEDS: Dexamethasone 2 MG Tab PO SCH (13:07)
--- NOTE | 2021-10-12 16:42 | PCM.PN ---
- General Info Date of Service: 10/12/21 Subjective Update: Mr. Chan has shown slow improvement in respiratory status over the past few days. Remains on high flow humidified oxygen, currently at 55 L and 60% FiO2. Thus far he has tolerated slow decrease in oxygen support. Subjectively feels much improved, stronger with good appetite. - Review of Systems General: Reports: Weakness, Fatigue. Denies: Fever, Chills Pulmonary: Reports: Shortness of Breath, Cough, Sputum. Denies: Pleuritic Chest Pain, Hemoptysis, Wheezing Cardiovascular: Reports: Dyspnea on Exertion. Denies: Chest Pain, Palpitations, Orthopnea, PND, Edema, Lightheadedness Gastrointestinal: Reports: No Symptoms Genitourinary: Reports: No Symptoms - Patient Data Vitals - Most Recent: Last Vital Signs Temp 97.3 F 10/12/21 11:08 Pulse 98 10/12/21 11:08 Resp 26 H 10/12/21 11:08 BP 114/76 10/12/21 11:08 Pulse Ox 94 L 10/12/21 15:41 Weight - Most Recent: 174 lb I&O - Last 24 Hours: Intake & Output 10/12/21 10/12/21 10/12/21 06:59 14:59 22:59 Intake Total 400 Output Total 700 350 Balance -700 50 Lab Results Last 24 Hours: Laboratory Results - last 24 hr 10/12/21 10/12/21 Range/Units 05:30 05:30 D-Dimer, Quantitative 664.48 H (0.0-500.0) ng/mL Sodium 138 L (140-148) mmol/L Potassium 4.7 (3.6-5.2) mmol/L Chloride 98 L (100-108) mmol/L Carbon Dioxide 31 (21-32) mmol/L Anion Gap 13.7 (5.0-14.0) mmol/L BUN 21 H (7-18) mg/dL Creatinine 0.7 L (0.8-1.3) mg/dL Est Cr Clr Drug Dosing 97.71 mL/min Estimated GFR (MDRD) > 60 (>60) Glucose 111 H (74-106) mg/dL Calcium 8.9 (8.5-10.1) mg/dL Total Bilirubin 0.3 (0.2-1.0) mg/dL AST 18 (15-37) U/L ALT 52 (12-78) U/L Alkaline Phosphatase 88 (46-116) U/L C-Reactive Protein 2.65 H (0.0-0.3) mg/dL Total Protein 6.4 (6.4-8.2) g/dL Albumin 2.7 L (3.4-5.0) g/dL Globulin 3.7 H (2.3-3.5) g/dL Albumin/Globulin Ratio 0.7 L (1.2-2.2) Med Orders - Current: Current Medications Acetaminophen (Acetaminophen 325 Mg Tab) 650 mg PO Q4H PRN PRN Reason: Pain (Mild 1-3)/fever Last Admin: 10/07/21 13:54 Dose: 650 mg Documented by: Al Hydroxide/Mg Hydroxide (Aluminum Hydroxide/Magnesium Hydroxide/Simethicone Susp 30 Ml Cup) 30 ml PO Q4H PRN PRN Reason: Dyspepsia Last Admin: 09/24/21 18:40 Dose: 30 ml Documented by: Albuterol (Albuterol 8 Gm Inhaler) 0 gm INH QID PRN PRN Reason: Shortness of Breath Benzonatate (Benzonatate 100 Mg Cap) 100 mg PO Q8H PRN PRN Reason: Cough Last Admin: 10/02/21 14:06 Dose: 100 mg Documented by: Calcium Carbonate/Glycine (Calcium Carbonate 500 Mg Tab.Chew) 500 mg PO Q2H PRN PRN Reason: Indigestion Last Admin: 10/10/21 15:07 Dose: 500 mg Documented by: Dexamethasone (Dexamethasone 2 Mg Tab) 4 mg PO Q24H [facility] Last Admin: 10/12/21 13:07 Dose: 4 mg Documented by: Diphenhydramine HCl (Diphenhydramine 25 Mg Cap) 25 mg PO Q4H PRN PRN Reason: Itching Last Admin: 10/07/21 21:55 Dose: 25 mg Documented by: Doxazosin Mesylate (Doxazosin 4 Mg Tab) 8 mg PO BEDTIME [facility] Last Admin: 10/11/21 21:11 Dose: 8 mg Documented by: Enoxaparin Sodium (Enoxaparin 40 Mg/0.4 Ml Syringe) 40 mg SUBCUT DAILY [facility] Last Admin: 10/12/21 09:16 Dose: 40 mg Documented by: Guaifenesin/Dextromethorphan (Guaifenesin/Dextromethorphan 100-10 Mg/5 Ml Soln 10 Ml Cup) 10 ml PO Q4H PRN PRN Reason: Cough Last Admin: 10/02/21 14:06 Dose: 10 ml Documented by: Lactobacillus Rhamnosus (Lactobacillus Rhamnosus Gg (Probiotic) Cap) 1 cap PO BID [facility] Last Admin: 10/12/21 09:14 Dose: 1 cap Documented by: Melatonin (Melatonin 3 Mg Tab) 9 mg PO BEDTIME PRN PRN Reason: Sleep Last Admin: 10/11/21 23:08 Dose: 9 mg Documented by: Metoprolol Succinate (Metoprolol Succinate 25 Mg Tab.Er) 25 mg PO DAILY [facility] Last Admin: 10/12/21 09:20 Dose: 25 mg Documented by: Mometasone Furoate (Mometasone Furoate Nasal [place] 17 Gm Canister) 0 gm PANFILO BID [facility] Last Admin: 10/12/21 09:22 Dose: Not Given Documented by: Multivitamins/Minerals (Multivitamins With Iron/Calcium/Folic Acid/Minerals Tab) 1 tab PO DAILY [facility] Last Admin: 10/12/21 09:20 Dose: 1 tab Documented by: Nystatin (Nystatin Crm 30 Gm Tube) 0 gm TOP TID [facility] Last Admin: 10/12/21 13:07 Dose: Not Given Documented by: Ondansetron HCl (Ondansetron 4 Mg/2 Ml Sdv) 4 mg IV Q4H PRN PRN Reason: Nausea/Vomiting Omeprazole 20mg (Ptom) 0 each PO BIDAC [facility] Last Admin: 10/12/21 08:20 Dose: 1 each Documented by: Vivi C 1,000mg Cap ((Ptom)) 1 each PO DAILY [facility] Last Admin: 10/12/21 09:18 Dose: 1 each Documented by: Vit D-3 5,000 Unit (Cap (Ptom)) 1 each PO DAILY [facility] Last Admin: 10/12/21 09:18 Dose: 1 each Documented by: Polyethylene Glycol (Polyethylene Glycol 3350 Powder 17 Gm Packet) 17 gm PO DAILY PRN PRN Reason: Constipation Senna/Docusate Sodium (Docusate Sodium/Sennosides 50-8.6 Mg Tab) 1 tab PO Q12H PRN PRN Reason: Constipation Last Admin: 10/02/21 14:06 Dose: 1 tab Documented by: Sodium Chloride (Sodium Chloride 0.9% 10 Ml Syringe) 10 ml FLUSH ASDIRECTED PRN PRN Reason: Keep Vein Open Tramadol HCl (Tramadol 50 Mg Tab) 50 mg PO Q6H PRN PRN Reason: back pain Last Admin: 09/28/21 09:40 Dose: 50 mg Documented by: Zinc Gluconate (Zinc (Zinc Gluconate) 50 Mg Cap (Ptom)) 50 mg PO DAILY [facility] Last Admin: 10/12/21 09:21 Dose: 50 mg Documented by: Discontinued Medications Acetaminophen (Acetaminophen 325 Mg Tab) 650 mg PO Q4H PRN PRN Reason: Fever Greater Than 101 Ascorbic Acid (Ascorbic Acid 500 Mg Tab) 500 mg PO DAILY [facility] Last Admin: 10/06/21 17:04 Dose: Not Given Documented by: Ascorbic Acid (Ascorbic Acid 500 Mg Tab) 1,000 mg PO DAILY [facility] Last Admin: 10/06/21 13:51 Dose: 1,000 mg Documented by: Baricitinib (Baricitinib 2 Mg Tab) 4 mg PO Q24H [facility] Stop: 10/02/21 16:01 Last Admin: 10/02/21 15:29 Dose: 4 mg Documented by: Cholecalciferol (Cholecalciferol (Vitamin D3) 25 Mcg Tab) 25 mcg PO DAILY [facility] Last Admin: 10/06/21 17:05 Dose: Not Given Documented by: Cholecalciferol (Cholecalciferol (Vitamin D3) 25 Mcg Tab) 125 mcg PO DAILY [facility] Last Admin: 10/06/21 13:51 Dose: 125 mcg Documented by: Dexamethasone (Dexamethasone 4 Mg/Ml Sdv) 6 mg IVPUSH DAILY [facility] Stop: 09/27/21 09:01 Last Admin: 09/19/21 02:25 Dose: 6 mg Documented by: Dexamethasone (Dexamethasone 4 Mg/Ml Sdv) Confirm Administered Dose 8 mg .ROUTE .[facility] Stop: 09/19/21 02:17 Last Admin: 09/19/21 04:22 Dose: Not Given Documented by: Dexamethasone (Dexamethasone 4 Mg/Ml Sdv) 6 mg IVPUSH Q24H [facility] Stop: 09/27/21 18:01 Last Admin: 09/27/21 17:22 Dose: 6 mg Documented by: Dexamethasone (Dexamethasone 2 Mg Tab) 4 mg PO Q24H [facility] Stop: 10/01/21 18:01 Last Admin: 09/30/21 17:19 Dose: 4 mg Documented by: Dexamethasone (Dexamethasone 4 Mg/Ml Sdv) 6 mg IVPUSH Q24H [facility] Last Admin: 10/08/21 14:27 Dose: Not Given Documented by: Dexamethasone (Dexamethasone 2 Mg Tab) 6 mg PO Q24H [facility] Last Admin: 10/11/21 15:43 Dose: 6 mg Documented by: Doxazosin Mesylate (Doxazosin 4 Mg Tab) 4 mg PO BEDTIME [facility] Last Admin: 09/29/21 20:51 Dose: 4 mg Documented by: Enoxaparin Sodium (Enoxaparin 40 Mg/0.4 Ml Syringe) 40 mg SUBCUT DAILY [facility] Last Admin: 09/19/21 17:22 Dose: 40 mg Documented by: Enoxaparin Sodium (Enoxaparin 40 Mg/0.4 Ml Syringe) 40 mg SUBCUT Q24H [facility] Last Admin: 09/25/21 15:58 Dose: 40 mg Documented by: Enoxaparin Sodium (Enoxaparin 80 Mg/0.8 Ml Syringe) 80 mg SUBCUT Q12H [facility] Last Admin: 10/07/21 21:50 Dose: 80 mg Documented by: Enoxaparin Sodium (Enoxaparin 40 Mg/0.4 Ml Syringe) 40 mg SUBCUT Q12H [facility] Last Admin: 10/10/21 08:17 Dose: 40 mg Documented by: Finasteride (Finasteride 5 Mg Tab) 5 mg PO BEDTIME [facility] Last Admin: 10/06/21 21:18 Dose: 5 mg Documented by: Furosemide (Furosemide 20 Mg/2 Ml Vial) 20 mg IVPUSH ONETIME ONE Stop: 09/25/21 09:01 Last Admin: 09/25/21 10:17 Dose: 20 mg Documented by: Hydrocortisone (Hydrocortisone 1% Crm 30 Gm Tube) 0 gm TOP BID [facility] Last Admin: 10/07/21 10:52 Dose: 1 applic Documented by: Remdesivir 200 mg/ Sodium (Chloride) 250 mls @ 250 mls/hr IV ONETIME ONE Stop: 09/19/21 01:27 Last Admin: 09/19/21 02:24 Dose: 250 mls/hr Documented by: Remdesivir (Remdesivir) Confirm Administered Dose 200 mls @ as directed .ROUTE .STK-MED ONE Stop: 09/19/21 01:47 Last Admin: 09/19/21 04:22 Dose: Not Given Documented by: Ceftriaxone Sodium 1 gm/ (Sodium Chloride) 50 mls @ 100 mls/hr IV Q24H [facility] Stop: 09/25/21 20:00 Last Admin: 09/25/21 15:06 Dose: 100 mls/hr Documented by: Doxycycline Hyclate 100 mg/ (Sodium Chloride) 100 mls @ 100 mls/hr IV Q12H [facility] Stop: 09/25/21 20:00 Last Admin: 09/25/21 15:54 Dose: 100 mls/hr Documented by: Remdesivir 100 mg/ Sodium (Chloride) 100 mls @ 100 mls/hr IV Q24H [facility] Stop: 09/22/21 20:59 Last Admin: 09/22/21 20:15 Dose: 100 mls/hr Documented by: Non-Formulary Medication (Omeprazole Magnesium [Prilosec Otc]) 20 mg PO DAILY [facility] Pantoprazole Sodium (Pantoprazole 40 Mg Tab.Cr) 40 mg PO ACBREAKFAST [facility] Last Admin: 09/23/21 07:52 Dose: 40 mg Documented by: Omeprazole 20mg 0 each PO ACBREAKFAST [facility] Omeprazole 20mg 0 each PO ACBREAKFAST [facility] Last Admin: 09/24/21 06:45 Dose: 1 each Documented by: Zinc Gluconate (Zinc (Zinc Gluconate) 50 Mg Tab) 50 mg PO DAILY [facility] Last Admin: 10/05/21 08:40 Dose: 50 mg Documented by: - Exam Quality Assessment: Supplemental Oxygen, DVT Prophylaxis General: Alert, Oriented, Cooperative, Mild Distress Lungs: Normal Respiratory Effort, Crackles. No: Rales, Rhonchi, Wheezing Cardiovascular: Regular Rate, Regular Rhythm, No Murmurs GI/Abdominal Exam: Soft, Non-Tender, No Organomegaly, No Distention Extremities: Non-Tender, No Pedal Edema - Patient Data Lab Results Last 24 hrs: Laboratory Results - last 24 hr 10/12/21 10/12/21 Range/Units 05:30 05:30 D-Dimer, Quantitative 664.48 H (0.0-500.0) ng/mL Sodium 138 L (140-148) mmol/L Potassium 4.7 (3.6-5.2) mmol/L Chloride 98 L (100-108) mmol/L Carbon Dioxide 31 (21-32) mmol/L Anion Gap 13.7 (5.0-14.0) mmol/L BUN 21 H (7-18) mg/dL Creatinine 0.7 L (0.8-1.3) mg/dL Est Cr Clr Drug Dosing 97.71 mL/min Estimated GFR (MDRD) > 60 (>60) Glucose 111 H (74-106) mg/dL Calcium 8.9 (8.5-10.1) mg/dL Total Bilirubin 0.3 (0.2-1.0) mg/dL AST 18 (15-37) U/L ALT 52 (12-78) U/L Alkaline Phosphatase 88 (46-116) U/L C-Reactive Protein 2.65 H (0.0-0.3) mg/dL Total Protein 6.4 (6.4-8.2) g/dL Albumin 2.7 L (3.4-5.0) g/dL Globulin 3.7 H (2.3-3.5) g/dL Albumin/Globulin Ratio 0.7 L (1.2-2.2) Result Diagrams: 10/10/21 05:35 10/12/21 05:30 Sepsis Event Note - Evaluation Sepsis Screening Result: No Definite Risk - Focused Exam Vital Signs: Vital Signs Temp Pulse Pulse Resp BP BP Pulse Ox 10/12/21 15:41 94 L 10/12/21 14:29 94 L 10/12/21 11:08 97.3 F 98 26 H 114/76 93 L 10/12/21 09:20 86 123/75 10/12/21 07:30 96 10/12/21 07:00 97.0 F 80 25 H 114/64 95 - Problem List Review Problem List Initiated/Reviewed/Updated: Yes - My Orders Last 24 Hours: My Active Orders 10/12/21 14:00 dexAMETHasone 4 mg PO Q24H - Plan Plan:: ASSESSMENT AND PLAN - COVID-19 INFECTION WITH BILATERAL PNEUMONIA-complicated by acute respiratory failure with hypoxia. Slowly improving with decreasing supplemental oxygen requirements. -Continue high flow humidified oxygen, transition to high flow when able -Decadron 4 mg by mouth daily for 1 week, then plan to decrease to 2 mg daily -Repeat labs every 2 days -Prone ventilation as able -Continue vitamin supplementation -Continue enoxaparin 40 mg daily -Remdesivir x5 days complete -Baricitinib x14 days complete ARDS-2/2 COVID-19 infection. -Management as above BPH WITH BLADDER OUTLET OBSTRUCTION-slowly better but not resolved. -Doxazosin 8 mg p.o. nightly Pruritic rash-essentially resolved at this point. -Nystatin cream -Diphenhydramine as needed for itching MAINTENANCE ISSUES -DVT prophylaxis; therapeutic enoxaparin dosing -GI prophylaxis; not indicated -Holt catheter; not indicated -Nutrition; regular diet DISPOSITION-anticipate discharge to home after the hospital stay. Hopefully we can wean his supplemental oxygen over the next few days and have him ready for discharge home. I would anticipate he will need home oxygen.
[2021-10-12] MEDS: Doxazosin 4 MG Tab PO SCH (22:30)
[2021-10-13] MEDS: OMEPRAZOLE 20MG **PTOM PO SCH ×2 (09:31→17:12)
[2021-10-13] MEDS: Lactobacillus Rhamnosus GG (Probiotic) Cap PO SCH ×2 (09:32→20:52)
[2021-10-13] MEDS: Mometasone Furoate Nasal Spray 17 GM Canister NAS SCH ×2 (09:32→20:50)
[2021-10-13] MEDS: Enoxaparin 40 MG/0.4 ML Syringe SUBCUT SCH (09:32)
[2021-10-13] MEDS: Nystatin Crm 30 GM Tube TOP SCH ×3 (09:33→20:51)
[2021-10-13] MEDS: ESTER C 1000 MG PO SCH (09:33)
[2021-10-13] MEDS: Multivitamins with Iron/Calcium/Folic Acid/Minerals Tab PO SCH (09:34)
[2021-10-13] MEDS: VIT D3 5000 UNIT PO SCH (09:34)
[2021-10-13] MEDS: Metoprolol Succinate 25 MG Tab.ER PO SCH (09:35)
[2021-10-13] MEDS: ZINC 50 MG PO SCH (09:35)
[2021-10-13] MEDS: Dexamethasone 2 MG Tab PO SCH (13:31)
--- NOTE | 2021-10-13 14:51 | PCM.PN ---
- General Info Date of Service: 10/13/21 Subjective Update: Mr. Chan has remained stable since yesterday. He has noted further improvement in overall strength and also notes that he does not become is short of breath wi th activity. Cough overall has improved but is not resolved. Appetite remains fairly good and oral intake is improving. Functional Status: Reports: Tolerating Diet, Urinating - Review of Systems General: Reports: Weakness, Fatigue. Denies: Fever, Chills Pulmonary: Reports: Shortness of Breath, Cough, Sputum. Denies: Pleuritic Chest Pain, Hemoptysis, Wheezing Cardiovascular: Reports: Dyspnea on Exertion. Denies: Chest Pain, Palpitations, Orthopnea, PND, Edema, Lightheadedness Gastrointestinal: Reports: No Symptoms Genitourinary: Reports: No Symptoms - Patient Data Vitals - Most Recent: Last Vital Signs Temp 98 F 10/13/21 13:27 Pulse 86 10/13/21 13:27 Resp 22 H 10/13/21 13:27 BP 113/67 10/13/21 13:27 Pulse Ox 93 L 10/13/21 14:00 Weight - Most Recent: 174 lb I&O - Last 24 Hours: Intake & Output 10/12/21 10/13/21 10/13/21 22:59 06:59 14:59 Intake Total 900 800 Output Total 700 1375 Balance -700 -475 800 Med Orders - Current: Current Medications Acetaminophen (Acetaminophen 325 Mg Tab) 650 mg PO Q4H PRN PRN Reason: Pain (Mild 1-3)/fever Last Admin: 10/07/21 13:54 Dose: 650 mg Documented by: Al Hydroxide/Mg Hydroxide (Aluminum Hydroxide/Magnesium Hydroxide/Simethicone Susp 30 Ml Cup) 30 ml PO Q4H PRN PRN Reason: Dyspepsia Last Admin: 09/24/21 18:40 Dose: 30 ml Documented by: Albuterol (Albuterol 8 Gm Inhaler) 0 gm INH QID PRN PRN Reason: Shortness of Breath Benzonatate (Benzonatate 100 Mg Cap) 100 mg PO Q8H PRN PRN Reason: Cough Last Admin: 10/02/21 14:06 Dose: 100 mg Documented by: Calcium Carbonate/Glycine (Calcium Carbonate 500 Mg Tab.Chew) 500 mg PO Q2H PRN PRN Reason: Indigestion Last Admin: 10/10/21 15:07 Dose: 500 mg Documented by: Dexamethasone (Dexamethasone 2 Mg Tab) 4 mg PO Q24H [facility] Last Admin: 10/13/21 13:31 Dose: 4 mg Documented by: Diphenhydramine HCl (Diphenhydramine 25 Mg Cap) 25 mg PO Q4H PRN PRN Reason: Itching Last Admin: 10/07/21 21:55 Dose: 25 mg Documented by: Doxazosin Mesylate (Doxazosin 4 Mg Tab) 8 mg PO BEDTIME [facility] Last Admin: 10/12/21 22:30 Dose: 8 mg Documented by: Enoxaparin Sodium (Enoxaparin 40 Mg/0.4 Ml Syringe) 40 mg SUBCUT DAILY [facility] Last Admin: 10/13/21 09:32 Dose: 40 mg Documented by: Guaifenesin/Dextromethorphan (Guaifenesin/Dextromethorphan 100-10 Mg/5 Ml Soln 10 Ml Cup) 10 ml PO Q4H PRN PRN Reason: Cough Last Admin: 10/02/21 14:06 Dose: 10 ml Documented by: Lactobacillus Rhamnosus (Lactobacillus Rhamnosus Gg (Probiotic) Cap) 1 cap PO BID [facility] Last Admin: 10/13/21 09:32 Dose: 1 cap Documented by: Melatonin (Melatonin 3 Mg Tab) 9 mg PO BEDTIME PRN PRN Reason: Sleep Last Admin: 10/11/21 23:08 Dose: 9 mg Documented by: Metoprolol Succinate (Metoprolol Succinate 25 Mg Tab.Er) 25 mg PO DAILY [facility] Last Admin: 10/13/21 09:35 Dose: 25 mg Documented by: Mometasone Furoate (Mometasone Furoate Nasal [place] 17 Gm Canister) 0 gm PANFILO BID [facility] Last Admin: 10/13/21 09:32 Dose: Not Given Documented by: Multivitamins/Minerals (Multivitamins With Iron/Calcium/Folic Acid/Minerals Tab) 1 tab PO DAILY [facility] Last Admin: 10/13/21 09:34 Dose: 1 tab Documented by: Nystatin (Nystatin Crm 30 Gm Tube) 0 gm TOP TID [facility] Last Admin: 10/13/21 13:31 Dose: Not Given Documented by: Ondansetron HCl (Ondansetron 4 Mg/2 Ml Sdv) 4 mg IV Q4H PRN PRN Reason: Nausea/Vomiting Omeprazole 20mg (Ptom) 0 each PO BIDAC [facility] Last Admin: 10/13/21 09:31 Dose: 1 each Documented by: Vivi C 1,000mg Cap ((Ptom)) 1 each PO DAILY [facility] Last Admin: 10/13/21 09:33 Dose: 1 each Documented by: Vit D-3 5,000 Unit (Cap (Ptom)) 1 each PO DAILY [facility] Last Admin: 10/13/21 09:34 Dose: 1 each Documented by: Polyethylene Glycol (Polyethylene Glycol 3350 Powder 17 Gm Packet) 17 gm PO DAILY PRN PRN Reason: Constipation Senna/Docusate Sodium (Docusate Sodium/Sennosides 50-8.6 Mg Tab) 1 tab PO Q12H PRN PRN Reason: Constipation Last Admin: 10/02/21 14:06 Dose: 1 tab Documented by: Sodium Chloride (Sodium Chloride 0.9% 10 Ml Syringe) 10 ml FLUSH ASDIRECTED PRN PRN Reason: Keep Vein Open Tramadol HCl (Tramadol 50 Mg Tab) 50 mg PO Q6H PRN PRN Reason: back pain Last Admin: 09/28/21 09:40 Dose: 50 mg Documented by: Zinc Gluconate (Zinc (Zinc Gluconate) 50 Mg Cap (Ptom)) 50 mg PO DAILY [facility] Last Admin: 10/13/21 09:35 Dose: 50 mg Documented by: Discontinued Medications Acetaminophen (Acetaminophen 325 Mg Tab) 650 mg PO Q4H PRN PRN Reason: Fever Greater Than 101 Ascorbic Acid (Ascorbic Acid 500 Mg Tab) 500 mg PO DAILY [facility] Last Admin: 10/06/21 17:04 Dose: Not Given Documented by: Ascorbic Acid (Ascorbic Acid 500 Mg Tab) 1,000 mg PO DAILY [facility] Last Admin: 10/06/21 13:51 Dose: 1,000 mg Documented by: Baricitinib (Baricitinib 2 Mg Tab) 4 mg PO Q24H [facility] Stop: 10/02/21 16:01 Last Admin: 10/02/21 15:29 Dose: 4 mg Documented by: Cholecalciferol (Cholecalciferol (Vitamin D3) 25 Mcg Tab) 25 mcg PO DAILY [facility] Last Admin: 10/06/21 17:05 Dose: Not Given Documented by: Cholecalciferol (Cholecalciferol (Vitamin D3) 25 Mcg Tab) 125 mcg PO DAILY [facility] Last Admin: 10/06/21 13:51 Dose: 125 mcg Documented by: Dexamethasone (Dexamethasone 4 Mg/Ml Sdv) 6 mg IVPUSH DAILY [facility] Stop: 09/27/21 09:01 Last Admin: 09/19/21 02:25 Dose: 6 mg Documented by: Dexamethasone (Dexamethasone 4 Mg/Ml Sdv) Confirm Administered Dose 8 mg .ROUTE .STK-MED ONE Stop: 09/19/21 02:17 Last Admin: 09/19/21 04:22 Dose: Not Given Documented by: Dexamethasone (Dexamethasone 4 Mg/Ml Sdv) 6 mg IVPUSH Q24H [facility] Stop: 09/27/21 18:01 Last Admin: 09/27/21 17:22 Dose: 6 mg Documented by: Dexamethasone (Dexamethasone 2 Mg Tab) 4 mg PO Q24H [facility] Stop: 10/01/21 18:01 Last Admin: 09/30/21 17:19 Dose: 4 mg Documented by: Dexamethasone (Dexamethasone 4 Mg/Ml Sdv) 6 mg IVPUSH Q24H [facility] Last Admin: 10/08/21 14:27 Dose: Not Given Documented by: Dexamethasone (Dexamethasone 2 Mg Tab) 6 mg PO Q24H [facility] Last Admin: 10/11/21 15:43 Dose: 6 mg Documented by: Doxazosin Mesylate (Doxazosin 4 Mg Tab) 4 mg PO BEDTIME [facility] Last Admin: 09/29/21 20:51 Dose: 4 mg Documented by: Enoxaparin Sodium (Enoxaparin 40 Mg/0.4 Ml Syringe) 40 mg SUBCUT DAILY [facility] Last Admin: 09/19/21 17:22 Dose: 40 mg Documented by: Enoxaparin Sodium (Enoxaparin 40 Mg/0.4 Ml Syringe) 40 mg SUBCUT Q24H [facility] Last Admin: 09/25/21 15:58 Dose: 40 mg Documented by: Enoxaparin Sodium (Enoxaparin 80 Mg/0.8 Ml Syringe) 80 mg SUBCUT Q12H [facility] Last Admin: 10/07/21 21:50 Dose: 80 mg Documented by: Enoxaparin Sodium (Enoxaparin 40 Mg/0.4 Ml Syringe) 40 mg SUBCUT Q12H [facility] Last Admin: 10/10/21 08:17 Dose: 40 mg Documented by: Finasteride (Finasteride 5 Mg Tab) 5 mg PO BEDTIME [facility] Last Admin: 10/06/21 21:18 Dose: 5 mg Documented by: Furosemide (Furosemide 20 Mg/2 Ml Vial) 20 mg IVPUSH ONETIME ONE Stop: 09/25/21 09:01 Last Admin: 09/25/21 10:17 Dose: 20 mg Documented by: Hydrocortisone (Hydrocortisone 1% Crm 30 Gm Tube) 0 gm TOP BID [facility] Last Admin: 10/07/21 10:52 Dose: 1 applic Documented by: Remdesivir 200 mg/ Sodium (Chloride) 250 mls @ 250 mls/hr IV ONETIME ONE Stop: 09/19/21 01:27 Last Admin: 09/19/21 02:24 Dose: 250 mls/hr Documented by: Remdesivir (Remdesivir) Confirm Administered Dose 200 mls @ as directed .ROUTE .STK-MED ONE Stop: 09/19/21 01:47 Last Admin: 09/19/21 04:22 Dose: Not Given Documented by: Ceftriaxone Sodium 1 gm/ (Sodium Chloride) 50 mls @ 100 mls/hr IV Q24H [facility] Stop: 09/25/21 20:00 Last Admin: 09/25/21 15:06 Dose: 100 mls/hr Documented by: Doxycycline Hyclate 100 mg/ (Sodium Chloride) 100 mls @ 100 mls/hr IV Q12H [facility] Stop: 09/25/21 20:00 Last Admin: 09/25/21 15:54 Dose: 100 mls/hr Documented by: Remdesivir 100 mg/ Sodium (Chloride) 100 mls @ 100 mls/hr IV Q24H [facility] Stop: 09/22/21 20:59 Last Admin: 09/22/21 20:15 Dose: 100 mls/hr Documented by: Non-Formulary Medication (Omeprazole Magnesium [Prilosec Otc]) 20 mg PO DAILY [facility] Pantoprazole Sodium (Pantoprazole 40 Mg Tab.Cr) 40 mg PO ACBREAKFAST [facility] Last Admin: 09/23/21 07:52 Dose: 40 mg Documented by: Omeprazole 20mg 0 each PO ACBREAKFAST [facility] Omeprazole 20mg 0 each PO ACBREAKFAST [facility] Last Admin: 09/24/21 06:45 Dose: 1 each Documented by: Zinc Gluconate (Zinc (Zinc Gluconate) 50 Mg Tab) 50 mg PO DAILY [facility] Last Admin: 10/05/21 08:40 Dose: 50 mg Documented by: - Exam Quality Assessment: Supplemental Oxygen, DVT Prophylaxis General: Alert, Oriented, Cooperative, Mild Distress Lungs: Normal Respiratory Effort, Crackles. No: Rales, Rhonchi, Wheezing Cardiovascular: Regular Rate, Regular Rhythm, No Murmurs GI/Abdominal Exam: Soft, Non-Tender, No Organomegaly, No Distention Extremities: Non-Tender, No Pedal Edema - Patient Data Result Diagrams: 10/10/21 05:35 10/12/21 05:30 Sepsis Event Note - Evaluation Sepsis Screening Result: No Definite Risk - Focused Exam Vital Signs: Vital Signs Temp Pulse Pulse Resp BP BP Pulse Ox 10/13/21 14:00 93 L 10/13/21 13:27 98 F 86 22 H 113/67 96 10/13/21 10:00 97.5 F 87 20 110/58 L 97 10/13/21 09:35 87 110/58 L - Problem List Review Problem List Initiated/Reviewed/Updated: Yes - My Orders Last 24 Hours: My Active Orders 10/12/21 14:00 dexAMETHasone 4 mg PO Q24H 10/13/21 12:27 Consult to Physical Therapy [PT Evaluation and Treatment] [CONS] Routine 10/14/21 05:00 COMPREHENSIVE METABOLIC PN,CMP [CHEM] Timed 10/14/21 05:11 CRP [C-REACTIVE PROTEIN] [CHEM] AM D Dimer [D-DIMER QUANTITATIVE] [COAG] AM - Plan Plan:: ASSESSMENT AND PLAN - COVID-19 INFECTION WITH BILATERAL PNEUMONIA-complicated by acute respiratory failure with hypoxia. Slowly improving with decreasing supplemental oxygen requirements. -Continue high flow humidified oxygen, transition to high flow when able -Decadron 4 mg by mouth daily for 1 week, then plan to decrease to 2 mg daily -Repeat labs every 2 days -Prone ventilation as able -Continue vitamin supplementation -Continue enoxaparin 40 mg daily -Remdesivir x5 days complete -Baricitinib x14 days complete ARDS-2/2 COVID-19 infection. -Management as above BPH WITH BLADDER OUTLET OBSTRUCTION-slowly better but not resolved. -Doxazosin 8 mg p.o. nightly Pruritic rash-resolved MAINTENANCE ISSUES -DVT prophylaxis; therapeutic enoxaparin dosing -GI prophylaxis; not indicated -Holt catheter; not indicated -Nutrition; regular diet DISPOSITION-anticipate discharge to home after the hospital stay. Hopefully we can wean his supplemental oxygen over the next several days and have him ready for discharge home. I would anticipate he will need home oxygen.
[2021-10-13] MEDS: Doxazosin 4 MG Tab PO SCH (20:52)
[2021-10-14] MEDS: guaiFENesin/Dextromethorphan 100-10 MG/5 ML Soln 10 ML Cup PO PRN ×2 (01:48→22:58)
[2021-10-14] MEDS: OMEPRAZOLE 20MG **PTOM PO SCH ×2 (08:03→17:44)
[2021-10-14] MEDS: ESTER C 1000 MG PO SCH (08:04)
[2021-10-14] MEDS: ZINC 50 MG PO SCH (08:04)
[2021-10-14] MEDS: VIT D3 5000 UNIT PO SCH (08:05)
[2021-10-14] MEDS: Enoxaparin 40 MG/0.4 ML Syringe SUBCUT SCH (08:05)
[2021-10-14] MEDS: Lactobacillus Rhamnosus GG (Probiotic) Cap PO SCH ×2 (08:06→20:24)
[2021-10-14] MEDS: Multivitamins with Iron/Calcium/Folic Acid/Minerals Tab PO SCH (08:06)
[2021-10-14] MEDS: Metoprolol Succinate 25 MG Tab.ER PO SCH (08:07)
[2021-10-14] MEDS: Mometasone Furoate Nasal Spray 17 GM Canister NAS SCH ×2 (08:09→20:24)
[2021-10-14] MEDS: Nystatin Crm 30 GM Tube TOP SCH ×3 (08:09→20:28)
--- NOTE | 2021-10-14 13:57 | PCM.PN ---
- General Info Date of Service: 10/14/21 Subjective Update: Mr. Chan has been stable since yesterday. Level of supplemental oxygen remains relatively high and essentially unchanged from yesterday. Subjectively he feels much improved with slowly improving strength and good appetite. He is able to do more physically and does seem to recover more quickly following activity. Functional Status: Reports: Tolerating Diet, Urinating. Denies: Ambulating - Review of Systems General: Reports: Weakness, Fatigue. Denies: Fever, Chills Pulmonary: Reports: Shortness of Breath, Cough. Denies: Pleuritic Chest Pain, Sputum, Hemoptysis, Wheezing Cardiovascular: Reports: Dyspnea on Exertion. Denies: Chest Pain, Palpitations, Orthopnea, PND, Edema, Lightheadedness Gastrointestinal: Reports: No Symptoms Genitourinary: Reports: No Symptoms - Patient Data Vitals - Most Recent: Last Vital Signs Temp 97.0 F 10/14/21 11:16 Pulse 72 10/14/21 08:07 Resp 16 10/14/21 11:16 BP 109/65 10/14/21 11:16 Pulse Ox 96 10/14/21 11:16 Weight - Most Recent: 174 lb I&O - Last 24 Hours: Intake & Output 10/13/21 10/14/21 10/14/21 22:59 06:59 14:59 Intake Total 500 700 450 Output Total 800 1300 250 Balance -300 -600 200 Lab Results Last 24 Hours: Laboratory Results - last 24 hr 10/14/21 10/14/21 10/14/21 Range/Units 04:50 04:50 04:50 D-Dimer, Quantitative 559.60 H (0.0-500.0) ng/mL Sodium 139 L (140-148) mmol/L Potassium 4.2 (3.6-5.2) mmol/L Chloride 100 (100-108) mmol/L Carbon Dioxide 30 (21-32) mmol/L Anion Gap 13.2 (5.0-14.0) mmol/L BUN 18 (7-18) mg/dL Creatinine 0.7 L (0.8-1.3) mg/dL Est Cr Clr Drug Dosing 97.71 mL/min Estimated GFR (MDRD) > 60 (>60) Glucose 106 (74-106) mg/dL Calcium 8.7 (8.5-10.1) mg/dL Total Bilirubin 0.4 (0.2-1.0) mg/dL AST 18 (15-37) U/L ALT 49 (12-78) U/L Alkaline Phosphatase 74 (46-116) U/L C-Reactive Protein 2.22 H (0.0-0.3) mg/dL Total Protein 6.3 L (6.4-8.2) g/dL Albumin 2.5 L (3.4-5.0) g/dL Globulin 3.8 H (2.3-3.5) g/dL Albumin/Globulin Ratio 0.7 L (1.2-2.2) Med Orders - Current: Current Medications Acetaminophen (Acetaminophen 325 Mg Tab) 650 mg PO Q4H PRN PRN Reason: Pain (Mild 1-3)/fever Last Admin: 10/07/21 13:54 Dose: 650 mg Documented by: Al Hydroxide/Mg Hydroxide (Aluminum Hydroxide/Magnesium Hydroxide/Simethicone Susp 30 Ml Cup) 30 ml PO Q4H PRN PRN Reason: Dyspepsia Last Admin: 09/24/21 18:40 Dose: 30 ml Documented by: Albuterol (Albuterol 8 Gm Inhaler) 0 gm INH QID PRN PRN Reason: Shortness of Breath Benzonatate (Benzonatate 100 Mg Cap) 100 mg PO Q8H PRN PRN Reason: Cough Last Admin: 10/02/21 14:06 Dose: 100 mg Documented by: Calcium Carbonate/Glycine (Calcium Carbonate 500 Mg Tab.Chew) 500 mg PO Q2H PRN PRN Reason: Indigestion Last Admin: 10/10/21 15:07 Dose: 500 mg Documented by: Dexamethasone (Dexamethasone 2 Mg Tab) 4 mg PO Q24H [facility] Last Admin: 10/13/21 13:31 Dose: 4 mg Documented by: Diphenhydramine HCl (Diphenhydramine 25 Mg Cap) 25 mg PO Q4H PRN PRN Reason: Itching Last Admin: 10/07/21 21:55 Dose: 25 mg Documented by: Doxazosin Mesylate (Doxazosin 4 Mg Tab) 8 mg PO BEDTIME [facility] Last Admin: 10/13/21 20:52 Dose: 8 mg Documented by: Enoxaparin Sodium (Enoxaparin 40 Mg/0.4 Ml Syringe) 40 mg SUBCUT DAILY [facility] Last Admin: 10/14/21 08:05 Dose: 40 mg Documented by: Guaifenesin/Dextromethorphan (Guaifenesin/Dextromethorphan 100-10 Mg/5 Ml Soln 10 Ml Cup) 10 ml PO Q4H PRN PRN Reason: Cough Last Admin: 10/14/21 01:48 Dose: 10 ml Documented by: Lactobacillus Rhamnosus (Lactobacillus Rhamnosus Gg (Probiotic) Cap) 1 cap PO BID [facility] Last Admin: 10/14/21 08:06 Dose: 1 cap Documented by: Melatonin (Melatonin 3 Mg Tab) 9 mg PO BEDTIME PRN PRN Reason: Sleep Last Admin: 10/11/21 23:08 Dose: 9 mg Documented by: Metoprolol Succinate (Metoprolol Succinate 25 Mg Tab.Er) 25 mg PO DAILY [facility] Last Admin: 10/14/21 08:07 Dose: 25 mg Documented by: Mometasone Furoate (Mometasone Furoate Nasal [place] 17 Gm Canister) 0 gm PANFILO BID [facility] Last Admin: 10/14/21 08:09 Dose: Not Given Documented by: Multivitamins/Minerals (Multivitamins With Iron/Calcium/Folic Acid/Minerals Tab) 1 tab PO DAILY [facility] Last Admin: 10/14/21 08:06 Dose: 1 tab Documented by: Nystatin (Nystatin Crm 30 Gm Tube) 0 gm TOP TID [facility] Last Admin: 10/14/21 08:09 Dose: Not Given Documented by: Ondansetron HCl (Ondansetron 4 Mg/2 Ml Sdv) 4 mg IV Q4H PRN PRN Reason: Nausea/Vomiting Omeprazole 20mg (Ptom) 0 each PO BIDAC [facility] Last Admin: 10/14/21 08:03 Dose: 20 each Documented by: Vivi C 1,000mg Cap ((Ptom)) 1 each PO DAILY [facility] Last Admin: 10/14/21 08:04 Dose: 1 each Documented by: Vit D-3 5,000 Unit (Cap (Ptom)) 1 each PO DAILY [facility] Last Admin: 10/14/21 08:05 Dose: 1 each Documented by: Polyethylene Glycol (Polyethylene Glycol 3350 Powder 17 Gm Packet) 17 gm PO DAILY PRN PRN Reason: Constipation Senna/Docusate Sodium (Docusate Sodium/Sennosides 50-8.6 Mg Tab) 1 tab PO Q12H PRN PRN Reason: Constipation Last Admin: 10/02/21 14:06 Dose: 1 tab Documented by: Sodium Chloride (Sodium Chloride 0.9% 10 Ml Syringe) 10 ml FLUSH ASDIRECTED PRN PRN Reason: Keep Vein Open Tramadol HCl (Tramadol 50 Mg Tab) 50 mg PO Q6H PRN PRN Reason: back pain Last Admin: 09/28/21 09:40 Dose: 50 mg Documented by: Zinc Gluconate (Zinc (Zinc Gluconate) 50 Mg Cap (Ptom)) 50 mg PO DAILY [facility] Last Admin: 10/14/21 08:04 Dose: 50 mg Documented by: Discontinued Medications Acetaminophen (Acetaminophen 325 Mg Tab) 650 mg PO Q4H PRN PRN Reason: Fever Greater Than 101 Ascorbic Acid (Ascorbic Acid 500 Mg Tab) 500 mg PO DAILY [facility] Last Admin: 10/06/21 17:04 Dose: Not Given Documented by: Ascorbic Acid (Ascorbic Acid 500 Mg Tab) 1,000 mg PO DAILY [facility] Last Admin: 10/06/21 13:51 Dose: 1,000 mg Documented by: Baricitinib (Baricitinib 2 Mg Tab) 4 mg PO Q24H [facility] Stop: 10/02/21 16:01 Last Admin: 10/02/21 15:29 Dose: 4 mg Documented by: Cholecalciferol (Cholecalciferol (Vitamin D3) 25 Mcg Tab) 25 mcg PO DAILY [facility] Last Admin: 10/06/21 17:05 Dose: Not Given Documented by: Cholecalciferol (Cholecalciferol (Vitamin D3) 25 Mcg Tab) 125 mcg PO DAILY [facility] Last Admin: 10/06/21 13:51 Dose: 125 mcg Documented by: Dexamethasone (Dexamethasone 4 Mg/Ml Sdv) 6 mg IVPUSH DAILY [facility] Stop: 09/27/21 09:01 Last Admin: 09/19/21 02:25 Dose: 6 mg Documented by: Dexamethasone (Dexamethasone 4 Mg/Ml Sdv) Confirm Administered Dose 8 mg .ROUTE .STK-MED ONE Stop: 09/19/21 02:17 Last Admin: 09/19/21 04:22 Dose: Not Given Documented by: Dexamethasone (Dexamethasone 4 Mg/Ml Sdv) 6 mg IVPUSH Q24H [facility] Stop: 09/27/21 18:01 Last Admin: 09/27/21 17:22 Dose: 6 mg Documented by: Dexamethasone (Dexamethasone 2 Mg Tab) 4 mg PO Q24H [facility] Stop: 10/01/21 18:01 Last Admin: 09/30/21 17:19 Dose: 4 mg Documented by: Dexamethasone (Dexamethasone 4 Mg/Ml Sdv) 6 mg IVPUSH Q24H [facility] Last Admin: 10/08/21 14:27 Dose: Not Given Documented by: Dexamethasone (Dexamethasone 2 Mg Tab) 6 mg PO Q24H [facility] Last Admin: 10/11/21 15:43 Dose: 6 mg Documented by: Doxazosin Mesylate (Doxazosin 4 Mg Tab) 4 mg PO BEDTIME [facility] Last Admin: 09/29/21 20:51 Dose: 4 mg Documented by: Enoxaparin Sodium (Enoxaparin 40 Mg/0.4 Ml Syringe) 40 mg SUBCUT DAILY [facility] Last Admin: 09/19/21 17:22 Dose: 40 mg Documented by: Enoxaparin Sodium (Enoxaparin 40 Mg/0.4 Ml Syringe) 40 mg SUBCUT Q24H [facility] Last Admin: 09/25/21 15:58 Dose: 40 mg Documented by: Enoxaparin Sodium (Enoxaparin 80 Mg/0.8 Ml Syringe) 80 mg SUBCUT Q12H [facility] Last Admin: 10/07/21 21:50 Dose: 80 mg Documented by: Enoxaparin Sodium (Enoxaparin 40 Mg/0.4 Ml Syringe) 40 mg SUBCUT Q12H [facility] Last Admin: 10/10/21 08:17 Dose: 40 mg Documented by: Finasteride (Finasteride 5 Mg Tab) 5 mg PO BEDTIME [facility] Last Admin: 10/06/21 21:18 Dose: 5 mg Documented by: Furosemide (Furosemide 20 Mg/2 Ml Vial) 20 mg IVPUSH ONETIME ONE Stop: 09/25/21 09:01 Last Admin: 09/25/21 10:17 Dose: 20 mg Documented by: Hydrocortisone (Hydrocortisone 1% Crm 30 Gm Tube) 0 gm TOP BID [facility] Last Admin: 10/07/21 10:52 Dose: 1 applic Documented by: Remdesivir 200 mg/ Sodium (Chloride) 250 mls @ 250 mls/hr IV ONETIME ONE Stop: 09/19/21 01:27 Last Admin: 09/19/21 02:24 Dose: 250 mls/hr Documented by: Remdesivir (Remdesivir) Confirm Administered Dose 200 mls @ as directed .ROUTE .STK-MED ONE Stop: 09/19/21 01:47 Last Admin: 09/19/21 04:22 Dose: Not Given Documented by: Ceftriaxone Sodium 1 gm/ (Sodium Chloride) 50 mls @ 100 mls/hr IV Q24H [facility] Stop: 09/25/21 20:00 Last Admin: 09/25/21 15:06 Dose: 100 mls/hr Documented by: Doxycycline Hyclate 100 mg/ (Sodium Chloride) 100 mls @ 100 mls/hr IV Q12H [facility] Stop: 09/25/21 20:00 Last Admin: 09/25/21 15:54 Dose: 100 mls/hr Documented by: Remdesivir 100 mg/ Sodium (Chloride) 100 mls @ 100 mls/hr IV Q24H [facility] Stop: 09/22/21 20:59 Last Admin: 09/22/21 20:15 Dose: 100 mls/hr Documented by: Non-Formulary Medication (Omeprazole Magnesium [Prilosec Otc]) 20 mg PO DAILY [facility] Pantoprazole Sodium (Pantoprazole 40 Mg Tab.Cr) 40 mg PO ACBREAKFAST [facility] Last Admin: 09/23/21 07:52 Dose: 40 mg Documented by: Omeprazole 20mg 0 each PO ACBREAKFAST [facility] Omeprazole 20mg 0 each PO ACBREAKFAST [facility] Last Admin: 09/24/21 06:45 Dose: 1 each Documented by: Zinc Gluconate (Zinc (Zinc Gluconate) 50 Mg Tab) 50 mg PO DAILY [facility] Last Admin: 10/05/21 08:40 Dose: 50 mg Documented by: - Exam Quality Assessment: Supplemental Oxygen, DVT Prophylaxis General: Alert, Oriented, Cooperative, Mild Distress Lungs: Normal Respiratory Effort, Crackles. No: Rales, Rhonchi, Wheezing Cardiovascular: Regular Rate, Regular Rhythm, No Murmurs GI/Abdominal Exam: Soft, Non-Tender, No Organomegaly, No Distention Extremities: Non-Tender, No Pedal Edema - Patient Data Lab Results Last 24 hrs: Laboratory Results - last 24 hr 10/14/21 10/14/21 10/14/21 Range/Units 04:50 04:50 04:50 D-Dimer, Quantitative 559.60 H (0.0-500.0) ng/mL Sodium 139 L (140-148) mmol/L Potassium 4.2 (3.6-5.2) mmol/L Chloride 100 (100-108) mmol/L Carbon Dioxide 30 (21-32) mmol/L Anion Gap 13.2 (5.0-14.0) mmol/L BUN 18 (7-18) mg/dL Creatinine 0.7 L (0.8-1.3) mg/dL Est Cr Clr Drug Dosing 97.71 mL/min Estimated GFR (MDRD) > 60 (>60) Glucose 106 (74-106) mg/dL Calcium 8.7 (8.5-10.1) mg/dL Total Bilirubin 0.4 (0.2-1.0) mg/dL AST 18 (15-37) U/L ALT 49 (12-78) U/L Alkaline Phosphatase 74 (46-116) U/L C-Reactive Protein 2.22 H (0.0-0.3) mg/dL Total Protein 6.3 L (6.4-8.2) g/dL Albumin 2.5 L (3.4-5.0) g/dL Globulin 3.8 H (2.3-3.5) g/dL Albumin/Globulin Ratio 0.7 L (1.2-2.2) Result Diagrams: 10/10/21 05:35 10/14/21 04:50 Sepsis Event Note - Evaluation Sepsis Screening Result: No Definite Risk - Focused Exam Vital Signs: Vital Signs Temp Pulse Pulse Resp BP BP Pulse Ox 10/14/21 11:16 97.0 F 16 109/65 96 10/14/21 08:07 72 115/71 10/14/21 07:56 96.5 F L 72 18 115/71 99 10/14/21 06:49 96.4 F L 84 22 H 115/76 91 L - Problem List Review Problem List Initiated/Reviewed/Updated: Yes - Plan Plan:: ASSESSMENT AND PLAN - COVID-19 INFECTION WITH BILATERAL PNEUMONIA-complicated by acute respiratory failure with hypoxia. Slowly improving with improved strength -Continue high flow humidified oxygen, transition to high flow when able -Decadron 4 mg by mouth daily for 1 week, then plan to decrease to 2 mg daily -Repeat labs every 2 days -Prone ventilation as able -Continue vitamin supplementation -Continue enoxaparin 40 mg daily -Remdesivir x5 days complete -Baricitinib x14 days complete ARDS-2/2 COVID-19 infection. -Management as above BPH WITH BLADDER OUTLET OBSTRUCTION-slowly better but not resolved. -Doxazosin 8 mg p.o. nightly Pruritic rash-resolved MAINTENANCE ISSUES -DVT prophylaxis; therapeutic enoxaparin dosing -GI prophylaxis; not indicated -Holt catheter; not indicated -Nutrition; regular diet DISPOSITION-anticipate discharge to home after the hospital stay. Hopefully we can wean his supplemental oxygen over the next several days and have him ready for discharge home. I would anticipate he will need home oxygen.
[2021-10-14] MEDS: Dexamethasone 2 MG Tab PO SCH (14:46)
[2021-10-14] MEDS: Acetaminophen 325 MG Tab PO PRN (14:46)
[2021-10-14] MEDS: Doxazosin 4 MG Tab PO SCH (20:25)
[2021-10-15] MEDS: Acetaminophen 325 MG Tab PO PRN ×2 (05:25→16:12)
[2021-10-15] MEDS: VIT D3 5000 UNIT PO SCH (09:10)
[2021-10-15] MEDS: ESTER C 1000 MG PO SCH (09:11)
[2021-10-15] MEDS: Enoxaparin 40 MG/0.4 ML Syringe SUBCUT SCH (09:11)
[2021-10-15] MEDS: ZINC 50 MG PO SCH (09:11)
[2021-10-15] MEDS: OMEPRAZOLE 20MG **PTOM PO SCH ×2 (09:12→16:50)
[2021-10-15] MEDS: Lactobacillus Rhamnosus GG (Probiotic) Cap PO SCH ×2 (09:12→21:16)
[2021-10-15] MEDS: Mometasone Furoate Nasal Spray 17 GM Canister NAS SCH ×2 (09:13→21:17)
[2021-10-15] MEDS: Nystatin Crm 30 GM Tube TOP SCH ×3 (09:13→21:18)
[2021-10-15] MEDS: Multivitamins with Iron/Calcium/Folic Acid/Minerals Tab PO SCH (09:13)
[2021-10-15] MEDS: Metoprolol Succinate 25 MG Tab.ER PO SCH (09:14)
--- NOTE | 2021-10-15 13:12 | PCM.PN ---
- General Info Date of Service: 10/15/21 Subjective Update: Mr. Chan has been stable since yesterday and is tolerating decreased level of supplemental oxygen. Appetite and strength are improving on a daily basis. Functional Status: Reports: Tolerating Diet, Urinating. Denies: Ambulating - Review of Systems General: Reports: Weakness, Fatigue. Denies: Fever, Chills Pulmonary: Reports: Shortness of Breath, Cough. Denies: Pleuritic Chest Pain, Sputum, Hemoptysis, Wheezing Cardiovascular: Reports: Dyspnea on Exertion. Denies: Chest Pain, Palpitations, Orthopnea, PND, Edema, Lightheadedness Gastrointestinal: Reports: No Symptoms Genitourinary: Reports: No Symptoms - Patient Data Vitals - Most Recent: Last Vital Signs Temp 95.8 F L 10/15/21 11:43 Pulse 82 10/15/21 11:43 Resp 18 10/15/21 11:43 BP 107/60 10/15/21 11:43 Pulse Ox 92 L 10/15/21 11:43 Weight - Most Recent: 174 lb I&O - Last 24 Hours: Intake & Output 10/14/21 10/15/21 10/15/21 22:59 06:59 14:59 Intake Total 1000 Output Total 600 950 Balance 400 -950 Med Orders - Current: Current Medications Acetaminophen (Acetaminophen 325 Mg Tab) 650 mg PO Q4H PRN PRN Reason: Pain (Mild 1-3)/fever Last Admin: 10/15/21 05:25 Dose: 650 mg Documented by: Al Hydroxide/Mg Hydroxide (Aluminum Hydroxide/Magnesium Hydroxide/Simethicone Susp 30 Ml Cup) 30 ml PO Q4H PRN PRN Reason: Dyspepsia Last Admin: 09/24/21 18:40 Dose: 30 ml Documented by: Albuterol (Albuterol 8 Gm Inhaler) 0 gm INH QID PRN PRN Reason: Shortness of Breath Benzonatate (Benzonatate 100 Mg Cap) 100 mg PO Q8H PRN PRN Reason: Cough Last Admin: 10/02/21 14:06 Dose: 100 mg Documented by: Calcium Carbonate/Glycine (Calcium Carbonate 500 Mg Tab.Chew) 500 mg PO Q2H PRN PRN Reason: Indigestion Last Admin: 10/10/21 15:07 Dose: 500 mg Documented by: Dexamethasone (Dexamethasone 2 Mg Tab) 4 mg PO Q24H [facility] Last Admin: 10/14/21 14:46 Dose: 4 mg Documented by: Diphenhydramine HCl (Diphenhydramine 25 Mg Cap) 25 mg PO Q4H PRN PRN Reason: Itching Last Admin: 10/07/21 21:55 Dose: 25 mg Documented by: Doxazosin Mesylate (Doxazosin 4 Mg Tab) 8 mg PO BEDTIME [facility] Last Admin: 10/14/21 20:25 Dose: 8 mg Documented by: Enoxaparin Sodium (Enoxaparin 40 Mg/0.4 Ml Syringe) 40 mg SUBCUT DAILY [facility] Last Admin: 10/15/21 09:11 Dose: 40 mg Documented by: Guaifenesin/Dextromethorphan (Guaifenesin/Dextromethorphan 100-10 Mg/5 Ml Soln 1 0 Ml Cup) 10 ml PO Q4H PRN PRN Reason: Cough Last Admin: 10/14/21 22:58 Dose: 10 ml Documented by: Lactobacillus Rhamnosus (Lactobacillus Rhamnosus Gg (Probiotic) Cap) 1 cap PO BID [facility] Last Admin: 10/15/21 09:12 Dose: 1 cap Documented by: Melatonin (Melatonin 3 Mg Tab) 9 mg PO BEDTIME PRN PRN Reason: Sleep Last Admin: 10/11/21 23:08 Dose: 9 mg Documented by: Metoprolol Succinate (Metoprolol Succinate 25 Mg Tab.Er) 25 mg PO DAILY [facility] Last Admin: 10/15/21 09:14 Dose: 25 mg Documented by: Mometasone Furoate (Mometasone Furoate Nasal [place] 17 Gm Canister) 0 gm PANFILO BID [facility] Last Admin: 10/15/21 09:13 Dose: Not Given Documented by: Multivitamins/Minerals (Multivitamins With Iron/Calcium/Folic Acid/Minerals Tab) 1 tab PO DAILY [facility] Last Admin: 10/15/21 09:13 Dose: 1 tab Documented by: Nystatin (Nystatin Crm 30 Gm Tube) 0 gm TOP TID [facility] Last Admin: 10/15/21 09:13 Dose: Not Given Documented by: Ondansetron HCl (Ondansetron 4 Mg/2 Ml Sdv) 4 mg IV Q4H PRN PRN Reason: Nausea/Vomiting Omeprazole 20mg (Ptom) 0 each PO BIDAC [facility] Last Admin: 10/15/21 09:12 Dose: 1 each Documented by: Vivi C 1,000mg Cap ((Ptom)) 1 each PO DAILY [facility] Last Admin: 10/15/21 09:11 Dose: 1 each Documented by: Vit D-3 5,000 Unit (Cap (Ptom)) 1 each PO DAILY [facility] Last Admin: 10/15/21 09:10 Dose: 1 each Documented by: Polyethylene Glycol (Polyethylene Glycol 3350 Powder 17 Gm Packet) 17 gm PO DAILY PRN PRN Reason: Constipation Senna/Docusate Sodium (Docusate Sodium/Sennosides 50-8.6 Mg Tab) 1 tab PO Q12H PRN PRN Reason: Constipation Last Admin: 10/02/21 14:06 Dose: 1 tab Documented by: Sodium Chloride (Sodium Chloride 0.9% 10 Ml Syringe) 10 ml FLUSH ASDIRECTED PRN PRN Reason: Keep Vein Open Tramadol HCl (Tramadol 50 Mg Tab) 50 mg PO Q6H PRN PRN Reason: back pain Last Admin: 09/28/21 09:40 Dose: 50 mg Documented by: Zinc Gluconate (Zinc (Zinc Gluconate) 50 Mg Cap (Ptom)) 50 mg PO DAILY [facility] Last Admin: 10/15/21 09:11 Dose: 50 mg Documented by: Discontinued Medications Acetaminophen (Acetaminophen 325 Mg Tab) 650 mg PO Q4H PRN PRN Reason: Fever Greater Than 101 Ascorbic Acid (Ascorbic Acid 500 Mg Tab) 500 mg PO DAILY [facility] Last Admin: 10/06/21 17:04 Dose: Not Given Documented by: Ascorbic Acid (Ascorbic Acid 500 Mg Tab) 1,000 mg PO DAILY [facility] Last Admin: 10/06/21 13:51 Dose: 1,000 mg Documented by: Baricitinib (Baricitinib 2 Mg Tab) 4 mg PO Q24H [facility] Stop: 10/02/21 16:01 Last Admin: 10/02/21 15:29 Dose: 4 mg Documented by: Cholecalciferol (Cholecalciferol (Vitamin D3) 25 Mcg Tab) 25 mcg PO DAILY [facility] Last Admin: 10/06/21 17:05 Dose: Not Given Documented by: Cholecalciferol (Cholecalciferol (Vitamin D3) 25 Mcg Tab) 125 mcg PO DAILY [facility] Last Admin: 10/06/21 13:51 Dose: 125 mcg Documented by: Dexamethasone (Dexamethasone 4 Mg/Ml Sdv) 6 mg IVPUSH DAILY [facility] Stop: 09/27/21 09:01 Last Admin: 09/19/21 02:25 Dose: 6 mg Documented by: Dexamethasone (Dexamethasone 4 Mg/Ml Sdv) Confirm Administered Dose 8 mg .ROUTE .STK-MED ONE Stop: 09/19/21 02:17 Last Admin: 09/19/21 04:22 Dose: Not Given Documented by: Dexamethasone (Dexamethasone 4 Mg/Ml Sdv) 6 mg IVPUSH Q24H [facility] Stop: 09/27/21 18:01 Last Admin: 09/27/21 17:22 Dose: 6 mg Documented by: Dexamethasone (Dexamethasone 2 Mg Tab) 4 mg PO Q24H [facility] Stop: 10/01/21 18:01 Last Admin: 09/30/21 17:19 Dose: 4 mg Documented by: Dexamethasone (Dexamethasone 4 Mg/Ml Sdv) 6 mg IVPUSH Q24H [facility] Last Admin: 10/08/21 14:27 Dose: Not Given Documented by: Dexamethasone (Dexamethasone 2 Mg Tab) 6 mg PO Q24H [facility] Last Admin: 10/11/21 15:43 Dose: 6 mg Documented by: Doxazosin Mesylate (Doxazosin 4 Mg Tab) 4 mg PO BEDTIME [facility] Last Admin: 09/29/21 20:51 Dose: 4 mg Documented by: Enoxaparin Sodium (Enoxaparin 40 Mg/0.4 Ml Syringe) 40 mg SUBCUT DAILY [facility] Last Admin: 09/19/21 17:22 Dose: 40 mg Documented by: Enoxaparin Sodium (Enoxaparin 40 Mg/0.4 Ml Syringe) 40 mg SUBCUT Q24H [facility] Last Admin: 09/25/21 15:58 Dose: 40 mg Documented by: Enoxaparin Sodium (Enoxaparin 80 Mg/0.8 Ml Syringe) 80 mg SUBCUT Q12H [facility] Last Admin: 10/07/21 21:50 Dose: 80 mg Documented by: Enoxaparin Sodium (Enoxaparin 40 Mg/0.4 Ml Syringe) 40 mg SUBCUT Q12H [facility] Last Admin: 10/10/21 08:17 Dose: 40 mg Documented by: Finasteride (Finasteride 5 Mg Tab) 5 mg PO BEDTIME [facility] Last Admin: 11/16/21 21:18 Dose: 5 mg Documented by: Furosemide (Furosemide 20 Mg/2 Ml Vial) 20 mg IVPUSH ONETIME ONE Stop: 09/25/21 09:01 Last Admin: 09/25/21 10:17 Dose: 20 mg Documented by: Hydrocortisone (Hydrocortisone 1% Crm 30 Gm Tube) 0 gm TOP BID [facility] Last Admin: 10/07/21 10:52 Dose: 1 applic Documented by: Remdesivir 200 mg/ Sodium (Chloride) 250 mls @ 250 mls/hr IV ONETIME ONE Stop: 09/19/21 01:27 Last Admin: 09/19/21 02:24 Dose: 250 mls/hr Documented by: Remdesivir (Remdesivir) Confirm Administered Dose 200 mls @ as directed .ROUTE .STK-MED ONE Stop: 09/19/21 01:47 Last Admin: 09/19/21 04:22 Dose: Not Given Documented by: Ceftriaxone Sodium 1 gm/ (Sodium Chloride) 50 mls @ 100 mls/hr IV Q24H [facility] Stop: 09/25/21 20:00 Last Admin: 09/25/21 15:06 Dose: 100 mls/hr Documented by: Doxycycline Hyclate 100 mg/ (Sodium Chloride) 100 mls @ 100 mls/hr IV Q12H [facility] Stop: 09/25/21 20:00 Last Admin: 09/25/21 15:54 Dose: 100 mls/hr Documented by: Remdesivir 100 mg/ Sodium (Chloride) 100 mls @ 100 mls/hr IV Q24H [facility] Stop: 09/22/21 20:59 Last Admin: 09/22/21 20:15 Dose: 100 mls/hr Documented by: Non-Formulary Medication (Omeprazole Magnesium [Prilosec Otc]) 20 mg PO DAILY [facility] Pantoprazole Sodium (Pantoprazole 40 Mg Tab.Cr) 40 mg PO ACBREAKFAST [facility] Last Admin: 09/23/21 07:52 Dose: 40 mg Documented by: Omeprazole 20mg 0 each PO ACBREAKFAST [facility] Omeprazole 20mg 0 each PO ACBREAKFAST [facility] Last Admin: 09/24/21 06:45 Dose: 1 each Documented by: Zinc Gluconate (Zinc (Zinc Gluconate) 50 Mg Tab) 50 mg PO DAILY [facility] Last Admin: 10/05/21 08:40 Dose: 50 mg Documented by: - Exam Quality Assessment: Supplemental Oxygen, DVT Prophylaxis General: Alert, Oriented, Cooperative, Mild Distress Lungs: Crackles. No: Rales, Rhonchi, Wheezing Cardiovascular: Regular Rate, Regular Rhythm, No Murmurs GI/Abdominal Exam: Soft, Non-Tender, No Organomegaly, No Distention Extremities: Non-Tender, No Pedal Edema - Patient Data Result Diagrams: 10/10/21 05:35 10/14/21 04:50 Sepsis Event Note - Evaluation Sepsis Screening Result: No Definite Risk - Focused Exam Vital Signs: Vital Signs Temp Pulse Pulse Resp BP BP Pulse Ox 10/15/21 11:43 95.8 F L 82 18 107/60 92 L 10/15/21 09:14 73 107/82 10/15/21 09:07 96.0 F L 73 18 107/82 99 10/15/21 02:51 97.4 F 71 20 115/64 95 - Problem List Review Problem List Initiated/Reviewed/Updated: Yes - My Orders Last 24 Hours: My Active Orders 10/16/21 05:00 BASIC METABOLIC PANEL,BMP [CHEM] Timed 10/16/21 05:11 CRP [C-REACTIVE PROTEIN] [CHEM] AM D Dimer [D-DIMER QUANTITATIVE] [COAG] AM - Plan Plan:: ASSESSMENT AND PLAN - COVID-19 INFECTION WITH BILATERAL PNEUMONIA-complicated by acute respiratory failure with hypoxia. Slowly improving, tolerating decreased level of supplemental oxygen -Continue high flow humidified oxygen, transition to high flow when able -Decadron 4 mg by mouth daily for 1 week, then plan to decrease to 2 mg daily -Repeat labs every 2 days -Prone ventilation as able -Continue vitamin supplementation -Continue enoxaparin 40 mg daily -Remdesivir x5 days complete -Baricitinib x14 days complete ARDS-2/2 COVID-19 infection. -Management as above BPH WITH BLADDER OUTLET OBSTRUCTION-slowly better but not resolved. -Doxazosin 8 mg p.o. nightly Pruritic rash-resolved MAINTENANCE ISSUES -DVT prophylaxis; therapeutic enoxaparin dosing -GI prophylaxis; not indicated -Holt catheter; not indicated -Nutrition; regular diet DISPOSITION-anticipate discharge to home after the hospital stay. Hopefully we can wean his supplemental oxygen over the next several days and have him ready for discharge home. I would anticipate he will need home oxygen.
[2021-10-15] MEDS: Dexamethasone 2 MG Tab PO SCH (14:19)
[2021-10-15] MEDS: Doxazosin 4 MG Tab PO SCH (21:16)
[2021-10-15] MEDS: guaiFENesin/Dextromethorphan 100-10 MG/5 ML Soln 10 ML Cup PO PRN (21:18)
[2021-10-16] MEDS: OMEPRAZOLE 20MG **PTOM PO SCH ×2 (07:56→18:07)
[2021-10-16] MEDS: Metoprolol Succinate 25 MG Tab.ER PO SCH (09:56)
[2021-10-16] MEDS: ESTER C 1000 MG PO SCH (09:56)
[2021-10-16] MEDS: VIT D3 5000 UNIT PO SCH (09:56)
[2021-10-16] MEDS: Multivitamins with Iron/Calcium/Folic Acid/Minerals Tab PO SCH (09:56)
[2021-10-16] MEDS: ZINC 50 MG PO SCH (09:57)
[2021-10-16] MEDS: Enoxaparin 40 MG/0.4 ML Syringe SUBCUT SCH (09:57)
[2021-10-16] MEDS: Lactobacillus Rhamnosus GG (Probiotic) Cap PO SCH ×2 (09:57→21:43)
[2021-10-16] MEDS: Acetaminophen 325 MG Tab PO PRN (09:58)
[2021-10-16] MEDS: Mometasone Furoate Nasal Spray 17 GM Canister NAS SCH ×2 (10:24→21:43)
[2021-10-16] MEDS: Nystatin Crm 30 GM Tube TOP SCH ×3 (10:24→21:43)
--- NOTE | 2021-10-16 12:25 | PCM.PN ---
- General Info Date of Service: 10/16/21 Subjective Update: Mr. Chan has remained stable since yesterday. Oxygen saturations remain good on current level of supplemental oxygen. He is willing to try a switch from the hig h flow humidified oxygen to high flow nasal cannula today. Strength has been improving on a daily basis and he reports less shortness of breath. Functional Status: Reports: Tolerating Diet, Urinating - Review of Systems General: Reports: Weakness, Fatigue. Denies: Fever, Chills Pulmonary: Reports: Shortness of Breath, Cough. Denies: Pleuritic Chest Pain, Sputum, Hemoptysis, Wheezing Cardiovascular: Reports: Dyspnea on Exertion. Denies: Chest Pain, Palpitations, Orthopnea, PND, Edema, Lightheadedness Gastrointestinal: Reports: No Symptoms Genitourinary: Reports: No Symptoms - Patient Data Vitals - Most Recent: Last Vital Signs Temp 95.0 F L 10/16/21 08:00 Pulse 80 10/16/21 09:56 Resp 20 10/16/21 08:00 BP 137/78 10/16/21 09:56 Pulse Ox 96 10/16/21 08:00 Weight - Most Recent: 174 lb I&O - Last 24 Hours: Intake & Output 10/15/21 10/16/21 10/16/21 22:59 06:59 14:59 Intake Total 1240 500 Output Total 825 2100 Balance 415 -1600 Lab Results Last 24 Hours: Laboratory Results - last 24 hr 10/16/21 10/16/21 10/16/21 Range/Units 05:00 05:00 05:00 D-Dimer, Quantitative 421.82 (0.0-500.0) ng/mL Sodium 137 L (140-148) mmol/L Potassium 4.4 (3.6-5.2) mmol/L Chloride 100 (100-108) mmol/L Carbon Dioxide 30 (21-32) mmol/L Anion Gap 11.4 (5.0-14.0) mmol/L BUN 21 H (7-18) mg/dL Creatinine 0.7 L (0.8-1.3) mg/dL Est Cr Clr Drug Dosing 97.71 mL/min Estimated GFR (MDRD) > 60 (>60) Glucose 106 (74-106) mg/dL Calcium 8.8 (8.5-10.1) mg/dL C-Reactive Protein 1.02 H (0.0-0.3) mg/dL Med Orders - Current: Current Medications Acetaminophen (Acetaminophen 325 Mg Tab) 650 mg PO Q4H PRN PRN Reason: Pain (Mild 1-3)/fever Last Admin: 10/16/21 09:58 Dose: 650 mg Documented by: Al Hydroxide/Mg Hydroxide (Aluminum Hydroxide/Magnesium Hydroxide/Simethicone Susp 30 Ml Cup) 30 ml PO Q4H PRN PRN Reason: Dyspepsia Last Admin: 09/24/21 18:40 Dose: 30 ml Documented by: Albuterol (Albuterol 8 Gm Inhaler) 0 gm INH QID PRN PRN Reason: Shortness of Breath Benzonatate (Benzonatate 100 Mg Cap) 100 mg PO Q8H PRN PRN Reason: Cough Last Admin: 10/02/21 14:06 Dose: 100 mg Documented by: Calcium Carbonate/Glycine (Calcium Carbonate 500 Mg Tab.Chew) 500 mg PO Q2H PRN PRN Reason: Indigestion Last Admin: 10/10/21 15:07 Dose: 500 mg Documented by: Dexamethasone (Dexamethasone 2 Mg Tab) 4 mg PO Q24H [facility] Last Admin: 10/15/21 14:19 Dose: 4 mg Documented by: Diphenhydramine HCl (Diphenhydramine 25 Mg Cap) 25 mg PO Q4H PRN PRN Reason: Itching Last Admin: 10/07/21 21:55 Dose: 25 mg Documented by: Doxazosin Mesylate (Doxazosin 4 Mg Tab) 8 mg PO BEDTIME [facility] Last Admin: 10/15/21 21:16 Dose: 8 mg Documented by: Enoxaparin Sodium (Enoxaparin 40 Mg/0.4 Ml Syringe) 40 mg SUBCUT DAILY [facility] Last Admin: 10/16/21 09:57 Dose: 40 mg Documented by: Guaifenesin/Dextromethorphan (Guaifenesin/Dextromethorphan 100-10 Mg/5 Ml Soln 10 Ml Cup) 10 ml PO Q4H PRN PRN Reason: Cough Last Admin: 10/15/21 21:18 Dose: 10 ml Documented by: Lactobacillus Rhamnosus (Lactobacillus Rhamnosus Gg (Probiotic) Cap) 1 cap PO BID [facility] Last Admin: 10/16/21 09:57 Dose: 1 cap Documented by: Melatonin (Melatonin 3 Mg Tab) 9 mg PO BEDTIME PRN PRN Reason: Sleep Last Admin: 10/11/21 23:08 Dose: 9 mg Documented by: Metoprolol Succinate (Metoprolol Succinate 25 Mg Tab.Er) 25 mg PO DAILY [facility] Last Admin: 10/16/21 09:56 Dose: 25 mg Documented by: Mometasone Furoate (Mometasone Furoate Nasal [place] 17 Gm Canister) 0 gm PANFILO BID [facility] Last Admin: 10/16/21 10:24 Dose: Not Given Documented by: Multivitamins/Minerals (Multivitamins With Iron/Calcium/Folic Acid/Minerals Tab) 1 tab PO DAILY [facility] Last Admin: 10/16/21 09:56 Dose: 1 tab Documented by: Nystatin (Nystatin Crm 30 Gm Tube) 0 gm TOP TID [facility] Last Admin: 10/16/21 10:24 Dose: Not Given Documented by: Ondansetron HCl (Ondansetron 4 Mg/2 Ml Sdv) 4 mg IV Q4H PRN PRN Reason: Nausea/Vomiting Omeprazole 20mg (Ptom) 0 each PO BIDAC [facility] Last Admin: 10/16/21 07:56 Dose: 1 each Documented by: Vivi C 1,000mg Cap ((Ptom)) 1 each PO DAILY [facility] Last Admin: 10/16/21 09:56 Dose: 1 each Documented by: Vit D-3 5,000 Unit (Cap (Ptom)) 1 each PO DAILY [facility] Last Admin: 10/16/21 09:56 Dose: 1 each Documented by: Polyethylene Glycol (Polyethylene Glycol 3350 Powder 17 Gm Packet) 17 gm PO DAILY PRN PRN Reason: Constipation Senna/Docusate Sodium (Docusate Sodium/Sennosides 50-8.6 Mg Tab) 1 tab PO Q12H PRN PRN Reason: Constipation Last Admin: 10/02/21 14:06 Dose: 1 tab Documented by: Sodium Chloride (Sodium Chloride 0.9% 10 Ml Syringe) 10 ml FLUSH ASDIRECTED PRN PRN Reason: Keep Vein Open Tramadol HCl (Tramadol 50 Mg Tab) 50 mg PO Q6H PRN PRN Reason: back pain Last Admin: 09/28/21 09:40 Dose: 50 mg Documented by: Zinc Gluconate (Zinc (Zinc Gluconate) 50 Mg Cap (Ptom)) 50 mg PO DAILY [facility] Last Admin: 10/16/21 09:57 Dose: 50 mg Documented by: Discontinued Medications Acetaminophen (Acetaminophen 325 Mg Tab) 650 mg PO Q4H PRN PRN Reason: Fever Greater Than 101 Ascorbic Acid (Ascorbic Acid 500 Mg Tab) 500 mg PO DAILY [facility] Last Admin: 10/06/21 17:04 Dose: Not Given Documented by: Ascorbic Acid (Ascorbic Acid 500 Mg Tab) 1,000 mg PO DAILY [facility] Last Admin: 10/06/21 13:51 Dose: 1,000 mg Documented by: Baricitinib (Baricitinib 2 Mg Tab) 4 mg PO Q24H [facility] Stop: 10/02/21 16:01 Last Admin: 10/02/21 15:29 Dose: 4 mg Documented by: Cholecalciferol (Cholecalciferol (Vitamin D3) 25 Mcg Tab) 25 mcg PO DAILY [facility] Last Admin: 10/06/21 17:05 Dose: Not Given Documented by: Cholecalciferol (Cholecalciferol (Vitamin D3) 25 Mcg Tab) 125 mcg PO DAILY [facility] Last Admin: 10/06/21 13:51 Dose: 125 mcg Documented by: Dexamethasone (Dexamethasone 4 Mg/Ml Sdv) 6 mg IVPUSH DAILY [facility] Stop: 09/27/21 09:01 Last Admin: 09/19/21 02:25 Dose: 6 mg Documented by: Dexamethasone (Dexamethasone 4 Mg/Ml Sdv) Confirm Administered Dose 8 mg .ROUTE .[facility] Stop: 09/19/21 02:17 Last Admin: 09/19/21 04:22 Dose: Not Given Documented by: Dexamethasone (Dexamethasone 4 Mg/Ml Sdv) 6 mg IVPUSH Q24H [facility] Stop: 09/27/21 18:01 Last Admin: 09/27/21 17:22 Dose: 6 mg Documented by: Dexamethasone (Dexamethasone 2 Mg Tab) 4 mg PO Q24H [facility] Stop: 10/01/21 18:01 Last Admin: 09/30/21 17:19 Dose: 4 mg Documented by: Dexamethasone (Dexamethasone 4 Mg/Ml Sdv) 6 mg IVPUSH Q24H [facility] Last Admin: 10/08/21 14:27 Dose: Not Given Documented by: Dexamethasone (Dexamethasone 2 Mg Tab) 6 mg PO Q24H [facility] Last Admin: 10/11/21 15:43 Dose: 6 mg Documented by: Doxazosin Mesylate (Doxazosin 4 Mg Tab) 4 mg PO BEDTIME [facility] Last Admin: 09/29/21 20:51 Dose: 4 mg Documented by: Enoxaparin Sodium (Enoxaparin 40 Mg/0.4 Ml Syringe) 40 mg SUBCUT DAILY [facility] Last Admin: 09/19/21 17:22 Dose: 40 mg Documented by: Enoxaparin Sodium (Enoxaparin 40 Mg/0.4 Ml Syringe) 40 mg SUBCUT Q24H [facility] Last Admin: 09/25/21 15:58 Dose: 40 mg Documented by: Enoxaparin Sodium (Enoxaparin 80 Mg/0.8 Ml Syringe) 80 mg SUBCUT Q12H [facility] Last Admin: 10/07/21 21:50 Dose: 80 mg Documented by: Enoxaparin Sodium (Enoxaparin 40 Mg/0.4 Ml Syringe) 40 mg SUBCUT Q12H [facility] Last Admin: 10/10/21 08:17 Dose: 40 mg Documented by: Finasteride (Finasteride 5 Mg Tab) 5 mg PO BEDTIME [facility] Last Admin: 10/06/21 21:18 Dose: 5 mg Documented by: Furosemide (Furosemide 20 Mg/2 Ml Vial) 20 mg IVPUSH ONETIME ONE Stop: 09/25/21 09:01 Last Admin: 09/25/21 10:17 Dose: 20 mg Documented by: Hydrocortisone (Hydrocortisone 1% Crm 30 Gm Tube) 0 gm TOP BID [facility] Last Admin: 10/07/21 10:52 Dose: 1 applic Documented by: Remdesivir 200 mg/ Sodium (Chloride) 250 mls @ 250 mls/hr IV ONETIME ONE Stop: 09/19/21 01:27 Last Admin: 09/19/21 02:24 Dose: 250 mls/hr Documented by: Remdesivir (Remdesivir) Confirm Administered Dose 200 mls @ as directed .ROUTE .STK-MED ONE Stop: 09/19/21 01:47 Last Admin: 09/19/21 04:22 Dose: Not Given Documented by: Ceftriaxone Sodium 1 gm/ (Sodium Chloride) 50 mls @ 100 mls/hr IV Q24H [place] Stop: 09/25/21 20:00 Last Admin: 09/25/21 15:06 Dose: 100 mls/hr Documented by: Doxycycline Hyclate 100 mg/ (Sodium Chloride) 100 mls @ 100 mls/hr IV Q12H [facility] Stop: 09/25/21 20:00 Last Admin: 09/25/21 15:54 Dose: 100 mls/hr Documented by: Remdesivir 100 mg/ Sodium (Chloride) 100 mls @ 100 mls/hr IV Q24H [facility] Stop: 09/22/21 20:59 Last Admin: 09/22/21 20:15 Dose: 100 mls/hr Documented by: Non-Formulary Medication (Omeprazole Magnesium [Prilosec Otc]) 20 mg PO DAILY [facility] Pantoprazole Sodium (Pantoprazole 40 Mg Tab.Cr) 40 mg PO ACBREAKFAST [facility] Last Admin: 09/23/21 07:52 Dose: 40 mg Documented by: Omeprazole 20mg 0 each PO ACBREAKFAST [facility] Omeprazole 20mg 0 each PO ACBREAKFAST [facility] Last Admin: 09/24/21 06:45 Dose: 1 each Documented by: Zinc Gluconate (Zinc (Zinc Gluconate) 50 Mg Tab) 50 mg PO DAILY [facility] Last Admin: 10/05/21 08:40 Dose: 50 mg Documented by: - Exam Quality Assessment: Supplemental Oxygen, DVT Prophylaxis General: Alert, Oriented, Cooperative, No Acute Distress Lungs: Normal Respiratory Effort, Crackles. No: Rales, Rhonchi, Wheezing Cardiovascular: Regular Rate, Regular Rhythm, No Murmurs GI/Abdominal Exam: Soft, Non-Tender, No Organomegaly, No Distention Extremities: Non-Tender, No Pedal Edema - Patient Data Lab Results Last 24 hrs: Laboratory Results - last 24 hr 10/16/21 10/16/21 10/16/21 Range/Units 05:00 05:00 05:00 D-Dimer, Quantitative 421.82 (0.0-500.0) ng/mL Sodium 137 L (140-148) mmol/L Potassium 4.4 (3.6-5.2) mmol/L Chloride 100 (100-108) mmol/L Carbon Dioxide 30 (21-32) mmol/L Anion Gap 11.4 (5.0-14.0) mmol/L BUN 21 H (7-18) mg/dL Creatinine 0.7 L (0.8-1.3) mg/dL Est Cr Clr Drug Dosing 97.71 mL/min Estimated GFR (MDRD) > 60 (>60) Glucose 106 (74-106) mg/dL Calcium 8.8 (8.5-10.1) mg/dL C-Reactive Protein 1.02 H (0.0-0.3) mg/dL Result Diagrams: 10/10/21 05:35 10/16/21 05:00 Sepsis Event Note - Evaluation Sepsis Screening Result: No Definite Risk - Focused Exam Vital Signs: Vital Signs Temp Pulse Pulse Resp BP BP Pulse Ox 10/16/21 09:56 80 137/78 10/16/21 08:00 95.0 F L 71 20 137/78 96 10/16/21 04:00 65 20 98 - Problem List Review Problem List Initiated/Reviewed/Updated: Yes - My Orders Last 24 Hours: My Active Orders 10/17/21 05:00 CBC WITH AUTO DIFF [HEME] Timed - Plan Plan:: ASSESSMENT AND PLAN - COVID-19 INFECTION WITH BILATERAL PNEUMONIA-complicated by acute respiratory failure with hypoxia. Slowly improving, tolerating decreased level of supplemental oxygen -Transition to high flow nasal cannula today -Decadron 4 mg by mouth daily for 1 week, then plan to decrease to 2 mg daily -Continue enoxaparin 40 mg daily -Remdesivir x5 days complete -Baricitinib x14 days complete ARDS-2/2 COVID-19 infection. -Management as above BPH WITH BLADDER OUTLET OBSTRUCTION-slowly better but not resolved. -Doxazosin 8 mg p.o. nightly Pruritic rash-resolved MAINTENANCE ISSUES -DVT prophylaxis; therapeutic enoxaparin dosing -GI prophylaxis; not indicated -Holt catheter; not indicated -Nutrition; regular diet DISPOSITION-anticipate discharge to home after the hospital stay. Hopefully we can wean his supplemental oxygen over the next several days and have him ready for discharge home. I would anticipate he will need home oxygen.
[2021-10-16] MEDS: Dexamethasone 2 MG Tab PO SCH (15:22)
[2021-10-16] MEDS: guaiFENesin/Dextromethorphan 100-10 MG/5 ML Soln 10 ML Cup PO PRN (19:56)
[2021-10-16] MEDS: Doxazosin 4 MG Tab PO SCH (21:43)
[2021-10-17] MEDS: ESTER C 1000 MG PO SCH (08:49)
[2021-10-17] MEDS: Lactobacillus Rhamnosus GG (Probiotic) Cap PO SCH ×2 (08:49→21:53)
[2021-10-17] MEDS: VIT D3 5000 UNIT PO SCH (08:49)
[2021-10-17] MEDS: ZINC 50 MG PO SCH (08:49)
[2021-10-17] MEDS: Multivitamins with Iron/Calcium/Folic Acid/Minerals Tab PO SCH (08:50)
[2021-10-17] MEDS: OMEPRAZOLE 20MG **PTOM PO SCH ×2 (08:51→18:21)
[2021-10-17] MEDS: Enoxaparin 40 MG/0.4 ML Syringe SUBCUT SCH (08:53)
[2021-10-17] MEDS: Metoprolol Succinate 25 MG Tab.ER PO SCH (08:56)
[2021-10-17] MEDS: Mometasone Furoate Nasal Spray 17 GM Canister NAS SCH ×2 (09:34→21:56)
[2021-10-17] MEDS: Nystatin Crm 30 GM Tube TOP SCH ×3 (09:34→21:56)
--- NOTE | 2021-10-17 10:47 | PCM.PN ---
- General Info Date of Service: 10/17/21 Subjective Update: Mr. Chan has been stable over the past 24 hours. He has tolerated transition from high flow humidified oxygen to high flow nasal cannula without significant difficulty. Currently on 10 L of oxygen per minute via nasal cannula. He does desaturate some with activity but recovers very quickly. Functional Status: Reports: Tolerating Diet, Urinating. Denies: Ambulating - Review of Systems General: Reports: Weakness, Fatigue. Denies: Fever, Chills Pulmonary: Reports: Shortness of Breath, Cough. Denies: Pleuritic Chest Pain, Sputum, Hemoptysis, Wheezing Cardiovascular: Reports: Dyspnea on Exertion. Denies: Chest Pain, Palpitations, Orthopnea, PND, Edema, Lightheadedness Gastrointestinal: Reports: No Symptoms Genitourinary: Reports: No Symptoms - Patient Data Vitals - Most Recent: Last Vital Signs Temp 96.4 F L 10/17/21 08:45 Pulse 82 10/17/21 08:56 Resp 18 10/17/21 08:45 BP 123/75 10/17/21 08:56 Pulse Ox 95 10/17/21 08:45 Weight - Most Recent: 174 lb I&O - Last 24 Hours: Intake & Output 10/16/21 10/17/21 10/17/21 22:59 06:59 14:59 Intake Total 1800 700 Output Total 800 1400 Balance 1000 -700 Lab Results Last 24 Hours: Laboratory Results - last 24 hr 10/17/21 Range/Units 05:45 WBC 10.9 (4.5-11.0) K/uL RBC 4.64 (4.30-5.90) M/uL Hgb 13.4 (12.0-15.0) g/dL Hct 40.5 (40.0-54.0) % MCV 87 (80-98) fL MCH 29 (27-31) pg MCHC 33 (32-36) % Plt Count 368 (150-400) K/uL Add Manual Diff Yes Neutrophils % (Manual) 72 H (36-66) % Band Neutrophils % 9 (5-11) % Lymphocytes % (Manual) 10 L (24-44) % Monocytes % (Manual) 7 H (2-6) % Med Orders - Current: Current Medications Acetaminophen (Acetaminophen 325 Mg Tab) 650 mg PO Q4H PRN PRN Reason: Pain (Mild 1-3)/fever Last Admin: 10/16/21 09:58 Dose: 650 mg Documented by: Al Hydroxide/Mg Hydroxide (Aluminum Hydroxide/Magnesium Hydroxide/Simethicone Susp 30 Ml Cup) 30 ml PO Q4H PRN PRN Reason: Dyspepsia Last Admin: 09/24/21 18:40 Dose: 30 ml Documented by: Albuterol (Albuterol 8 Gm Inhaler) 0 gm INH QID PRN PRN Reason: Shortness of Breath Benzonatate (Benzonatate 100 Mg Cap) 100 mg PO Q8H PRN PRN Reason: Cough Last Admin: 10/02/21 14:06 Dose: 100 mg Documented by: Calcium Carbonate/Glycine (Calcium Carbonate 500 Mg Tab.Chew) 500 mg PO Q2H PRN PRN Reason: Indigestion Last Admin: 10/10/21 15:07 Dose: 500 mg Documented by: Dexamethasone (Dexamethasone 2 Mg Tab) 4 mg PO Q24H [facility] Last Admin: 10/16/21 15:22 Dose: 4 mg Documented by: Diphenhydramine HCl (Diphenhydramine 25 Mg Cap) 25 mg PO Q4H PRN PRN Reason: Itching Last Admin: 10/07/21 21:55 Dose: 25 mg Documented by: Doxazosin Mesylate (Doxazosin 4 Mg Tab) 8 mg PO BEDTIME [facility] Last Admin: 10/16/21 21:43 Dose: 8 mg Documented by: Enoxaparin Sodium (Enoxaparin 40 Mg/0.4 Ml Syringe) 40 mg SUBCUT DAILY [facility] Last Admin: 10/17/21 08:53 Dose: 40 mg Documented by: Guaifenesin/Dextromethorphan (Guaifenesin/Dextromethorphan 100-10 Mg/5 Ml Soln 10 Ml Cup) 10 ml PO Q4H PRN PRN Reason: Cough Last Admin: 10/16/21 19:56 Dose: 10 ml Documented by: Lactobacillus Rhamnosus (Lactobacillus Rhamnosus Gg (Probiotic) Cap) 1 cap PO BID [facility] Last Admin: 10/17/21 08:49 Dose: 1 cap Documented by: Melatonin (Melatonin 3 Mg Tab) 9 mg PO BEDTIME PRN PRN Reason: Sleep Last Admin: 10/11/21 23:08 Dose: 9 mg Documented by: Metoprolol Succinate (Metoprolol Succinate 25 Mg Tab.Er) 25 mg PO DAILY [facility] Last Admin: 10/17/21 08:56 Dose: 25 mg Documented by: Mometasone Furoate (Mometasone Furoate Nasal [place] 17 Gm Canister) 0 gm PANFILO BID [facility] Last Admin: 10/17/21 09:34 Dose: Not Given Documented by: Multivitamins/Minerals (Multivitamins With Iron/Calcium/Folic Acid/Minerals Tab) 1 tab PO DAILY [facility] Last Admin: 10/17/21 08:50 Dose: 1 tab Documented by: Nystatin (Nystatin Crm 30 Gm Tube) 0 gm TOP TID [facility] Last Admin: 10/17/21 09:34 Dose: Not Given Documented by: Ondansetron HCl (Ondansetron 4 Mg/2 Ml Sdv) 4 mg IV Q4H PRN PRN Reason: Nausea/Vomiting Omeprazole 20mg (Ptom) 0 each PO BIDAC [facility] Last Admin: 10/17/21 08:51 Dose: 1 each Documented by: Vivi C 1,000mg Cap ((Ptom)) 1 each PO DAILY [facility] Last Admin: 10/17/21 08:49 Dose: 1 each Documented by: Vit D-3 5,000 Unit (Cap (Ptom)) 1 each PO DAILY [facility] Last Admin: 10/17/21 08:49 Dose: 1 each Documented by: Polyethylene Glycol (Polyethylene Glycol 3350 Powder 17 Gm Packet) 17 gm PO DAILY PRN PRN Reason: Constipation Senna/Docusate Sodium (Docusate Sodium/Sennosides 50-8.6 Mg Tab) 1 tab PO Q12H PRN PRN Reason: Constipation Last Admin: 10/02/21 14:06 Dose: 1 tab Documented by: Sodium Chloride (Sodium Chloride 0.9% 10 Ml Syringe) 10 ml FLUSH ASDIRECTED PRN PRN Reason: Keep Vein Open Tramadol HCl (Tramadol 50 Mg Tab) 50 mg PO Q6H PRN PRN Reason: back pain Last Admin: 09/28/21 09:40 Dose: 50 mg Documented by: Zinc Gluconate (Zinc (Zinc Gluconate) 50 Mg Cap (Ptom)) 50 mg PO DAILY [facility] Last Admin: 10/17/21 08:49 Dose: 50 mg Documented by: Discontinued Medications Acetaminophen (Acetaminophen 325 Mg Tab) 650 mg PO Q4H PRN PRN Reason: Fever Greater Than 101 Ascorbic Acid (Ascorbic Acid 500 Mg Tab) 500 mg PO DAILY [facility] Last Admin: 10/06/21 17:04 Dose: Not Given Documented by: Ascorbic Acid (Ascorbic Acid 500 Mg Tab) 1,000 mg PO DAILY [facility] Last Admin: 10/06/21 13:51 Dose: 1,000 mg Documented by: Baricitinib (Baricitinib 2 Mg Tab) 4 mg PO Q24H [facility] Stop: 10/02/21 16:01 Last Admin: 10/02/21 15:29 Dose: 4 mg Documented by: Cholecalciferol (Cholecalciferol (Vitamin D3) 25 Mcg Tab) 25 mcg PO DAILY [facility] Last Admin: 10/06/21 17:05 Dose: Not Given Documented by: Cholecalciferol (Cholecalciferol (Vitamin D3) 25 Mcg Tab) 125 mcg PO DAILY [facility] Last Admin: 10/06/21 13:51 Dose: 125 mcg Documented by: Dexamethasone (Dexamethasone 4 Mg/Ml Sdv) 6 mg IVPUSH DAILY [facility] Stop: 09/27/21 09:01 Last Admin: 09/19/21 02:25 Dose: 6 mg Documented by: Dexamethasone (Dexamethasone 4 Mg/Ml Sdv) Confirm Administered Dose 8 mg .ROUTE .[facility] Stop: 09/19/21 02:17 Last Admin: 09/19/21 04:22 Dose: Not Given Documented by: Dexamethasone (Dexamethasone 4 Mg/Ml Sdv) 6 mg IVPUSH Q24H [facility] Stop: 09/27/21 18:01 Last Admin: 09/27/21 17:22 Dose: 6 mg Documented by: Dexamethasone (Dexamethasone 2 Mg Tab) 4 mg PO Q24H [facility] Stop: 10/01/21 18:01 Last Admin: 09/30/21 17:19 Dose: 4 mg Documented by: Dexamethasone (Dexamethasone 4 Mg/Ml Sdv) 6 mg IVPUSH Q24H [facility] Last Admin: 10/08/21 14:27 Dose: Not Given Documented by: Dexamethasone (Dexamethasone 2 Mg Tab) 6 mg PO Q24H [facility] Last Admin: 10/11/21 15:43 Dose: 6 mg Documented by: Doxazosin Mesylate (Doxazosin 4 Mg Tab) 4 mg PO BEDTIME [facility] Last Admin: 09/29/21 20:51 Dose: 4 mg Documented by: Enoxaparin Sodium (Enoxaparin 40 Mg/0.4 Ml Syringe) 40 mg SUBCUT DAILY [facility] Last Admin: 09/19/21 17:22 Dose: 40 mg Documented by: Enoxaparin Sodium (Enoxaparin 40 Mg/0.4 Ml Syringe) 40 mg SUBCUT Q24H [facility] Last Admin: 09/25/21 15:58 Dose: 40 mg Documented by: Enoxaparin Sodium (Enoxaparin 80 Mg/0.8 Ml Syringe) 80 mg SUBCUT Q12H [facility] Last Admin: 10/07/21 21:50 Dose: 80 mg Documented by: Enoxaparin Sodium (Enoxaparin 40 Mg/0.4 Ml Syringe) 40 mg SUBCUT Q12H [facility] Last Admin: 10/10/21 08:17 Dose: 40 mg Documented by: Finasteride (Finasteride 5 Mg Tab) 5 mg PO BEDTIME [facility] Last Admin: 10/06/21 21:18 Dose: 5 mg Documented by: Furosemide (Furosemide 20 Mg/2 Ml Vial) 20 mg IVPUSH ONETIME ONE Stop: 09/25/21 09:01 Last Admin: 09/25/21 10:17 Dose: 20 mg Documented by: Hydrocortisone (Hydrocortisone 1% Crm 30 Gm Tube) 0 gm TOP BID [facility] Last Admin: 10/07/21 10:52 Dose: 1 applic Documented by: Remdesivir 200 mg/ Sodium (Chloride) 250 mls @ 250 mls/hr IV ONETIME ONE Stop: 09/19/21 01:27 Last Admin: 09/19/21 02:24 Dose: 250 mls/hr Documented by: Remdesivir (Remdesivir) Confirm Administered Dose 200 mls @ as directed .ROUTE .[facility] Stop: 09/19/21 01:47 Last Admin: 09/19/21 04:22 Dose: Not Given Documented by: Ceftriaxone Sodium 1 gm/ (Sodium Chloride) 50 mls @ 100 mls/hr IV Q24H [facility] Stop: 09/25/21 20:00 Last Admin: 09/25/21 15:06 Dose: 100 mls/hr Documented by: Doxycycline Hyclate 100 mg/ (Sodium Chloride) 100 mls @ 100 mls/hr IV Q12H [facility] Stop: 09/25/21 20:00 Last Admin: 09/25/21 15:54 Dose: 100 mls/hr Documented by: Remdesivir 100 mg/ Sodium (Chloride) 100 mls @ 100 mls/hr IV Q24H [facility] Stop: 09/22/21 20:59 Last Admin: 09/22/21 20:15 Dose: 100 mls/hr Documented by: Non-Formulary Medication (Omeprazole Magnesium [Prilosec Otc]) 20 mg PO DAILY [facility] Pantoprazole Sodium (Pantoprazole 40 Mg Tab.Cr) 40 mg PO ACBREAKFAST [facility] Last Admin: 09/23/21 07:52 Dose: 40 mg Documented by: Omeprazole 20mg 0 each PO ACBREAKFAST [facility] Omeprazole 20mg 0 each PO ACBREAKFAST [facility] Last Admin: 09/24/21 06:45 Dose: 1 each Documented by: Zinc Gluconate (Zinc (Zinc Gluconate) 50 Mg Tab) 50 mg PO DAILY [facility] Last Admin: 10/05/21 08:40 Dose: 50 mg Documented by: - Exam Quality Assessment: Supplemental Oxygen, DVT Prophylaxis General: Alert, Oriented, Cooperative, Mild Distress Lungs: Crackles. No: Rales, Rhonchi, Wheezing Cardiovascular: Regular Rate, Regular Rhythm, No Murmurs GI/Abdominal Exam: Soft, Non-Tender, No Organomegaly, No Distention Extremities: Non-Tender, No Pedal Edema - Patient Data Lab Results Last 24 hrs: Laboratory Results - last 24 hr 10/17/21 Range/Units 05:45 WBC 10.9 (4.5-11.0) K/uL RBC 4.64 (4.30-5.90) M/uL Hgb 13.4 (12.0-15.0) g/dL Hct 40.5 (40.0-54.0) % MCV 87 (80-98) fL MCH 29 (27-31) pg MCHC 33 (32-36) % Plt Count 368 (150-400) K/uL Add Manual Diff Yes Neutrophils % (Manual) 72 H (36-66) % Band Neutrophils % 9 (5-11) % Lymphocytes % (Manual) 10 L (24-44) % Monocytes % (Manual) 7 H (2-6) % Result Diagrams: 10/17/21 05:45 10/16/21 05:00 Sepsis Event Note - Evaluation Sepsis Screening Result: No Definite Risk - Focused Exam Vital Signs: Vital Signs Temp Pulse Pulse Resp BP BP Pulse Ox 10/17/21 08:56 82 123/75 10/17/21 08:45 96.4 F L 68 18 131/84 95 10/17/21 03:00 97.2 F 71 18 123/75 100 - Problem List Review Problem List Initiated/Reviewed/Updated: Yes - Plan Plan:: ASSESSMENT AND PLAN - COVID-19 INFECTION WITH BILATERAL PNEUMONIA-complicated by acute respiratory failure with hypoxia. Slowly improving, tolerating decreased level of supplemental oxygen, now on high flow nasal cannula at 10 L/min -Decadron 4 mg by mouth daily for 1 week, then plan to decrease to 2 mg daily -Continue enoxaparin 40 mg daily -Remdesivir x5 days complete -Baricitinib x14 days complete -Daily physical therapy ARDS-2/2 COVID-19 infection. -Management as above BPH WITH BLADDER OUTLET OBSTRUCTION-slowly better but not resolved. -Doxazosin 8 mg p.o. nightly Pruritic rash-resolved MAINTENANCE ISSUES -DVT prophylaxis; therapeutic enoxaparin dosing -GI prophylaxis; not indicated -Holt catheter; not indicated -Nutrition; regular diet DISPOSITION-anticipate discharge to home after the hospital stay. Hopefully we can wean his supplemental oxygen over the next several days and have him ready for discharge home. I would anticipate he will need home oxygen.
[2021-10-17] MEDS: Acetaminophen 325 MG Tab PO PRN (11:43)
[2021-10-17] MEDS: Dexamethasone 2 MG Tab PO SCH (13:35)
[2021-10-17] MEDS: Doxazosin 4 MG Tab PO SCH (21:53)
[2021-10-18] MEDS: ZINC 50 MG PO SCH (09:05)
[2021-10-18] MEDS: OMEPRAZOLE 20MG **PTOM PO SCH ×2 (09:05→18:42)
[2021-10-18] MEDS: ESTER C 1000 MG PO SCH (09:05)
[2021-10-18] MEDS: Multivitamins with Iron/Calcium/Folic Acid/Minerals Tab PO SCH (09:06)
[2021-10-18] MEDS: Lactobacillus Rhamnosus GG (Probiotic) Cap PO SCH ×2 (09:06→20:23)
[2021-10-18] MEDS: Enoxaparin 40 MG/0.4 ML Syringe SUBCUT SCH (09:06)
[2021-10-18] MEDS: VIT D3 5000 UNIT PO SCH (09:06)
[2021-10-18] MEDS: Metoprolol Succinate 25 MG Tab.ER PO SCH (09:07)
[2021-10-18] MEDS: Nystatin Crm 30 GM Tube TOP SCH ×3 (10:32→20:21)
[2021-10-18] MEDS: Mometasone Furoate Nasal Spray 17 GM Canister NAS SCH ×2 (10:32→20:21)
--- NOTE | 2021-10-18 13:21 | PCM.PN ---
- General Info Date of Service: 10/18/21 Subjective Update: Mr. Chan has remained stable over the last 24 hours. Continues to show progressive improvement in oxygenation, is now down to 7 L/min via high flow nasal cannula. Slowly stronger each day and tolerating increase in activity. Functional Status: Reports: Tolerating Diet, Urinating. Denies: Ambulating - Review of Systems General: Reports: Weakness, Fatigue. Denies: Fever, Chills Pulmonary: Reports: Shortness of Breath, Cough. Denies: Pleuritic Chest Pain, Sputum, Hemoptysis, Wheezing Cardiovascular: Reports: Dyspnea on Exertion. Denies: Chest Pain, Palpitations, Orthopnea, PND, Edema, Lightheadedness Gastrointestinal: Reports: No Symptoms Genitourinary: Reports: No Symptoms - Patient Data Vitals - Most Recent: Last Vital Signs Temp 95.8 F L 10/18/21 08:16 Pulse 80 10/18/21 09:07 Resp 18 10/18/21 08:16 BP 119/66 10/18/21 09:07 Pulse Ox 96 10/18/21 08:16 Weight - Most Recent: 174 lb I&O - Last 24 Hours: Intake & Output 10/17/21 10/18/21 10/18/21 22:59 06:59 14:59 Intake Total 740 Output Total 775 1225 Balance -35 -1225 Med Orders - Current: Current Medications Acetaminophen (Acetaminophen 325 Mg Tab) 650 mg PO Q4H PRN PRN Reason: Pain (Mild 1-3)/fever Last Admin: 10/17/21 11:43 Dose: 650 mg Documented by: Al Hydroxide/Mg Hydroxide (Aluminum Hydroxide/Magnesium Hydroxide/Simethicone Susp 30 Ml Cup) 30 ml PO Q4H PRN PRN Reason: Dyspepsia Last Admin: 09/24/21 18:40 Dose: 30 ml Documented by: Albuterol (Albuterol 8 Gm Inhaler) 0 gm INH QID PRN PRN Reason: Shortness of Breath Benzonatate (Benzonatate 100 Mg Cap) 100 mg PO Q8H PRN PRN Reason: Cough Last Admin: 10/02/21 14:06 Dose: 100 mg Documented by: Calcium Carbonate/Glycine (Calcium Carbonate 500 Mg Tab.Chew) 500 mg PO Q2H PRN PRN Reason: Indigestion Last Admin: 10/10/21 15:07 Dose: 500 mg Documented by: Dexamethasone (Dexamethasone 2 Mg Tab) 4 mg PO Q24H [facility] Last Admin: 10/17/21 13:35 Dose: 4 mg Documented by: Diphenhydramine HCl (Diphenhydramine 25 Mg Cap) 25 mg PO Q4H PRN PRN Reason: Itching Last Admin: 10/07/21 21:55 Dose: 25 mg Documented by: Doxazosin Mesylate (Doxazosin 4 Mg Tab) 8 mg PO BEDTIME [facility] Last Admin: 10/17/21 21:53 Dose: 8 mg Documented by: Enoxaparin Sodium (Enoxaparin 40 Mg/0.4 Ml Syringe) 40 mg SUBCUT DAILY [facility] Last Admin: 10/18/21 09:06 Dose: 40 mg Documented by: Guaifenesin/Dextromethorphan (Guaifenesin/Dextromethorphan 100-10 Mg/5 Ml Soln 10 Ml Cup) 10 ml PO Q4H PRN PRN Reason: Cough Last Admin: 10/16/21 19:56 Dose: 10 ml Documented by: Lactobacillus Rhamnosus (Lactobacillus Rhamnosus Gg (Probiotic) Cap) 1 cap PO BID [facility] Last Admin: 10/18/21 09:06 Dose: 1 cap Documented by: Melatonin (Melatonin 3 Mg Tab) 9 mg PO BEDTIME PRN PRN Reason: Sleep Last Admin: 10/11/21 23:08 Dose: 9 mg Documented by: Metoprolol Succinate (Metoprolol Succinate 25 Mg Tab.Er) 25 mg PO DAILY [facility] Last Admin: 10/18/21 09:07 Dose: 25 mg Documented by: Mometasone Furoate (Mometasone Furoate Nasal [place] 17 Gm Canister) 0 gm PANFILO BID [facility] Last Admin: 10/18/21 10:32 Dose: Not Given Documented by: Multivitamins/Minerals (Multivitamins With Iron/Calcium/Folic Acid/Minerals Tab) 1 tab PO DAILY [facility] Last Admin: 10/18/21 09:06 Dose: 1 tab Documented by: Nystatin (Nystatin Crm 30 Gm Tube) 0 gm TOP TID [facility] Last Admin: 10/18/21 10:32 Dose: Not Given Documented by: Ondansetron HCl (Ondansetron 4 Mg/2 Ml Sdv) 4 mg IV Q4H PRN PRN Reason: Nausea/Vomiting Omeprazole 20mg (Ptom) 0 each PO BIDAC [facility] Last Admin: 10/18/21 09:05 Dose: 1 each Documented by: Vivi C 1,000mg Cap ((Ptom)) 1 each PO DAILY [facility] Last Admin: 10/18/21 09:05 Dose: 1 each Documented by: Vit D-3 5,000 Unit (Cap (Ptom)) 1 each PO DAILY [facility] Last Admin: 10/18/21 09:06 Dose: 1 each Documented by: Polyethylene Glycol (Polyethylene Glycol 3350 Powder 17 Gm Packet) 17 gm PO DAILY PRN PRN Reason: Constipation Senna/Docusate Sodium (Docusate Sodium/Sennosides 50-8.6 Mg Tab) 1 tab PO Q12H PRN PRN Reason: Constipation Last Admin: 10/02/21 14:06 Dose: 1 tab Documented by: Sodium Chloride (Sodium Chloride 0.9% 10 Ml Syringe) 10 ml FLUSH ASDIRECTED PRN PRN Reason: Keep Vein Open Tramadol HCl (Tramadol 50 Mg Tab) 50 mg PO Q6H PRN PRN Reason: back pain Last Admin: 09/28/21 09:40 Dose: 50 mg Documented by: Zinc Gluconate (Zinc (Zinc Gluconate) 50 Mg Cap (Ptom)) 50 mg PO DAILY [facility] Last Admin: 10/18/21 09:05 Dose: 50 mg Documented by: Discontinued Medications Acetaminophen (Acetaminophen 325 Mg Tab) 650 mg PO Q4H PRN PRN Reason: Fever Greater Than 101 Ascorbic Acid (Ascorbic Acid 500 Mg Tab) 500 mg PO DAILY [facility] Last Admin: 10/06/21 17:04 Dose: Not Given Documented by: Ascorbic Acid (Ascorbic Acid 500 Mg Tab) 1,000 mg PO DAILY [facility] Last Admin: 10/06/21 13:51 Dose: 1,000 mg Documented by: Baricitinib (Baricitinib 2 Mg Tab) 4 mg PO Q24H [facility] Stop: 10/02/21 16:01 Last Admin: 10/02/21 15:29 Dose: 4 mg Documented by: Cholecalciferol (Cholecalciferol (Vitamin D3) 25 Mcg Tab) 25 mcg PO DAILY [facility] Last Admin: 10/06/21 17:05 Dose: Not Given Documented by: Cholecalciferol (Cholecalciferol (Vitamin D3) 25 Mcg Tab) 125 mcg PO DAILY [facility] Last Admin: 10/06/21 13:51 Dose: 125 mcg Documented by: Dexamethasone (Dexamethasone 4 Mg/Ml Sdv) 6 mg IVPUSH DAILY [facility] Stop: 09/27/21 09:01 Last Admin: 09/19/21 02:25 Dose: 6 mg Documented by: Dexamethasone (Dexamethasone 4 Mg/Ml Sdv) Confirm Administered Dose 8 mg .ROUTE .[facility] Stop: 09/19/21 02:17 Last Admin: 09/19/21 04:22 Dose: Not Given Documented by: Dexamethasone (Dexamethasone 4 Mg/Ml Sdv) 6 mg IVPUSH Q24H [facility] Stop: 09/27/21 18:01 Last Admin: 09/27/21 17:22 Dose: 6 mg Documented by: Dexamethasone (Dexamethasone 2 Mg Tab) 4 mg PO Q24H [facility] Stop: 10/01/21 18:01 Last Admin: 09/30/21 17:19 Dose: 4 mg Documented by: Dexamethasone (Dexamethasone 4 Mg/Ml Sdv) 6 mg IVPUSH Q24H [facility] Last Admin: 10/08/21 14:27 Dose: Not Given Documented by: Dexamethasone (Dexamethasone 2 Mg Tab) 6 mg PO Q24H [facility] Last Admin: 10/11/21 15:43 Dose: 6 mg Documented by: Doxazosin Mesylate (Doxazosin 4 Mg Tab) 4 mg PO BEDTIME [facility] Last Admin: 09/29/21 20:51 Dose: 4 mg Documented by: Enoxaparin Sodium (Enoxaparin 40 Mg/0.4 Ml Syringe) 40 mg SUBCUT DAILY [facility] Last Admin: 09/19/21 17:22 Dose: 40 mg Documented by: Enoxaparin Sodium (Enoxaparin 40 Mg/0.4 Ml Syringe) 40 mg SUBCUT Q24H [facility] Last Admin: 09/25/21 15:58 Dose: 40 mg Documented by: Enoxaparin Sodium (Enoxaparin 80 Mg/0.8 Ml Syringe) 80 mg SUBCUT Q12H [facility] Last Admin: 10/07/21 21:50 Dose: 80 mg Documented by: Enoxaparin Sodium (Enoxaparin 40 Mg/0.4 Ml Syringe) 40 mg SUBCUT Q12H [facility] Last Admin: 10/10/21 08:17 Dose: 40 mg Documented by: Finasteride (Finasteride 5 Mg Tab) 5 mg PO BEDTIME [facility] Last Admin: 10/06/21 21:18 Dose: 5 mg Documented by: Furosemide (Furosemide 20 Mg/2 Ml Vial) 20 mg IVPUSH ONETIME ONE Stop: 09/25/21 09:01 Last Admin: 09/25/21 10:17 Dose: 20 mg Documented by: Hydrocortisone (Hydrocortisone 1% Crm 30 Gm Tube) 0 gm TOP BID [facility] Last Admin: 10/07/21 10:52 Dose: 1 applic Documented by: Remdesivir 200 mg/ Sodium (Chloride) 250 mls @ 250 mls/hr IV ONETIME ONE Stop: 09/19/21 01:27 Last Admin: 09/19/21 02:24 Dose: 250 mls/hr Documented by: Remdesivir (Remdesivir) Confirm Administered Dose 200 mls @ as directed .ROUTE .STK-[facility] Stop: 09/19/21 01:47 Last Admin: 09/19/21 04:22 Dose: Not Given Documented by: Ceftriaxone Sodium 1 gm/ (Sodium Chloride) 50 mls @ 100 mls/hr IV Q24H [facility] Stop: 09/25/21 20:00 Last Admin: 09/25/21 15:06 Dose: 100 mls/hr Documented by: Doxycycline Hyclate 100 mg/ (Sodium Chloride) 100 mls @ 100 mls/hr IV Q12H [facility] Stop: 09/25/21 20:00 Last Admin: 09/25/21 15:54 Dose: 100 mls/hr Documented by: Remdesivir 100 mg/ Sodium (Chloride) 100 mls @ 100 mls/hr IV Q24H [facility] Stop: 09/22/21 20:59 Last Admin: 09/22/21 20:15 Dose: 100 mls/hr Documented by: Non-Formulary Medication (Omeprazole Magnesium [Prilosec Otc]) 20 mg PO DAILY [facility] Pantoprazole Sodium (Pantoprazole 40 Mg Tab.Cr) 40 mg PO ACBREAKFAST [facility] Last Admin: 09/23/21 07:52 Dose: 40 mg Documented by: Omeprazole 20mg 0 each PO ACBREAKFAST [facility] Omeprazole 20mg 0 each PO [facility]AK[facility]ST [facility] Last Admin: 09/24/21 06:45 Dose: 1 each Documented by: Zinc Gluconate (Zinc (Zinc Gluconate) 50 Mg Tab) 50 mg PO DAILY [facility] Last Admin: 10/05/21 08:40 Dose: 50 mg Documented by: - Exam Quality Assessment: Supplemental Oxygen, DVT Prophylaxis General: Alert, Oriented, Cooperative, Mild Distress Lungs: Crackles. No: Rales, Rhonchi, Wheezing Cardiovascular: Regular Rate, Regular Rhythm, No Murmurs GI/Abdominal Exam: Soft, Non-Tender, No Organomegaly, No Distention Extremities: Non-Tender, No Pedal Edema - Patient Data Result Diagrams: 10/17/21 05:45 10/16/21 05:00 Sepsis Event Note - Evaluation Sepsis Screening Result: No Definite Risk - Focused Exam Vital Signs: Vital Signs Temp Pulse Pulse Resp BP BP Pulse Ox 10/18/21 09:07 80 119/66 10/18/21 08:16 95.8 F L 70 18 119/66 96 10/18/21 04:00 95.8 F L 86 18 124/72 92 L - Problem List Review Problem List Initiated/Reviewed/Updated: Yes - Plan Plan:: ASSESSMENT AND PLAN - COVID-19 INFECTION WITH BILATERAL PNEUMONIA-complicated by acute respiratory failure with hypoxia. Slowly improving, tolerating decreased level of supplemental oxygen, now on high flow nasal cannula at 7 L/min -Decadron 4 mg by mouth daily for 1 week, then plan to decrease to 2 mg daily tomorrow -Continue enoxaparin 40 mg daily -Remdesivir x5 days complete -Baricitinib x14 days complete -Daily physical therapy ARDS-2/2 COVID-19 infection. -Management as above BPH WITH BLADDER OUTLET OBSTRUCTION-slowly better but not resolved. -Doxazosin 8 mg p.o. nightly Pruritic rash-resolved MAINTENANCE ISSUES -DVT prophylaxis; therapeutic enoxaparin dosing -GI prophylaxis; not indicated -Holt catheter; not indicated -Nutrition; regular diet DISPOSITION-anticipate discharge to home after the hospital stay. Hopefully we can wean his supplemental oxygen over the next several days and have him ready for discharge home. I would anticipate he will need home oxygen.
[2021-10-18] MEDS: Dexamethasone 2 MG Tab PO SCH (13:26)
[2021-10-18] MEDS: Doxazosin 4 MG Tab PO SCH (20:22)
[2021-10-19] MEDS: ESTER C 1000 MG PO SCH (09:04)
[2021-10-19] MEDS: VIT D3 5000 UNIT PO SCH (09:04)
[2021-10-19] MEDS: ZINC 50 MG PO SCH (09:04)
[2021-10-19] MEDS: Multivitamins with Iron/Calcium/Folic Acid/Minerals Tab PO SCH (09:05)
[2021-10-19] MEDS: Lactobacillus Rhamnosus GG (Probiotic) Cap PO SCH ×2 (09:05→20:40)
[2021-10-19] MEDS: Enoxaparin 40 MG/0.4 ML Syringe SUBCUT SCH (09:06)
[2021-10-19] MEDS: Dexamethasone 2 MG Tab PO SCH (09:06)
[2021-10-19] MEDS: Nystatin Crm 30 GM Tube TOP SCH ×3 (09:07→20:43)
[2021-10-19] MEDS: Mometasone Furoate Nasal Spray 17 GM Canister NAS SCH ×2 (09:07→20:41)
[2021-10-19] MEDS: OMEPRAZOLE 20MG **PTOM PO SCH ×2 (09:08→17:37)
[2021-10-19] MEDS: Metoprolol Succinate 25 MG Tab.ER PO SCH (09:08)
--- NOTE | 2021-10-19 14:06 | PCM.PN ---
- General Info Date of Service: 10/19/21 Subjective Update: No acute events overnight. Shortness of breath slowly but steadily improving. He was down to 6 L temporarily yesterday but became quite short of breath. He has been on 8 L since that time. Appetite and energy are slowly improving. Working with physical therapy. He is in good spirits. Functional Status: Reports: Pain Controlled, Tolerating Diet - Review of Systems General: Reports: Weakness Pulmonary: Reports: Shortness of Breath - Patient Data Vitals - Most Recent: Last Vital Signs Temp 36.4 C 10/19/21 11:40 Pulse 72 10/19/21 11:40 Resp 16 10/19/21 11:40 BP 116/70 10/19/21 11:40 Pulse Ox 96 10/19/21 11:40 Weight - Most Recent: 78.925 kg I&O - Last 24 Hours: Intake & Output 10/18/21 10/19/21 10/19/21 22:59 06:59 14:59 Intake Total 1999 1000 Output Total 87 Balance 1999 -875 1000 Med Orders - Current: Current Medications Acetaminophen (Acetaminophen 325 Mg Tab) 650 mg PO Q4H PRN PRN Reason: Pain (Mild 1-3)/fever Last Admin: 10/17/21 11:43 Dose: 650 mg Documented by: Al Hydroxide/Mg Hydroxide (Aluminum Hydroxide/Magnesium Hydroxide/Simethicone Susp 30 Ml Cup) 30 ml PO Q4H PRN PRN Reason: Dyspepsia Last Admin: 09/24/21 18:40 Dose: 30 ml Documented by: Albuterol (Albuterol 8 Gm Inhaler) 0 gm INH QID PRN PRN Reason: Shortness of Breath Benzonatate (Benzonatate 100 Mg Cap) 100 mg PO Q8H PRN PRN Reason: Cough Last Admin: 10/02/21 14:06 Dose: 100 mg Documented by: Calcium Carbonate/Glycine (Calcium Carbonate 500 Mg Tab.Chew) 500 mg PO Q2H PRN PRN Reason: Indigestion Last Admin: 10/10/21 15:07 Dose: 500 mg Documented by: Dexamethasone (Dexamethasone 2 Mg Tab) 2 mg PO DAILY [facility] Last Admin: 10/19/21 09:06 Dose: 2 mg Documented by: Diphenhydramine HCl (Diphenhydramine 25 Mg Cap) 25 mg PO Q4H PRN PRN Reason: Itching Last Admin: 10/07/21 21:55 Dose: 25 mg Documented by: Doxazosin Mesylate (Doxazosin 4 Mg Tab) 8 mg PO BEDTIME [facility] Last Admin: 10/18/21 20:22 Dose: 8 mg Documented by: Guaifenesin/Dextromethorphan (Guaifenesin/Dextromethorphan 100-10 Mg/5 Ml Soln 10 Ml Cup) 10 ml PO Q4H PRN PRN Reason: Cough Last Admin: 10/16/21 19:56 Dose: 10 ml Documented by: Lactobacillus Rhamnosus (Lactobacillus Rhamnosus Gg (Probiotic) Cap) 1 cap PO BID [facility] Last Admin: 10/19/21 09:05 Dose: 1 cap Documented by: Melatonin (Melatonin 3 Mg Tab) 9 mg PO BEDTIME PRN PRN Reason: Sleep Last Admin: 10/11/21 23:08 Dose: 9 mg Documented by: Metoprolol Succinate (Metoprolol Succinate 25 Mg Tab.Er) 25 mg PO DAILY [facility] Last Admin: 10/19/21 09:08 Dose: 25 mg Documented by: Mometasone Furoate (Mometasone Furoate Nasal [place] 17 Gm Canister) 0 gm PANFILO BID [facility] Last Admin: 10/19/21 09:07 Dose: Not Given Documented by: Multivitamins/Minerals (Multivitamins With Iron/Calcium/Folic Acid/Minerals Tab) 1 tab PO DAILY [facility] Last Admin: 10/19/21 09:05 Dose: 1 tab Documented by: Nystatin (Nystatin Crm 30 Gm Tube) 0 gm TOP TID [facility] Last Admin: 10/19/21 09:07 Dose: Not Given Documented by: Ondansetron HCl (Ondansetron 4 Mg/2 Ml Sdv) 4 mg IV Q4H PRN PRN Reason: Nausea/Vomiting Omeprazole 20mg (Ptom) 0 each PO BIDAC [facility] Last Admin: 10/19/21 09:08 Dose: 1 each Documented by: Vivi C 1,000mg Cap ((Ptom)) 1 each PO DAILY [facility] Last Admin: 10/19/21 09:04 Dose: 1 each Documented by: Vit D-3 5,000 Unit (Cap (Ptom)) 1 each PO DAILY [facility] Last Admin: 10/19/21 09:04 Dose: 1 each Documented by: Polyethylene Glycol (Polyethylene Glycol 3350 Powder 17 Gm Packet) 17 gm PO DAILY PRN PRN Reason: Constipation Senna/Docusate Sodium (Docusate Sodium/Sennosides 50-8.6 Mg Tab) 1 tab PO Q12H PRN PRN Reason: Constipation Last Admin: 10/02/21 14:06 Dose: 1 tab Documented by: Sodium Chloride (Sodium Chloride 0.9% 10 Ml Syringe) 10 ml FLUSH ASDIRECTED PRN PRN Reason: Keep Vein Open Tramadol HCl (Tramadol 50 Mg Tab) 50 mg PO Q6H PRN PRN Reason: back pain Last Admin: 09/28/21 09:40 Dose: 50 mg Documented by: Zinc Gluconate (Zinc (Zinc Gluconate) 50 Mg Cap (Ptom)) 50 mg PO DAILY [facility] Last Admin: 10/19/21 09:04 Dose: 50 mg Documented by: Discontinued Medications Acetaminophen (Acetaminophen 325 Mg Tab) 650 mg PO Q4H PRN PRN Reason: Fever Greater Than 101 Ascorbic Acid (Ascorbic Acid 500 Mg Tab) 500 mg PO DAILY [facility] Last Admin: 10/06/21 17:04 Dose: Not Given Documented by: Ascorbic Acid (Ascorbic Acid 500 Mg Tab) 1,000 mg PO DAILY [facility] Last Admin: 10/06/21 13:51 Dose: 1,000 mg Documented by: Baricitinib (Baricitinib 2 Mg Tab) 4 mg PO Q24H [facility] Stop: 10/02/21 16:01 Last Admin: 10/02/21 15:29 Dose: 4 mg Documented by: Cholecalciferol (Cholecalciferol (Vitamin D3) 25 Mcg Tab) 25 mcg PO DAILY [facility] Last Admin: 10/06/21 17:05 Dose: Not Given Documented by: Cholecalciferol (Cholecalciferol (Vitamin D3) 25 Mcg Tab) 125 mcg PO DAILY [facility] Last Admin: 10/06/21 13:51 Dose: 125 mcg Documented by: Dexamethasone (Dexamethasone 4 Mg/Ml Sdv) 6 mg IVPUSH DAILY [facility] Stop: 09/27/21 09:01 Last Admin: 09/19/21 02:25 Dose: 6 mg Documented by: Dexamethasone (Dexamethasone 4 Mg/Ml Sdv) Confirm Administered Dose 8 mg .ROUTE .ST-MED ONE Stop: 09/19/21 02:17 Last Admin: 09/19/21 04:22 Dose: Not Given Documented by: Dexamethasone (Dexamethasone 4 Mg/Ml Sdv) 6 mg IVPUSH Q24H [facility] Stop: 09/27/21 18:01 Last Admin: 09/27/21 17:22 Dose: 6 mg Documented by: Dexamethasone (Dexamethasone 2 Mg Tab) 4 mg PO Q24H [facility] Stop: 10/01/21 18:01 Last Admin: 09/30/21 17:19 Dose: 4 mg Documented by: Dexamethasone (Dexamethasone 4 Mg/Ml Sdv) 6 mg IVPUSH Q24H [facility] Last Admin: 10/08/21 14:27 Dose: Not Given Documented by: Dexamethasone (Dexamethasone 2 Mg Tab) 6 mg PO Q24H [facility] Last Admin: 10/11/21 15:43 Dose: 6 mg Documented by: Dexamethasone (Dexamethasone 2 Mg Tab) 4 mg PO Q24H [facility] Stop: 10/18/21 23:59 Last Admin: 10/18/21 13:26 Dose: 4 mg Documented by: Doxazosin Mesylate (Doxazosin 4 Mg Tab) 4 mg PO BEDTIME [facility] Last Admin: 09/29/21 20:51 Dose: 4 mg Documented by: Enoxaparin Sodium (Enoxaparin 40 Mg/0.4 Ml Syringe) 40 mg SUBCUT DAILY [facility] Last Admin: 09/19/21 17:22 Dose: 40 mg Documented by: Enoxaparin Sodium (Enoxaparin 40 Mg/0.4 Ml Syringe) 40 mg SUBCUT Q24H [facility] Last Admin: 09/25/21 15:58 Dose: 40 mg Documented by: Enoxaparin Sodium (Enoxaparin 80 Mg/0.8 Ml Syringe) 80 mg SUBCUT Q12H [facility] Last Admin: 10/07/21 21:50 Dose: 80 mg Documented by: Enoxaparin Sodium (Enoxaparin 40 Mg/0.4 Ml Syringe) 40 mg SUBCUT Q12H [facility] Last Admin: 10/10/21 08:17 Dose: 40 mg Documented by: Enoxaparin Sodium (Enoxaparin 40 Mg/0.4 Ml Syringe) 40 mg SUBCUT DAILY [facility] Last Admin: 10/19/21 09:06 Dose: 40 mg Documented by: Finasteride (Finasteride 5 Mg Tab) 5 mg PO BEDTIME [facility] Last Admin: 10/06/21 21:18 Dose: 5 mg Documented by: Furosemide (Furosemide 20 Mg/2 Ml Vial) 20 mg IVPUSH ONETIME ONE Stop: 09/25/21 09:01 Last Admin: 09/25/21 10:17 Dose: 20 mg Documented by: Hydrocortisone (Hydrocortisone 1% Crm 30 Gm Tube) 0 gm TOP BID [facility] Last Admin: 10/07/21 10:52 Dose: 1 applic Documented by: Remdesivir 200 mg/ Sodium (Chloride) 250 mls @ 250 mls/hr IV ONETIME ONE Stop: 09/19/21 01:27 Last Admin: 09/19/21 02:24 Dose: 250 mls/hr Documented by: Remdesivir (Remdesivir) Confirm Administered Dose 200 mls @ as directed .ROUTE .STK-MED ONE Stop: 09/19/21 01:47 Last Admin: 09/19/21 04:22 Dose: Not Given Documented by: Ceftriaxone Sodium 1 gm/ (Sodium Chloride) 50 mls @ 100 mls/hr IV Q24H [facility] Stop: 09/25/21 20:00 Last Admin: 09/25/21 15:06 Dose: 100 mls/hr Documented by: Doxycycline Hyclate 100 mg/ (Sodium Chloride) 100 mls @ 100 mls/hr IV Q12H [facility] Stop: 09/25/21 20:00 Last Admin: 09/25/21 15:54 Dose: 100 mls/hr Documented by: Remdesivir 100 mg/ Sodium (Chloride) 100 mls @ 100 mls/hr IV Q24H [facility] Stop: 09/22/21 20:59 Last Admin: 09/22/21 20:15 Dose: 100 mls/hr Documented by: Non-Formulary Medication (Omeprazole Magnesium [Prilosec Otc]) 20 mg PO DAILY [facility] Pantoprazole Sodium (Pantoprazole 40 Mg Tab.Cr) 40 mg PO ACBREAKFAST [facility] Last Admin: 09/23/21 07:52 Dose: 40 mg Documented by: Omeprazole 20mg 0 each PO ACBREAKFAST [facility] Omeprazole 20mg 0 each PO ACBREAKFAST [facility] Last Admin: 09/24/21 06:45 Dose: 1 each Documented by: Zinc Gluconate (Zinc (Zinc Gluconate) 50 Mg Tab) 50 mg PO DAILY [facility] Last Admin: 10/05/21 08:40 Dose: 50 mg Documented by: - Exam Quality Assessment: Supplemental Oxygen General: Alert, Oriented, Cooperative, No Acute Distress Lungs: Normal Respiratory Effort GI/Abdominal Exam: Soft, No Distention Extremities: No Pedal Edema Psy/Mental Status: Alert, Normal Affect - Patient Data Result Diagrams: 10/17/21 05:45 10/16/21 05:00 Sepsis Event Note - Evaluation Sepsis Screening Result: No Definite Risk - Focused Exam Vital Signs: Vital Signs Temp Pulse Pulse Resp BP BP Pulse Ox 10/19/21 11:40 36.4 C 72 16 116/70 96 10/19/21 09:08 74 117/68 10/19/21 06:41 36.1 C 74 18 117/68 95 10/19/21 03:00 35.9 C L 67 18 110/65 93 L - Problem List Review Problem List Initiated/Reviewed/Updated: Yes - My Orders Last 24 Hours: My Active Orders 10/20/21 05:00 CRP [C-REACTIVE PROTEIN] [CHEM] Timed D-DIMER QUANTITATIVE [COAG] Timed 10/20/21 09:00 Rivaroxaban [Xarelto] 20 mg PO DAILY - Plan Plan:: ASSESSMENT AND PLAN - COVID-19 INFECTION WITH BILATERAL PNEUMONIA-complicated by acute respiratory failure with hypoxia. Slowly improving, tolerating decreased level of supplemental oxygen. -Decadron 2 mg daily for 1 week -Continue enoxaparin 40 mg daily today, transition to rivaroxaban tomorrow -Remdesivir x5 days complete -Baricitinib x14 days complete -Daily physical therapy ARDS-2/2 COVID-19 infection. -Management as above BPH WITH BLADDER OUTLET OBSTRUCTION-stable. -Doxazosin 8 mg p.o. nightly Pruritic rash-resolved MAINTENANCE ISSUES -DVT prophylaxis; transitioning to rivaroxaban tomorrow -GI prophylaxis; not indicated -Holt catheter; not indicated -Nutrition; regular diet DISPOSITION-anticipate discharge to home after the hospital stay. Hopefully we can wean his supplemental oxygen over the next several days and have him ready for discharge home. I would anticipate he will need home oxygen. Demetris Canseco MD
[2021-10-19] MEDS ORDERED: Sodium Chloride 0.9% 10 ML Syringe FLUSH PRN (15:42)
[2021-10-19] MEDS ORDERED: Acetaminophen 325 MG Tab PO PRN (15:43)
[2021-10-19] MEDS ORDERED: Polyethylene Glycol 3350 Powder 17 GM Packet PO PRN (15:43)
[2021-10-19] MEDS ORDERED: Albuterol 8 GM Inhaler INH PRN (15:44)
[2021-10-19] MEDS ORDERED: Sodium Chloride 0.65% Nasal Spray 45 ML Bottle NAS PRN (19:45)
[2021-10-19] MEDS: Doxazosin 4 MG Tab PO SCH (20:39)
[2021-10-20] MEDS: ESTER C 1000 MG PO SCH (08:25)
[2021-10-20] MEDS: VIT D3 5000 UNIT PO SCH (08:25)
[2021-10-20] MEDS: ZINC 50 MG PO SCH (08:25)
[2021-10-20] MEDS: Mometasone Furoate Nasal Spray 17 GM Canister NAS SCH ×2 (08:26→21:09)
[2021-10-20] MEDS: Dexamethasone 2 MG Tab PO SCH (08:26)
[2021-10-20] MEDS: Nystatin Crm 30 GM Tube TOP SCH ×3 (08:26→21:09)
[2021-10-20] MEDS: Lactobacillus Rhamnosus GG (Probiotic) Cap PO SCH ×2 (08:26→21:09)
[2021-10-20] MEDS: OMEPRAZOLE 20MG **PTOM PO SCH ×2 (08:26→16:34)
[2021-10-20] MEDS: Rivaroxaban 10 MG Tab PO SCH (08:27)
[2021-10-20] MEDS: Multivitamins with Iron/Calcium/Folic Acid/Minerals Tab PO SCH (08:27)
[2021-10-20] MEDS: Metoprolol Succinate 25 MG Tab.ER PO SCH (08:27)
--- NOTE | 2021-10-20 12:24 | PCM.PN ---
- General Info Date of Service: 10/20/21 Subjective Update: No acute events overnight. No fevers. Still on 8 L of oxygen. Short of breath with activity but stable. He is in good spirits. Appetite is good. Very hesit ant to try to decrease his supplemental oxygen. He feels short of breath but his oxygen numbers stay at a good level. Functional Status: Reports: Pain Controlled, Tolerating Diet - Review of Systems Pulmonary: Reports: Shortness of Breath - Patient Data Vitals - Most Recent: Last Vital Signs Temp 36.2 C 10/20/21 08:00 Pulse 65 10/20/21 08:27 Resp 16 10/20/21 08:00 BP 130/71 10/20/21 08:27 Pulse Ox 97 10/20/21 08:33 Weight - Most Recent: 78.925 kg I&O - Last 24 Hours: Intake & Output 10/19/21 10/20/21 10/20/21 22:59 06:59 14:59 Intake Total 1700 600 Output Total 350 300 700 Balance 1350 -300 -100 Lab Results Last 24 Hours: Laboratory Results - last 24 hr 10/20/21 10/20/21 Range/Units 06:00 06:00 D-Dimer, Quantitative 505.25 H (0.0-500.0) ng/mL C-Reactive Protein 0.37 H (0.0-0.3) mg/dL Med Orders - Current: Current Medications Acetaminophen (Acetaminophen 325 Mg Tab) 650 mg PO Q4H PRN PRN Reason: Pain (Mild 1-3)/fever Al Hydroxide/Mg Hydroxide (Aluminum Hydroxide/Magnesium Hydroxide/Simethicone Susp 30 Ml Cup) 30 ml PO Q4H PRN PRN Reason: Dyspepsia Last Admin: 09/24/21 18:40 Dose: 30 ml Documented by: Albuterol (Albuterol 8 Gm Inhaler) 0 gm INH QID PRN PRN Reason: Shortness of Breath Benzonatate (Benzonatate 100 Mg Cap) 100 mg PO Q8H PRN PRN Reason: Cough Last Admin: 10/02/21 14:06 Dose: 100 mg Documented by: Calcium Carbonate/Glycine (Calcium Carbonate 500 Mg Tab.Chew) 500 mg PO Q2H PRN PRN Reason: Indigestion Last Admin: 10/10/21 15:07 Dose: 500 mg Documented by: Dexamethasone (Dexamethasone 2 Mg Tab) 2 mg PO DAILY [facility] Last Admin: 10/20/21 08:26 Dose: 2 mg Documented by: Diphenhydramine HCl (Diphenhydramine 25 Mg Cap) 25 mg PO Q4H PRN PRN Reason: Itching Last Admin: 10/07/21 21:55 Dose: 25 mg Documented by: Doxazosin Mesylate (Doxazosin 4 Mg Tab) 8 mg PO BEDTIME [facility] Last Admin: 10/19/21 20:39 Dose: 8 mg Documented by: Guaifenesin/Dextromethorphan (Guaifenesin/Dextromethorphan 100-10 Mg/5 Ml Soln 10 Ml Cup) 10 ml PO Q4H PRN PRN Reason: Cough Last Admin: 10/16/21 19:56 Dose: 10 ml Documented by: Lactobacillus Rhamnosus (Lactobacillus Rhamnosus Gg (Probiotic) Cap) 1 cap PO BID [facility] Last Admin: 10/20/21 08:26 Dose: 1 cap Documented by: Melatonin (Melatonin 3 Mg Tab) 9 mg PO BEDTIME PRN PRN Reason: Sleep Last Admin: 10/11/21 23:08 Dose: 9 mg Documented by: Metoprolol Succinate (Metoprolol Succinate 25 Mg Tab.Er) 25 mg PO DAILY [facility] Last Admin: 10/20/21 08:27 Dose: 25 mg Documented by: Mometasone Furoate (Mometasone Furoate Nasal [place] 17 Gm Canister) 0 gm PANFILO BID [facility] Last Admin: 10/20/21 08:26 Dose: Not Given Documented by: Multivitamins/Minerals (Multivitamins With Iron/Calcium/Folic Acid/Minerals Tab) 1 tab PO DAILY [facility] Last Admin: 10/20/21 08:27 Dose: 1 tab Documented by: Nystatin (Nystatin Crm 30 Gm Tube) 0 gm TOP TID [facility] Last Admin: 10/20/21 08:26 Dose: Not Given Documented by: Omeprazole 20mg (Ptom) 0 each PO BIDAC [facility] Last Admin: 10/20/21 08:26 Dose: 1 each Documented by: Vivi C 1,000mg Cap ((Ptom)) 1 each PO DAILY [facility] Last Admin: 10/20/21 08:25 Dose: 1 each Documented by: Vit D-3 5,000 Unit (Cap (Ptom)) 1 each PO DAILY [facility] Last Admin: 10/20/21 08:25 Dose: 1 each Documented by: Polyethylene Glycol (Polyethylene Glycol 3350 Powder 17 Gm Packet) 17 gm PO DAILY PRN PRN Reason: Constipation Rivaroxaban (Rivaroxaban 10 Mg Tab) 20 mg PO DAILY [facility] Last Admin: 10/20/21 08:27 Dose: 20 mg Documented by: Senna/Docusate Sodium (Docusate Sodium/Sennosides 50-8.6 Mg Tab) 1 tab PO Q12H PRN PRN Reason: Constipation Last Admin: 10/02/21 14:06 Dose: 1 tab Documented by: Sodium Chloride (Sodium Chloride 0.9% 10 Ml Syringe) 10 ml FLUSH ASDIRECTED PRN PRN Reason: Keep Vein Open Sodium Chloride (Sodium Chloride 0.65% Nasal [place] 45 Ml Bottle) 0 ml PANFILO QID PRN PRN Reason: Congestion Last Admin: 10/19/21 20:41 Dose: 1 spray Documented by: Tramadol HCl (Tramadol 50 Mg Tab) 50 mg PO Q6H PRN PRN Reason: back pain Last Admin: 09/28/21 09:40 Dose: 50 mg Documented by: Zinc Gluconate (Zinc (Zinc Gluconate) 50 Mg Cap (Ptom)) 50 mg PO DAILY [facility] Last Admin: 10/20/21 08:25 Dose: 50 mg Documented by: Discontinued Medications Acetaminophen (Acetaminophen 325 Mg Tab) 650 mg PO Q4H PRN PRN Reason: Fever Greater Than 101 Acetaminophen (Acetaminophen 325 Mg Tab) 650 mg PO Q4H PRN PRN Reason: Pain (Mild 1-3)/fever Last Admin: 10/17/21 11:43 Dose: 650 mg Documented by: Albuterol (Albuterol 8 Gm Inhaler) 0 gm INH QID PRN PRN Reason: Shortness of Breath Ascorbic Acid (Ascorbic Acid 500 Mg Tab) 500 mg PO DAILY [facility] Last Admin: 10/06/21 17:04 Dose: Not Given Documented by: Ascorbic Acid (Ascorbic Acid 500 Mg Tab) 1,000 mg PO DAILY [facility] Last Admin: 10/06/21 13:51 Dose: 1,000 mg Documented by: Baricitinib (Baricitinib 2 Mg Tab) 4 mg PO Q24H [facility] Stop: 10/02/21 16:01 Last Admin: 10/02/21 15:29 Dose: 4 mg Documented by: Cholecalciferol (Cholecalciferol (Vitamin D3) 25 Mcg Tab) 25 mcg PO DAILY [facility] Last Admin: 10/06/21 17:05 Dose: Not Given Documented by: Cholecalciferol (Cholecalciferol (Vitamin D3) 25 Mcg Tab) 125 mcg PO DAILY [facility] Last Admin: 10/06/21 13:51 Dose: 125 mcg Documented by: Dexamethasone (Dexamethasone 4 Mg/Ml Sdv) 6 mg IVPUSH DAILY [facility] Stop: 09/27/21 09:01 Last Admin: 09/19/21 02:25 Dose: 6 mg Documented by: Dexamethasone (Dexamethasone 4 Mg/Ml Sdv) Confirm Administered Dose 8 mg .ROUTE .[facility]-MED ONE Stop: 09/19/21 02:17 Last Admin: 09/19/21 04:22 Dose: Not Given Documented by: Dexamethasone (Dexamethasone 4 Mg/Ml Sdv) 6 mg IVPUSH Q24H [facility] Stop: 09/27/21 18:01 Last Admin: 09/27/21 17:22 Dose: 6 mg Documented by: Dexamethasone (Dexamethasone 2 Mg Tab) 4 mg PO Q24H [facility] Stop: 10/01/21 18:01 Last Admin: 09/30/21 17:19 Dose: 4 mg Documented by: Dexamethasone (Dexamethasone 4 Mg/Ml Sdv) 6 mg IVPUSH Q24H [facility] Last Admin: 10/08/21 14:27 Dose: Not Given Documented by: Dexamethasone (Dexamethasone 2 Mg Tab) 6 mg PO Q24H [facility] Last Admin: 10/11/21 15:43 Dose: 6 mg Documented by: Dexamethasone (Dexamethasone 2 Mg Tab) 4 mg PO Q24H [facility] Stop: 10/18/21 23:59 Last Admin: 10/18/21 13:26 Dose: 4 mg Documented by: Doxazosin Mesylate (Doxazosin 4 Mg Tab) 4 mg PO BEDTIME [facility] Last Admin: 09/29/21 20:51 Dose: 4 mg Documented by: Enoxaparin Sodium (Enoxaparin 40 Mg/0.4 Ml Syringe) 40 mg SUBCUT DAILY [facility] Last Admin: 09/19/21 17:22 Dose: 40 mg Documented by: Enoxaparin Sodium (Enoxaparin 40 Mg/0.4 Ml Syringe) 40 mg SUBCUT Q24H [facility] Last Admin: 09/25/21 15:58 Dose: 40 mg Documented by: Enoxaparin Sodium (Enoxaparin 80 Mg/0.8 Ml Syringe) 80 mg SUBCUT Q12H [facility] Last Admin: 10/07/21 21:50 Dose: 80 mg Documented by: Enoxaparin Sodium (Enoxaparin 40 Mg/0.4 Ml Syringe) 40 mg SUBCUT Q12H [facility] Last Admin: 10/10/21 08:17 Dose: 40 mg Documented by: Enoxaparin Sodium (Enoxaparin 40 Mg/0.4 Ml Syringe) 40 mg SUBCUT DAILY [facility] Last Admin: 10/19/21 09:06 Dose: 40 mg Documented by: Finasteride (Finasteride 5 Mg Tab) 5 mg PO BEDTIME [facility] Last Admin: 10/06/21 21:18 Dose: 5 mg Documented by: Furosemide (Furosemide 20 Mg/2 Ml Vial) 20 mg IVPUSH ONETIME ONE Stop: 09/25/21 09:01 Last Admin: 09/25/21 10:17 Dose: 20 mg Documented by: Hydrocortisone (Hydrocortisone 1% Crm 30 Gm Tube) 0 gm TOP BID [facility] Last Admin: 10/07/21 10:52 Dose: 1 applic Documented by: Remdesivir 200 mg/ Sodium (Chloride) 250 mls @ 250 mls/hr IV ONETIME ONE Stop: 09/19/21 01:27 Last Admin: 09/19/21 02:24 Dose: 250 mls/hr Documented by: Remdesivir (Remdesivir) Confirm Administered Dose 200 mls @ as directed .ROUTE .STK-MED ONE Stop: 09/19/21 01:47 Last Admin: 09/19/21 04:22 Dose: Not Given Documented by: Ceftriaxone Sodium 1 gm/ (Sodium Chloride) 50 mls @ 100 mls/hr IV Q24H [facility] Stop: 09/25/21 20:00 Last Admin: 09/25/21 15:06 Dose: 100 mls/hr Documented by: Doxycycline Hyclate 100 mg/ (Sodium Chloride) 100 mls @ 100 mls/hr IV Q12H [facility] Stop: 09/25/21 20:00 Last Admin: 09/25/21 15:54 Dose: 100 mls/hr Documented by: Remdesivir 100 mg/ Sodium (Chloride) 100 mls @ 100 mls/hr IV Q24H [facility] Stop: 09/22/21 20:59 Last Admin: 09/22/21 20:15 Dose: 100 mls/hr Documented by: Non-Formulary Medication (Omeprazole Magnesium [Prilosec Otc]) 20 mg PO DAILY [facility] Ondansetron HCl (Ondansetron 4 Mg/2 Ml Sdv) 4 mg IV Q4H PRN PRN Reason: Nausea/Vomiting Pantoprazole Sodium (Pantoprazole 40 Mg Tab.Cr) 40 mg PO ACBREAKFAST [facility] Last Admin: 09/23/21 07:52 Dose: 40 mg Documented by: Omeprazole 20mg 0 each PO ACBREAKFAST [facility] Omeprazole 20mg 0 each PO ACBREAKFAST [facility] Last Admin: 09/24/21 06:45 Dose: 1 each Documented by: Polyethylene Glycol (Polyethylene Glycol 3350 Powder 17 Gm Packet) 17 gm PO DAILY PRN PRN Reason: Constipation Sodium Chloride (Sodium Chloride 0.9% 10 Ml Syringe) 10 ml FLUSH ASDIRECTED PRN PRN Reason: Keep Vein Open Zinc Gluconate (Zinc (Zinc Gluconate) 50 Mg Tab) 50 mg PO DAILY [facility] Last Admin: 10/05/21 08:40 Dose: 50 mg Documented by: - Exam Quality Assessment: Supplemental Oxygen General: Alert, Oriented, Cooperative, No Acute Distress Lungs: No: Normal Respiratory Effort (mild tachypnea), Wheezing GI/Abdominal Exam: Soft, No Distention Extremities: No Pedal Edema Psy/Mental Status: Alert, Normal Affect - Patient Data Lab Results Last 24 hrs: Laboratory Results - last 24 hr 10/20/21 10/20/21 Range/Units 06:00 06:00 D-Dimer, Quantitative 505.25 H (0.0-500.0) ng/mL C-Reactive Protein 0.37 H (0.0-0.3) mg/dL Result Diagrams: 10/17/21 05:45 10/16/21 05:00 Sepsis Event Note - Evaluation Sepsis Screening Result: No Definite Risk - Focused Exam Vital Signs: Vital Signs Temp Pulse Pulse Resp BP BP Pulse Ox 10/20/21 08:33 97 10/20/21 08:27 65 130/71 10/20/21 08:00 36.2 C 65 16 130/71 97 10/20/21 04:00 64 16 99 10/20/21 00:43 35.9 C L 72 16 125/60 95 - Problem List Review Problem List Initiated/Reviewed/Updated: Yes - My Orders Last 24 Hours: My Active Orders 10/19/21 19:45 Sodium Chloride 0.65% [[place] Nasal [place]] 0 ml PANFILO QID PRN 10/20/21 09:00 Rivaroxaban [Xarelto] 20 mg PO DAILY - Plan Plan:: ASSESSMENT AND PLAN - COVID-19 INFECTION WITH BILATERAL PNEUMONIA-complicated by acute respiratory fa ilure with hypoxia. Slowly improving but only very slowly able to decrease supplemental oxygen use. -Decadron 2 mg daily for 1 week then 1 mg daily -Continue rivaroxaban -Remdesivir x5 days complete -Baricitinib x14 days complete -Daily physical therapy ARDS-2/2 COVID-19 infection. -Management as above BPH WITH BLADDER OUTLET OBSTRUCTION-stable. -Doxazosin 8 mg p.o. nightly Pruritic rash-resolved MAINTENANCE ISSUES -DVT prophylaxis; transitioning to rivaroxaban tomorrow -GI prophylaxis; not indicated -Holt catheter; not indicated -Nutrition; regular diet DISPOSITION-anticipate discharge to home after the hospital stay. Hopefully we can wean his supplemental oxygen over the next several days and have him ready for discharge home. I would anticipate he will need home oxygen. Demetris Canseco MD
[2021-10-20] MEDS: Doxazosin 4 MG Tab PO SCH (21:09)
[2021-10-21] MEDS: OMEPRAZOLE 20MG **PTOM PO SCH ×2 (08:17→17:51)
[2021-10-21] MEDS: ESTER C 1000 MG PO SCH (08:18)
[2021-10-21] MEDS: Mometasone Furoate Nasal Spray 17 GM Canister NAS SCH ×2 (08:18→20:41)
[2021-10-21] MEDS: Nystatin Crm 30 GM Tube TOP SCH ×3 (08:18→20:41)
[2021-10-21] MEDS: Dexamethasone 2 MG Tab PO SCH (08:18)
[2021-10-21] MEDS: Lactobacillus Rhamnosus GG (Probiotic) Cap PO SCH ×2 (08:18→20:55)
[2021-10-21] MEDS: Rivaroxaban 10 MG Tab PO SCH (08:19)
[2021-10-21] MEDS: VIT D3 5000 UNIT PO SCH (08:19)
[2021-10-21] MEDS: ZINC 50 MG PO SCH (08:19)
[2021-10-21] MEDS: Multivitamins with Iron/Calcium/Folic Acid/Minerals Tab PO SCH (08:20)
[2021-10-21] MEDS: Metoprolol Succinate 25 MG Tab.ER PO SCH (08:21)
--- NOTE | 2021-10-21 14:31 | PCM.PN ---
- General Info Date of Service: 10/21/21 Subjective Update: No acute events overnight. No significant change since yesterday. Patient thinks he feels a little less short of breath today. Still complaining of a dry mouth. Still having frequent urination but no different than baseline. He is down to 7 L of oxygen. We did discuss a CT scan to look for pulmonary emboli but he does not feel up to it today. Functional Status: Reports: Pain Controlled, Tolerating Diet - Review of Systems General: Reports: Weakness Pulmonary: Reports: Shortness of Breath - Patient Data Vitals - Most Recent: Last Vital Signs Temp 36.6 C 10/21/21 11:00 Pulse 97 10/21/21 11:00 Resp 18 10/21/21 11:00 BP 107/81 10/21/21 11:00 Pulse Ox 92 L 10/21/21 11:00 Weight - Most Recent: 78.925 kg I&O - Last 24 Hours: Intake & Output 10/20/21 10/21/21 10/21/21 22:59 06:59 14:59 Intake Total 600 900 Output Total 650 1900 Balance -50 -1000 Med Orders - Current: Current Medications Acetaminophen (Acetaminophen 325 Mg Tab) 650 mg PO Q4H PRN PRN Reason: Pain (Mild 1-3)/fever Al Hydroxide/Mg Hydroxide (Aluminum Hydroxide/Magnesium Hydroxide/Simethicone Susp 30 Ml Cup) 30 ml PO Q4H PRN PRN Reason: Dyspepsia Last Admin: 09/24/21 18:40 Dose: 30 ml Documented by: Albuterol (Albuterol 8 Gm Inhaler) 0 gm INH QID PRN PRN Reason: Shortness of Breath Benzonatate (Benzonatate 100 Mg Cap) 100 mg PO Q8H PRN PRN Reason: Cough Last Admin: 10/02/21 14:06 Dose: 100 mg Documented by: Calcium Carbonate/Glycine (Calcium Carbonate 500 Mg Tab.Chew) 500 mg PO Q2H PRN PRN Reason: Indigestion Last Admin: 10/10/21 15:07 Dose: 500 mg Documented by: Dexamethasone (Dexamethasone 2 Mg Tab) 2 mg PO DAILY [facility] Last Admin: 10/21/21 08:18 Dose: 2 mg Documented by: Diphenhydramine HCl (Diphenhydramine 25 Mg Cap) 25 mg PO Q4H PRN PRN Reason: Itching Last Admin: 10/07/21 21:55 Dose: 25 mg Documented by: Doxazosin Mesylate (Doxazosin 4 Mg Tab) 8 mg PO BEDTIME [facility] Last Admin: 10/20/21 21:09 Dose: 8 mg Documented by: Guaifenesin/Dextromethorphan (Guaifenesin/Dextromethorphan 100-10 Mg/5 Ml Soln 10 Ml Cup) 10 ml PO Q4H PRN PRN Reason: Cough Last Admin: 10/16/21 19:56 Dose: 10 ml Documented by: Lactobacillus Rhamnosus (Lactobacillus Rhamnosus Gg (Probiotic) Cap) 1 cap PO BID [facility] Last Admin: 10/21/21 08:18 Dose: 1 cap Documented by: Melatonin (Melatonin 3 Mg Tab) 9 mg PO BEDTIME PRN PRN Reason: Sleep Last Admin: 10/11/21 23:08 Dose: 9 mg Documented by: Mometasone Furoate (Mometasone Furoate Nasal [place] 17 Gm Canister) 0 gm PANFILO BID [facility] Last Admin: 10/21/21 08:18 Dose: Not Given Documented by: Multivitamins/Minerals (Multivitamins With Iron/Calcium/Folic Acid/Minerals Tab) 1 tab PO DAILY [facility] Last Admin: 10/21/21 08:20 Dose: 1 tab Documented by: Nystatin (Nystatin Crm 30 Gm Tube) 0 gm TOP TID [facility] Last Admin: 10/21/21 08:18 Dose: Not Given Documented by: Omeprazole 20mg (Ptom) 0 each PO BIDAC [facility] Last Admin: 10/21/21 08:17 Dose: 1 each Documented by: Vivi C 1,000mg Cap ((Ptom)) 1 each PO DAILY [facility] Last Admin: 10/21/21 08:18 Dose: 1 each Documented by: Vit D-3 5,000 Unit (Cap (Ptom)) 1 each PO DAILY [facility] Last Admin: 10/21/21 08:19 Dose: 1 each Documented by: Polyethylene Glycol (Polyethylene Glycol 3350 Powder 17 Gm Packet) 17 gm PO DAILY PRN PRN Reason: Constipation Rivaroxaban (Rivaroxaban 10 Mg Tab) 20 mg PO DAILY [facility] Last Admin: 10/21/21 08:19 Dose: 20 mg Documented by: Senna/Docusate Sodium (Docusate Sodium/Sennosides 50-8.6 Mg Tab) 1 tab PO Q12H PRN PRN Reason: Constipation Last Admin: 10/02/21 14:06 Dose: 1 tab Documented by: Sodium Chloride (Sodium Chloride 0.9% 10 Ml Syringe) 10 ml FLUSH ASDIRECTED PRN PRN Reason: Keep Vein Open Sodium Chloride (Sodium Chloride 0.65% Nasal [place] 45 Ml Bottle) 0 ml PANFILO QID PRN PRN Reason: Congestion Last Admin: 10/19/21 20:41 Dose: 1 spray Documented by: Tramadol HCl (Tramadol 50 Mg Tab) 50 mg PO Q6H PRN PRN Reason: back pain Last Admin: 09/28/21 09:40 Dose: 50 mg Documented by: Zinc Gluconate (Zinc (Zinc Gluconate) 50 Mg Cap (Ptom)) 50 mg PO DAILY [facility] Last Admin: 10/21/21 08:19 Dose: 50 mg Documented by: Discontinued Medications Acetaminophen (Acetaminophen 325 Mg Tab) 650 mg PO Q4H PRN PRN Reason: Fever Greater Than 101 Acetaminophen (Acetaminophen 325 Mg Tab) 650 mg PO Q4H PRN PRN Reason: Pain (Mild 1-3)/fever Last Admin: 10/17/21 11:43 Dose: 650 mg Documented by: Albuterol (Albuterol 8 Gm Inhaler) 0 gm INH QID PRN PRN Reason: Shortness of Breath Ascorbic Acid (Ascorbic Acid 500 Mg Tab) 500 mg PO DAILY [facility] Last Admin: 10/06/21 17:04 Dose: Not Given Documented by: Ascorbic Acid (Ascorbic Acid 500 Mg Tab) 1,000 mg PO DAILY [facility] Last Admin: 10/06/21 13:51 Dose: 1,000 mg Documented by: Baricitinib (Baricitinib 2 Mg Tab) 4 mg PO Q24H [facility] Stop: 10/02/21 16:01 Last Admin: 10/02/21 15:29 Dose: 4 mg Documented by: Cholecalciferol (Cholecalciferol (Vitamin D3) 25 Mcg Tab) 25 mcg PO DAILY [facility] Last Admin: 10/06/21 17:05 Dose: Not Given Documented by: Cholecalciferol (Cholecalciferol (Vitamin D3) 25 Mcg Tab) 125 mcg PO DAILY [facility] Last Admin: 10/06/21 13:51 Dose: 125 mcg Documented by: Dexamethasone (Dexamethasone 4 Mg/Ml Sdv) 6 mg IVPUSH DAILY [facility] Stop: 09/27/21 09:01 Last Admin: 09/19/21 02:25 Dose: 6 mg Documented by: Dexamethasone (Dexamethasone 4 Mg/Ml Sdv) Confirm Administered Dose 8 mg .ROUTE .STK-MED ONE Stop: 09/19/21 02:17 Last Admin: 09/19/21 04:22 Dose: Not Given Documented by: Dexamethasone (Dexamethasone 4 Mg/Ml Sdv) 6 mg IVPUSH Q24H [facility] Stop: 09/27/21 18:01 Last Admin: 09/27/21 17:22 Dose: 6 mg Documented by: Dexamethasone (Dexamethasone 2 Mg Tab) 4 mg PO Q24H [facility] Stop: 10/01/21 18:01 Last Admin: 09/30/21 17:19 Dose: 4 mg Documented by: Dexamethasone (Dexamethasone 4 Mg/Ml Sdv) 6 mg IVPUSH Q24H [facility] Last Admin: 10/08/21 14:27 Dose: Not Given Documented by: Dexamethasone (Dexamethasone 2 Mg Tab) 6 mg PO Q24H [facility] Last Admin: 10/11/21 15:43 Dose: 6 mg Documented by: Dexamethasone (Dexamethasone 2 Mg Tab) 4 mg PO Q24H [facility] Stop: 10/18/21 23:59 Last Admin: 10/18/21 13:26 Dose: 4 mg Documented by: Doxazosin Mesylate (Doxazosin 4 Mg Tab) 4 mg PO BEDTIME [facility] Last Admin: 09/29/21 20:51 Dose: 4 mg Documented by: Enoxaparin Sodium (Enoxaparin 40 Mg/0.4 Ml Syringe) 40 mg SUBCUT DAILY [facility] Last Admin: 09/19/21 17:22 Dose: 40 mg Documented by: Enoxaparin Sodium (Enoxaparin 40 Mg/0.4 Ml Syringe) 40 mg SUBCUT Q24H [facility] Last Admin: 09/25/21 15:58 Dose: 40 mg Documented by: Enoxaparin Sodium (Enoxaparin 80 Mg/0.8 Ml Syringe) 80 mg SUBCUT Q12H [facility] Last Admin: 10/07/21 21:50 Dose: 80 mg Documented by: Enoxaparin Sodium (Enoxaparin 40 Mg/0.4 Ml Syringe) 40 mg SUBCUT Q12H [facility] Last Admin: 10/10/21 08:17 Dose: 40 mg Documented by: Enoxaparin Sodium (Enoxaparin 40 Mg/0.4 Ml Syringe) 40 mg SUBCUT DAILY [facility] Last Admin: 10/19/21 09:06 Dose: 40 mg Documented by: Finasteride (Finasteride 5 Mg Tab) 5 mg PO BEDTIME [facility] Last Admin: 10/06/21 21:18 Dose: 5 mg Documented by: Furosemide (Furosemide 20 Mg/2 Ml Vial) 20 mg IVPUSH ONETIME ONE Stop: 09/25/21 09:01 Last Admin: 09/25/21 10:17 Dose: 20 mg Documented by: Hydrocortisone (Hydrocortisone 1% Crm 30 Gm Tube) 0 gm TOP BID [facility] Last Admin: 10/07/21 10:52 Dose: 1 applic Documented by: Remdesivir 200 mg/ Sodium (Chloride) 250 mls @ 250 mls/hr IV ONETIME ONE Stop: 09/19/21 01:27 Last Admin: 09/19/21 02:24 Dose: 250 mls/hr Documented by: Remdesivir (Remdesivir) Confirm Administered Dose 200 mls @ as directed .ROUTE .STK-MED ONE Stop: 09/19/21 01:47 Last Admin: 09/19/21 04:22 Dose: Not Given Documented by: Ceftriaxone Sodium 1 gm/ (Sodium Chloride) 50 mls @ 100 mls/hr IV Q24H [facility] Stop: 09/25/21 20:00 Last Admin: 09/25/21 15:06 Dose: 100 mls/hr Documented by: Doxycycline Hyclate 100 mg/ (Sodium Chloride) 100 mls @ 100 mls/hr IV Q12H [facility] Stop: 09/25/21 20:00 Last Admin: 09/25/21 15:54 Dose: 100 mls/hr Documented by: Remdesivir 100 mg/ Sodium (Chloride) 100 mls @ 100 mls/hr IV Q24H [facility] Stop: 09/22/21 20:59 Last Admin: 09/22/21 20:15 Dose: 100 mls/hr Documented by: Metoprolol Succinate (Metoprolol Succinate 25 Mg Tab.Er) 25 mg PO DAILY [facility] Last Admin: 10/21/21 08:21 Dose: 25 mg Documented by: Non-Formulary Medication (Omeprazole Magnesium [Prilosec Otc]) 20 mg PO DAILY [facility] Ondansetron HCl (Ondansetron 4 Mg/2 Ml Sdv) 4 mg IV Q4H PRN PRN Reason: Nausea/Vomiting Pantoprazole Sodium (Pantoprazole 40 Mg Tab.Cr) 40 mg PO ACBREAKFAST [facility] Last Admin: 09/23/21 07:52 Dose: 40 mg Documented by: Omeprazole 20mg 0 each PO ACBREAKFAST [facility] Omeprazole 20mg 0 each PO ACBREAKFAST [facility] Last Admin: 09/24/21 06:45 Dose: 1 each Documented by: Polyethylene Glycol (Polyethylene Glycol 3350 Powder 17 Gm Packet) 17 gm PO DAILY PRN PRN Reason: Constipation Sodium Chloride (Sodium Chloride 0.9% 10 Ml Syringe) 10 ml FLUSH ASDIRECTED PRN PRN Reason: Keep Vein Open Zinc Gluconate (Zinc (Zinc Gluconate) 50 Mg Tab) 50 mg PO DAILY [facility] Last Admin: 10/05/21 08:40 Dose: 50 mg Documented by: - Exam Quality Assessment: Supplemental Oxygen General: Alert, Oriented, Cooperative, No Acute Distress Lungs: Normal Respiratory Effort GI/Abdominal Exam: Soft, No Distention Extremities: No Pedal Edema Psy/Mental Status: Alert, Normal Affect - Patient Data Result Diagrams: 10/17/21 05:45 10/16/21 05:00 Sepsis Event Note - Evaluation Sepsis Screening Result: No Definite Risk - Focused Exam Vital Signs: Vital Signs Temp Pulse Pulse Resp BP BP Pulse Ox 10/21/21 11:00 36.6 C 97 18 107/81 92 L 10/21/21 08:23 35.6 C L 63 18 119/76 99 10/21/21 08:21 63 119/76 10/21/21 03:00 35.9 C L 63 16 122/68 99 10/21/21 02:49 94 L - Problem List Review Problem List Initiated/Reviewed/Updated: Yes - My Orders Last 24 Hours: My Active Orders 10/22/21 05:00 BASIC METABOLIC PANEL,BMP [CHEM] Timed CBC WITH AUTO DIFF [HEME] Timed CRP [C-REACTIVE PROTEIN] [CHEM] Timed D-DIMER QUANTITATIVE [COAG] Timed - Plan Plan:: ASSESSMENT AND PLAN - COVID-19 INFECTION WITH BILATERAL PNEUMONIA-complicated by acute respiratory failure with hypoxia. Slowly improving but only very slowly able to decrease supplemental oxygen use. -Decadron 2 mg daily for 1 week then 1 mg daily -Continue rivaroxaban -Remdesivir x5 days complete -Baricitinib x14 days complete -Daily physical therapy -Consider CT of the chest to look for pulmonary emboli that could be hampering his road to recovery ARDS-2/2 COVID-19 infection. -Management as above BPH WITH BLADDER OUTLET OBSTRUCTION-stable. -Doxazosin 8 mg p.o. nightly Pruritic rash-resolved MAINTENANCE ISSUES -DVT prophylaxis; continue rivaroxaban -GI prophylaxis; not indicated -Holt catheter; not indicated -Nutrition; regular diet DISPOSITION-anticipate discharge to home after the hospital stay. Hopefully we can wean his supplemental oxygen over the next several days and have him ready for discharge home. I would anticipate he will need home oxygen. Demetris Canseco MD
[2021-10-21] MEDS: LORazepam 0.5 MG Tab PO PRN (20:55)
[2021-10-21] MEDS: Doxazosin 4 MG Tab PO SCH (20:55)
[2021-10-21] MEDS: guaiFENesin/Dextromethorphan 100-10 MG/5 ML Soln 10 ML Cup PO PRN (22:33)
[2021-10-22] MEDS: LORazepam 0.5 MG Tab PO PRN ×4 (03:53→21:21)
[2021-10-22] MEDS: OMEPRAZOLE 20MG **PTOM PO SCH ×3 (08:00→15:43)
[2021-10-22] MEDS: Dexamethasone 2 MG Tab PO SCH (08:15)
[2021-10-22] MEDS: VIT D3 5000 UNIT PO SCH (08:15)
[2021-10-22] MEDS: Lactobacillus Rhamnosus GG (Probiotic) Cap PO SCH ×2 (08:15→21:20)
[2021-10-22] MEDS: ESTER C 1000 MG PO SCH (08:16)
[2021-10-22] MEDS: Multivitamins with Iron/Calcium/Folic Acid/Minerals Tab PO SCH (08:16)
[2021-10-22] MEDS: Rivaroxaban 10 MG Tab PO SCH (08:16)
[2021-10-22] MEDS: ZINC 50 MG PO SCH (08:16)
[2021-10-22] MEDS: Mometasone Furoate Nasal Spray 17 GM Canister NAS SCH ×2 (08:17→21:21)
[2021-10-22] MEDS: Nystatin Crm 30 GM Tube TOP SCH ×3 (08:17→21:21)
--- NOTE | 2021-10-22 15:12 | PCM.PN ---
- General Info Date of Service: 10/22/21 Subjective Update: No acute events overnight. He has been transitioned to a regular nasal cannula at 5 to 6 L/min. Symptomatically he is feeling better. He is able to tolerate more activity with less dyspnea. Did get some lorazepam to help with anxiety and he thinks this has helped quite a bit. Slept well last night. Appetite good. Strength slowly improving. D-dimer is now normal. CRP slightly higher than a couple of days ago but still very low. Functional Status: Reports: Pain Controlled, Tolerating Diet - Patient Data Vitals - Most Recent: Last Vital Signs Temp 36.9 C 10/22/21 14:49 Pulse 95 10/22/21 14:49 Resp 18 10/22/21 14:49 BP 118/69 10/22/21 14:49 Pulse Ox 96 10/22/21 14:49 Weight - Most Recent: 78.925 kg I&O - Last 24 Hours: Intake & Output 10/22/21 10/22/21 10/22/21 06:59 14:59 22:59 Intake Total 800 Output Total 550 Balance 250 Lab Results Last 24 Hours: Laboratory Results - last 24 hr 10/22/21 10/22/21 10/22/21 Range/Units 05:20 05:20 05:20 WBC 9.3 (4.5-11.0) K/uL RBC 4.37 (4.30-5.90) M/uL Hgb 12.7 (12.0-15.0) g/dL Hct 38.3 L (40.0-54.0) % MCV 88 (80-98) fL MCH 29 (27-31) pg MCHC 33 (32-36) % Plt Count 268 (150-400) K/uL Add Manual Diff Yes Neutrophils % (Manual) 55 (36-66) % Lymphocytes % (Manual) 26 (24-44) % Monocytes % (Manual) 12 H (2-6) % Eosinophils % (Manual) 7 H (2-4) % D-Dimer, Quantitative 323.02 (0.0-500.0) ng/mL Sodium 134 L (140-148) mmol/L Potassium 4.0 (3.6-5.2) mmol/L Chloride 99 L (100-108) mmol/L Carbon Dioxide 31 (21-32) mmol/L Anion Gap 8.0 (5.0-14.0) mmol/L BUN 17 (7-18) mg/dL Creatinine 0.7 L (0.8-1.3) mg/dL Est Cr Clr Drug Dosing 97.71 mL/min Estimated GFR (MDRD) > 60 (>60) Glucose 100 (74-106) mg/dL Calcium 8.9 (8.5-10.1) mg/dL C-Reactive Protein 0.71 H (0.0-0.3) mg/dL Med Orders - Current: Current Medications Acetaminophen (Acetaminophen 325 Mg Tab) 650 mg PO Q4H PRN PRN Reason: Pain (Mild 1-3)/fever Al Hydroxide/Mg Hydroxide (Aluminum Hydroxide/Magnesium Hydroxide/Simethicone Susp 30 Ml Cup) 30 ml PO Q4H PRN PRN Reason: Dyspepsia Last Admin: 09/24/21 18:40 Dose: 30 ml Documented by: Albuterol (Albuterol 8 Gm Inhaler) 0 gm INH QID PRN PRN Reason: Shortness of Breath Benzonatate (Benzonatate 100 Mg Cap) 100 mg PO Q8H PRN PRN Reason: Cough Last Admin: 10/02/21 14:06 Dose: 100 mg Documented by: Calcium Carbonate/Glycine (Calcium Carbonate 500 Mg Tab.Chew) 500 mg PO Q2H PRN PRN Reason: Indigestion Last Admin: 10/10/21 15:07 Dose: 500 mg Documented by: Dexamethasone (Dexamethasone 2 Mg Tab) 2 mg PO DAILY [facility] Last Admin: 10/22/21 08:15 Dose: 2 mg Documented by: Diphenhydramine HCl (Diphenhydramine 25 Mg Cap) 25 mg PO Q4H PRN PRN Reason: Itching Last Admin: 10/07/21 21:55 Dose: 25 mg Documented by: Doxazosin Mesylate (Doxazosin 4 Mg Tab) 8 mg PO BEDTIME [facility] Last Admin: 10/21/21 20:55 Dose: 8 mg Documented by: Guaifenesin/Dextromethorphan (Guaifenesin/Dextromethorphan 100-10 Mg/5 Ml Soln 10 Ml Cup) 10 ml PO Q4H PRN PRN Reason: Cough Last Admin: 10/21/21 22:33 Dose: 10 ml Documented by: Lactobacillus Rhamnosus (Lactobacillus Rhamnosus Gg (Probiotic) Cap) 1 cap PO BID [facility] Last Admin: 10/22/21 08:15 Dose: 1 cap Documented by: Lorazepam (Lorazepam 0.5 Mg Tab) 0.5 mg PO Q4H PRN PRN Reason: Anxiety Last Admin: 10/22/21 08:14 Dose: 0.5 mg Documented by: Melatonin (Melatonin 3 Mg Tab) 9 mg PO BEDTIME PRN PRN Reason: Sleep Last Admin: 10/11/21 23:08 Dose: 9 mg Documented by: Mometasone Furoate (Mometasone Furoate Nasal [place] 17 Gm Canister) 0 gm PANFILO BID [facility] Last Admin: 10/22/21 08:17 Dose: Not Given Documented by: Multivitamins/Minerals (Multivitamins With Iron/Calcium/Folic Acid/Minerals Tab) 1 tab PO DAILY [facility] Last Admin: 10/22/21 08:16 Dose: 1 tab Documented by: Nystatin (Nystatin Crm 30 Gm Tube) 0 gm TOP TID [facility] Last Admin: 10/22/21 14:01 Dose: Not Given Documented by: Omeprazole 20mg (Ptom) 0 each PO BIDAC [facility] Last Admin: 10/22/21 08:00 Dose: 1 each Documented by: Vivi C 1,000mg Cap ((Ptom)) 1 each PO DAILY [facility] Last Admin: 10/22/21 08:16 Dose: 1 each Documented by: Vit D-3 5,000 Unit (Cap (Ptom)) 1 each PO DAILY [facility] Last Admin: 10/22/21 08:15 Dose: 1 each Documented by: Polyethylene Glycol (Polyethylene Glycol 3350 Powder 17 Gm Packet) 17 gm PO DAILY PRN PRN Reason: Constipation Rivaroxaban (Rivaroxaban 10 Mg Tab) 20 mg PO DAILY [facility] Last Admin: 10/22/21 08:16 Dose: 20 mg Documented by: Senna/Docusate Sodium (Docusate Sodium/Sennosides 50-8.6 Mg Tab) 1 tab PO Q12H PRN PRN Reason: Constipation Last Admin: 10/02/21 14:06 Dose: 1 tab Documented by: Sodium Chloride (Sodium Chloride 0.9% 10 Ml Syringe) 10 ml FLUSH ASDIRECTED PRN PRN Reason: Keep Vein Open Sodium Chloride (Sodium Chloride 0.65% Nasal [place] 45 Ml Bottle) 0 ml PANFILO QID P RN PRN Reason: Congestion Last Admin: 10/19/21 20:41 Dose: 1 spray Documented by: Tramadol HCl (Tramadol 50 Mg Tab) 50 mg PO Q6H PRN PRN Reason: back pain Last Admin: 09/28/21 09:40 Dose: 50 mg Documented by: Zinc Gluconate (Zinc (Zinc Gluconate) 50 Mg Cap (Ptom)) 50 mg PO DAILY [facility] Last Admin: 10/22/21 08:16 Dose: 50 mg Documented by: Discontinued Medications Acetaminophen (Acetaminophen 325 Mg Tab) 650 mg PO Q4H PRN PRN Reason: Fever Greater Than 101 Acetaminophen (Acetaminophen 325 Mg Tab) 650 mg PO Q4H PRN PRN Reason: Pain (Mild 1-3)/fever Last Admin: 10/17/21 11:43 Dose: 650 mg Documented by: Albuterol (Albuterol 8 Gm Inhaler) 0 gm INH QID PRN PRN Reason: Shortness of Breath Ascorbic Acid (Ascorbic Acid 500 Mg Tab) 500 mg PO DAILY [facility] Last Admin: 10/06/21 17:04 Dose: Not Given Documented by: Ascorbic Acid (Ascorbic Acid 500 Mg Tab) 1,000 mg PO DAILY [facility] Last Admin: 10/06/21 13:51 Dose: 1,000 mg Documented by: Baricitinib (Baricitinib 2 Mg Tab) 4 mg PO Q24H [facility] Stop: 10/02/21 16:01 Last Admin: 10/02/21 15:29 Dose: 4 mg Documented by: Cholecalciferol (Cholecalciferol (Vitamin D3) 25 Mcg Tab) 25 mcg PO DAILY [facility] Last Admin: 10/06/21 17:05 Dose: Not Given Documented by: Cholecalciferol (Cholecalciferol (Vitamin D3) 25 Mcg Tab) 125 mcg PO DAILY [facility] Last Admin: 10/06/21 13:51 Dose: 125 mcg Documented by: Dexamethasone (Dexamethasone 4 Mg/Ml Sdv) 6 mg IVPUSH DAILY [facility] Stop: 09/27/21 09:01 Last Admin: 09/19/21 02:25 Dose: 6 mg Documented by: Dexamethasone (Dexamethasone 4 Mg/Ml Sdv) Confirm Administered Dose 8 mg .ROUTE .STK-MED ONE Stop: 09/19/21 02:17 Last Admin: 09/19/21 04:22 Dose: Not Given Documented by: Dexamethasone (Dexamethasone 4 Mg/Ml Sdv) 6 mg IVPUSH Q24H [facility] Stop: 09/27/21 18:01 Last Admin: 09/27/21 17:22 Dose: 6 mg Documented by: Dexamethasone (Dexamethasone 2 Mg Tab) 4 mg PO Q24H [facility] Stop: 10/01/21 18:01 Last Admin: 09/30/21 17:19 Dose: 4 mg Documented by: Dexamethasone (Dexamethasone 4 Mg/Ml Sdv) 6 mg IVPUSH Q24H [facility] Last Admin: 10/08/21 14:27 Dose: Not Given Documented by: Dexamethasone (Dexamethasone 2 Mg Tab) 6 mg PO Q24H [facility] Last Admin: 10/11/21 15:43 Dose: 6 mg Documented by: Dexamethasone (Dexamethasone 2 Mg Tab) 4 mg PO Q24H [facility] Stop: 10/18/21 23:59 Last Admin: 10/18/21 13:26 Dose: 4 mg Documented by: Doxazosin Mesylate (Doxazosin 4 Mg Tab) 4 mg PO BEDTIME [facility] Last Admin: 09/29/21 20:51 Dose: 4 mg Documented by: Enoxaparin Sodium (Enoxaparin 40 Mg/0.4 Ml Syringe) 40 mg SUBCUT DAILY [facility] Last Admin: 09/19/21 17:22 Dose: 40 mg Documented by: Enoxaparin Sodium (Enoxaparin 40 Mg/0.4 Ml Syringe) 40 mg SUBCUT Q24H [facility] Last Admin: 09/25/21 15:58 Dose: 40 mg Documented by: Enoxaparin Sodium (Enoxaparin 80 Mg/0.8 Ml Syringe) 80 mg SUBCUT Q12H [facility] Last Admin: 10/07/21 21:50 Dose: 80 mg Documented by: Enoxaparin Sodium (Enoxaparin 40 Mg/0.4 Ml Syringe) 40 mg SUBCUT Q12H [facility] Last Admin: 10/10/21 08:17 Dose: 40 mg Documented by: Enoxaparin Sodium (Enoxaparin 40 Mg/0.4 Ml Syringe) 40 mg SUBCUT DAILY [facility] Last Admin: 10/19/21 09:06 Dose: 40 mg Documented by: Finasteride (Finasteride 5 Mg Tab) 5 mg PO BEDTIME [facility] Last Admin: 10/06/21 21:18 Dose: 5 mg Documented by: Furosemide (Furosemide 20 Mg/2 Ml Vial) 20 mg IVPUSH ONETIME ONE Stop: 09/25/21 09:01 Last Admin: 09/25/21 10:17 Dose: 20 mg Documented by: Hydrocortisone (Hydrocortisone 1% Crm 30 Gm Tube) 0 gm TOP BID [facility] Last Admin: 10/07/21 10:52 Dose: 1 applic Documented by: Remdesivir 200 mg/ Sodium (Chloride) 250 mls @ 250 mls/hr IV ONETIME ONE Stop: 09/19/21 01:27 Last Admin: 09/19/21 02:24 Dose: 250 mls/hr Documented by: Remdesivir (Remdesivir) Confirm Administered Dose 200 mls @ as directed .ROUTE .STK-MED ONE Stop: 09/19/21 01:47 Last Admin: 09/19/21 04:22 Dose: Not Given Documented by: Ceftriaxone Sodium 1 gm/ (Sodium Chloride) 50 mls @ 100 mls/hr IV Q24H [facility] Stop: 09/25/21 20:00 Last Admin: 09/25/21 15:06 Dose: 100 mls/hr Documented by: Doxycycline Hyclate 100 mg/ (Sodium Chloride) 100 mls @ 100 mls/hr IV Q12H [facility] Stop: 09/25/21 20:00 Last Admin: 09/25/21 15:54 Dose: 100 mls/hr Documented by: Remdesivir 100 mg/ Sodium (Chloride) 100 mls @ 100 mls/hr IV Q24H [facility] Stop: 09/22/21 20:59 Last Admin: 09/22/21 20:15 Dose: 100 mls/hr Documented by: Metoprolol Succinate (Metoprolol Succinate 25 Mg Tab.Er) 25 mg PO DAILY [facility] Last Admin: 10/21/21 08:21 Dose: 25 mg Documented by: Non-Formulary Medication (Omeprazole Magnesium [Prilosec Otc]) 20 mg PO DAILY [facility] Ondansetron HCl (Ondansetron 4 Mg/2 Ml Sdv) 4 mg IV Q4H PRN PRN Reason: Nausea/Vomiting Pantoprazole Sodium (Pantoprazole 40 Mg Tab.Cr) 40 mg PO ACBREAKFAST [facility] Last Admin: 09/23/21 07:52 Dose: 40 mg Documented by: Omeprazole 20mg 0 each PO ACBREAKFAST [facility] Omeprazole 20mg 0 each PO ACBREAKFAST [facility] Last Admin: 09/24/21 06:45 Dose: 1 each Documented by: Polyethylene Glycol (Polyethylene Glycol 3350 Powder 17 Gm Packet) 17 gm PO DAILY PRN PRN Reason: Constipation Sodium Chloride (Sodium Chloride 0.9% 10 Ml Syringe) 10 ml FLUSH ASDIRECTED PRN PRN Reason: Keep Vein Open Zinc Gluconate (Zinc (Zinc Gluconate) 50 Mg Tab) 50 mg PO DAILY [facility] Last Admin: 10/05/21 08:40 Dose: 50 mg Documented by: - Exam Quality Assessment: Supplemental Oxygen General: Alert, Oriented, Cooperative, No Acute Distress Lungs: Normal Respiratory Effort GI/Abdominal Exam: Soft, No Distention Extremities: No Pedal Edema Psy/Mental Status: Alert, Normal Affect - Patient Data Lab Results Last 24 hrs: Laboratory Results - last 24 hr 10/22/21 10/22/21 10/22/21 Range/Units 05:20 05:20 05:20 WBC 9.3 (4.5-11.0) K/uL RBC 4.37 (4.30-5.90) M/uL Hgb 12.7 (12.0-15.0) g/dL Hct 38.3 L (40.0-54.0) % MCV 88 (80-98) fL MCH 29 (27-31) pg MCHC 33 (32-36) % Plt Count 268 (150-400) K/uL Add Manual Diff Yes Neutrophils % (Manual) 55 (36-66) % Lymphocytes % (Manual) 26 (24-44) % Monocytes % (Manual) 12 H (2-6) % Eosinophils % (Manual) 7 H (2-4) % D-Dimer, Quantitative 323.02 (0.0-500.0) ng/mL Sodium 134 L (140-148) mmol/L Potassium 4.0 (3.6-5.2) mmol/L Chloride 99 L (100-108) mmol/L Carbon Dioxide 31 (21-32) mmol/L Anion Gap 8.0 (5.0-14.0) mmol/L BUN 17 (7-18) mg/dL Creatinine 0.7 L (0.8-1.3) mg/dL Est Cr Clr Drug Dosing 97.71 mL/min Estimated GFR (MDRD) > 60 (>60) Glucose 100 (74-106) mg/dL Calcium 8.9 (8.5-10.1) mg/dL C-Reactive Protein 0.71 H (0.0-0.3) mg/dL Result Diagrams: 10/22/21 05:20 10/22/21 05:20 Sepsis Event Note - Evaluation Sepsis Screening Result: No Definite Risk - Focused Exam Vital Signs: Vital Signs Temp Pulse Resp BP Pulse Ox 10/22/21 14:49 36.9 C 95 18 118/69 96 10/22/21 14:00 98 10/22/21 10:44 36.1 C 92 16 108/59 L 96 10/22/21 07:00 36.2 C 78 16 114/67 92 L - Problem List Review Problem List Initiated/Reviewed/Updated: Yes - My Orders Last 24 Hours: My Active Orders 10/21/21 17:42 LORazepam [Ativan] 0.5 mg PO Q4H PRN - Plan Plan:: ASSESSMENT AND PLAN - COVID-19 INFECTION WITH BILATERAL PNEUMONIA-complicated by acute respiratory failure with hypoxia. Slowly improving and has now transition to a regular nasal cannula at 5 to 6 L/min. -Decadron 2 mg daily for 1 week then 1 mg daily -Continue rivaroxaban -Remdesivir x5 days complete -Baricitinib x14 days complete -Daily physical therapy ARDS-2/2 COVID-19 infection. -Management as above BPH WITH BLADDER OUTLET OBSTRUCTION-stable. -Doxazosin 8 mg p.o. nightly Pruritic rash-resolved MAINTENANCE ISSUES -DVT prophylaxis; continue rivaroxaban -GI prophylaxis; not indicated -Holt catheter; not indicated -Nutrition; regular diet DISPOSITION-anticipate discharge to home after the hospital stay. Hopefully we can wean his supplemental oxygen over the next several days and have him ready for discharge home. I would anticipate he will need home oxygen. Demetris Canseco MD
[2021-10-22] MEDS: Doxazosin 4 MG Tab PO SCH (21:20)
[2021-10-22] MEDS: guaiFENesin/Dextromethorphan 100-10 MG/5 ML Soln 10 ML Cup PO PRN (21:24)
[2021-10-23] MEDS: guaiFENesin/Dextromethorphan 100-10 MG/5 ML Soln 10 ML Cup PO PRN ×2 (01:46→22:13)
[2021-10-23] MEDS: LORazepam 0.5 MG Tab PO PRN ×4 (01:47→22:13)
[2021-10-23] MEDS ORDERED: Calcium Carbonate 500 MG Tab.Chew PO PRN (07:01)
[2021-10-23] MEDS: ZINC 50 MG PO SCH (08:36)
[2021-10-23] MEDS: Dexamethasone 2 MG Tab PO SCH (08:36)
[2021-10-23] MEDS: Rivaroxaban 10 MG Tab PO SCH (08:36)
[2021-10-23] MEDS: OMEPRAZOLE 20MG **PTOM PO SCH ×2 (08:36→15:33)
[2021-10-23] MEDS: Lactobacillus Rhamnosus GG (Probiotic) Cap PO SCH ×2 (08:37→22:11)
[2021-10-23] MEDS: VIT D3 5000 UNIT PO SCH (08:37)
[2021-10-23] MEDS: Mometasone Furoate Nasal Spray 17 GM Canister NAS SCH ×2 (08:37→21:49)
[2021-10-23] MEDS: Multivitamins with Iron/Calcium/Folic Acid/Minerals Tab PO SCH (08:37)
[2021-10-23] MEDS: Nystatin Crm 30 GM Tube TOP SCH ×3 (08:37→21:50)
[2021-10-23] MEDS: ESTER C 1000 MG PO SCH (08:37)
--- NOTE | 2021-10-23 10:56 | PCM.PN ---
- General Info Date of Service: 10/23/21 Subjective Update: No acute events overnight. Respiratory status has been stable. He is down to 3 L of supplemental oxygen. He feels a little bit more short of breath at this level but overall is doing okay. Hoping to advance his activity today. No fevers. No chest pain. Functional Status: Reports: Pain Controlled, Tolerating Diet - Review of Systems General: Reports: Weakness Cardiovascular: Reports: Dyspnea on Exertion - Patient Data Vitals - Most Recent: Last Vital Signs Temp 35.1 C L 10/23/21 08:28 Pulse 78 10/23/21 08:28 Resp 16 10/23/21 08:28 BP 135/69 10/23/21 08:28 Pulse Ox 92 L 10/23/21 08:28 Weight - Most Recent: 78.925 kg I&O - Last 24 Hours: Intake & Output 10/22/21 10/23/21 10/23/21 22:59 06:59 14:59 Intake Total 700 Output Total 250 1400 Balance 450 -1400 Med Orders - Current: Current Medications Acetaminophen (Acetaminophen 325 Mg Tab) 650 mg PO Q4H PRN PRN Reason: Pain (Mild 1-3)/fever Al Hydroxide/Mg Hydroxide (Aluminum Hydroxide/Magnesium Hydroxide/Simethicone Susp 30 Ml Cup) 30 ml PO Q4H PRN PRN Reason: Dyspepsia Last Admin: 09/24/21 18:40 Dose: 30 ml Documented by: Albuterol (Albuterol 8 Gm Inhaler) 0 gm INH QID PRN PRN Reason: Shortness of Breath Benzonatate (Benzonatate 100 Mg Cap) 100 mg PO Q8H PRN PRN Reason: Cough Last Admin: 10/02/21 14:06 Dose: 100 mg Documented by: Calcium Carbonate/Glycine (Calcium Carbonate 500 Mg Tab.Chew) 500 mg PO Q2H PRN PRN Reason: Indigestion Dexamethasone (Dexamethasone 2 Mg Tab) 2 mg PO DAILY [facility] Last Admin: 10/23/21 08:36 Dose: 2 mg Documented by: Diphenhydramine HCl (Diphenhydramine 25 Mg Cap) 25 mg PO Q4H PRN PRN Reason: Itching Last Admin: 10/07/21 21:55 Dose: 25 mg Documented by: Doxazosin Mesylate (Doxazosin 4 Mg Tab) 8 mg PO BEDTIME [facility] Last Admin: 10/22/21 21:20 Dose: 8 mg Documented by: Guaifenesin/Dextromethorphan (Guaifenesin/Dextromethorphan 100-10 Mg/5 Ml Soln 10 Ml Cup) 10 ml PO Q4H PRN PRN Reason: Cough Last Admin: 10/23/21 01:46 Dose: 10 ml Documented by: Lactobacillus Rhamnosus (Lactobacillus Rhamnosus Gg (Probiotic) Cap) 1 cap PO BID [facility] Last Admin: 10/23/21 08:37 Dose: 1 cap Documented by: Lorazepam (Lorazepam 0.5 Mg Tab) 0.5 mg PO Q4H PRN PRN Reason: Anxiety Last Admin: 10/23/21 08:36 Dose: 0.5 mg Documented by: Melatonin (Melatonin 3 Mg Tab) 9 mg PO BEDTIME PRN PRN Reason: Sleep Last Admin: 10/11/21 23:08 Dose: 9 mg Documented by: Mometasone Furoate (Mometasone Furoate Nasal [place] 17 Gm Canister) 0 gm PANFILO BID [facility] Last Admin: 10/23/21 08:37 Dose: Not Given Documented by: Multivitamins/Minerals (Multivitamins With Iron/Calcium/Folic Acid/Minerals Tab) 1 tab PO DAILY [facility] Last Admin: 10/23/21 08:37 Dose: 1 tab Documented by: Nystatin (Nystatin Crm 30 Gm Tube) 0 gm TOP TID [facility] Last Admin: 10/23/21 08:37 Dose: Not Given Documented by: Omeprazole 20mg (Ptom) 0 each PO BIDAC [facility] Last Admin: 10/23/21 08:36 Dose: 1 each Documented by: Vivi C 1,000mg Cap ((Ptom)) 1 each PO DAILY [facility] Last Admin: 10/23/21 08:37 Dose: 1 each Documented by: Vit D-3 5,000 Unit (Cap (Ptom)) 1 each PO DAILY [facility] Last Admin: 10/23/21 08:37 Dose: 1 each Documented by: Polyethylene Glycol (Polyethylene Glycol 3350 Powder 17 Gm Packet) 17 gm PO DAILY PRN PRN Reason: Constipation Rivaroxaban (Rivaroxaban 10 Mg Tab) 20 mg PO DAILY [facility] Last Admin: 10/23/21 08:36 Dose: 20 mg Documented by: Sodium Chloride (Sodium Chloride 0.9% 10 Ml Syringe) 10 ml FLUSH ASDIRECTED PRN PRN Reason: Keep Vein Open Sodium Chloride (Sodium Chloride 0.65% Nasal [place] 45 Ml Bottle) 0 ml PANFILO QID PRN PRN Reason: Congestion Last Admin: 10/19/21 20:41 Dose: 1 spray Documented by: Tramadol HCl (Tramadol 50 Mg Tab) 50 mg PO Q6H PRN PRN Reason: back pain Last Admin: 09/28/21 09:40 Dose: 50 mg Documented by: Zinc Gluconate (Zinc (Zinc Gluconate) 50 Mg Cap (Ptom)) 50 mg PO DAILY [facility] Last Admin: 10/23/21 08:36 Dose: 50 mg Documented by: Discontinued Medications Acetaminophen (Acetaminophen 325 Mg Tab) 650 mg PO Q4H PRN PRN Reason: Fever Greater Than 101 Acetaminophen (Acetaminophen 325 Mg Tab) 650 mg PO Q4H PRN PRN Reason: Pain (Mild 1-3)/fever Last Admin: 10/17/21 11:43 Dose: 650 mg Documented by: Albuterol (Albuterol 8 Gm Inhaler) 0 gm INH QID PRN PRN Reason: Shortness of Breath Ascorbic Acid (Ascorbic Acid 500 Mg Tab) 500 mg PO DAILY [facility] Last Admin: 10/06/21 17:04 Dose: Not Given Documented by: Ascorbic Acid (Ascorbic Acid 500 Mg Tab) 1,000 mg PO DAILY [facility] Last Admin: 10/06/21 13:51 Dose: 1,000 mg Documented by: Baricitinib (Baricitinib 2 Mg Tab) 4 mg PO Q24H [facility] Stop: 10/02/21 16:01 Last Admin: 10/02/21 15:29 Dose: 4 mg Documented by: Calcium Carbonate/Glycine (Calcium Carbonate 500 Mg Tab.Chew) 500 mg PO Q2H PRN PRN Reason: Indigestion Last Admin: 10/10/21 15:07 Dose: 500 mg Documented by: Cholecalciferol (Cholecalciferol (Vitamin D3) 25 Mcg Tab) 25 mcg PO DAILY [facility] Last Admin: 10/06/21 17:05 Dose: Not Given Documented by: Cholecalciferol (Cholecalciferol (Vitamin D3) 25 Mcg Tab) 125 mcg PO DAILY [facility] Last Admin: 10/06/21 13:51 Dose: 125 mcg Documented by: Dexamethasone (Dexamethasone 4 Mg/Ml Sdv) 6 mg IVPUSH DAILY [facility] Stop: 09/27/21 09:01 Last Admin: 09/19/21 02:25 Dose: 6 mg Documented by: Dexamethasone (Dexamethasone 4 Mg/Ml Sdv) Confirm Administered Dose 8 mg .ROUTE .STK-MED ONE Stop: 09/19/21 02:17 Last Admin: 09/19/21 04:22 Dose: Not Given Documented by: Dexamethasone (Dexamethasone 4 Mg/Ml Sdv) 6 mg IVPUSH Q24H [facility] Stop: 09/27/21 18:01 Last Admin: 09/27/21 17:22 Dose: 6 mg Documented by: Dexamethasone (Dexamethasone 2 Mg Tab) 4 mg PO Q24H [facility] Stop: 10/01/21 18:01 Last Admin: 09/30/21 17:19 Dose: 4 mg Documented by: Dexamethasone (Dexamethasone 4 Mg/Ml Sdv) 6 mg IVPUSH Q24H [facility] Last Admin: 10/08/21 14:27 Dose: Not Given Documented by: Dexamethasone (Dexamethasone 2 Mg Tab) 6 mg PO Q24H [facility] Last Admin: 10/11/21 15:43 Dose: 6 mg Documented by: Dexamethasone (Dexamethasone 2 Mg Tab) 4 mg PO Q24H [facility] Stop: 10/18/21 23:59 Last Admin: 10/18/21 13:26 Dose: 4 mg Documented by: Doxazosin Mesylate (Doxazosin 4 Mg Tab) 4 mg PO BEDTIME [facility] Last Admin: 09/29/21 20:51 Dose: 4 mg Documented by: Enoxaparin Sodium (Enoxaparin 40 Mg/0.4 Ml Syringe) 40 mg SUBCUT DAILY [facility] Last Admin: 09/19/21 17:22 Dose: 40 mg Documented by: Enoxaparin Sodium (Enoxaparin 40 Mg/0.4 Ml Syringe) 40 mg SUBCUT Q24H [facility] Last Admin: 09/25/21 15:58 Dose: 40 mg Documented by: Enoxaparin Sodium (Enoxaparin 80 Mg/0.8 Ml Syringe) 80 mg SUBCUT Q12H [facility] Last Admin: 10/07/21 21:50 Dose: 80 mg Documented by: Enoxaparin Sodium (Enoxaparin 40 Mg/0.4 Ml Syringe) 40 mg SUBCUT Q12H [facility] Last Admin: 10/10/21 08:17 Dose: 40 mg Documented by: Enoxaparin Sodium (Enoxaparin 40 Mg/0.4 Ml Syringe) 40 mg SUBCUT DAILY [facility] Last Admin: 10/19/21 09:06 Dose: 40 mg Documented by: Finasteride (Finasteride 5 Mg Tab) 5 mg PO BEDTIME [facility] Last Admin: 10/06/21 21:18 Dose: 5 mg Documented by: Furosemide (Furosemide 20 Mg/2 Ml Vial) 20 mg IVPUSH ONETIME ONE Stop: 09/25/21 09:01 Last Admin: 09/25/21 10:17 Dose: 20 mg Documented by: Hydrocortisone (Hydrocortisone 1% Crm 30 Gm Tube) 0 gm TOP BID [facility] Last Admin: 10/07/21 10:52 Dose: 1 applic Documented by: Remdesivir 200 mg/ Sodium (Chloride) 250 mls @ 250 mls/hr IV ONETIME ONE Stop: 09/19/21 01:27 Last Admin: 09/19/21 02:24 Dose: 250 mls/hr Documented by: Remdesivir (Remdesivir) Confirm Administered Dose 200 mls @ as directed .ROUTE .STK-MED ONE Stop: 09/19/21 01:47 Last Admin: 09/19/21 04:22 Dose: Not Given Documented by: Ceftriaxone Sodium 1 gm/ (Sodium Chloride) 50 mls @ 100 mls/hr IV Q24H [facility] Stop: 09/25/21 20:00 Last Admin: 09/25/21 15:06 Dose: 100 mls/hr Documented by: Doxycycline Hyclate 100 mg/ (Sodium Chloride) 100 mls @ 100 mls/hr IV Q12H [facility] Stop: 09/25/21 20:00 Last Admin: 09/25/21 15:54 Dose: 100 mls/hr Documented by: Remdesivir 100 mg/ Sodium (Chloride) 100 mls @ 100 mls/hr IV Q24H [facility] Stop: 09/22/21 20:59 Last Admin: 09/22/21 20:15 Dose: 100 mls/hr Documented by: Metoprolol Succinate (Metoprolol Succinate 25 Mg Tab.Er) 25 mg PO DAILY [facility] Last Admin: 10/21/21 08:21 Dose: 25 mg Documented by: Non-Formulary Medication (Omeprazole Magnesium [Prilosec Otc]) 20 mg PO DAILY [facility] Ondansetron HCl (Ondansetron 4 Mg/2 Ml Sdv) 4 mg IV Q4H PRN PRN Reason: Nausea/Vomiting Pantoprazole Sodium (Pantoprazole 40 Mg Tab.Cr) 40 mg PO ACBREAKFAST [facility] Last Admin: 09/23/21 07:52 Dose: 40 mg Documented by: Omeprazole 20mg 0 each PO ACBREAKFAST [place] Omeprazole 20mg 0 each PO ACBREAKFAST [facility] Last Admin: 09/24/21 06:45 Dose: 1 each Documented by: Polyethylene Glycol (Polyethylene Glycol 3350 Powder 17 Gm Packet) 17 gm PO DAILY PRN PRN Reason: Constipation Senna/Docusate Sodium (Docusate Sodium/Sennosides 50-8.6 Mg Tab) 1 tab PO Q12H PRN PRN Reason: Constipation Last Admin: 10/02/21 14:06 Dose: 1 tab Documented by: Sodium Chloride (Sodium Chloride 0.9% 10 Ml Syringe) 10 ml FLUSH ASDIRECTED PRN PRN Reason: Keep Vein Open Zinc Gluconate (Zinc (Zinc Gluconate) 50 Mg Tab) 50 mg PO DAILY [facility] Last Admin: 10/05/21 08:40 Dose: 50 mg Documented by: - Exam Quality Assessment: Supplemental Oxygen General: Alert, Oriented, Cooperative, No Acute Distress Lungs: Normal Respiratory Effort GI/Abdominal Exam: Soft, No Distention Extremities: No Pedal Edema Psy/Mental Status: Alert, Normal Affect - Patient Data Result Diagrams: 10/22/21 05:20 10/22/21 05:20 Sepsis Event Note - Evaluation Sepsis Screening Result: No Definite Risk - Focused Exam Vital Signs: Vital Signs Temp Pulse Resp BP Pulse Ox 10/23/21 08:28 35.1 C L 78 16 135/69 92 L 10/23/21 03:00 35.9 C L 94 18 127/63 92 L - Problem List Review Problem List Initiated/Reviewed/Updated: Yes - My Orders Last 24 Hours: My Active Orders 10/23/21 07:01 Calcium Carbonate [Tums] 500 mg PO Q2H PRN 10/24/21 05:00 CRP [C-REACTIVE PROTEIN] [CHEM] Timed D-DIMER QUANTITATIVE [COAG] Timed - Plan Plan:: ASSESSMENT AND PLAN - COVID-19 INFECTION WITH BILATERAL PNEUMONIA-complicated by acute respiratory failure with hypoxia. Slowly improving and has now transition to a regular nasal cannula at 3 L/min. -Decadron 2 mg daily for 1 week then 1 mg daily -Continue rivaroxaban -Remdesivir x5 days complete -Baricitinib x14 days complete -Daily physical therapy ARDS-2/2 COVID-19 infection. -Management as above BPH WITH BLADDER OUTLET OBSTRUCTION-stable. -Doxazosin 8 mg p.o. nightly Pruritic rash-resolved MAINTENANCE ISSUES -DVT prophylaxis; continue rivaroxaban -GI prophylaxis; not indicated -Holt catheter; not indicated -Nutrition; regular diet DISPOSITION-anticipate discharge to home after the hospital stay. Hopefully he will be able to head home in the next day or 2, he will need home oxygen. Demetris Canseco MD
[2021-10-23] MEDS: Doxazosin 4 MG Tab PO SCH (22:10)
[2021-10-24 06:40] VITALS: BP 111/61; PULSE 80
[2021-10-24] MEDS ORDERED: Aluminum Hydroxide/Magnesium Hydroxide/Simethicone Susp 30 ML Cup PO PRN (06:57)
[2021-10-24] MEDS: LORazepam 0.5 MG Tab PO PRN ×2 (08:29→12:51)
[2021-10-24] MEDS: Lactobacillus Rhamnosus GG (Probiotic) Cap PO SCH (08:35)
[2021-10-24] MEDS: OMEPRAZOLE 20MG **PTOM PO SCH (08:35)
[2021-10-24] MEDS: Mometasone Furoate Nasal Spray 17 GM Canister NAS SCH (08:35)
[2021-10-24] MEDS: Multivitamins with Iron/Calcium/Folic Acid/Minerals Tab PO SCH (08:35)
[2021-10-24] MEDS: ESTER C 1000 MG PO SCH (08:35)
[2021-10-24] MEDS: Dexamethasone 2 MG Tab PO SCH (08:35)
[2021-10-24] MEDS: Rivaroxaban 10 MG Tab PO SCH (08:35)
[2021-10-24] MEDS: ZINC 50 MG PO SCH (08:35)
[2021-10-24] MEDS: VIT D3 5000 UNIT PO SCH (08:35)
[2021-10-24] MEDS: Nystatin Crm 30 GM Tube TOP SCH (08:36)
--- NOTE | 2021-10-24 11:11 | PCM.DCSUM1 ---
Discharge Summary - Hospital Course Brief History: 66-year-old male with history of BPH who presented with progressive cough, dyspnea, shortness of breath and weakness in the setting of Covid infection. He was admitted for management of acute respiratory failure due to bilateral Covid pneumonia. - Discharge Data Discharge Date: 10/24/21 Discharge Disposition: Home, W Home Health Agency 06 Condition: Fair - Referral to Home Health Date of Face to Face Encounter: 10/24/21 Reason for Homebound Status: covid pneumonia with acute resp failure Primary Care Physician: Raymond Holland MD Skilled Need: nursing, PT, OT - Discharge Diagnosis/Problem(s) (1) Pneumonia due to COVID-19 virus SNOMED Code(s): 540069487991843277 ICD Code: U07.1 - COVID-19; J12.82 - PNEUMONIA DUE TO CORONAVIRUS DISEASE 2019 Status: Acute Priority: High Current Visit: Yes (2) Acute respiratory failure due to COVID-19 SNOMED Code(s): 471521760 ICD Code: U07.1 - COVID-19; J96.00 - ACUTE RESPIRATORY FAILURE, UNSP W HYPOXIA OR HYPERCAPNIA Status: Acute Current Visit: Yes (3) BPH loc w urin obs/LUTS SNOMED Code(s): 007984388 ICD Code: N40.1 - BENIGN PROSTATIC HYPERPLASIA WITH LOWER URINARY TRACT SYMP Status: Chronic Current Visit: Yes - Patient Summary/Data Consults: Consultations 10/13/21 12:27 Consult to Physical Therapy [PT Evaluation and Treatment] [CONS] Routine Please Evaluate and Treat. PT Reason for Consult: COVID-19, weakness This query below is only for informational purposes and is not editable. Admission Diagnosis/Problem: Hypoxia Hospital Course: Jameson presented to the emergency room with progressive weakness, fatigue, cough and shortness of breath in the setting of known Covid infection. In the emergency room he was noted to be quite hypoxic with evidence for bilateral Covid pneumonia. He required high levels of supplemental oxygen support. He was started on dexamethasone, remdesivir and baricitinib as well as antibiotics and he was admitted to the intensive care unit for further management. DVT prophylaxis was initially with prophylactic dosing of enoxaparin. Patient remained in the intensive care unit for a couple of weeks and had a teetered on the edge of needing intubation but did remain stable with the heated/high flow nasal cannula and occasionally a mask over the top of this to provide additional supplemental oxygen. He completed treatment with the remdesivir and then finished his 10 days of steroids but these were restarted with worsening of his clinical condition. He completed 7 days of empiric antibiotics. We did see a rise of his D-dimer during the middle portion of the hospital stay to a level that was quite high so he was on therapeutic dosing of his enoxaparin for a while. As his inflammatory markers and D-dimer improved we were able to decrease his dose of enoxaparin as well as wean his steroids. Over the last couple weeks of the hospital stay we have seen a very slow but steady trend towards improvement. His supplemental oxygen requirements decreased from heated/high flow to regular high flow nasal cannula and eventually to a regular nasal cannula. He has been stable to improving on the 3 L of oxygen. He has slowly been able to increase his activity and is slowly working on improving his stamina. He does remain quite weak. He does continue to require supplemental oxygen. He feels well enough to go home. I believe he is safe to go home at this point since he is down to 3 L and does maintain even with activity. He has 6 days of a steroid taper left. The plan is for him to be on rivaroxaban for a month after the hospital stay because of the significant and prolonged elevation of his D-dimer. He was interested in a small amount of lorazepam to help with any anxiety that he may have is he is making his transition home. I am hopeful that over the next couple of weeks we will be able to wean down and eventually wean off his supplemental oxygen. He does have early follow-up scheduled. He was interested in home care. Vaccination was encouraged once he has recovered from his illness. - Patient Instructions Diet: Regular Diet as Tolerated Activity: As Tolerated, No Strenuous Activities Other/Special Instructions: 1. You were in the hospital for management of pneumonia caused by the COVID-19 virus. You had severe respiratory failure that took a long time to improve. Your condition has been steadily improving over the past couple of weeks. You do continue to require some oxygen (currently 3 L) and I recommend that you continue to use this after discharged home. If you consistently see oxygen saturations in the upper 90s you can consider turning down your oxygen to 2 L and then 1 and hopefully this will go away over the course of the next few weeks. To help reduce your risk of blood clots after your severe infection I recommend that you take rivaroxaban (Xarelto) 20 mg once daily for 1 month. I also recommend that you take dexamethasone 1 mg daily for 6 days to complete your steroid taper. I did provide a prescription for lorazepam that you may use as needed for anxiety after your discharge home. You should increase your activity slowly as tolerated. If you become fatigued or short of breath you should take a rest. - Discharge Plan *PRESCRIPTION DRUG MONITORING PROGRAM REVIEWED*: Not Applicable *COPY OF PRESCRIPTION DRUG MONITORING REPORT IN PATIENT SHERRELL: Not Applicable Prescriptions/Med Rec: LORazepam [Ativan] 0.5 mg PO Q4H PRN #15 tab PRN Reason: Anxiety dexAMETHasone [Dexamethasone] 1 mg PO DAILY #3 tablet Rivaroxaban [Xarelto] 20 mg PO DAILY #30 tablet Home Medications: Home Meds Albuterol Sulfate [Proair Hfa] 2 puff INH QID PRN 10/07/14 [History] Omeprazole Magnesium [Prilosec Otc] 20 mg PO DAILY 01/02/15 [History] Doxazosin Mesylate [Cardura] 4 mg PO BEDTIME 09/04/19 [History] Metoprolol Succinate [Toprol XL] 25 mg PO DAILY 09/04/19 [History] LORazepam [Ativan] 0.5 mg PO Q4H PRN #15 tab 10/24/21 [Rx] Rivaroxaban [Xarelto] 20 mg PO DAILY #30 tablet 10/24/21 [Rx] dexAMETHasone [Dexamethasone] 1 mg PO DAILY #3 tablet 10/24/21 [Rx] Oxygen Therapy Mode: Nasal Cannula Oxygen Flow Rate (L/min): 3 Patient Handouts: Hypoxia, Fall Prevention in the Home, Adult, [id number], COVID-19 Referrals: Raymond Holland MD [Primary Care Provider] - 11/06/21 1:30 pm (Please arrive 15 minutes early to register for your appointment.) - Discharge Summary/Plan Comment DC Time >30 min.: Yes Total # of Minutes for Discharge Time: 45 - complex discharge with home O2 after covid recovery - Patient Data Vitals - Most Recent: Last Vital Signs Temp 36.4 C 10/24/21 06:39 Pulse 80 10/24/21 06:39 Resp 16 10/24/21 06:39 BP 111/61 10/24/21 06:39 Pulse Ox 95 10/24/21 06:39 Weight - Most Recent: 78.925 kg I&O - Last 24 hours: Intake & Output 10/23/21 10/24/21 10/24/21 22:59 06:59 14:59 Intake Total 4000 Output Total 1200 375 Balance 4000 -1200 -375 Lab Results - Last 24 hrs: Laboratory Results - last 24 hr 10/24/21 10/24/21 Range/Units 05:40 05:40 D-Dimer, Quantitative 367.68 (0.0-500.0) ng/mL C-Reactive Protein 0.72 H (0.0-0.3) mg/dL Med Orders - Current: Current Medications Acetaminophen (Acetaminophen 325 Mg Tab) 650 mg PO Q4H PRN PRN Reason: Pain (Mild 1-3)/fever Al Hydroxide/Mg Hydroxide (Aluminum Hydroxide/Magnesium Hydroxide/Simethicone Susp 30 Ml Cup) 30 ml PO Q4H PRN PRN Reason: Dyspepsia Albuterol (Albuterol 8 Gm Inhaler) 0 gm INH QID PRN PRN Reason: Shortness of Breath Benzonatate (Benzonatate 100 Mg Cap) 100 mg PO Q8H PRN PRN Reason: Cough Last Admin: 10/02/21 14:06 Dose: 100 mg Documented by: Calcium Carbonate/Glycine (Calcium Carbonate 500 Mg Tab.Chew) 500 mg PO Q2H PRN PRN Reason: Indigestion Dexamethasone (Dexamethasone 2 Mg Tab) 2 mg PO DAILY [facility] Last Admin: 10/24/21 08:35 Dose: 2 mg Documented by: Diphenhydramine HCl (Diphenhydramine 25 Mg Cap) 25 mg PO Q4H PRN PRN Reason: Itching Last Admin: 10/07/21 21:55 Dose: 25 mg Documented by: Doxazosin Mesylate (Doxazosin 4 Mg Tab) 8 mg PO BEDTIME [facility] Last Admin: 10/23/21 22:10 Dose: 8 mg Documented by: Guaifenesin/Dextromethorphan (Guaifenesin/Dextromethorphan 100-10 Mg/5 Ml Soln 10 Ml Cup) 10 ml PO Q4H PRN PRN Reason: Cough Last Admin: 10/23/21 22:13 Dose: 10 ml Documented by: Lactobacillus Rhamnosus (Lactobacillus Rhamnosus Gg (Probiotic) Cap) 1 cap PO BID [facility] Last Admin: 10/24/21 08:35 Dose: 1 cap Documented by: Lorazepam (Lorazepam 0.5 Mg Tab) 0.5 mg PO Q4H PRN PRN Reason: Anxiety Last Admin: 10/24/21 08:29 Dose: 0.5 mg Documented by: Melatonin (Melatonin 3 Mg Tab) 9 mg PO BEDTIME PRN PRN Reason: Sleep Last Admin: 10/11/21 23:08 Dose: 9 mg Documented by: Mometasone Furoate (Mometasone Furoate Nasal Swoope 17 Gm Canister) 0 gm PANFILO BID [facility] Last Admin: 10/24/21 08:35 Dose: Not Given Documented by: Multivitamins/Minerals (Multivitamins With Iron/Calcium/Folic Acid/Minerals Tab) 1 tab PO DAILY [facility] Last Admin: 10/24/21 08:35 Dose: 1 tab Documented by: Nystatin (Nystatin Crm 30 Gm Tube) 0 gm TOP TID [facility] Last Admin: 10/24/21 08:36 Dose: Not Given Documented by: Omeprazole 20mg (Ptom) 0 each PO BIDAC [facility] Last Admin: 10/24/21 08:35 Dose: 1 each Documented by: Vivi C 1,000mg Cap ((Ptom)) 1 each PO DAILY [facility] Last Admin: 10/24/21 08:35 Dose: 1 each Documented by: Vit D-3 5,000 Unit (Cap (Ptom)) 1 each PO DAILY [facility] Last Admin: 10/24/21 08:35 Dose: 1 each Documented by: Polyethylene Glycol (Polyethylene Glycol 3350 Powder 17 Gm Packet) 17 gm PO DAILY PRN PRN Reason: Constipation Rivaroxaban (Rivaroxaban 10 Mg Tab) 20 mg PO DAILY [facility] Last Admin: 10/24/21 08:35 Dose: 20 mg Documented by: Sodium Chloride (Sodium Chloride 0.9% 10 Ml Syringe) 10 ml FLUSH ASDIRECTED PRN PRN Reason: Keep Vein Open Sodium Chloride (Sodium Chloride 0.65% Nasal Swoope 45 Ml Bottle) 0 ml PANFILO QID PRN PRN Reason: Congestion Last Admin: 10/19/21 20:41 Dose: 1 spray Documented by: Tramadol HCl (Tramadol 50 Mg Tab) 50 mg PO Q6H PRN PRN Reason: back pain Last Admin: 09/28/21 09:40 Dose: 50 mg Documented by: Zinc Gluconate (Zinc (Zinc Gluconate) 50 Mg Cap (Ptom)) 50 mg PO DAILY [facility] Last Admin: 10/24/21 08:35 Dose: 50 mg Documented by: Discontinued Medications Acetaminophen (Acetaminophen 325 Mg Tab) 650 mg PO Q4H PRN PRN Reason: Fever Greater Than 101 Acetaminophen (Acetaminophen 325 Mg Tab) 650 mg PO Q4H PRN PRN Reason: Pain (Mild 1-3)/fever Last Admin: 10/17/21 11:43 Dose: 650 mg Documented by: Al Hydroxide/Mg Hydroxide (Aluminum Hydroxide/Magnesium Hydroxide/Simethicone Susp 30 Ml Cup) 30 ml PO Q4H PRN PRN Reason: Dyspepsia Last Admin: 09/24/21 18:40 Dose: 30 ml Documented by: Albuterol (Albuterol 8 Gm Inhaler) 0 gm INH QID PRN PRN Reason: Shortness of Breath Ascorbic Acid (Ascorbic Acid 500 Mg Tab) 500 mg PO DAILY [facility] Last Admin: 10/06/21 17:04 Dose: Not Given Documented by: Ascorbic Acid (Ascorbic Acid 500 Mg Tab) 1,000 mg PO DAILY [facility] Last Admin: 10/06/21 13:51 Dose: 1,000 mg Documented by: Baricitinib (Baricitinib 2 Mg Tab) 4 mg PO Q24H [facility] Stop: 10/02/21 16:01 Last Admin: 10/02/21 15:29 Dose: 4 mg Documented by: Calcium Carbonate/Glycine (Calcium Carbonate 500 Mg Tab.Chew) 500 mg PO Q2H PRN PRN Reason: Indigestion Last Admin: 10/10/21 15:07 Dose: 500 mg Documented by: Cholecalciferol (Cholecalciferol (Vitamin D3) 25 Mcg Tab) 25 mcg PO DAILY [facility] Last Admin: 10/06/21 17:05 Dose: Not Given Documented by: Cholecalciferol (Cholecalciferol (Vitamin D3) 25 Mcg Tab) 125 mcg PO DAILY [facility] Last Admin: 10/06/21 13:51 Dose: 125 mcg Documented by: Dexamethasone (Dexamethasone 4 Mg/Ml Sdv) 6 mg IVPUSH DAILY [facility] Stop: 09/27/21 09:01 Last Admin: 09/19/21 02:25 Dose: 6 mg Documented by: Dexamethasone (Dexamethasone 4 Mg/Ml Sdv) Confirm Administered Dose 8 mg .ROUTE .STK-MED ONE Stop: 09/19/21 02:17 Last Admin: 09/19/21 04:22 Dose: Not Given Documented by: Dexamethasone (Dexamethasone 4 Mg/Ml Sdv) 6 mg IVPUSH Q24H [facility] Stop: 09/27/21 18:01 Last Admin: 09/27/21 17:22 Dose: 6 mg Documented by: Dexamethasone (Dexamethasone 2 Mg Tab) 4 mg PO Q24H [facility] Stop: 10/01/21 18:01 Last Admin: 09/30/21 17:19 Dose: 4 mg Documented by: Dexamethasone (Dexamethasone 4 Mg/Ml Sdv) 6 mg IVPUSH Q24H [facility] Last Admin: 10/08/21 14:27 Dose: Not Given Documented by: Dexamethasone (Dexamethasone 2 Mg Tab) 6 mg PO Q24H [facility] Last Admin: 10/11/21 15:43 Dose: 6 mg Documented by: Dexamethasone (Dexamethasone 2 Mg Tab) 4 mg PO Q24H [facility] Stop: 10/18/21 23:59 Last Admin: 10/18/21 13:26 Dose: 4 mg Documented by: Doxazosin Mesylate (Doxazosin 4 Mg Tab) 4 mg PO BEDTIME [facility] Last Admin: 09/29/21 20:51 Dose: 4 mg Documented by: Enoxaparin Sodium (Enoxaparin 40 Mg/0.4 Ml Syringe) 40 mg SUBCUT DAILY [facility] Last Admin: 09/19/21 17:22 Dose: 40 mg Documented by: Enoxaparin Sodium (Enoxaparin 40 Mg/0.4 Ml Syringe) 40 mg SUBCUT Q24H [facility] Last Admin: 09/25/21 15:58 Dose: 40 mg Documented by: Enoxaparin Sodium (Enoxaparin 80 Mg/0.8 Ml Syringe) 80 mg SUBCUT Q12H [facility] Last Admin: 10/07/21 21:50 Dose: 80 mg Documented by: Enoxaparin Sodium (Enoxaparin 40 Mg/0.4 Ml Syringe) 40 mg SUBCUT Q12H [facility] Last Admin: 10/10/21 08:17 Dose: 40 mg Documented by: Enoxaparin Sodium (Enoxaparin 40 Mg/0.4 Ml Syringe) 40 mg SUBCUT DAILY [facility] Last Admin: 10/19/21 09:06 Dose: 40 mg Documented by: Finasteride (Finasteride 5 Mg Tab) 5 mg PO BEDTIME [facility] Last Admin: 10/06/21 21:18 Dose: 5 mg Documented by: Furosemide (Furosemide 20 Mg/2 Ml Vial) 20 mg IVPUSH ONETIME ONE Stop: 09/25/21 09:01 Last Admin: 09/25/21 10:17 Dose: 20 mg Documented by: Hydrocortisone (Hydrocortisone 1% Crm 30 Gm Tube) 0 gm TOP BID [facility] Last Admin: 10/07/21 10:52 Dose: 1 applic Documented by: Remdesivir 200 mg/ Sodium (Chloride) 250 mls @ 250 mls/hr IV ONETIME ONE Stop: 09/19/21 01:27 Last Admin: 09/19/21 02:24 Dose: 250 mls/hr Documented by: Remdesivir (Remdesivir) Confirm Administered Dose 200 mls @ as directed .ROUTE .STK-MED ONE Stop: 09/19/21 01:47 Last Admin: 09/19/21 04:22 Dose: Not Given Documented by: Ceftriaxone Sodium 1 gm/ (Sodium Chloride) 50 mls @ 100 mls/hr IV Q24H [facility] Stop: 09/25/21 20:00 Last Admin: 09/25/21 15:06 Dose: 100 mls/hr Documented by: Doxycycline Hyclate 100 mg/ (Sodium Chloride) 100 mls @ 100 mls/hr IV Q12H [facility] Stop: 09/25/21 20:00 Last Admin: 09/25/21 15:54 Dose: 100 mls/hr Documented by: Remdesivir 100 mg/ Sodium (Chloride) 100 mls @ 100 mls/hr IV Q24H [facility] Stop: 09/22/21 20:59 Last Admin: 09/22/21 20:15 Dose: 100 mls/hr Documented by: Metoprolol Succinate (Metoprolol Succinate 25 Mg Tab.Er) 25 mg PO DAILY [facility] Last Admin: 10/21/21 08:21 Dose: 25 mg Documented by: Non-Formulary Medication (Omeprazole Magnesium [Prilosec Otc]) 20 mg PO DAILY [facility] Ondansetron HCl (Ondansetron 4 Mg/2 Ml Sdv) 4 mg IV Q4H PRN PRN Reason: Nausea/Vomiting Pantoprazole Sodium (Pantoprazole 40 Mg Tab.Cr) 40 mg PO ACBREAKFAST [facility] Last Admin: 09/23/21 07:52 Dose: 40 mg Documented by: Omeprazole 20mg 0 each PO ACBREAKFAST [facility] Omeprazole 20mg 0 each PO ACBREAKFAST [facility] Last Admin: 09/24/21 06:45 Dose: 1 each Documented by: Polyethylene Glycol (Polyethylene Glycol 3350 Powder 17 Gm Packet) 17 gm PO DAILY PRN PRN Reason: Constipation Senna/Docusate Sodium (Docusate Sodium/Sennosides 50-8.6 Mg Tab) 1 tab PO Q12H PRN PRN Reason: Constipation Last Admin: 10/02/21 14:06 Dose: 1 tab Documented by: Sodium Chloride (Sodium Chloride 0.9% 10 Ml Syringe) 10 ml FLUSH ASDIRECTED PRN PRN Reason: Keep Vein Open Zinc Gluconate (Zinc (Zinc Gluconate) 50 Mg Tab) 50 mg PO DAILY [facility] Last Admin: 10/05/21 08:40 Dose: 50 mg Documented by:
== END 2021-10-24 13:30 | disposition home health service (06) | DRG 177 ==
LOC: JP.ED 21:12 → JP.2SS 09-19 14:59 → JP.ICU 09-19 21:10 → JP.2SS 09-28 20:45 → JP.MS 10-02 12:30
PROVIDERS: ADMIT Hospitalist; ATTEND Internal Medicine
PROC: XW033E5 Introduction of Remdesivir Anti-infective into Peripheral Vein, Percutaneous Approach, New Technology Group 5 (ICD-10-PCS; principal; 2021-09-19)
PROC: 3E0333Z Introduction of Anti-inflammatory into Peripheral Vein, Percutaneous Approach (ICD-10-PCS; 2021-09-19)
PROC: XW0DXM6 Introduction of Baricitinib into Mouth and Pharynx, External Approach, New Technology Group 6 (ICD-10-PCS; 2021-09-19)
PROC: 5A0955A Assistance with Respiratory Ventilation, Greater than 96 Consecutive Hours, High Flow/Velocity Cannula (ICD-10-PCS; 2021-09-19)
PROC: 3E0DX3Z Introduction of Anti-inflammatory into Mouth and Pharynx, External Approach (ICD-10-PCS; 2021-09-19)
PROC: 8E0ZXY6 Isolation (ICD-10-PCS; 2021-09-19)
DX: U07.1 COVID-19 (principal); J12.82 Pneumonia due to coronavirus disease 2019; R09.02 Hypoxemia; J80 Acute respiratory distress syndrome; N13.8 Other obstructive and reflux uropathy; H54.7 Unspecified visual loss; E78.00 Pure hypercholesterolemia, unspecified; I10 Essential (primary) hypertension; M19.90 Unspecified osteoarthritis, unspecified site; N40.0 Benign prostatic hyperplasia without lower urinary tract symptoms; M54.9 Dorsalgia, unspecified; G89.29 Other chronic pain; J45.909 Unspecified asthma, uncomplicated; K21.9 Gastro-esophageal reflux disease without esophagitis; N40.1 Benign prostatic hyperplasia with lower urinary tract symptoms; L29.9 Pruritus, unspecified; K44.9 Diaphragmatic hernia without obstruction or gangrene; Z79.899 Other long term (current) drug therapy
CPT/HCPCS: 36415 ×2; 36600; 71045 ×2; 80053 ×2; 82728; 82803; 83605; 83615; 84145; 85025 ×2; 85379; 86140; 87040 ×2; J1100; J7050; 51798; 80048; 81001; 84484; 85027; 94762; 97110-GP; 97116-GP; 97140-GP; 97162-GP; 97530-GP; 97535-GP; 99285; A9270-GY; J0696; J1650; J1940; J3490; J8540

== ENCOUNTER 2022-10-01 07:28 | Day surgery (SDC) | payer MEDICARE, MEDICAID ==
[~2022-10-01 07:28] MED LIST: Midazolam 1 MG/ML 2 ML SDV ONE; Propofol 200 MG/20 ML SDV ONE; fentaNYL 50 MCG/ML SDV ONE
[2022-10-01] MEDS ORDERED: Lactated Ringers 1,000 ML IV SCH (08:00)
[2022-10-01] MEDS ORDERED: Glycopyrrolate 0.2 MG/ML 5 ML MDV ONE (09:19)
[2022-10-01 10:34] VITALS: BP 136/89; PULSE 61
== END 2022-10-01 10:42 | disposition home or self-care (01) ==
LOC: JP.SDS 07:28
PROVIDERS: ATTEND Student in an Organized Health Care Education/Training Program
DX: Z12.11 Encounter for screening for malignant neoplasm of colon (principal); I10 Essential (primary) hypertension; K21.9 Gastro-esophageal reflux disease without esophagitis; Z86.010 Personal history of colon polyps; Z79.899 Other long term (current) drug therapy
CPT/HCPCS: 45378; J2250; J2704; J3010; J3490; J7120